=== PATIENT | female | born 1950 | race Hispanic/Latino ===

== ENCOUNTER 2024-06-03 12:00 | Emergency (ER) | payer OTHER ==
[2024-06-03] MEDS ORDERED: NA CHLORIDE 0.9% 1,000 ML ONE (12:28)
--- OUTSIDE RECORDS SUMMARY | 2024-06-03 15:13 | XMS REPORT | Continuity of Care Document ---
Author Name Unknown Address [address] [facility] [address] [place] [address] Organization [facility] Address [address] [facility] [address] [place] [address] Care Team Providers Care Skirt Clipper Name Role Phone CLAUDIO SALAZAR Primary Care Physician Unavailab Murillo, DR BRIGHT Attending Clinician Unavailconnor COLES, DR BRIGHT Attending Clinician Unavailconnor BUNN, DR VALLE Attending Clinician Unavailsarah BUNN, DR VALLE Attending Clinician Unavaila Suzy Kent Attending Clinician Unavailable Eloy Garay Attending Clinician Unavailable David Wu Attending Clinician Unavailable Zoey Attending Clinician Unavailable Brandy Lees Attending Clinician Unavailable Ilda Garay Attending Clinician Unavailable Sharif Mcnamara Attending Clinician UnavailoScorro Camarillo Attending Clinician UnavailRubi Saucedo Attending Clinician UnavailEduardo Esteban Attending Clinician Unavailable Osito Ratliff Attending Clinician UnavailDR DEANGELO Boggs Admitting Clinician Unavailconnor BUNN, DR VALLE Admitting Clinician Unavaila Eduardo Hernandez Admitting Clinician Unavailable Eloy Garay Admitting Clinician Unavailable Zoey Admitting Clinician Unavailable Garay, Viresh Y Admitting Clinician Unavailable Payers Payer Name Policy Type Policy Number Effective Date Expirati on Date Source [id number] 00:00:00 [id number] 2024 00:00:00 [employer] (MEDICARE REPLACEMENT HMO) [id number] 2021 00:00:00 Problems Condition Name Condition Details Condition Category Status Onset Date Resolution Date Last Treatment Date Treating Clinician Comments Source Dysplastic nevus of skin Dysplastic Nevus of Skin Problem Active 11-10 00:00: 00 [facility] Undernouri shed Undernouri shed Problem Active 11-10 00:00: 00 [facility] Secondary immune deficiency disorder Secondary Immune Deficiency Disorder Problem Active 11-10 00:00: 00 [facility] Loss of appetite Loss of Appetite Problem Active 11-10 00:00: 00 [facility] Angina pectoris Angina Pectoris Problem Active 11-07 00:00: 00 [facility] Osteoarthr itis of knee Osteoarthr itis of Knee Problem Active 06-27 00:00: 00 [facility] Senile purpura Senile Purpura Problem Active 03-28 00:00: 00 [facility] Vascular dementia with behavioral disturbanc e Vascular Dementia with Behavioral Disturbanc e Problem Active 03-28 00:00: 00 [facility] Long-term current use of drug therapy Long-term Current Use of Drug Therapy Problem Active 03-28 00:00: 00 [facility] Arterioscl erotic vascular disease Arterioscl erotic Vascular Disease Problem Active 2021-03 00:00: 00 [facility] Frailty Frailty Problem Active 2021-03 00:00: 00 [facility] Diabetic ketoacidos is Diabetic Ketoacidos is Problem Active 09-24 00:00: 00 [facility] Hypoglycem ia due to type 1 diabetes mellitus Hypoglycem ia Due to Type 1 Diabetes Mellitus Problem Active 09-24 00:00: 00 [facility] Anemia Anemia Problem Active 09-17 00:00: 00 [facility] Senile dementia Senile Dementia Problem Active 09-17 00:00: 00 [facility] Anxiety Anxiety Problem Active 09-17 00:00: 00 [facility] Essential hypertensi on Essential Hypertensi on Problem Active 09-17 00:00: 00 [facility] Normal body mass index Normal Body Mass Index Problem Active 09-17 00:00: 00 [facility] Type 2 diabetes mellitus Type 2 Diabetes Mellitus Problem Active 09-17 00:00: 00 [facility] Hyperlipid emia Hyperlipid emia Problem Active 09-17 00:00: 00 [facility] Allergies, Adverse Reactions, Alerts Allergy Name Allergy Type Status Severity Reaction(s) Onset Date Inactive Date Treating Clinician Comments Source No Known Allergie s DA Active U 2021-03 015 00:00: 00 [facility] are [place] No Known Allergie s DA Active U 08-24 00:00: 00 [facility] are [place] No Known Allergie s DA Active [facility] Social History Smoking Status Start Date Stop Date Source Never Smoker [facility] Medications Ordered Medication Name Filled Medication Name Start Date Stop Date Current Medication? Ordering Clinician Indication Dosage Frequency Signature (SIG) Comments Components Source acetaminoph en 500 mg tablet Take 1 tablet every 8 hours by oral route as needed. acetaminoph en 500 mg tablet Take 1 tablet every 8 hours by oral route as needed. No 1 Q8H acetaminop hen 500 mg tablet Take 1 tablet every 8 hours by oral route as needed. [facility] alcohol swabs APPLY 1 PAD TO AFFECTED AREA FOUR TIMES DAILY FOR 90 DAYS alcohol swabs APPLY 1 PAD TO AFFECTED AREA FOUR TIMES DAILY FOR 90 DAYS No alcohol swabs APPLY 1 PAD TO AFFECTED AREA FOUR TIMES DAILY FOR 90 DAYS [facility] ascorbic acid (vitamin C) 500 mg tablet Take 1 tablet twice a day by oral route. ascorbic acid (vitamin C) 500 mg tablet Take 1 tablet twice a day by oral route. No 1 BID ascorbic acid (vitamin C) 500 mg tablet Take 1 tablet twice a day by oral route. [facility] aspirin 81 mg tablet Take 1 tablet by oral route. aspirin 81 mg tablet Take 1 tablet by oral route. No 1 aspirin 81 mg tablet Take 1 tablet by oral route. [facility] Basaglar KwikPen U-100 Insulin 100 unit/mL (3 mL) subcutaneou s ADMINISTER 20 UNITS UNDER THE SKIN DAILY Basaglar KwikPen U-100 Insulin 100 unit/mL (3 mL) subcutaneou s ADMINISTER 20 UNITS UNDER THE SKIN DAILY No Basaglar KwikPen U-100 Insulin 100 unit/mL (3 mL) subcutaneo us ADMINISTER 20 UNITS UNDER THE SKIN DAILY [facility] BD Delphine 2nd Gen Pen Needle 32 gauge x 5/32" USE FOUR TIMES DAILY DIRECTED BD Delphine 2nd Gen Pen Needle 32 gauge x 5/32" USE FOUR TIMES DAILY DIRECTED No BD Delphine 2nd Gen Pen Needle 32 gauge x 5/32" USE FOUR TIMES DAILY DIRECTED [facility] enalapril maleate 20 mg tablet TAKE 1 TABLET BY MOUTH TWICE DAILY enalapril maleate 20 mg tablet TAKE 1 TABLET BY MOUTH TWICE DAILY No enalapril maleate 20 mg tablet TAKE 1 TABLET BY MOUTH TWICE DAILY [facility] iGlucose Test Strip iGlucose Test Strip No iGlucose Test Strip [facility] lor[facility]epam 1 mg tablet TAKE 1 TABLET BY MOUTH TWICE DAILY NEEDED lorazepam 1 mg tablet TAKE 1 TABLET BY MOUTH TWICE DAILY NEEDED No lorazepam 1 mg tablet TAKE 1 TABLET BY MOUTH TWICE DAILY NEEDED [facility] nifedipine ER 30 mg tablet,exte nded release 24 hr TAKE 1 TABLET BY MOUTH EVERY DAY nifedipine ER 30 mg tablet,exte nded release 24 hr TAKE 1 TABLET BY MOUTH EVERY DAY No nifedipine ER 30 mg tablet,ext ended release 24 hr TAKE 1 TABLET BY MOUTH EVERY DAY [facility] Novolog Flexpen U-100 Insulin aspart 100 unit/mL (3 mL) subcutaneou s ADMINISTER 8 UNITS UNDER THE SKIN BEFORE MEALS. TOTAL DAILY DOSE OF 24 Novolog Flexpen U-100 Insulin aspart 100 unit/mL (3 mL) subcutaneou s ADMINISTER 8 UNITS UNDER THE SKIN BEFORE MEALS. TOTAL DAILY DOSE OF 24 No Novolog Flexpen U-100 Insulin aspart 100 unit/mL (3 mL) subcutaneo us ADMINISTER 8 UNITS UNDER THE SKIN BEFORE MEALS. TOTAL DAILY DOSE OF 24 [facility] ondansetron HCl 4 mg tablet TAKE 1 TABLET BY MOUTH EVERY 6 HOURS NEEDED FOR NAUSEA OR VOMITING ondansetron HCl 4 mg tablet TAKE 1 TABLET BY MOUTH EVERY 6 HOURS NEEDED FOR NAUSEA OR VOMITING No ondansetro n HCl 4 mg tablet TAKE 1 TABLET BY MOUTH EVERY 6 HOURS NEEDED FOR NAUSEA OR VOMITING [facility] OneTouch Delica Plus Lancet 33 gauge USE 4 TIMES DAILY NEEDED OneTouch Delica Plus Lancet 33 gauge USE 4 TIMES DAILY NEEDED No OneTouch Delica Plus Lancet 33 gauge USE 4 TIMES DAILY NEEDED [facility] OneTouch Verio test strips TEST FOUR TIMES DAILY OneTouch Verio test strips TEST FOUR TIMES DAILY No OneTouch Verio test strips TEST FOUR TIMES DAILY [facility] pioglitazon e 15 mg tablet TAKE 1 TABLET BY MOUTH EVERY DAY pioglitazon e 15 mg tablet TAKE 1 TABLET BY MOUTH EVERY DAY No pioglitazo ne 15 mg tablet TAKE 1 TABLET BY MOUTH EVERY DAY [facility] Vitamin 27 mg iron-800 mcg tablet Take 1 tablet every day by oral route for 90 days. Vitamin 27 mg iron-800 mcg tablet Take 1 tablet every day by oral route for 90 days. No 1 Q1D Vitamin 27 mg iron-800 mcg tablet Take 1 tablet every day by oral route for 90 days. [facility] simvastatin 80 mg tablet TAKE 1 TABLET BY MOUTH EVERY DAY IN THE EVENING simvastatin 80 mg tablet TAKE 1 TABLET BY MOUTH EVERY DAY IN THE EVENING No simvastati n 80 mg tablet TAKE 1 TABLET BY MOUTH EVERY DAY IN THE EVENING [facility] thiamine HCl (vitamin B1) 100 mg tablet Take by oral route. thiamine HCl (vitamin B1) 100 mg tablet Take by oral route. No thiamine HCl (vitamin B1) 100 mg tablet Take by oral route. [facility] TRUEplus Pen Needle TRUEplus Pen Needle No TRUEplus Pen Needle [facility] acetaminoph en 500 mg tablet Take 1 tablet every 8 hours by oral route as needed. acetaminoph en 500 mg tablet Take 1 tablet every 8 hours by oral route as needed. No 1 Q8H acetaminop hen 500 mg tablet Take 1 tablet every 8 hours by oral route as needed. [facility] alcohol swabs APPLY 1 PAD TO AFFECTED AREA FOUR TIMES DAILY FOR 90 DAYS alcohol swabs APPLY 1 PAD TO AFFECTED AREA FOUR TIMES DAILY FOR 90 DAYS No alcohol swabs APPLY 1 PAD TO AFFECTED AREA FOUR TIMES DAILY FOR 90 DAYS [facility] ascorbic acid (vitamin C) 500 mg tablet Take 1 tablet twice a day by oral route. ascorbic acid (vitamin C) 500 mg tablet Take 1 tablet twice a day by oral route. No 1 BID ascorbic acid (vitamin C) 500 mg tablet Take 1 tablet twice a day by oral route. [facility] aspirin 81 mg tablet Take 1 tablet by oral route. aspirin 81 mg tablet Take 1 tablet by oral route. No 1 aspirin 81 mg tablet Take 1 tablet by oral route. [facility] Basaglar KwikPen U-100 Insulin 100 unit/mL (3 mL) subcutaneou s ADMINISTER 20 UNITS UNDER THE SKIN DAILY Basaglar KwikPen U-100 Insulin 100 unit/mL (3 mL) subcutaneou s ADMINISTER 20 UNITS UNDER THE SKIN DAILY No Basaglar KwikPen U-100 Insulin 100 unit/mL (3 mL) subcutaneo us ADMINISTER 20 UNITS UNDER THE SKIN DAILY [facility] BD Delphine 2nd Gen Pen Needle 32 gauge x 5/32" USE FOUR TIMES DAILY DIRECTED BD Delphine 2nd Gen Pen Needle 32 gauge x 5/32" USE FOUR TIMES DAILY DIRECTED No BD Delphine 2nd Gen Pen Needle 32 gauge x 5/32" USE FOUR TIMES DAILY DIRECTED [facility] enalapril maleate 20 mg tablet Take 1 tablet twice a day by oral route for 90 days. enalapril maleate 20 mg tablet Take 1 tablet twice a day by oral route for 90 days. No 1 BID enalapril maleate 20 mg tablet Take 1 tablet twice a day by oral route for 90 days. [facility] haloperidol 1 mg tablet Take 1 tablet every day by oral route in the evening for 30 days. haloperidol 1 mg tablet Take 1 tablet every day by oral route in the evening for 30 days. No 1 Q1D haloperido l 1 mg tablet Take 1 tablet every day by oral route in the evening for 30 days. [facility] iGlucose Test Strip iGlucose Test Strip No iGlucose Test Strip [facility] lancets lancets No lancets [facility] lorazepam 1 mg tablet Take 1 tablet twice a day by oral route as needed for 30 days. lorazepam 1 mg tablet Take 1 tablet twice a day by oral route as needed for 30 days. No 1 BID lorazepam 1 mg tablet Take 1 tablet twice a day by oral route as needed for 30 days. [facility] nifedipine ER 30 mg tablet,exte nded release 24 hr Take 1 tablet every day by oral route for 90 days. nifedipine ER 30 mg tablet,exte nded release 24 hr Take 1 tablet every day by oral route for 90 days. No 1 Q1D nifedipine ER 30 mg tablet,ext ended release 24 hr Take 1 tablet every day by oral route for 90 days. [facility] Novolog FlexPen U-100 Insulin aspart 100 unit/mL (3 mL) subcutaneou s ADMINISTER 8 UNITS UNDER THE SKIN BEFORE MEALS. TOTAL DAILY DOSE OF 24 Novolog FlexPen U-100 Insulin aspart 100 unit/mL (3 mL) subcutaneou s ADMINISTER 8 UNITS UNDER THE SKIN BEFORE MEALS. TOTAL DAILY DOSE OF 24 No Novolog FlexPen U-100 Insulin aspart 100 unit/mL (3 mL) subcutaneo us ADMINISTER 8 UNITS UNDER THE SKIN BEFORE MEALS. TOTAL DAILY DOSE OF 24 [facility] ondansetron HCl 4 mg tablet TAKE 1 TABLET BY MOUTH EVERY 6 HOURS NEEDED FOR NAUSEA OR VOMITING ondansetron HCl 4 mg tablet TAKE 1 TABLET BY MOUTH EVERY 6 HOURS NEEDED FOR NAUSEA OR VOMITING No ondansetro n HCl 4 mg tablet TAKE 1 TABLET BY MOUTH EVERY 6 HOURS NEEDED FOR NAUSEA OR VOMITING [facility] OneTouch Delica Plus Lancet 33 gauge USE 4 TIMES DAILY NEEDED OneTouch Delica Plus Lancet 33 gauge USE 4 TIMES DAILY NEEDED No OneTouch Delica Plus Lancet 33 gauge USE 4 TIMES DAILY NEEDED [facility] OneTouch Verio test strips TEST FOUR TIMES DAILY OneTouch Verio test strips TEST FOUR TIMES DAILY No OneTouch Verio test strips TEST FOUR TIMES DAILY [facility] pioglitazon e 15 mg tablet TAKE 1 TABLET BY MOUTH EVERY DAY pioglitazon e 15 mg tablet TAKE 1 TABLET BY MOUTH EVERY DAY No pioglitazo ne 15 mg tablet TAKE 1 TABLET BY MOUTH EVERY DAY [facility] Vitamin 27 mg iron-800 mcg tablet Take 1 tablet every day by oral route for 90 days. Vitamin 27 mg iron-800 mcg tablet Take 1 tablet every day by oral route for 90 days. No 1 Q1D Vitamin 27 mg iron-800 mcg tablet Take 1 tablet every day by oral route for 90 days. [facility] simvastatin 40 mg tablet Take 1 tablet every day by oral route at bedtime for 90 days. simvastatin 40 mg tablet Take 1 tablet every day by oral route at bedtime for 90 days. No 1 Q1D simvastati n 40 mg tablet Take 1 tablet every day by oral route at bedtime for 90 days. [facility] simvastatin 80 mg tablet TAKE 1 TABLET BY MOUTH EVERY DAY simvastatin 80 mg tablet TAKE 1 TABLET BY MOUTH EVERY DAY No simvastati n 80 mg tablet TAKE 1 TABLET BY MOUTH EVERY DAY [facility] thiamine HCl (vitamin B1) 100 mg tablet Take by oral route. thiamine HCl (vitamin B1) 100 mg tablet Take by oral route. No thiamine HCl (vitamin B1) 100 mg tablet Take by oral route. [facility] TRUEplus Pen Needle TRUEplus Pen Needle No TRUEplus Pen Needle [facility] acetaminoph en 500 mg tablet Take 1 tablet every 8 hours by oral route as needed. acetaminoph en 500 mg tablet Take 1 tablet every 8 hours by oral route as needed. No 1 Q8H acetaminop hen 500 mg tablet Take 1 tablet every 8 hours by oral route as needed. [facility] alcohol swabs APPLY 1 PAD TO AFFECTED AREA FOUR TIMES DAILY FOR 90 DAYS alcohol swabs APPLY 1 PAD TO AFFECTED AREA FOUR TIMES DAILY FOR 90 DAYS No alcohol swabs APPLY 1 PAD TO AFFECTED AREA FOUR TIMES DAILY FOR 90 DAYS [facility] ascorbic acid (vitamin C) 500 mg tablet Take 1 tablet twice a day by oral route. ascorbic acid (vitamin C) 500 mg tablet Take 1 tablet twice a day by oral route. No 1 BID ascorbic acid (vitamin C) 500 mg tablet Take 1 tablet twice a day by oral route. [facility] aspirin 81 mg tablet Take 1 tablet by oral route. aspirin 81 mg tablet Take 1 tablet by oral route. No 1 aspirin 81 mg tablet Take 1 tablet by oral route. [facility] atorvastati n 80 mg tablet Take 1 tablet every day by oral route at bedtime for 90 days. atorvastati n 80 mg tablet Take 1 tablet every day by oral route at bedtime for 90 days. No 1 Q1D atorvastat in 80 mg tablet Take 1 tablet every day by oral route at bedtime for 90 days. [facility] Basaglar KwikPen U-100 Insulin 100 unit/mL (3 mL) subcutaneou s ADMINISTER 20 UNITS UNDER THE SKIN DAILY Basaglar KwikPen U-100 Insulin 100 unit/mL (3 mL) subcutaneou s ADMINISTER 20 UNITS UNDER THE SKIN DAILY No Basaglar KwikPen U-100 Insulin 100 unit/mL (3 mL) subcutaneo us ADMINISTER 20 UNITS UNDER THE SKIN DAILY [facility] BD Delphine 2nd Gen Pen Needle 32 gauge x 5/32" TEST BLOOD GLUOCOSE FOUR TIMES DAILY BD Delphine 2nd Gen Pen Needle 32 gauge x 5/32" TEST BLOOD GLUOCOSE FOUR TIMES DAILY No BD Delphine 2nd Gen Pen Needle 32 gauge x 5/32" TEST BLOOD GLUOCOSE FOUR TIMES DAILY [facility] diclofenac 1 % topical gel APPLY 2 GRAMS TO THE AFFECTED AREA(S) BY TOPICAL ROUTE 4 TIMES PER DAY diclofenac 1 % topical gel APPLY 2 GRAMS TO THE AFFECTED AREA(S) BY TOPICAL ROUTE 4 TIMES PER DAY No diclofenac 1 % topical gel APPLY 2 GRAMS TO THE AFFECTED AREA(S) BY TOPICAL ROUTE 4 TIMES PER DAY [facility] enalapril maleate 20 mg tablet Take 1 tablet twice a day by oral route for 90 days. enalapril maleate 20 mg tablet Take 1 tablet twice a day by oral route for 90 days. No 1 BID enalapril maleate 20 mg tablet Take 1 tablet twice a day by oral route for 90 days. [facility] haloperidol 1 mg tablet TAKE 1 TABLET BY MOUTH EVERY DAY IN THE EVENING haloperidol 1 mg tablet TAKE 1 TABLET BY MOUTH EVERY DAY IN THE EVENING No haloperido l 1 mg tablet TAKE 1 TABLET BY MOUTH EVERY DAY IN THE EVENING [facility] lorazepam 1 mg tablet Take 1 tablet twice a day by oral route as needed for 30 days. lorazepam 1 mg tablet Take 1 tablet twice a day by oral route as needed for 30 days. No 1 BID lorazepam 1 mg tablet Take 1 tablet twice a day by oral route as needed for 30 days. [facility] nifedipine ER 30 mg tablet,exte nded release 24 hr Take 1 tablet every day by oral route for 90 days. nifedipine ER 30 mg tablet,exte nded release 24 hr Take 1 tablet every day by oral route for 90 days. No 1 Q1D nifedipine ER 30 mg tablet,ext ended release 24 hr Take 1 tablet every day by oral route for 90 days. [facility] Novolog FlexPen U-100 Insulin aspart 100 unit/mL (3 mL) subcutaneou s ADMINISTER 8 UNITS UNDER THE SKIN BEFORE MEALS. TOTAL DAILY DOSE OF 24 Novolog FlexPen U-100 Insulin aspart 100 unit/mL (3 mL) subcutaneou s ADMINISTER 8 UNITS UNDER THE SKIN BEFORE MEALS. TOTAL DAILY DOSE OF 24 No Novolog FlexPen U-100 Insulin aspart 100 unit/mL (3 mL) subcutaneo us ADMINISTER 8 UNITS UNDER THE SKIN BEFORE MEALS. TOTAL DAILY DOSE OF 24 [facility] ondansetron HCl 4 mg tablet TAKE 1 TABLET BY MOUTH EVERY 6 HOURS NEEDED FOR NAUSEA OR VOMITING ondansetron HCl 4 mg tablet TAKE 1 TABLET BY MOUTH EVERY 6 HOURS NEEDED FOR NAUSEA OR VOMITING No ondansetro n HCl 4 mg tablet TAKE 1 TABLET BY MOUTH EVERY 6 HOURS NEEDED FOR NAUSEA OR VOMITING [facility] OneTouch Delica Plus Lancet 33 gauge TEST BLOOD GLUCOSE THREE TIMES DAILY OneTouch Delica Plus Lancet 33 gauge TEST BLOOD GLUCOSE THREE TIMES DAILY No OneTouch Delica Plus Lancet 33 gauge TEST BLOOD GLUCOSE THREE TIMES DAILY [facility] OneTouch Verio test strips TEST BLOOD GLUCOSE FOUR TIMES DAILY OneTouch Verio test strips TEST BLOOD GLUCOSE FOUR TIMES DAILY No OneTouch Verio test strips TEST BLOOD GLUCOSE FOUR TIMES DAILY [facility] pioglitazon e 15 mg tablet TAKE 1 TABLET BY MOUTH EVERY DAY pioglitazon e 15 mg tablet TAKE 1 TABLET BY MOUTH EVERY DAY No pioglitazo ne 15 mg tablet TAKE 1 TABLET BY MOUTH EVERY DAY [facility] Vitamin 27 mg iron-800 mcg tablet Take 1 tablet every day by oral route for 90 days. Vitamin 27 mg iron-800 mcg tablet Take 1 tablet every day by oral route for 90 days. No 1 Q1D Vitamin 27 mg iron-800 mcg tablet Take 1 tablet every day by oral route for 90 days. [facility] thiamine HCl (vitamin B1) 100 mg tablet Take by oral route. thiamine HCl (vitamin B1) 100 mg tablet Take by oral route. No thiamine HCl (vitamin B1) 100 mg tablet Take by oral route. [facility] TRUEplus Pen Needle TRUEplus Pen Needle No TRUEplus Pen Needle [facility] acetaminoph en 500 mg tablet Take 1 tablet every 8 hours by oral route as needed. acetaminoph en 500 mg tablet Take 1 tablet every 8 hours by oral route as needed. No 1 Q8H acetaminop hen 500 mg tablet Take 1 tablet every 8 hours by oral route as needed. [facility] alcohol swabs APPLY 1 PAD TO AFFECTED AREA FOUR TIMES DAILY FOR 90 DAYS alcohol swabs APPLY 1 PAD TO AFFECTED AREA FOUR TIMES DAILY FOR 90 DAYS No alcohol swabs APPLY 1 PAD TO AFFECTED AREA FOUR TIMES DAILY FOR 90 DAYS [facility] ascorbic acid (vitamin C) 500 mg tablet Take 1 tablet twice a day by oral route. ascorbic acid (vitamin C) 500 mg tablet Take 1 tablet twice a day by oral route. No 1 BID ascorbic acid (vitamin C) 500 mg tablet Take 1 tablet twice a day by oral route. [facility] aspirin 81 mg tablet Take 1 tablet by oral route. aspirin 81 mg tablet Take 1 tablet by oral route. No 1 aspirin 81 mg tablet Take 1 tablet by oral route. [facility] atorvastati n 80 mg tablet TAKE 1 TABLET BY MOUTH EVERY DAY AT BEDTIME atorvastati n 80 mg tablet TAKE 1 TABLET BY MOUTH EVERY DAY AT BEDTIME No atorvastat in 80 mg tablet TAKE 1 TABLET BY MOUTH EVERY DAY AT BEDTIME [facility] Basaglar KwikPen U-100 Insulin 100 unit/mL (3 mL) subcutaneou s ADMINISTER 20 UNITS UNDER THE SKIN DAILY Basaglar KwikPen U-100 Insulin 100 unit/mL (3 mL) subcutaneou s ADMINISTER 20 UNITS UNDER THE SKIN DAILY No Basaglar KwikPen U-100 Insulin 100 unit/mL (3 mL) subcutaneo us ADMINISTER 20 UNITS UNDER THE SKIN DAILY [facility] BD Delphine 2nd Gen Pen Needle 32 gauge x 5/32" TEST BLOOD GLUOCOSE FOUR TIMES DAILY BD Delphine 2nd Gen Pen Needle 32 gauge x 5/32" TEST BLOOD GLUOCOSE FOUR TIMES DAILY No BD Delphine 2nd Gen Pen Needle 32 gauge x 5/32" TEST BLOOD GLUOCOSE FOUR TIMES DAILY [facility] diclofenac 1 % topical gel APPLY 2 GRAMS TO THE AFFECTED AREAS FOUR TIMES DAILY diclofenac 1 % topical gel APPLY 2 GRAMS TO THE AFFECTED AREAS FOUR TIMES DAILY No diclofenac 1 % topical gel APPLY 2 GRAMS TO THE AFFECTED AREAS FOUR TIMES DAILY [facility] enalapril maleate 20 mg tablet Take 1 tablet twice a day by oral route for 90 days. enalapril maleate 20 mg tablet Take 1 tablet twice a day by oral route for 90 days. No 1 BID enalapril maleate 20 mg tablet Take 1 tablet twice a day by oral route for 90 days. [facility] haloperidol 1 mg tablet TAKE 1 TABLET BY MOUTH EVERY DAY IN THE EVENING haloperidol 1 mg tablet TAKE 1 TABLET BY MOUTH EVERY DAY IN THE EVENING No haloperido l 1 mg tablet TAKE 1 TABLET BY MOUTH EVERY DAY IN THE EVENING [facility] lorazepam 1 mg tablet TAKE 1 TABLET BY MOUTH TWICE DAILY NEEDED lorazepam 1 mg tablet TAKE 1 TABLET BY MOUTH TWICE DAILY NEEDED No lorazepam 1 mg tablet TAKE 1 TABLET BY MOUTH TWICE DAILY NEEDED [facility] Namenda 5 mg tablet Take 1 tablet every day by oral route for 30 days. Namenda 5 mg tablet Take 1 tablet every day by oral route for 30 days. No 1 Q1D Namenda 5 mg tablet Take 1 tablet every day by oral route for 30 days. [facility] nifedipine ER 30 mg tablet,exte nded release 24 hr Take 1 tablet every day by oral route for 90 days. nifedipine ER 30 mg tablet,exte nded release 24 hr Take 1 tablet every day by oral route for 90 days. No 1 Q1D nifedipine ER 30 mg tablet,ext ended release 24 hr Take 1 tablet every day by oral route for 90 days. [facility] Novolog FlexPen U-100 Insulin aspart 100 unit/mL (3 mL) subcutaneou s ADMINISTER 8 UNITS UNDER THE SKIN BEFORE MEALS. TOTAL DAILY DOSE OF 24 Novolog FlexPen U-100 Insulin aspart 100 unit/mL (3 mL) subcutaneou s ADMINISTER 8 UNITS UNDER THE SKIN BEFORE MEALS. TOTAL DAILY DOSE OF 24 No Novolog FlexPen U-100 Insulin aspart 100 unit/mL (3 mL) subcutaneo us ADMINISTER 8 UNITS UNDER THE SKIN BEFORE MEALS. TOTAL DAILY DOSE OF 24 [facility] ondansetron HCl 4 mg tablet TAKE 1 TABLET BY MOUTH EVERY 6 HOURS NEEDED FOR NAUSEA OR VOMITING ondansetron HCl 4 mg tablet TAKE 1 TABLET BY MOUTH EVERY 6 HOURS NEEDED FOR NAUSEA OR VOMITING No ondansetro n HCl 4 mg tablet TAKE 1 TABLET BY MOUTH EVERY 6 HOURS NEEDED FOR NAUSEA OR VOMITING [facility] OneTouch Delica Plus Lancet 33 gauge USE FOUR TIMES DAILY DIRECTED OneTouch Delica Plus Lancet 33 gauge USE FOUR TIMES DAILY DIRECTED No OneTouch Delica Plus Lancet 33 gauge USE FOUR TIMES DAILY DIRECTED [facility] OneTouch Verio test strips TEST BLOOD GLUCOSE FOUR TIMES DAILY OneTouch Verio test strips TEST BLOOD GLUCOSE FOUR TIMES DAILY No OneTouch Verio test strips TEST BLOOD GLUCOSE FOUR TIMES DAILY [facility] pioglitazon e 15 mg tablet TAKE 1 TABLET BY MOUTH EVERY DAY pioglitazon e 15 mg tablet TAKE 1 TABLET BY MOUTH EVERY DAY No pioglitazo ne 15 mg tablet TAKE 1 TABLET BY MOUTH EVERY DAY [facility] Vitamin 27 mg iron-800 mcg tablet Take 1 tablet every day by oral route for 90 days. Vitamin 27 mg iron-800 mcg tablet Take 1 tablet every day by oral route for 90 days. No 1 Q1D Vitamin 27 mg iron-800 mcg tablet Take 1 tablet every day by oral route for 90 days. [facility] thiamine HCl (vitamin B1) 100 mg tablet Take by oral route. thiamine HCl (vitamin B1) 100 mg tablet Take by oral route. No thiamine HCl (vitamin B1) 100 mg tablet Take by oral route. [facility] TRUEplus Pen Needle TRUEplus Pen Needle No TRUEplus Pen Needle [facility] acetaminoph en 500 mg tablet Take 1 tablet every 8 hours by oral route as needed. acetaminoph en 500 mg tablet Take 1 tablet every 8 hours by oral route as needed. No 1 Q8H acetaminop hen 500 mg tablet Take 1 tablet every 8 hours by oral route as needed. [facility] alcohol swabs APPLY 1 PAD TO AFFECTED AREA FOUR TIMES DAILY FOR 90 DAYS alcohol swabs APPLY 1 PAD TO AFFECTED AREA FOUR TIMES DAILY FOR 90 DAYS No alcohol swabs APPLY 1 PAD TO AFFECTED AREA FOUR TIMES DAILY FOR 90 DAYS [facility] ascorbic acid (vitamin C) 500 mg tablet Take 1 tablet twice a day by oral route. ascorbic acid (vitamin C) 500 mg tablet Take 1 tablet twice a day by oral route. No 1 BID ascorbic acid (vitamin C) 500 mg tablet Take 1 tablet twice a day by oral route. [facility] aspirin 81 mg tablet Take 1 tablet by oral route. aspirin 81 mg tablet Take 1 tablet by oral route. No 1 aspirin 81 mg tablet Take 1 tablet by oral route. [facility] atorvastati n 80 mg tablet Take 1 tablet every day by oral route at bedtime for 90 days. atorvastati n 80 mg tablet Take 1 tablet every day by oral route at bedtime for 90 days. No 1 Q1D atorvastat in 80 mg tablet Take 1 tablet every day by oral route at bedtime for 90 days. [facility] Basaglar KwikPen U-100 Insulin 100 unit/mL (3 mL) subcutaneou s ADMINISTER 20 UNITS UNDER THE SKIN DAILY Basaglar KwikPen U-100 Insulin 100 unit/mL (3 mL) subcutaneou s ADMINISTER 20 UNITS UNDER THE SKIN DAILY No Marquita Perez U-100 Insulin 100 unit/mL (3 mL) subcutaneo us ADMINISTER 20 UNITS UNDER THE SKIN DAILY [facility] BD Delphine 2nd Gen Pen Needle 32 gauge x 5/32" TEST BLOOD GLUOCOSE FOUR TIMES DAILY BD Delphine 2nd Gen Pen Needle 32 gauge x 5/32" TEST BLOOD GLUOCOSE FOUR TIMES DAILY No BD Delphine 2nd Gen Pen Needle 32 gauge x 5/32" TEST BLOOD GLUOCOSE FOUR TIMES DAILY [facility] diclofenac 1 % topical gel APPLY 2 GRAMS TO THE AFFECTED AREAS FOUR TIMES DAILY diclofenac 1 % topical gel APPLY 2 GRAMS TO THE AFFECTED AREAS FOUR TIMES DAILY No diclofenac 1 % topical gel APPLY 2 GRAMS TO THE AFFECTED AREAS FOUR TIMES DAILY [facility] enalapril maleate 20 mg tablet Take 1 tablet twice a day by oral route for 90 days. enalapril maleate 20 mg tablet Take 1 tablet twice a day by oral route for 90 days. No 1 BID enalapril maleate 20 mg tablet Take 1 tablet twice a day by oral route for 90 days. [facility] haloperidol 1 mg tablet Take 1 tablet every day by oral route in the evening for 30 days. haloperidol 1 mg tablet Take 1 tablet every day by oral route in the evening for 30 days. No 1 Q1D haloperido l 1 mg tablet Take 1 tablet every day by oral route in the evening for 30 days. [facility] lorazepam 1 mg tablet TAKE 1 TABLET BY MOUTH TWICE DAILY NEEDED lorazepam 1 mg tablet TAKE 1 TABLET BY MOUTH TWICE DAILY NEEDED No lorazepam 1 mg tablet TAKE 1 TABLET BY MOUTH TWICE DAILY NEEDED [facility] megestrol 400 mg/10 mL (40 mg/mL) oral suspension Take 10 mL 3 times a day by oral route for 30 days. megestrol 400 mg/10 mL (40 mg/mL) oral suspension Take 10 mL 3 times a day by oral route for 30 days. No 10mL TID megestrol 400 mg/10 mL (40 mg/mL) oral suspension Take 10 mL 3 times a day by oral route for 30 days. [facility] nifedipine ER 30 mg tablet,exte nded release 24 hr Take 1 tablet every day by oral route for 90 days. nifedipine ER 30 mg tablet,exte nded release 24 hr Take 1 tablet every day by oral route for 90 days. No 1 Q1D nifedipine ER 30 mg tablet,ext ended release 24 hr Take 1 tablet every day by oral route for 90 days. [facility] Novolog FlexPen U-100 Insulin aspart 100 unit/mL (3 mL) subcutaneou s ADMINISTER 8 UNITS UNDER THE SKIN BEFORE MEALS. TOTAL DAILY DOSE OF 24 Novolog FlexPen U-100 Insulin aspart 100 unit/mL (3 mL) subcutaneou s ADMINISTER 8 UNITS UNDER THE SKIN BEFORE MEALS. TOTAL DAILY DOSE OF 24 No Novolog FlexPen U-100 Insulin aspart 100 unit/mL (3 mL) subcutaneo us ADMINISTER 8 UNITS UNDER THE SKIN BEFORE MEALS. TOTAL DAILY DOSE OF 24 [facility] ondansetron HCl 4 mg tablet TAKE 1 TABLET BY MOUTH EVERY 6 HOURS NEEDED FOR NAUSEA OR VOMITING ondansetron HCl 4 mg tablet TAKE 1 TABLET BY MOUTH EVERY 6 HOURS NEEDED FOR NAUSEA OR VOMITING No ondansetro n HCl 4 mg tablet TAKE 1 TABLET BY MOUTH EVERY 6 HOURS NEEDED FOR NAUSEA OR VOMITING [facility] OneTouch Delica Plus Lancet 33 gauge USE FOUR TIMES DAILY DIRECTED OneTouch Delica Plus Lancet 33 gauge USE FOUR TIMES DAILY DIRECTED No OneTouch Delica Plus Lancet 33 gauge USE FOUR TIMES DAILY DIRECTED [facility] OneTouch Verio test strips TEST BLOOD GLUCOSE FOUR TIMES DAILY OneTouch Verio test strips TEST BLOOD GLUCOSE FOUR TIMES DAILY No OneTouch Verio test strips TEST BLOOD GLUCOSE FOUR TIMES DAILY [facility] Vitamin 27 mg iron-800 mcg tablet Take 1 tablet every day by oral route for 90 days. Vitamin 27 mg iron-800 mcg tablet Take 1 tablet every day by oral route for 90 days. No 1 Q1D Vitamin 27 mg iron-800 mcg tablet Take 1 tablet every day by oral route for 90 days. [facility] thiamine HCl (vitamin B1) 100 mg tablet Take by oral route. thiamine HCl (vitamin B1) 100 mg tablet Take by oral route. No thiamine HCl (vitamin B1) 100 mg tablet Take by oral route. [facility] TRUEplus Pen Needle TRUEplus Pen Needle No TRUEplus Pen Needle [facility] acetaminoph en 500 mg tablet Take 1 tablet every 8 hours by oral route as needed. acetaminoph en 500 mg tablet Take 1 tablet every 8 hours by oral route as needed. No 1 Q8H acetaminop hen 500 mg tablet Take 1 tablet every 8 hours by oral route as needed. [facility] alcohol swabs APPLY 1 PAD TO AFFECTED AREA FOUR TIMES DAILY FOR 90 DAYS alcohol swabs APPLY 1 PAD TO AFFECTED AREA FOUR TIMES DAILY FOR 90 DAYS No alcohol swabs APPLY 1 PAD TO AFFECTED AREA FOUR TIMES DAILY FOR 90 DAYS [facility] ascorbic acid (vitamin C) 500 mg tablet Take 1 tablet twice a day by oral route. ascorbic acid (vitamin C) 500 mg tablet Take 1 tablet twice a day by oral route. No 1 BID ascorbic acid (vitamin C) 500 mg tablet Take 1 tablet twice a day by oral route. [facility] aspirin 81 mg tablet Take 1 tablet by oral route. aspirin 81 mg tablet Take 1 tablet by oral route. No 1 aspirin 81 mg tablet Take 1 tablet by oral route. [facility] atorvastati n 80 mg tablet Take 1 tablet every day by oral route at bedtime for 90 days. atorvastati n 80 mg tablet Take 1 tablet every day by oral route at bedtime for 90 days. No 1 Q1D atorvastat in 80 mg tablet Take 1 tablet every day by oral route at bedtime for 90 days. [facility] Basaglar KwikPen U-100 Insulin 100 unit/mL (3 mL) subcutaneou s ADMINISTER 20 UNITS UNDER THE SKIN DAILY Basaglar KwikPen U-100 Insulin 100 unit/mL (3 mL) subcutaneou s ADMINISTER 20 UNITS UNDER THE SKIN DAILY No Basaglar KwikPen U-100 Insulin 100 unit/mL (3 mL) subcutaneo us ADMINISTER 20 UNITS UNDER THE SKIN DAILY [facility] BD Delphine 2nd Gen Pen Needle 32 gauge x 5/32" TEST BLOOD GLUOCOSE FOUR TIMES DAILY BD Delphine 2nd Gen Pen Needle 32 gauge x 5/32" TEST BLOOD GLUOCOSE FOUR TIMES DAILY No BD Delphine 2nd Gen Pen Needle 32 gauge x 5/32" TEST BLOOD GLUOCOSE FOUR TIMES DAILY [facility] diclofenac 1 % topical gel APPLY 2 GRAMS TO THE AFFECTED AREAS FOUR TIMES DAILY diclofenac 1 % topical gel APPLY 2 GRAMS TO THE AFFECTED AREAS FOUR TIMES DAILY No diclofenac 1 % topical gel APPLY 2 GRAMS TO THE AFFECTED AREAS FOUR TIMES DAILY [facility] enalapril maleate 20 mg tablet Take 1 tablet twice a day by oral route for 90 days. enalapril maleate 20 mg tablet Take 1 tablet twice a day by oral route for 90 days. No 1 BID enalapril maleate 20 mg tablet Take 1 tablet twice a day by oral route for 90 days. [facility] haloperidol 1 mg tablet Take 1 tablet every day by oral route in the evening for 90 days. haloperidol 1 mg tablet Take 1 tablet every day by oral route in the evening for 90 days. No 1 Q1D haloperido l 1 mg tablet Take 1 tablet every day by oral route in the evening for 90 days. [facility] lorazepam 1 mg tablet TAKE 1 TABLET BY MOUTH TWICE DAILY NEEDED lorazepam 1 mg tablet TAKE 1 TABLET BY MOUTH TWICE DAILY NEEDED No lorazepam 1 mg tablet TAKE 1 TABLET BY MOUTH TWICE DAILY NEEDED [facility] megestrol 400 mg/10 mL (40 mg/mL) oral suspension SHAKE LIQUID AND TAKE 10 ML BY MOUTH THREE TIMES DAILY megestrol 400 mg/10 mL (40 mg/mL) oral suspension SHAKE LIQUID AND TAKE 10 ML BY MOUTH THREE TIMES DAILY No megestrol 400 mg/10 mL (40 mg/mL) oral suspension SHAKE LIQUID AND TAKE 10 ML BY MOUTH THREE TIMES DAILY [facility] nifedipine ER 30 mg tablet,exte nded release 24 hr Take 1 tablet every day by oral route for 90 days. nifedipine ER 30 mg tablet,exte nded release 24 hr Take 1 tablet every day by oral route for 90 days. No 1 Q1D nifedipine ER 30 mg tablet,ext ended release 24 hr Take 1 tablet every day by oral route for 90 days. [facility] Novolog FlexPen U-100 Insulin aspart 100 unit/mL (3 mL) subcutaneou s ADMINISTER 8 UNITS UNDER THE SKIN BEFORE MEALS. TOTAL DAILY DOSE OF 24 Novolog FlexPen U-100 Insulin aspart 100 unit/mL (3 mL) subcutaneou s ADMINISTER 8 UNITS UNDER THE SKIN BEFORE MEALS. TOTAL DAILY DOSE OF 24 No Novolog FlexPen U-100 Insulin aspart 100 unit/mL (3 mL) subcutaneo us ADMINISTER 8 UNITS UNDER THE SKIN BEFORE MEALS. TOTAL DAILY DOSE OF 24 [facility] ondansetron HCl 4 mg tablet TAKE 1 TABLET BY MOUTH EVERY 6 HOURS NEEDED FOR NAUSEA OR VOMITING ondansetron HCl 4 mg tablet TAKE 1 TABLET BY MOUTH EVERY 6 HOURS NEEDED FOR NAUSEA OR VOMITING No ondansetro n HCl 4 mg tablet TAKE 1 TABLET BY MOUTH EVERY 6 HOURS NEEDED FOR NAUSEA OR VOMITING [facility] OneTouch Delica Plus Lancet 33 gauge USE FOUR TIMES DAILY DIRECTED OneTouch Delica Plus Lancet 33 gauge USE FOUR TIMES DAILY DIRECTED No OneTouch Delica Plus Lancet 33 gauge USE FOUR TIMES DAILY DIRECTED [facility] OneTouch Verio test strips TEST BLOOD GLUCOSE FOUR TIMES DAILY OneTouch Verio test strips TEST BLOOD GLUCOSE FOUR TIMES DAILY No OneTouch Verio test strips TEST BLOOD GLUCOSE FOUR TIMES DAILY [facility] Vitamin 27 mg iron-800 mcg tablet Take 1 tablet every day by oral route for 90 days. Vitamin 27 mg iron-800 mcg tablet Take 1 tablet every day by oral route for 90 days. No 1 Q1D Vitamin 27 mg iron-800 mcg tablet Take 1 tablet every day by oral route for 90 days. [facility] thiamine HCl (vitamin B1) 100 mg tablet Take by oral route. thiamine HCl (vitamin B1) 100 mg tablet Take by oral route. No thiamine HCl (vitamin B1) 100 mg tablet Take by oral route. [facility] TRUEplus Pen Needle TRUEplus Pen Needle No TRUEplus Pen Needle [facility] acetaminoph en 500 mg tablet Take 1 tablet every 8 hours by oral route as needed. acetaminoph en 500 mg tablet Take 1 tablet every 8 hours by oral route as needed. No 1 Q8H acetaminop hen 500 mg tablet Take 1 tablet every 8 hours by oral route as needed. [facility] alcohol swabs APPLY 1 PAD TO AFFECTED AREA FOUR TIMES DAILY FOR 90 DAYS alcohol swabs APPLY 1 PAD TO AFFECTED AREA FOUR TIMES DAILY FOR 90 DAYS No alcohol swabs APPLY 1 PAD TO AFFECTED AREA FOUR TIMES DAILY FOR 90 DAYS [facility] ascorbic acid (vitamin C) 500 mg tablet Take 1 tablet twice a day by oral route. ascorbic acid (vitamin C) 500 mg tablet Take 1 tablet twice a day by oral route. No 1 BID ascorbic acid (vitamin C) 500 mg tablet Take 1 tablet twice a day by oral route. [facility] aspirin 81 mg tablet Take 1 tablet by oral route. aspirin 81 mg tablet Take 1 tablet by oral route. No 1 aspirin 81 mg tablet Take 1 tablet by oral route. [facility] Basaglar KwikPen U-100 Insulin 100 unit/mL (3 mL) subcutaneou s Inject 14 units every day by subcutaneou s route in the morning for 90 days. Basaglar KwikPen U-100 Insulin 100 unit/mL (3 mL) subcutaneou s Inject 14 units every day by subcutaneou s route in the morning for 90 days. No Basaglar KwikPen U-100 Insulin 100 unit/mL (3 mL) subcutaneo us Inject 14 units every day by subcutaneo us route in the morning for 90 days. [facility] BD Delphine 2nd Gen Pen Needle 32 gauge x 5/32" USE SUBCUTANEOU SLY EVERY MORNING AND AT BEDTIME BD Delphine 2nd Gen Pen Needle 32 gauge x 5/32" USE SUBCUTANEOU SLY EVERY MORNING AND AT BEDTIME No BD Delphine 2nd Gen Pen Needle 32 gauge x 5/32" USE SUBCUTANEO USLY EVERY MORNING AND AT BEDTIME [facility] donepezil 10 mg tablet TAKE 1 TABLET BY MOUTH EVERY DAY donepezil 10 mg tablet TAKE 1 TABLET BY MOUTH EVERY DAY No donepezil 10 mg tablet TAKE 1 TABLET BY MOUTH EVERY DAY [facility] enalapril maleate 20 mg tablet TAKE 1 TABLET BY MOUTH TWICE DAILY enalapril maleate 20 mg tablet TAKE 1 TABLET BY MOUTH TWICE DAILY No enalapril maleate 20 mg tablet TAKE 1 TABLET BY MOUTH TWICE DAILY [facility] iGlucose Test Strip iGlucose Test Strip No iGlucose Test Strip [facility] lancets lancets No lancets [facility] lorazepam lorazepam No lorazepam [facility] lorazepam 1 mg tablet TAKE 1 TABLET BY MOUTH TWICE DAILY NEEDED lorazepam 1 mg tablet TAKE 1 TABLET BY MOUTH TWICE DAILY NEEDED No lorazepam 1 mg tablet TAKE 1 TABLET BY MOUTH TWICE DAILY NEEDED [facility] nifedipine ER 30 mg tablet,exte nded release 24 hr TAKE 1 TABLET BY MOUTH EVERY DAY nifedipine ER 30 mg tablet,exte nded release 24 hr TAKE 1 TABLET BY MOUTH EVERY DAY No nifedipine ER 30 mg tablet,ext ended release 24 hr TAKE 1 TABLET BY MOUTH EVERY DAY [facility] Novolog Flexpen U-100 Insulin Novolog Flexpen U-100 Insulin No Novolog Flexpen U-100 Insulin [facility] Novolog Flexpen U-100 Insulin aspart 100 unit/mL (3 mL) subcutaneou s Inject 8 units 3 times a day by subcutaneou s route for 90 days. Novolog Flexpen U-100 Insulin aspart 100 unit/mL (3 mL) subcutaneou s Inject 8 units 3 times a day by subcutaneou s route for 90 days. No 8unit(s ) TID Novolog Flexpen U-100 Insulin aspart 100 unit/mL (3 mL) subcutaneo us Inject 8 units 3 times a day by subcutaneo us route for 90 days. [facility] OneTouch Delica Plus Lancet 33 gauge USE 4 TIMES DAILY NEEDED OneTouch Delica Plus Lancet 33 gauge USE 4 TIMES DAILY NEEDED No OneTouch Delica Plus Lancet 33 gauge USE 4 TIMES DAILY NEEDED [facility] OneTouch Ultra Test strips TEST BLOOD GLUCOSE FOUR TIMES DAILY OneTouch Ultra Test strips TEST BLOOD GLUCOSE FOUR TIMES DAILY No OneTouch Ultra Test strips TEST BLOOD GLUCOSE FOUR TIMES DAILY [facility] Vitamin 27 mg iron-800 mcg tablet Take 1 tablet every day by oral route for 90 days. Vitamin 27 mg iron-800 mcg tablet Take 1 tablet every day by oral route for 90 days. No 1 Q1D Vitamin 27 mg iron-800 mcg tablet Take 1 tablet every day by oral route for 90 days. [facility] simvastatin 80 mg tablet TAKE 1 TABLET BY MOUTH EVERY DAY IN THE EVENING simvastatin 80 mg tablet TAKE 1 TABLET BY MOUTH EVERY DAY IN THE EVENING No simvastati n 80 mg tablet TAKE 1 TABLET BY MOUTH EVERY DAY IN THE EVENING [facility] thiamine HCl (vitamin B1) 100 mg tablet Take by oral route. thiamine HCl (vitamin B1) 100 mg tablet Take by oral route. No thiamine HCl (vitamin B1) 100 mg tablet Take by oral route. [facility] triamcinolo ne 0.1 % topical ointment and dimethicone 5 % topical cream triamcinolo ne 0.1 % topical ointment and dimethicone 5 % topical cream No triamcinol one 0.1 % topical ointment and dimethicon e 5 % topical cream [facility] TRUEplus Pen Needle TRUEplus Pen Needle No TRUEplus Pen Needle [facility] Vital Signs Vital Name Observation Time Observation Value Comments S dariana Weight 2024-05-23 07:00:00 52.9 KG Weight 2024-05-09 12:31:00 52.9 KG Height 2024-05-08 04:18:00 160.02 CM Weight 2024-05-05 18:49:00 50 KG BMI (Body Mass Index) 2023-01-29 00:00:00 18.2 kg/m2 [facility] Height 2023-01-29 00:00:00 64 [in_i] [facility] Body Weight 2023-01-29 00:00:00 106 [lb_av] [facility] BP Diastolic 2023-01-29 00:00:00 69 mm[Hg] [facility] BP Systolic 2023-01-29 00:00:00 110 mm[Hg] [facility] Height 2022-11-07 00:00:00 64 [in_i] [facility] BMI (Body Mass Index) 2022-11-07 00:00:00 18.5 kg/m2 [facility] BP Diastolic 2022-11-07 00:00:00 54 mm[Hg] [facility] BP Systolic 2022-11-07 00:00:00 105 mm[Hg] [facility] Body Weight 2022-11-07 00:00:00 108 [lb_av] [facility] BP Diastolic 2022-07-30 00:00:00 61 mm[Hg] [facility] Height 2022-07-30 00:00:00 64 [in_i] [facility] BMI (Body Mass Index) 2022-07-30 00:00:00 19.6 kg/m2 [facility] BP Systolic 2022-07-30 00:00:00 95 mm[Hg] [facility] Body Weight 2022-07-30 00:00:00 114 [lb_av] [facility] BP Diastolic 2022-06-27 00:00:00 70 mm[Hg] [facility] Height 2022-06-27 00:00:00 64 [in_i] [facility] BMI (Body Mass Index) 2022-06-27 00:00:00 19.2 kg/m2 [facility] BP Systolic 2022-06-27 00:00:00 108 mm[Hg] [facility] Body Weight 2022-06-27 00:00:00 112 [lb_av] [facility] BP Diastolic 2022-03-28 00:00:00 64 mm[Hg] [facility] Height 2022-03-28 00:00:00 64 [in_i] [facility] BMI (Body Mass Index) 2022-03-28 00:00:00 20.6 kg/m2 [facility] BP Systolic 2022-03-28 00:00:00 100 mm[Hg] [facility] Body Weight 2022-03-28 00:00:00 120 [lb_av] [facility] BP Diastolic 2022-01-17 00:00:00 66 mm[Hg] [facility] Height 2022-01-17 00:00:00 64 [in_i] [facility] BMI (Body Mass Index) 2022-01-17 00:00:00 21.3 kg/m2 [facility] BP Systolic 2022-01-17 00:00:00 128 mm[Hg] [facility] Body Weight 2022-01-17 00:00:00 124 [lb_av] [facility] BP Diastolic 2021-09-24 00:00:00 70 mm[Hg] [facility] Height 2021-09-24 00:00:00 64 [in_i] [facility] BMI (Body Mass Index) 2021-09-24 00:00:00 20.3 kg/m2 [facility] BP Systolic 2021-09-24 00:00:00 150 mm[Hg] [facility] Body Weight 2021-09-24 00:00:00 118 [lb_av] [facility] BP Diastolic 2021-09-17 00:00:00 60 mm[Hg] [facility] Height 2021-09-17 00:00:00 64 [in_i] [facility] BMI (Body Mass Index) 2021-09-17 00:00:00 20.7 kg/m2 [facility] BP Systolic 2021-09-17 00:00:00 120 mm[Hg] [facility] Body Weight 2021-09-17 00:00:00 120.8 [lb_av] [facility] Procedures Procedure Date / Time Performed Performing Clinician Source ankle brachial index 2022-11-07 00:00:00 [facility] Practice electrocardiogram 2022-11-07 00:00:00 [facility] MAMMO, screening, digital, bilateral 2022-01-10 00:00:00 [facility] Procedure on Gallbladder [facility] Plan of Care Planned Activity Planned Date Details Comments Source Diagnostic Test Pending 2023-01-29 00:00:00 CMP, serum or plasma [code = CMP, serum or plasma] [facility] Diagnostic Test Pending 2023-01-29 00:00:00 HbA1c (hemoglobin A1c), blood [code = HbA1c (hemoglobin A1c), blood] [facility] Instructions [facility] Practice Encounters Start Date/Time End Date/Time Encounter Type Admission Type Attending Clinicians Care Facility Care Department Encounter ID Source 2024-05-05 18:56:00 2024-05-31 19:24:00 Inpatient E DEANGELO COLES MATTHEW [facility] SCU [id number] [facility] 2024-05-05 16:31:00 2024-05-05 16:31:00 Emergency E LEONADR BUNN COURTNEY [facility] ECC [id number] [facility] 2024-05-04 16:07:00 2024-05-05 00:05:00 Emergency EM Suzy Escobedo [facility] EMMANUEL [id number] [facility] [place] 2024-02-24 14:14:00 2024-02-28 14:22:00 Inpatient EM Eloy Garay [facility] IMCU [id number] [facility] are [facility] 2024-01-15 16:12:00 2024-01-15 20:08:00 Emergency EM David Wu [facility] EMMANUEL [id number] [facility] 2023-04-19 00:00:00 2023-04-19 00:00:00 Outpatient Ben_P_H FISH VFP VFP [id number] [facility] e 2023-03-18 14:21:00 2023-03-18 16:14:00 Emergency EM NabeelBrandy HCANC EMMANUEL [id number] [facility] 2023-01-29 00:00:00 2023-01-29 00:00:00 Outpatient Shepard_P_H OU_MD VFP VFP [id number] [facility] 2023-01-29 00:00:00 2023-01-29 00:00:00 Outpatient VFP VFP [id number] [facility] 2023-01-29 00:00:00 2023-01-29 00:00:00 Eduardo Contreras MD: [address], [place] [address] , Ph. [place]FP [place] [facility] - [place] [id number] [facility] 2022-11-07 00:00:00 2022-11-07 00:00:00 Outpatient Shepard_P_H OU_MD VFP VFP [id number] [facility] 2022-11-07 00:00:00 2022-11-07 00:00:00 Eduardo Contreras MD: [address], [place] [address] , [place]. [place] [facility] [place] [id number] [facility] 2022-11-06 00:00:00 2022-11-06 00:00:00 Outpatient Shepard_P_H OU_MD VFP VFP [id number] [facility] 2022-09-05 00:00:00 2022-09-05 00:00:00 Outpatient Shepard_P_H OU_MD VFP VFP [id number] [facility] 2022-09-05 00:00:00 2022-09-05 00:00:00 Outpatient VFP VFP [id number] [facility] 2022-09-05 00:00:00 2022-09-05 00:00:00 Outpatient VFP VFP [id number] [facility] 2022-09-05 00:00:00 2022-09-05 00:00:00 Outpatient VFP VFP [id number] [facility] 2022-07-30 00:00:00 2022-07-30 00:00:00 Outpatient Shepard_P VFP VFP [id number] [facility] 2022-07-30 00:00:00 2022-07-30 00:00:00 Eduardo Contreras MD: [address], [place] [address] , Ph. [place] [facility] [place] [id number] [facility] 2022-06-30 00:00:00 2022-06-30 00:00:00 Outpatient Shepard_P VFP VFP [id number] [facility] 2022-06-27 00:00:00 2022-06-27 00:00:00 Eduardo Contreras MD: [address], [place] [address] , Ph. [place] [facility] [place] [id number] [facility] 2022-06-25 00:00:00 2022-06-25 00:00:00 Outpatient Shepard_P VFP VFP [id number] [facility] 2022-05-29 12:22:00 2022-05-30 15:51:00 Inpatient Ilda Wallis [facility] [id number] [facility] 2022-03-31 00:00:00 2022-03-31 00:00:00 Outpatient Shepard_P VFP VFP [id number] [facility] 2022-03-28 00:00:00 2022-03-28 00:00:00 Outpatient Shepard_P VFP VFP [id number] [facility] 2022-03-28 00:00:00 2022-03-28 00:00:00 Eduardo Contreras MD: [address], [place] [address] , Ph. [place]FP [place] [facility] [place] [id number] [facility] 2022-03-25 00:00:00 2022-03-25 00:00:00 Outpatient Shepard_P VFP VFP [id number] [facility] 2022-01-17 00:00:00 2022-01-17 00:00:00 Outpatient Shepard_P VFP VFP [id number] [facility] 2022-01-17 00:00:00 2022-01-17 00:00:00 Eduarod Contreras MD: [address], [place] [address] , Ph. [place]FP [place] [facility] - [place] - [place] [id number] [facility] e 2021-12-14 11:01:00 2021-12-14 15:00:00 Emergency EM Anders Sharif [facility] EMM[facility] [id number] [facility] 2021-12-14 09:47:00 2021-12-14 10:40:00 Emergency EM [facility] [id number] [facility] 2021-11-08 00:00:00 2021-11-08 00:00:00 Outpatient Shepard_P VFP VFP [id number] [facility] 2021-10-25 00:00:00 2021-10-25 00:00:00 Outpatient Shepard_P VFP VFP [id number] [facility] 2021-09-30 00:00:00 2021-09-30 00:00:00 Outpatient Shepard_P VFP VFP [id number] [facility] 2021-09-25 06:20:00 2021-09-25 08:11:00 Emergency EM Rubi Garay [facility] [id number] [facility] 2021-09-24 04:26:00 2021-09-24 04:26:00 Outpatient Shepard_P VFP VFP [id number] [facility] 2021-09-24 00:00:00 2021-09-24 00:00:00 Eduardo Contreras MD: [address], [place] [address] , Ph. VFP [place] - [facility] - [place] [id number] [facility] 2021-09-18 11:51:00 2021-09-20 15:42:00 Inpatient EM Eduardo Contreras [facility] TE[facility] [id number] [facility] 2021-09-18 11:51:00 2021-09-20 15:42:00 Inpatient EM ContrerasEduardo [facility] TELE [id number] [facility] 2021-09-17 12:37:00 2021-09-17 12:37:00 Outpatient Shepard_P VFP VFP [id number] [facility] 2021-09-17 00:00:00 2021-09-17 00:00:00 Eduardo Contreras MD: [address], [place] [address] , Ph. VFP [place] - [facility] - [place] [id number] [facility] 2021-08-24 15:16:00 2021-08-24 18:54:00 Emergency EM Osito Ratliff [facility] [id number] [facility] 2021-08-24 15:16:00 2021-08-24 15:16:00 Emergency EM ZaygalloOsito morales [facility] [id number] [facility] 2021-08-15 05:21:00 2021-08-15 05:21:00 Outpatient Shepard_P VFP VFP [id number] [facility] Results Test Description Test Time Test Comments Results Result Co mments Source GLUCOMETER GLUCOSE- LAB USE [id number] 11:29:00* Test Item Value Reference Range Interpretation Comme nts GLUCOMETER (test code = GMG) 299 mg/dL 70-100 H CLEANED METERMet er ID: [id number]: 8825 ANTOLIN ALCALAR GLUCOMETER GLUCOSE- LAB USE [id number] 07:31:00* Test Item Value Reference Range Interpretation Comme nts GLUCOMETER (test code = GMG) 141 mg/dL 70-100 H CLEANED METERMet er ID: [id number]: 8825 ANTOLIN ALCALAR GLUCOMETER GLUCOSE- LAB USE [id number] 01:06:00* Test Item Value Reference Range Interpretation Comme nts GLUCOMETER (test code = GMG) 158 mg/dL 70-100 H Meter ID: [id number]: 3181 ANDREA OBI GLUCOMETER GLUCOSE- LAB USE [id number] 19:44:00* Test Item Value Reference Range Interpretation Comme nts GLUCOMETER (test code = GMG) 162 mg/dL 70-100 H Meter ID: [id number]: 2590 SHARRI KADIRI GLUCOMETER GLUCOSE- LAB USE [id number] 17:13:00* Test Item Value Reference Range Interpretation Comme nts GLUCOMETER (test code = GMG) 159 mg/dL 70-100 H CLEANED METERMet er ID: [id number]: 8825 ANTOLIN ALCALAR GLUCOMETER GLUCOSE- LAB USE [id number] 11:49:00* Test Item Value Reference Range Interpretation Comme nts GLUCOMETER (test code = GMG) 389 mg/dL 70-100 H Meter ID: [id number]: 1235 OPAL KRISTY GLUCOMETER GLUCOSE- LAB USE [id number] 08:23:00* Test Item Value Reference Range Interpretation Comme nts GLUCOMETER (test code = GMG) 146 mg/dL 70-100 H CLEANED METERMet er ID: [id number]: 8413 HECTOR RIVERA BASIC METABOLIC [id number] 07:05:00* Test Item Value Reference Range Interpretation Comme nts GLUCOSE (test code = 06D) 93 mg/dL 75-100 SODIUM (test code = 01A) 137 mmol/L 136-145 POTASSIUM (test code = 01B) 4.8 mmol/L 3.6-5.1 CHLORIDE (test code = 04A) 104 mmol/L 98-107 CO2 (test code = 02A) 29 mmol/L 20-31 ANION GAP (test code = ANG) 9.1 mmol/L BUN (test code = 05D) 16 mg/dL 9-23 CREATININE (test code = 03E) 1.0 mg/dL 0.6-1.0 GFR (test code = GFR) 64 mL/min/1.73m\\S\\2 >=90 L EGFR (test code = EGFR) eGFR BY CKD-EPI CALCULATION IS NOT RECOMMENDED FOR PATIENTS UNDER 18 YEARS OF AGE. BUN/CREA (test code = BCR) 17 12-20 CALCIUM (test code = 09D) 8.0 mg/dL 8.3-10.6 L GLUCOMETER GLUCOSE- LAB USE [id number] 05:37:00* Test Item Value Reference Range Interpretation Comme nts GLUCOMETER (test code = GMG) 70 mg/dL 70-100 Result Not ConfirmedMeter ID: [id number]: 6894 KARLEE AKPA GLUCOMETER GLUCOSE- LAB USE [id number] 02:37:00* Test Item Value Reference Range Interpretation Comme nts GLUCOMETER (test code = GMG) 207 mg/dL 70-100 H CLEANED METERDAI DB MAINTENANCEMeter ID: [id number]: 6894 KARLEE AKPA GLUCOMETER GLUCOSE- LAB USE [id number] 22:58:00* Test Item Value Reference Range Interpretation Comme nts GLUCOMETER (test code = GMG) 202 mg/dL 70-100 H Meter ID: [id number]: 6894 KARLEE AKPA GLUCOMETER GLUCOSE- LAB USE [id number] 19:43:00* Test Item Value Reference Range Interpretation Comme nts GLUCOMETER (test code = GMG) 173 mg/dL 70-100 H Meter ID: [id number]: 0357 KIRTI EVERETTE GLUCOMETER GLUCOSE- LAB USE [id number] 17:36:00* Test Item Value Reference Range Interpretation Comme nts GLUCOMETER (test code = GMG) 161 mg/dL 70-100 H Result Not ConfirmedMeter ID: [id number]: 9065 ABBIE OKULO GLUCOMETER GLUCOSE- LAB USE [id number] 17:36:00* Test Item Value Reference Range Interpretation Comme nts GLUCOMETER (test code = GMG) 34 mg/dL 70-100 LL Result Not ConfirmedMeter ID: [id number]: 9065 ABBIE OKULO GLUCOMETER GLUCOSE- LAB USE [id number] 16:56:00* Test Item Value Reference Range Interpretation Comme nts GLUCOMETER (test code = GMG) 37 mg/dL 70-100 LL CLEANED METERMet er ID: [id number]: 4332 MARICRUZ SALAMI GLUCOMETER GLUCOSE- LAB USE [id number] 13:05:00* Test Item Value Reference Range Interpretation Comme nts GLUCOMETER (test code = GMG) 149 mg/dL 70-100 H Meter ID: [id number]: 1235 OPAL KRISTY GLUCOMETER GLUCOSE- LAB USE [id number] 08:59:00* Test Item Value Reference Range Interpretation Comme nts GLUCOMETER (test code = GMG) 437 mg/dL 70-100 H GLUCOMETER GLUCOSE- LAB USE [id number] 08:03:00* Test Item Value Reference Range Interpretation Comme nts GLUCOMETER (test code = GMG) 164 mg/dL 70-100 H CLEANED METERMet er ID: [id number]: 4332 MARICRUZ SALAMI GLUCOMETER GLUCOSE- LAB USE [id number] 05:51:00* Test Item Value Reference Range Interpretation Comme nts GLUCOMETER (test code = GMG) 49 mg/dL 70-100 LL Meter ID: [id number]: 0220 ARACELIS GUTIERREZON [id number] 05:51:00* Test Item Value Reference Range Interpretation Comme nts COLOR (test code = COLU) YELLOW YELLOW CLARITY (test code = CLA) CLEAR CLEAR GLUCOSE UR (test code = UA GLUCOSE) 3+ NEGATIVE A BILI UR (test code = BILE) NEGATIVE NEGATIVE KETONES UR (test code = DANTE) NEGATIVE NEGATIVE SP GRAVITY (test code = SPGR) 1.022 1.005-1.030 PH UR (test code = PH) 6.5 4.5-8.0 PROTEIN UR (test code = PU) NEGATIVE NEGATIVE UROBIL UR (test code = UROQ) 1.0 EU/dL 0.2-1.0 NITRITE UR (test code = NITRITE) NEGATIVE NEGATIVE BLOOD UR (test code = UA BLOOD) NEGATIVE NEGATIVE LEUK ES UR (test code = LEUK) NEGATIVE NEGATIVE GLUCOMETER GLUCOSE- LAB USE [id number] 04:07:00* Test Item Value Reference Range Interpretation Comme nts GLUCOMETER (test code = GMG) 78 mg/dL 70-100 Meter ID: [id number]: 0220 ARACELIS WILCOX GLUCOMETER GLUCOSE- LAB USE [id number] 04:07:00* Test Item Value Reference Range Interpretation Comme nts GLUCOMETER (test code = GMG) 72 mg/dL 70-100 Meter ID: [id number]: 1481 ROSEMARIE OneFineMealSETE GLUCOMETER GLUCOSE- LAB USE [id number] 00:31:00* Test Item Value Reference Range Interpretation Comme nts GLUCOMETER (test code = GMG) 156 mg/dL 70-100 H Meter ID: [id number]: 1481 ROSEMARIE OneFineMealSETE GLUCOMETER GLUCOSE- LAB USE [id number] 00:31:00* Test Item Value Reference Range Interpretation Comme nts GLUCOMETER (test code = GMG) 28 mg/dL 70-100 LL Result Not ConfirmedMeter ID: [id number]: 1481 ROSEMARIE OneFineMealSETE BASIC METABOLIC [id number] 00:30:00* Test Item Value Reference Range Interpretation Comme nts GLUCOSE (test code = 06D) 226 mg/dL 75-100 H SODIUM (test code = 01A) 135 mmol/L 136-145 L POTASSIUM (test code = 01B) 4.7 mmol/L 3.6-5.1 CHLORIDE (test code = 04A) 104 mmol/L 98-107 CO2 (test code = 02A) 27 mmol/L 20-31 ANION GAP (test code = ANG) 8.7 mmol/L BUN (test code = 05D) 22 mg/dL 9-23 CREATININE (test code = 03E) 1.0 mg/dL 0.6-1.0 GFR (test code = GFR) 60 mL/min/1.73m\\S\\2 >=90 L EGFR (test code = EGFR) eGFR BY CKD-EPI CALCULATION IS NOT RECOMMENDED FOR PATIENTS UNDER 18 YEARS OF AGE. BUN/CREA (test code = BCR) 22 12-20 H CALCIUM (test code = 09D) 7.6 mg/dL 8.3-10.6 L GLUCOMETER GLUCOSE- LAB USE [id number] 19:55:00* Test Item Value Reference Range Interpretation Comme nts GLUCOMETER (test code = GMG) 135 mg/dL 70-100 H Meter ID: [id number]: 7909 SOURAV NAVARROARA GLUCOMETER GLUCOSE- LAB USE [id number] 17:09:00* Test Item Value Reference Range Interpretation Comme nts GLUCOMETER (test code = GMG) 224 mg/dL 70-100 H CLEANED METERMet er ID: [id number]: 0963 REMEDIOS MINOR GLUCOMETER GLUCOSE- LAB USE [id number] 12:02:00* Test Item Value Reference Range Interpretation Comme nts GLUCOMETER (test code = GMG) 429 mg/dL 70-100 H CLEANED METERMet er ID: [id number]: 1235 OPAL KRISTY GLUCOMETER GLUCOSE- LAB USE [id number] 08:44:00* Test Item Value Reference Range Interpretation Comme nts GLUCOMETER (test code = GMG) 262 mg/dL 70-100 H CLEANED METERMet er ID: [id number]: 9822 KINGA CHASE VALPROIC ACID (DEPAKENE)2024-05-28 07:17:00* Test Item Value Reference Range Interpretation Comme nts VALP ACID (test code = 95A) 28.2 ug/mL 50.0-100.0 LL GLUCOMETER GLUCOSE- LAB USE [id number] 04:59:00* Test Item Value Reference Range Interpretation Comme nts GLUCOMETER (test code = GMG) 202 mg/dL 70-100 H Meter ID: [id number]: 1481 ROSEMARIE AKINSETE GLUCOMETER GLUCOSE- LAB USE [id number] 23:57:00* Test Item Value Reference Range Interpretation Comme nts GLUCOMETER (test code = GMG) 69 mg/dL 70-100 L CLEANED METERMet er ID: [id number]: 1481 ROSEMARIE CALDWELLSETE GLUCOMETER GLUCOSE- LAB USE [id number] 23:57:00* Test Item Value Reference Range Interpretation Comme nts GLUCOMETER (test code = GMG) 97 mg/dL 70-100 Meter ID: [id number]: 1222 DARION MICHAEL GLUCOMETER GLUCOSE- LAB USE [id number] 17:02:00* Test Item Value Reference Range Interpretation Comme nts GLUCOMETER (test code = GMG) 156 mg/dL 70-100 H Meter ID: [id number]: 7063 ANNITASarah GARZONAIS GLUCOMETER GLUCOSE- LAB USE [id number] 13:32:00* Test Item Value Reference Range Interpretation Comme nts GLUCOMETER (test code = GMG) 386 mg/dL 70-100 H CLEANED METERMet er ID: [id number]: 4332 MARICRUZ ARIAS GLUCOMETER GLUCOSE- LAB USE [id number] 07:54:00* Test Item Value Reference Range Interpretation Comme nts GLUCOMETER (test code = GMG) 218 mg/dL 70-100 H CLEANED METERMet er ID: [id number]: 8825 ANTOLIN ALCALAR GLUCOMETER GLUCOSE- LAB USE [id number] 05:30:00* Test Item Value Reference Range Interpretation Comme nts GLUCOMETER (test code = GMG) 124 mg/dL 70-100 H Meter ID: [id number]: 1481 ROSEMARIE CALDWELLSETE GLUCOMETER GLUCOSE- LAB USE [id number] 02:28:00* Test Item Value Reference Range Interpretation Comme nts GLUCOMETER (test code = GMG) 80 mg/dL 70-100 Result Not ConfirmedMeter ID: [id number]: 2590 SHARRI KADIRI GLUCOMETER GLUCOSE- LAB USE [id number] 22:20:00* Test Item Value Reference Range Interpretation Comme nts GLUCOMETER (test code = GMG) 98 mg/dL 70-100 Meter ID: [id number]: 2590 SHARRI KADIRI GLUCOMETER GLUCOSE- LAB USE [id number] 22:20:00* Test Item Value Reference Range Interpretation Comme nts GLUCOMETER (test code = GMG) 325 mg/dL 70-100 H Meter ID: [id number]: 7909 SUORAV NAVARROARA GLUCOMETER GLUCOSE- LAB USE [id number] 19:05:00* Test Item Value Reference Range Interpretation Comme nts GLUCOMETER (test code = GMG) 379 mg/dL 70-100 H Meter ID: [id number]: 8413 HECTOR RIVERA GLUCOMETER GLUCOSE- LAB USE [id number] 11:31:00* Test Item Value Reference Range Interpretation Comme nts GLUCOMETER (test code = GMG) 392 mg/dL 70-100 H CLEANED METERMet er ID: [id number]: 8825 ANTOLIN ALCALAR GLUCOMETER GLUCOSE- LAB USE [id number] 11:11:00* Test Item Value Reference Range Interpretation Comme nts GLUCOMETER (test code = GMG) 30 mg/dL 70-100 LL Previously repor carlita as: <60 On 05/26/2024 11:11 By EVT GLUCOMETER GLUCOSE- LAB USE [id number] 08:38:00* Test Item Value Reference Range Interpretation Comme nts GLUCOMETER (test code = GMG) 73 mg/dL 70-100 Result Not ConfirmedMeter ID: [id number]: 1222 DARION MICHAEL GLUCOMETER GLUCOSE- LAB USE [id number] 08:38:00* Test Item Value Reference Range Interpretation Comme nts GLUCOMETER (test code = GMG) 27 mg/dL 70-100 LL Result Not ConfirmedMeter ID: [id number]: 7909 SOURAV NAVARROARA GLUCOMETER GLUCOSE- LAB USE [id number] 08:38:00* Test Item Value Reference Range Interpretation Comme nts GLUCOMETER (test code = GMG) 328 mg/dL 70-100 H Result Not ConfirmedMeter ID: [id number]: 2175 GEORGE SHEARCARLEEN GLUCOMETER GLUCOSE- LAB USE [id number] 08:37:00* Test Item Value Reference Range Interpretation Comme nts GLUCOMETER (test code = GMG) 420 mg/dL 70-100 H DAILY MAINTENANC EMeter ID: [id number]: 4332 MARICRUZ ARIAS GLUCOMETER GLUCOSE- LAB USE [id number] 08:04:00* Test Item Value Reference Range Interpretation Comme nts GLUCOMETER (test code = GMG) 113 mg/dL 70-100 H CLEANED METERMet er ID: [id number]: 8825 ANTOLIN ALCALAR GLUCOMETER GLUCOSE- LAB USE [id number] 08:03:00* Test Item Value Reference Range Interpretation Comme nts GLUCOMETER (test code = GMG) 69 mg/dL 70-100 L CLEANED METERMet er ID: [id number]: 8825 ANTOLIN ALCALAR BASIC METABOLIC [id number] 07:47:00* Test Item Value Reference Range Interpretation Comme nts GLUCOSE (test code = 06D) 67 mg/dL 75-100 L SODIUM (test code = 01A) 140 mmol/L 136-145 POTASSIUM (test code = 01B) 4.4 mmol/L 3.6-5.1 CHLORIDE (test code = 04A) 106 mmol/L 98-107 CO2 (test code = 02A) 26 mmol/L 20-31 ANION GAP (test code = ANG) 12.4 mmol/L BUN (test code = 05D) 23 mg/dL 9-23 CREATININE (test code = 03E) 0.9 mg/dL 0.6-1.0 GFR (test code = GFR) 68 mL/min/1.73m\\S\\2 >=90 L EGFR (test code = EGFR) eGFR BY CKD-EPI CALCULATION IS NOT RECOMMENDED FOR PATIENTS UNDER 18 YEARS OF AGE. BUN/CREA (test code = BCR) 26 12-20 H CALCIUM (test code = 09D) 8.8 mg/dL 8.3-10.6 CBC (INCLUDES AUTOMATED DIFFERENTIAL)2024-05-26 07:34:00* Test Item Value Reference Range Interpretation Comme nts WBC (test code = WBC) 5.1 10\\S\\3/uL 4.5-11.0 RBC (test code = RBC) 3.73 10\\S\\6/uL 3.80-5.80 L HGB (test code = HBG) 11.2 g/dL 12.0-15.5 L HCT (test code = HCT) 34.2 % 35.0-44.0 L MCV (test code = MCV) 91.7 fL 81.0-99.0 MCH (test code = MCH) 30.0 pg 27.0-31.0 MCHC (test code = MCHC) 32.7 g/dL 32.0-36.0 RDW (test code = RDW) 12.3 % 11.5-14.5 PLT (test code = PLT) 282 10\\S\\3/uL 130-400 MPV (test code = MPV) 9.5 fL 9.4-12.4 NEUTROP # (test code = NE#) 2.5 10\\S\\3/uL 1.6-8.0 LYMPH # (test code = LY#) 1.7 10\\S\\3/uL 1.1-3.5 MONOCYTE # (test code = MO#) 0.8 10\\S\\3/uL 0.0-1.1 EOSINOPH # (test code = EO#) 0.1 10\\S\\3/uL 0.0-0.7 BASOPHIL # (test code = BA#) 0.1 10\\S\\3/uL 0.0-0.3 IG # (test code = IG#) 0.01 10\\S\\3/uL 0.00-0.06 NRBC # (test code = NRBC#) 0.00 10\\S\\3/uL 0.00-0.01 NEUTROPH % (test code = NE%) 48.3 % 35.0-73.0 LYMPH % (test code = LY%) 34.1 % 20.0-55.0 MONO % (test code = MO%) 15.0 % 2.5-10.0 H EOSINOPH % (test code = EO%) 1.4 % 0.0-5.0 BASOPHIL % (test code = BA%) 1.0 % 0.0-2.0 IG % (test code = IG%) 0.2 % 0.0-0.8 NRBC% (test code = NRBC%) 0.0 % 0.0-0.2 MANDIFF (test code = MDIFF) NO RBC MORPH (test code = RBCMOR) NORMAL GLUCOMETER GLUCOSE- LAB USE [id number] 16:32:00* Test Item Value Reference Range Interpretation Comme nts GLUCOMETER (test code = GMG) 202 mg/dL 70-100 H CLEANED METERMet er ID: [id number]: 4950 JOSEP BORAJEAU GLUCOMETER GLUCOSE- LAB USE [id number] 11:32:00* Test Item Value Reference Range Interpretation Comme nts GLUCOMETER (test code = GMG) 389 mg/dL 70-100 H CLEANED METERMet er ID: [id number]: 5363 SILVIA KELLENBENZ GLUCOMETER GLUCOSE- LAB USE [id number] 08:29:00* Test Item Value Reference Range Interpretation Comme nts GLUCOMETER (test code = GMG) 99 mg/dL 70-100 CLEANED METERMet er ID: [id number]: 4950 JOSEP BORAJEAU GLUCOMETER GLUCOSE- LAB USE [id number] 19:50:00* Test Item Value Reference Range Interpretation Comme nts GLUCOMETER (test code = GMG) 161 mg/dL 70-100 H Meter ID: [id number]: 2590 SHARRI CICIDIRI GLUCOMETER GLUCOSE- LAB USE [id number] 17:06:00* Test Item Value Reference Range Interpretation Comme nts GLUCOMETER (test code = GMG) 184 mg/dL 70-100 H CLEANED METERMet er ID: [id number]: 8825 ANTOLIN ALCALAR GLUCOMETER GLUCOSE- LAB USE [id number] 12:15:00* Test Item Value Reference Range Interpretation Comme nts GLUCOMETER (test code = GMG) 348 mg/dL 70-100 H CLEANED METERMet er ID: [id number]: [id number] [facility] URINE [id number] 09:48:00* Test Item Value Reference Range Interpretation Comme nts Culture Observations (test code = COB1) NO GROWTH (<1,000 CFU/ML) GLUCOMETER GLUCOSE- LAB USE [id number] 07:54:00* Test Item Value Reference Range Interpretation Comme nts GLUCOMETER (test code = GMG) 117 mg/dL 70-100 H CLEANED METERMet er ID: [id number]: [id number] ANTOLIN ALCALAR GLUCOMETER GLUCOSE- LAB USE [id number] 11:32:00* Test Item Value Reference Range Interpretation Comme nts GLUCOMETER (test code = GMG) 285 mg/dL 70-100 H CLEANED METERMet er ID: [id number]: 8825 ANTOLIN ALCALAR GLUCOMETER GLUCOSE- LAB USE [id number] 07:55:00* Test Item Value Reference Range Interpretation Comme nts GLUCOMETER (test code = GMG) 43 mg/dL 70-100 LL CLEANED METERMet er ID: [id number]: 4332 MARICRUZ SALAMI GLUCOMETER GLUCOSE- LAB USE [id number] 07:23:00* Test Item Value Reference Range Interpretation Comme nts GLUCOMETER (test code = GMG) 583 mg/dL 70-100 HH GLUCOMETER GLUCOSE- LAB USE [id number] 07:23:00* Test Item Value Reference Range Interpretation Comme nts GLUCOMETER (test code = GMG) 595 mg/dL 70-100 HH GLUCOMETER GLUCOSE- LAB USE [id number] 19:48:00* Test Item Value Reference Range Interpretation Comme nts GLUCOMETER (test code = GMG) 160 mg/dL 70-100 H Meter ID: [id number]: [id number] SOURAV KEI GLUCOMETER GLUCOSE- LAB USE [id number] 17:03:00* Test Item Value Reference Range Interpretation Comme nts GLUCOMETER (test code = GMG) 288 mg/dL 70-100 H CLEANED METERMet er ID: [id number]: [id number] MARICRUZ SALAMI GLUCOMETER GLUCOSE- LAB USE [id number] 11:15:00* Test Item Value Reference Range Interpretation Comme nts GLUCOMETER (test code = GMG) 333 mg/dL 70-100 H CLEANED METERMet er ID: [id number]: [id number] DOROTHY LEROY GLUCOMETER GLUCOSE- LAB USE [id number] 08:04:00* Test Item Value Reference Range Interpretation Comme nts GLUCOMETER (test code = GMG) 75 mg/dL 70-100 CLEANED METERMet er ID: [id number]: [id number] [facility] VALPROIC ACID (DEPAKENE)2024-05-22 07:04:00* Test Item Value Reference Range Interpretation Comme nts VALP ACID (test code = 95A) 38.6 ug/mL 50.0-100.0 LL GLUCOMETER GLUCOSE- LAB USE [id number] 19:43:00* Test Item Value Reference Range Interpretation Comme nts GLUCOMETER (test code = GMG) 175 mg/dL 70-100 H CLEANED METERMet er ID: [id number]: [id number] GEORGE PRINCEIN GLUCOMETER GLUCOSE- LAB USE [id number] 16:16:00* Test Item Value Reference Range Interpretation Comme nts GLUCOMETER (test code = GMG) 303 mg/dL 70-100 H Meter ID: [id number]: [id number] ANNITA CALAIS GLUCOMETER GLUCOSE- LAB USE [id number] 13:35:00* Test Item Value Reference Range Interpretation Comme nts GLUCOMETER (test code = GMG) 355 mg/dL 70-100 H Meter ID: [id number]: 7063 ANNITA CALAIS GLUCOMETER GLUCOSE- LAB USE [id number] 11:33:00* Test Item Value Reference Range Interpretation Comme nts GLUCOMETER (test code = GMG) 587 mg/dL 70-100 HH Result Not ConfirmedMeter ID: [id number]: [id number] [facility] GLUCOMETER GLUCOSE- LAB USE [id number] 08:41:00* Test Item Value Reference Range Interpretation Comme nts GLUCOMETER (test code = GMG) 551 mg/dL 70-100 HH REPEAT TESTMeter ID: [id number]: 4332 MARICRUZ HUGO GLUCOMETER GLUCOSE- LAB USE [id number] 20:03:00* Test Item Value Reference Range Interpretation Comme nts GLUCOMETER (test code = GMG) 177 mg/dL 70-100 H Meter ID: [id number]: 7909 SOURAV KEI GLUCOMETER GLUCOSE- LAB USE [id number] 16:41:00* Test Item Value Reference Range Interpretation Comme nts GLUCOMETER (test code = GMG) 87 mg/dL 70-100 Result Not ConfirmedMeter ID: [id number]: 0963 REMEDIOS MINOR GLUCOMETER GLUCOSE- LAB USE [id number] 11:55:00* Test Item Value Reference Range Interpretation Comme nts GLUCOMETER (test code = GMG) 384 mg/dL 70-100 H CLEANED METERMet er ID: [id number]: 0963 REMEDIOS ISLASOBAR GLUCOMETER GLUCOSE- LAB USE [id number] 09:20:00* Test Item Value Reference Range Interpretation Comme nts GLUCOMETER (test code = GMG) 374 mg/dL 70-100 H Result Not ConfirmedMeter ID: [id number]: 0963 REMEDIOS ISLASOBAR GLUCOMETER GLUCOSE- LAB USE [id number] 20:47:00* Test Item Value Reference Range Interpretation Comme nts GLUCOMETER (test code = GMG) 274 mg/dL 70-100 H Meter ID: [id number]: 7909 SOURAV KEI GLUCOMETER GLUCOSE- LAB USE [id number] 16:15:00* Test Item Value Reference Range Interpretation Comme nts GLUCOMETER (test code = GMG) 331 mg/dL 70-100 H CLEANED METERMet er ID: [id number]: 0963 REMEDIOS ISLASOBAR GLUCOMETER GLUCOSE- LAB USE [id number] 16:13:00* Test Item Value Reference Range Interpretation Comme nts GLUCOMETER (test code = GMG) 242 mg/dL 70-100 H CLEANED METERMet er ID: [id number]: 8825 ANTOLIN ALCALAR GLUCOMETER GLUCOSE- LAB USE [id number] 07:51:00* Test Item Value Reference Range Interpretation Comme nts GLUCOMETER (test code = GMG) 120 mg/dL 70-100 H CLEANED METERMet er ID: [id number]: 5363 SILVIA PAYTONBENZ GLUCOMETER GLUCOSE- LAB USE [id number] 20:11:00* Test Item Value Reference Range Interpretation Comme nts GLUCOMETER (test code = GMG) 347 mg/dL 70-100 H Meter ID: [id number]: 0357 KARMIN EVERETTE GLUCOMETER GLUCOSE- LAB USE [id number] 16:43:00* Test Item Value Reference Range Interpretation Comme nts GLUCOMETER (test code = GMG) 125 mg/dL 70-100 H Meter ID: [id number]: 1235 OPAL KRISTY GLUCOMETER GLUCOSE- LAB USE [id number] 11:33:00* Test Item Value Reference Range Interpretation Comme nts GLUCOMETER (test code = GMG) 364 mg/dL 70-100 H Meter ID: [id number]: 8413 HECTOR RIVERA GLUCOMETER GLUCOSE- LAB USE [id number] 10:24:00* Test Item Value Reference Range Interpretation Comme nts GLUCOMETER (test code = GMG) 341 mg/dL 70-100 H CLEANED METERMet er ID: [id number]: 8413 HECTOR RIVERA GLUCOMETER GLUCOSE- LAB USE [id number] 10:24:00* Test Item Value Reference Range Interpretation Comme nts GLUCOMETER (test code = GMG) 63 mg/dL 70-100 L Meter ID: [id number]: 1235 OPAL KRISTY GLUCOMETER GLUCOSE- LAB USE [id number] 19:39:00* Test Item Value Reference Range Interpretation Comme nts GLUCOMETER (test code = GMG) 231 mg/dL 70-100 H Meter ID: [id number]: 7909 SOURAV KEI GLUCOMETER GLUCOSE- LAB USE [id number] 16:38:00* Test Item Value Reference Range Interpretation Comme nts GLUCOMETER (test code = GMG) 317 mg/dL 70-100 H CLEANED METERMet er ID: [id number]: 8413 HECTORIDENTEC GROUPELL GLUCOMETER GLUCOSE- LAB USE [id number] 11:46:00* Test Item Value Reference Range Interpretation Comme nts GLUCOMETER (test code = GMG) 389 mg/dL 70-100 H Meter ID: [id number]: 7063 ANNITA CALAIS GLUCOMETER GLUCOSE- LAB USE [id number] 08:04:00* Test Item Value Reference Range Interpretation Comme nts GLUCOMETER (test code = GMG) 501 mg/dL 70-100 HH Result Not ConfirmedMeter ID: [id number]: 4950 JOSEP MARTIN GLUCOMETER GLUCOSE- LAB USE [id number] 19:58:00* Test Item Value Reference Range Interpretation Comme nts GLUCOMETER (test code = GMG) 235 mg/dL 70-100 H Meter ID: [id number]: 2175 GEORGE MARTINEZ GLUCOMETER GLUCOSE- LAB USE [id number] 17:28:00* Test Item Value Reference Range Interpretation Comme nts GLUCOMETER (test code = GMG) 130 mg/dL 70-100 H CLEANED METERMet er ID: [id number]: 8413 HECTOR RIVERA GLUCOMETER GLUCOSE- LAB USE [id number] 11:12:00* Test Item Value Reference Range Interpretation Comme nts GLUCOMETER (test code = GMG) 411 mg/dL 70-100 H CLEANED METERMet er ID: [id number]: 5363 SILVIA PAYTONBENZ GLUCOMETER GLUCOSE- LAB USE [id number] 08:27:00* Test Item Value Reference Range Interpretation Comme nts GLUCOMETER (test code = GMG) 235 mg/dL 70-100 H Meter ID: [id number]: 8413 HECTORIDENTEC GROUPELL GLUCOMETER GLUCOSE- LAB USE [id number] 20:12:00* Test Item Value Reference Range Interpretation Comme nts GLUCOMETER (test code = GMG) 102 mg/dL 70-100 H Meter ID: [id number]: 2590 SHARRI CICIDIRI GLUCOMETER GLUCOSE- LAB USE [id number] 11:54:00* Test Item Value Reference Range Interpretation Comme nts GLUCOMETER (test code = GMG) 366 mg/dL 70-100 H Meter ID: [id number]: 1235 OPAL KRISTY GLUCOMETER GLUCOSE- LAB USE [id number] 08:36:00* Test Item Value Reference Range Interpretation Comme nts GLUCOMETER (test code = GMG) 107 mg/dL 70-100 H Result Not ConfirmedMeter ID: [id number]: 0963 REMEDIOS MINOR BASIC METABOLIC [id number] 07:18:00* Test Item Value Reference Range Interpretation Comme nts GLUCOSE (test code = 06D) 32 mg/dL 75-100 LL SODIUM (test code = 01A) 137 mmol/L 136-145 POTASSIUM (test code = 01B) 4.7 mmol/L 3.6-5.1 CHLORIDE (test code = 04A) 104 mmol/L 98-107 CO2 (test code = 02A) 26 mmol/L 20-31 ANION GAP (test code = ANG) 11.7 mmol/L BUN (test code = 05D) 30 mg/dL 9-23 H CREATININE (test code = 03E) 0.8 mg/dL 0.6-1.0 GFR (test code = GFR) 78 mL/min/1.73m\\S\\2 >=90 L EGFR (test code = EGFR) eGFR BY CKD-EPI CALCULATION IS NOT RECOMMENDED FOR PATIENTS UNDER 18 YEARS OF AGE. BUN/CREA (test code = BCR) 38 12-20 H CALCIUM (test code = 09D) 8.5 mg/dL 8.3-10.6 CBC (INCLUDES AUTOMATED DIFFERENTIAL)2024-05-15 07:06:00* Test Item Value Reference Range Interpretation Comme nts WBC (test code = WBC) 5.6 10\\S\\3/uL 4.5-11.0 RBC (test code = RBC) 3.38 10\\S\\6/uL 3.80-5.80 L HGB (test code = HBG) 10.1 g/dL 12.0-15.5 L HCT (test code = HCT) 30.9 % 35.0-44.0 L MCV (test code = MCV) 91.4 fL 81.0-99.0 MCH (test code = MCH) 29.9 pg 27.0-31.0 MCHC (test code = MCHC) 32.7 g/dL 32.0-36.0 RDW (test code = RDW) 12.1 % 11.5-14.5 PLT (test code = PLT) 226 10\\S\\3/uL 130-400 MPV (test code = MPV) 9.7 fL 9.4-12.4 NEUTROP # (test code = NE#) 2.8 10\\S\\3/uL 1.6-8.0 LYMPH # (test code = LY#) 1.7 10\\S\\3/uL 1.1-3.5 MONOCYTE # (test code = MO#) 0.9 10\\S\\3/uL 0.0-1.1 EOSINOPH # (test code = EO#) 0.1 10\\S\\3/uL 0.0-0.7 BASOPHIL # (test code = BA#) 0.0 10\\S\\3/uL 0.0-0.3 IG # (test code = IG#) 0.02 10\\S\\3/uL 0.00-0.06 NRBC # (test code = NRBC#) 0.00 10\\S\\3/uL 0.00-0.01 NEUTROPH % (test code = NE%) 50.5 % 35.0-73.0 LYMPH % (test code = LY%) 30.8 % 20.0-55.0 MONO % (test code = MO%) 15.8 % 2.5-10.0 H EOSINOPH % (test code = EO%) 2.0 % 0.0-5.0 BASOPHIL % (test code = BA%) 0.5 % 0.0-2.0 IG % (test code = IG%) 0.4 % 0.0-0.8 NRBC% (test code = NRBC%) 0.0 % 0.0-0.2 MANDIFF (test code = MDIFF) NO RBC MORPH (test code = RBCMOR) NORMAL GLUCOMETER GLUCOSE- LAB USE [id number] 20:36:00* Test Item Value Reference Range Interpretation Comme nts GLUCOMETER (test code = GMG) 122 mg/dL 70-100 H Meter ID: [id number]: 0357 [employer] GLUCOMETER GLUCOSE- LAB USE [id number] 17:26:00* Test Item Value Reference Range Interpretation Comme nts GLUCOMETER (test code = GMG) 151 mg/dL 70-100 H CLEANED METERMet er ID: [id number]: 6771 [facility] GLU[facility]- LAB USE [id number] 12:04:00* Test Item Value Reference Range Interpretation Comme nts GLUCOMETER (test code = GMG) 336 mg/dL 70-100 H CLEANED METERMet er ID: [id number]: 6771 [facility] GLU[facility] GLUCOSE- LAB USE [id number] 08:53:00* Test Item Value Reference Range Interpretation Comme nts GLUCOMETER (test code = GMG) 128 mg/dL 70-100 H CLEANED METERMet er ID: [id number]: 9579 PRASHANTH RAY GLUCOMETER GLUCOSE- LAB USE [id number] 08:09:00* Test Item Value Reference Range Interpretation Comme nts GLUCOMETER (test code = GMG) 78 mg/dL 70-100 CLEANED METERMet er ID: [id number]: 7531 DOROTHY MARTINEZKAYLINSOPHIA VALPROIC ACID (DEPAKENE)2024-05-14 07:38:00* Test Item Value Reference Range Interpretation Comme nts VALP ACID (test code = 95A) 53.3 ug/mL 50.0-100.0 GLUCOMETER GLUCOSE- LAB USE [id number] 19:51:00* Test Item Value Reference Range Interpretation Comme nts GLUCOMETER (test code = GMG) 124 mg/dL 70-100 H Result Not ConfirmedMeter ID: [id number]: 1181 REMEDIOS BARRETT GLUCOMETER GLUCOSE- LAB USE [id number] 16:06:00* Test Item Value Reference Range Interpretation Comme nts GLUCOMETER (test code = GMG) 373 mg/dL 70-100 H CLEANED METERMet er ID: [id number]: 5363 SILVIA RUBIO GLUCOMETER GLUCOSE- LAB USE [id number] 11:34:00* Test Item Value Reference Range Interpretation Comme nts GLUCOMETER (test code = GMG) 304 mg/dL 70-100 H CLEANED METERMet er ID: [id number]: 6771 [facility] GLUCOMETER GLUCOSE- LAB USE [id number] 08:35:00* Test Item Value Reference Range Interpretation Comme nts GLUCOMETER (test code = GMG) 50 mg/dL 70-100 LL Meter ID: [id number]: 1235 OPAL WAGNER GLUCOMETER GLUCOSE- LAB USE [id number] 20:16:00* Test Item Value Reference Range Interpretation Comme nts GLUCOMETER (test code = GMG) 63 mg/dL 70-100 L Meter ID: [id number]: 0357 KIRTI GAVIRIA GLUCOMETER GLUCOSE- LAB USE [id number] 16:13:00* Test Item Value Reference Range Interpretation Comme nts GLUCOMETER (test code = GMG) 196 mg/dL 70-100 H CLEANED METERMet er ID: [id number]: 0963 REMEDIOS MILY GLUCOMETER GLUCOSE- LAB USE [id number] 12:25:00* Test Item Value Reference Range Interpretation Comme nts GLUCOMETER (test code = GMG) 357 mg/dL 70-100 H Meter ID: [id number]: 7063 ANNITA GARIBAYS GLUCOMETER GLUCOSE- LAB USE [id number] 09:56:00* Test Item Value Reference Range Interpretation Comme nts GLUCOMETER (test code = GMG) 232 mg/dL 70-100 H CLEANED METERMet er ID: [id number]: 8413 HECTOR RIVERA GLUCOMETER GLUCOSE- LAB USE [id number] 09:56:00* Test Item Value Reference Range Interpretation Comme nts GLUCOMETER (test code = GMG) 51 mg/dL 70-100 LL Result Not ConfirmedMeter ID: [id number]: 8413 HECTOR RIVERA GLUCOMETER GLUCOSE- LAB USE [id number] 09:56:00* Test Item Value Reference Range Interpretation Comme nts GLUCOMETER (test code = GMG) 45 mg/dL 70-100 LL Result Not ConfirmedMeter ID: [id number]: 8413 HECTORIDENTEC GROUPELL GLUCOMETER GLUCOSE- LAB USE [id number] 19:38:00* Test Item Value Reference Range Interpretation Comme nts GLUCOMETER (test code = GMG) 74 mg/dL 70-100 DAILY MAINTENANC EMeter ID: [id number]: 1181 REMEDIOS BARRETT GLUCOMETER GLUCOSE- LAB USE [id number] 17:15:00* Test Item Value Reference Range Interpretation Comme nts GLUCOMETER (test code = GMG) 154 mg/dL 70-100 H Meter ID: [id number]: 8413 HECTOR RIVERA GLUCOMETER GLUCOSE- LAB USE [id number] 11:27:00* Test Item Value Reference Range Interpretation Comme nts GLUCOMETER (test code = GMG) 361 mg/dL 70-100 H CLEANED METERMet er ID: [id number]: 5363 SILVIA RUBIO GLUCOMETER GLUCOSE- LAB USE [id number] 07:45:00* Test Item Value Reference Range Interpretation Comme nts GLUCOMETER (test code = GMG) 71 mg/dL 70-100 CLEANED METERMet er ID: [id number]: 8825 ANTOLIN ALCALAR GLUCOMETER GLUCOSE- LAB USE [id number] 20:04:00* Test Item Value Reference Range Interpretation Comme nts GLUCOMETER (test code = GMG) 364 mg/dL 70-100 H CLEANED METERMet er ID: [id number]: 0963 REMEDIOS MINOR GLUCOMETER GLUCOSE- LAB USE [id number] 16:38:00* Test Item Value Reference Range Interpretation Comme nts GLUCOMETER (test code = GMG) 315 mg/dL 70-100 H Meter ID: [id number]: 7063 ANNITA RYANNAIS GLUCOMETER GLUCOSE- LAB USE [id number] 11:27:00* Test Item Value Reference Range Interpretation Comme nts GLUCOMETER (test code = GMG) 284 mg/dL 70-100 H CLEANED METERMet er ID: [id number]: 0963 REMEDIOS MINOR GLUCOMETER GLUCOSE- LAB USE [id number] 07:56:00* Test Item Value Reference Range Interpretation Comme nts GLUCOMETER (test code = GMG) 60 mg/dL 70-100 L CLEANED METERMet er ID: [id number]: 8413 HECTOR RIVERA VALPROIC ACID (DEPAKENE)2024-05-10 07:19:00* Test Item Value Reference Range Interpretation Comme nts VALP ACID (test code = 95A) 47.5 ug/mL 50.0-100.0 LL GLUCOMETER GLUCOSE- LAB USE [id number] 19:30:00* Test Item Value Reference Range Interpretation Comme nts GLUCOMETER (test code = GMG) 115 mg/dL 70-100 H Meter ID: [id number]: 0357 KIRTI EVERETTE GLUCOMETER GLUCOSE- LAB USE [id number] 16:46:00* Test Item Value Reference Range Interpretation Comme nts GLUCOMETER (test code = GMG) 129 mg/dL 70-100 H Result Not ConfirmedMeter ID: [id number]: 0963 REMEDIOS MINOR GLUCOMETER GLUCOSE- LAB USE [id number] 12:14:00* Test Item Value Reference Range Interpretation Comme nts GLUCOMETER (test code = GMG) 310 mg/dL 70-100 H CLEANED METERMet er ID: [id number]: 8825 ANTOLIN GREYALAR GLUCOMETER GLUCOSE- LAB USE [id number] 09:53:00* Test Item Value Reference Range Interpretation Comme nts GLUCOMETER (test code = GMG) 211 mg/dL 70-100 H CLEANED METERMet er ID: [id number]: 5363 SILVIA RUBIO GLUCOMETER GLUCOSE- LAB USE [id number] 08:01:00* Test Item Value Reference Range Interpretation Comme nts GLUCOMETER (test code = GMG) 51 mg/dL 70-100 LL Result Not ConfirmedMeter ID: [id number]: 0963 REMEDIOS MINOR GLUCOMETER GLUCOSE- LAB USE [id number] 19:40:00* Test Item Value Reference Range Interpretation Comme nts GLUCOMETER (test code = GMG) 229 mg/dL 70-100 H Meter ID: [id number]: 7909 SOURAV CHOUDHURY GLUCOMETER GLUCOSE- LAB USE [id number] 16:22:00* Test Item Value Reference Range Interpretation Comme nts GLUCOMETER (test code = GMG) 410 mg/dL 70-100 H REPEAT TESTMeter ID: [id number]: 7531 DOROTHY LEROY GLUCOMETER GLUCOSE- LAB USE [id number] 11:40:00* Test Item Value Reference Range Interpretation Comme nts GLUCOMETER (test code = GMG) 317 mg/dL 70-100 H Meter ID: [id number]: 7063 ANNITA GARIBAYS GLUCOMETER GLUCOSE- LAB USE [id number] 08:56:00* Test Item Value Reference Range Interpretation Comme nts GLUCOMETER (test code = GMG) 74 mg/dL 70-100 CLEANED METERMet er ID: [id number]: 5066 AMEENAZIA SCHNEIDER GLUCOMETER GLUCOSE- LAB USE [id number] 18:38:00* Test Item Value Reference Range Interpretation Comme nts GLUCOMETER (test code = GMG) 48 mg/dL 70-100 LL Meter ID: [id number]: 7063 ANNITA CALAIS GLUCOMETER GLUCOSE- LAB USE [id number] 12:28:00* Test Item Value Reference Range Interpretation Comme nts GLUCOMETER (test code = GMG) 381 mg/dL 70-100 H CLEANED METERMet er ID: [id number]: 9822 KINGA CHASE GLUCOMETER GLUCOSE- LAB USE [id number] 08:13:00* Test Item Value Reference Range Interpretation Comme nts GLUCOMETER (test code = GMG) 121 mg/dL 70-100 H Meter ID: [id number]: 1235 OPAL KRISTY GLUCOMETER GLUCOSE- LAB USE [id number] 19:48:00* Test Item Value Reference Range Interpretation Comme nts GLUCOMETER (test code = GMG) 99 mg/dL 70-100 Meter ID: [id number]: 7909 SOURAV KEI GLUCOMETER GLUCOSE- LAB USE [id number] 16:14:00* Test Item Value Reference Range Interpretation Comme nts GLUCOMETER (test code = GMG) 78 mg/dL 70-100 CLEANED METERMet er ID: [id number]: 8825 ANTOLIN ALCALAR GLUCOMETER GLUCOSE- LAB USE [id number] 11:38:00* Test Item Value Reference Range Interpretation Comme nts GLUCOMETER (test code = GMG) 366 mg/dL 70-100 H Meter ID: [id number]: 1235 OPAL KRISTY GLUCOMETER GLUCOSE- LAB USE [id number] 07:48:00* Test Item Value Reference Range Interpretation Comme nts GLUCOMETER (test code = GMG) 202 mg/dL 70-100 H Meter ID: [id number]: 7063 ANNITA CALAIS GLUCOMETER GLUCOSE- LAB USE [id number] 06:46:00* Test Item Value Reference Range Interpretation Comme nts GLUCOMETER (test code = GMG) 406 mg/dL 70-100 H Meter ID: [id number]: 7909 SOURAV KEI T4 [id number] 22:59:00* Test Item Value Reference Range Interpretation Comme nts T4 FREE (test code = A91) 1.29 ng/dL 0.89-1.76 [id number] 22:40:00* Test Item Value Reference Range Interpretation Comme nts FOLATE (test code = A75) 16.2 ng/mL >=5.5 THYROID PANEL/SCREEN (TSH)2024-05-05 22:34:00* Test Item Value Reference Range Interpretation Comme nts TSH (test code = A57) 0.485 uIU/mL 0.550-4.780 L B12 [id number] 22:30:00* Test Item Value Reference Range Interpretation Comme nts VIT B12 (test code = A60) 460.0 pg/mL 211.0-911.0 [id number] 22:29:00* Test Item Value Reference Range Interpretation Comme nts Hb A1C % (test code = HBA) 8.2 % A1C % (test code = A1C) HbA1c (% ) Reference Range Normal <5.7 Prediabetes 5.7-6.4 Diabetic >=6.5 LIPID [id number] 22:28:00* Test Item Value Reference Range Interpretation Comme nts CHOLESTROL (test code = 44A) 160 mg/dL <=199 TRIGLYCERI (test code = 42B) 39 mg/dL <=149 HDL (test code = 83D) 63.7 mg/dL 40.0-60.0 H LDL (test code = 34B) 77 mg/dL <=99 CHL/HDL (test code = CHR) 2.5 0.0-3.4 [id number] 22:28:00* Test Item Value Reference Range Interpretation Comme nts MAGNESIUM (test code = 48A) 1.6 mg/dL 1.6-2.6 [id number] 22:28:00* Test Item Value Reference Range Interpretation Comme nts PREALBUMIN (test code = 08E) 17 mg/dL 10-40 VALPROIC ACID (DEPAKENE)2024-05-05 22:26:00* Test Item Value Reference Range Interpretation Comme nts VALP ACID (test code = 95A) 24.8 ug/mL 50.0-100.0 LL SARS-CoV (RAPID ANTIGEN)2024-05-05 18:51:00* Test Item Value Reference Range Interpretation Comme nts SARS-CoV (ANTIGEN) (test code = COVAG) NEGATIVE NEGATIVE COVID AG (test code = COVAGC) This test has been marketed under the FDA Emergency Use Authorization (EUA) to meet challenges of the COVID-19 pandemic. The validation standards normally enforced by the FDA and the [employer] ([employer]) are more stringent than those required for this test. Therefore, the result should be interpreted with caution and close attention to other clinical and epidemiological data AMMONIA [id number] 18:38:00* Test Item Value Reference Range Interpretation Comme nts AMMONIA (test code = 54A) <10 umol/L 11-32 L COMPREHENSIVE METABOLIC [id number] 18:37:00* Test Item Value Reference Range Interpretation Comme nts GLUCOSE (test code = 06D) 212 mg/dL 75-100 H SODIUM (test code = 01A) 138 mmol/L 136-145 POTASSIUM (test code = 01B) 4.0 mmol/L 3.6-5.1 CHLORIDE (test code = 04A) 105 mmol/L 98-107 CO2 (test code = 02A) 26 mmol/L 20-31 ANION GAP (test code = ANG) 11.0 mmol/L BUN (test code = 05D) 13 mg/dL 9-23 CREATININE (test code = 03E) 0.8 mg/dL 0.6-1.0 GFR (test code = GFR) 78 mL/min/1.73m\\S\\2 >=90 L EGFR (test code = EGFR) eGFR BY CKD-EPI CALCULATION IS NOT RECOMMENDED FOR PATIENTS UNDER 18 YEARS OF AGE. BUN/CREA (test code = BCR) 16 12-20 CALCIUM (test code = 09D) 9.1 mg/dL 8.3-10.6 BILI TOTAL (test code = 11A) 0.5 mg/dL 0.2-1.0 PROTEIN (test code = 07D) 6.4 g/dL 5.7-8.2 ALBUMIN (test code = 08D) 3.9 g/dL 3.2-4.8 GLOBULIN (test code = GLB) 2.5 g/dL 1.5-3.8 ALB/GLOB (test code = AGRR) 1.6 1.0-2.6 ALK PHOS (test code = 35A) 68 IU/L 46-116 AST (test code = 30A) 19 IU/L <=33 ALT (test code = 31A) 15 IU/L 10-49 [id number] 18:37:00* Test Item Value Reference Range Interpretation Comme nts ACETAMINPH (test code = 94M) <0.2 mg/dL 1.2-2.5 L ALCOHOL BLOOD (ETOH)2024-05-05 18:37:00* Test Item Value Reference Range Interpretation Comme nts ETOH (test code = HALC) ETHANOL * The result is to be used only for medical purposes ALCOHOL (test code = 56A) <10 mg/dL <=10 [id number] 18:37:00* Test Item Value Reference Range Interpretation Comme nts SALICYLATE (test code = 94B) <3.0 mg/dL 15.0-30.0 L URINALYSIS WITH [id number] 18:36:00* Test Item Value Reference Range Interpretation Comme nts COLOR (test code = COLU) YELLOW YELLOW CLARITY (test code = CLA) CLEAR CLEAR GLUCOSE UR (test code = UA GLUCOSE) 2+ NEGATIVE A BILI UR (test code = BILE) NEGATIVE NEGATIVE KETONES UR (test code = DANTE) NEGATIVE NEGATIVE SP GRAVITY (test code = SPGR) 1.014 1.005-1.030 PH UR (test code = PH) 7.5 4.5-8.0 PROTEIN UR (test code = PU) 1+ NEGATIVE A UROBIL UR (test code = UROQ) 0.2 EU/dL 0.2-1.0 NITRITE UR (test code = NITRITE) NEGATIVE NEGATIVE BLOOD UR (test code = UA BLOOD) NEGATIVE NEGATIVE LEUK ES UR (test code = LEUK) NEGATIVE NEGATIVE WBC UR (test code = UWBC) 2 /HPF 0-5 RBC UR (test code = URBC) 2 /HPF 0-2 EPITH UR (test code = UEPC) FEW /LPF FEW BACTERIA UR (test code = UBACT) NONE /HPF NONE CAST UR (test code = CAST) /LPF NONE CRYSTAL UR (test code = CRYU) / LPF NONE MUCUS UR (test code = MUC) / HPF NONE AMORPH UR (test code = SHIVANI) / HPF NONE TRICH UR (test code = UTRICH) /HPF NONE YEAST UR (test code = UY) /HPF NONE SPERM UR (test code = USPERM) /HPF NONE DRUGS OF [id number] 18:31:00* Test Item Value Reference Range Interpretation Comme nts DRUG SCRN (test code = HDOA) URINE DRUG SCREEN This is an unconfirmed screening result and should not be used for non-medical purposes CANNABINOD (test code = 88C) NEGATIVE NEGATIVE AMPHETAMINE (test code = 84A) NEGATIVE NEGATIVE BENZODIAZP (test code = 86A) NEGATIVE NEGATIVE BARBITURAT (test code = 85A) NEGATIVE NEGATIVE OPIATES (test code = 92B) NEGATIVE NEGATIVE COCAINE (test code = 87A) NEGATIVE NEGATIVE PHENCYCLID (test code = 66A) NEGATIVE NEGATIVE METHADONE (test code = 64A) NEGATIVE NEGATIVE DOAH (test code = DOAH.) URINE DRUGSCREEN Cut-off values are as follows: Cannabinoids 50 ng/mL Cocaine 300 ng/mL Amphetamines 1000 ng/mL Phencyclidine 25 ng/mL Benzodiazepines 200 ng.mL Methadone 300 ng/mL Barbiturates 200 ng/mL Opiates 300 ng/mL CBC (INCLUDES AUTOMATED DIFFERENTIAL)[id number] 18:24:00* Test Item Value Reference Range Interpretation Comme nts WBC (test code = WBC) 3.6 10\\S\\3/uL 4.5-11.0 L RBC (test code = RBC) 3.64 10\\S\\6/uL 3.80-5.80 L HGB (test code = HBG) 10.8 g/dL 12.0-15.5 L HCT (test code = HCT) 33.4 % 35.0-44.0 L MCV (test code = MCV) 91.8 fL 81.0-99.0 MCH (test code = MCH) 29.7 pg 27.0-31.0 MCHC (test code = MCHC) 32.3 g/dL 32.0-36.0 RDW (test code = RDW) 12.1 % 11.5-14.5 PLT (test code = PLT) 203 10\\S\\3/uL 130-400 MPV (test code = MPV) 9.4 fL 9.4-12.4 NEUTROP # (test code = NE#) 1.6 10\\S\\3/uL 1.6-8.0 LYMPH # (test code = LY#) 1.4 10\\S\\3/uL 1.1-3.5 MONOCYTE # (test code = MO#) 0.5 10\\S\\3/uL 0.0-1.1 EOSINOPH # (test code = EO#) 0.0 10\\S\\3/uL 0.0-0.7 BASOPHIL # (test code = BA#) 0.1 10\\S\\3/uL 0.0-0.3 IG # (test code = IG#) 0.01 10\\S\\3/uL 0.00-0.06 NRBC # (test code = NRBC#) 0.00 10\\S\\3/uL 0.00-0.01 NEUTROPH % (test code = NE%) 45.0 % 35.0-73.0 LYMPH % (test code = LY%) 37.8 % 20.0-55.0 MONO % (test code = MO%) 14.9 % 2.5-10.0 H EOSINOPH % (test code = EO%) 0.6 % 0.0-5.0 BASOPHIL % (test code = BA%) 1.4 % 0.0-2.0 IG % (test code = IG%) 0.3 % 0.0-0.8 NRBC% (test code = NRBC%) 0.0 % 0.0-0.2 MANDIFF (test code = MDIFF) NO RBC MORPH (test code = RBCMOR) NORMAL [id number] 21:19:00* Test Item Value Reference Range Interpretation Comme nts GLUBED (test code = GLUBED) 148 MG/DL 70-105 H 1 Notified Nurse, MDDRUGS OF ABUSE SCREEN [id number] 19:25:00* Test Item Value Reference Range Interpretation Comme nts UR COCAINE (test code = COCAU) Negative NEGATIVE UR CANABINOIDS (test code = CANU) Negative NEGATIVE UR AMPHETAMINE (test code = AMPHU) Negative NEGATIVE UR BARBITURATE (test code = BARBQLU) Negative NEGATIVE UR BENZODIAZEPINE (test code = BENZU) Negative NEGATIVE METHADONE (test code = METHDU) Negative NEGATIVE PROPOXYPHENE SCREEN (test co de = PROPXSQ) Negative NEGATIVE UR OPIATES QUAL (test code = OPIAQLU) Negative NEGATIVE OXYCODONE (test code = OXYCOD) Negative NEGATIVE UR PHENCYCLIDINE (PCP) (test code = PHENCU) Negative NEGATIVE Coronavirus 2019 nCoV [id number] 18:50:00* Test Item Value Reference Range Interpretation Comme nts Coronavirus 2019 nCoV Bedside (test code = [id number]) Negative NEGATIVE N THE ID NOW COV ID-19 EUA HAS NOT BEEN FDA CLEARED ORAPPROVED. IT HAS BEEN AUTHORIZED BY THE FDA UNDER ANEMERGENCY USE AUTHORIZATION FOR USE BY AUTHORIZEDLABORATORIES AND PATIENT CARE SETTINGS. THE TEST HAS BEENAUTHORIZED ONLY FOR THE DETECTION OF NUCLEIC ACID [id number], NOT FOR ANY OTHER VIRUSES OR PATHOGENS, AND ISONLY AUTHORIZED FOR THE DURATION OF THE DECLARATION THATCIRCUMSTANCES EXIST JUSTIFYING THE AUTHORIZATION OFEMERGENCY USE OF IN VITRO DIAGNOSTIC TESTS FOR DETECTIONAND/OR DIAGNOSIS OF COVID-19 UNDER SECTION 564(B)(1) OF THE[place], 21 U.S.C. 360bbb-3(b)(1), UNLESS THE AUTHORIZATION ISTERMINATED OR REVOKED SOONER.Negative results should be treated as presumptive and, ifinconsistent with clinical signs and symptoms or necessaryfor patient managmeent, should be tested with differentauthorizd or cleared molecular tests. Negative results donot preclude SARS-Cov-2 infection and should not be used asthe sole basis for patient management decisions. Negativeresults should be considered in the context of a patient'srecent exposures, history and presence of clinical signs andsymptons consistent with COVID-19. [id number] 18:48:00* Test Item Value Reference Range Interpretation Comme nts ALCOHOL (test code = ALC) < 3.0 mg/dL 0.0-80.0 N COMPREHENSIVE METABOLIC [id number] 18:48:00* Test Item Value Reference Range Interpretation Comme nts SODIUM (test code = NA) 142 mmol/L 136-145 N POTASSIUM (test code = K) 3.8 mmol/L 3.4-4.5 N CHLORIDE (test code = CL) 108 mmol/L 98-107 H CARBON DIOXIDE (test code = CO2) 28 mmol/l 20-31 N GLUCOSE (test code = GLU) 94 mg/dL 74-106 N BLOOD UREA NITROGEN (test code = BUN) 12 mg/dL 9-23 N GLOMERULAR FILTRATION RATE (test code = GFR) >=60 max estimate >60 The Glomerular Filtration Rate is a calculated parameterbased on serum Creatinine, patient age and sex. GFR valuesless than 60 mL/min/1.73 square meters are indicative ofChronic Kidney Disease. Values less than 15 mL/min/1.73square meters indicate Kidney failure. The calculation forGFR is based on the CKD-EPI (2020) calculation. This formulais race indifferent and is the recommended formula for GFRby the National Kidney Foundation for Adults.The GFR will not calculate if the sex is unknown or if thepatient's age is <18 years. CREATININE (test code = CREAT) 0.82 mg/dL 0.55-1.02 N TOTAL PROTEIN (test code = PROT) 6.6 g/dL 5.7-8.2 N ALBUMIN (test code = ALB) 3.4 g/dl 3.4-5.0 N CALCIUM (test code = CA) 9.1 mg/dL 8.6-10.3 N BILIRUBIN TOTAL (test code = BILT) 0.6 mg/dL 0.2-1.1 N SGOT/AST (test code = AST) 20 U/L 0-34 N SGPT/ALT (test code = ALT) 15 U/L 10-49 N ALKALINE PHOSPHATASE (test code = ALKP) 65 U/L 46-116 N [id number] 18:48:00* Test Item Value Reference Range Interpretation Comme nts ACETAMINOPHEN (test code = ACET) < 2.0 ug/mL 10-20 L [id number] 18:48:00* Test Item Value Reference Range Interpretation Comme nts SALICYLATE (test code = MARGARITO) < 3.0 mg/dL 0.0-30.0 N CBC W/AUTO [id number] 18:36:00* Test Item Value Reference Range Interpretation Comme nts WHITE BLOOD CELL (test code = WBC) 3.66 K/mm3 5.0-12.0 L RED BLOOD CELL (test code = RBC) 3.66 M/mm3 4.20-5.40 L HEMOGLOBIN (test code = HGB) 11.3 G/DL 12.0-16.0 L HEMATOCRIT (test code = HCT) 34.5 % 34.9-44.5 L MEAN CELL VOLUME (test code = MCV) 94 fL 81-99 N MEAN CELL HGB (test code = MCH) 30.9 PGM 27-31 N MEAN CELL HGB CONCENTRATION (test code = MCHC) 32.8 G/DL 33-37 L RED CELL DISTRIBUTION WIDTH (test code = RDW) 12.0 % 11.6-16.2 N PLATELET COUNT (test code = PLT) 216 K/mm3 130-400 N MEAN PLATELET VOLUME (test c ode = MPV) 9.5 fl 7.4-10.4 N NEUTROPHIL % (test code = NT%) 45.6 % 43-65 N IMMATURE GRANULOCYTE % (test code = IG%) 0.3 % 0.0-2.0 N LYMPHOCYTE % (test code = LY%) 38.0 % 20.5-45.5 N MONOCYTE % (test code = MO%) 13.4 % 5.5-11.7 H EOSINOPHIL % (test code = EO%) 1.6 % 0.9-2.9 N BASOPHIL % (test code = BA%) 1.1 % 0.2-1.0 H NUCLEATED RBC % (test code = NRBC%) 0.0 % 0-1.0 N NEUTROPHIL # (test code = NT#) 1.67 K/mm3 2.2-4.8 L LYMPHOCYTE # (test code = LY#) 1.39 K/mm3 1.3-2.9 N MONOCYTE # (test code = MO#) 0.49 K/mm3 0.3-0.8 N EOSINOPHIL # (test code = EO#) 0.06 K/MM3 0.0-0.2 N BASOPHIL # (test code = BA#) 0.04 K/mm3 0.0-0.1 N UA RFLX MICR CULT IF [id number] 18:32:00* Test Item Value Reference Range Interpretation Comme nts UA COLOR (test code = COLU) Colorless YELLOW UA APPEARANCE (test code = APPU) CLEAR CLEAR UA GLUCOSE DIPSTICK (test co de = DGLUU) 3+ MG/DL NEGATIVE A UA BILIRUBIN DIPSTICK (test code = BILU) NEG NEGATIVE UA KETONE DIPSTICK (test cod e = KETU) NEG MG/DL NEGATIVE UA SPECIFIC GRAVITY (test co de = SGU) 1.010 1.000-1.030 UA BLOOD DIPSTICK (test code = BJORN) NEG NEGATIVE UA PH DIPSTICK (test code = RONNIE) 7.0 4.5-8.5 UA PROTEIN DIPSTICK (test co de = PROU) NEG MG/DL NEGATIVE UA UROBILINOGEN DIPSTICK (te st code = URO) NORMAL EU/dL <=1.0 UA NITRITE DIPSTICK (test co de = JUDIT) NEG NEGATIVE UA LEUKOCYTE ESTERASE DIPSTI CK (test code = LEUU) NEG NEGATIVE UA WBC (test code = WBCU) 0-5 /HPF 0-5 UA RBC (test code = RBCU) 0-5 /HPF 0-5 UA BACTERIA (test code = BACU) NONE SEEN /HPF NONE SEEN UA SQUAMOUS CELLS (test code = SQU) NONE SEEN /HPF NONE-FEW Indication for culture: Flank PainSpecimen Description: CLEAN CATCHGLUBED 2024-05-04 17:52:00* Test Item Value Reference Range Interpretation Comme nts GLUBED (test code = GLUBED) 113 MG/DL 70-105 H [id number] 11:43:00* Test Item Value Reference Range Interpretation Comme nts GLUBED (test code = GLUBED) 179 mg/dL 70-105 H Intravenous admi nistration of N-acetylcysteine which resultsin blood concentrations >5 mg/dL will cause overestimationof blood glucose results. Do not use during intravenousinfusion of N'acetylcysteine. RENAL FUNCTION [id number] 08:27:00* Test Item Value Reference Range Interpretation Comme nts SODIUM (test code = NA) 136 mmol/L 136-145 N POTASSIUM (test code = K) 4.4 mmol/L 3.5-5.1 N CHLORIDE (test code = CL) 103 mmol/L 98-107 N CARBON DIOXIDE (test code = CO2) 28 mmol/L 20-31 N ANION GAP (test code = GAP) 9.6 2.0-16.0 N GLUCOSE (test code = GLU) 170 mg/dL 74-106 H BLOOD UREA NITROGEN (test code = BUN) 15 mg/dL 9-23 N GLOMERULAR FILTRATION RATE (test code = GFR) >=60 max estimate ml/min >60 The Glomerular Filtration Rate is a calculated parameterbased on serum Creatinine, patient age and sex. GFR valuesless than 60 mL/min/1.73 square meters are indicative ofChronic Kidney Disease. Values less than 15 mL/min/1.73square meters indicate Kidney failure. The calculation forGFR is based on the CKD-EPI (2020) calculation. This formulais race indifferent and is the recommended formula for GFRby the National Kidney Foundation for Adults.The GFR will not calculate if the sex is unknown or if thepatient's age is <18 years. CREATININE (test code = CREAT) 0.7 mg/dL 0.6-1.0 N ALBUMIN (test code = ALB) 3.1 g/dL 3.4-5.0 L CALCIUM (test code = CA) 8.4 mg/dL 8.7-10.4 L CORRECTED CALCIUM (test code = CACORR) 9.1 g/dL 8.1-10.2 N PHOSPHOROUS (test code = PHOS) 3.0 mg/dL 2.4-5.1 N CALCIUM-PHOSPHORUS PRODUCT (test code = CAPHOS) 25.20 0-55 N [id number] 06:45:00* Test Item Value Reference Range Interpretation Comme nts GLUBED (test code = GLUBED) 143 mg/dL 70-105 H Intravenous admi nistration of N-acetylcysteine which resultsin blood concentrations >5 mg/dL will cause overestimationof blood glucose results. Do not use during intravenousinfusion of N'acetylcysteine. [id number] 20:07:00* Test Item Value Reference Range Interpretation Comme nts PHOSPHOROUS (test code = PHOS) 5.7 mg/dL 2.4-5.1 H CREATINE KINASE (CK)2024-02-27 20:07:00* Test Item Value Reference Range Interpretation Comme nts CREATINE KINASE (CK) (test code = CK) 263 U/L 34-145 H OSMOLALITY [id number] 20:07:00* Test Item Value Reference Range Interpretation Comme nts OSMOLALITY SERUM (test code = OSMO) 353 mOsm/kg 280-301 H INFCE Result Uni ts: mOsmol/kgVerified by repeat analysisPerformed At: [facility] [address] [id number] Jono Escoto MD Ph:[phone] [id number] 20:07:00* Test Item Value Reference Range Interpretation Comme nts CKMB (test code = CKMBT) 11.5 ng/ml 0.5-3.6 H TROP-I HIGH [id number] 20:07:00* Test Item Value Reference Range Interpretation Comme nts TROP-I HIGH SENSITIVITY (test code = TROPIHS) 263 pg/mL 0-53 HH Critical Value reported toFirst Name:MARY Last Name:RADHA D:[id number] READ BACK AND VERIFIEDby [id number], on 02/24/24, @ 3749.CAUTION: Units of the current test methodology (pg/mL) differ from the prior test methodology (ng/mL) by a factor of 1000. POSITIVE TROPONIN HS IS IDENTIFIED THE FOLLOWING MALE > OR = 78 pg/mL FEMALE > OR = 53 pg/mL ALL CRITICAL TROPI HS HAVE BEEN IDENTIFIED MALE OR FEMALE > OR = 120 pg/mL ACETONE [id number] 20:07:00* Test Item Value Reference Range Interpretation Comme nts ACETONE QUAL (test code = ACETNQL) MODERATE NEGATIVE A [id number] 19:53:00* Test Item Value Reference Range Interpretation Comme nts GLUBED (test code = GLUBED) 263 mg/dL 70-105 H Intravenous admi nistration of N-acetylcysteine which resultsin blood concentrations >5 mg/dL will cause overestimationof blood glucose results. Do not use during intravenousinfusion of N'acetylcysteine. [id number] 16:42:00* Test Item Value Reference Range Interpretation Comme nts GLUBED (test code = GLUBED) 243 mg/dL 70-105 H Intravenous admi nistration of N-acetylcysteine which resultsin blood concentrations >5 mg/dL will cause overestimationof blood glucose results. Do not use during intravenousinfusion of N'acetylcysteine. [id number] 11:36:00* Test Item Value Reference Range Interpretation Comme nts GLUBED (test code = GLUBED) 345 mg/dL 70-105 H Intravenous admi nistration of N-acetylcysteine which resultsin blood concentrations >5 mg/dL will cause overestimationof blood glucose results. Do not use during intravenousinfusion of N'acetylcysteine. BASIC METABOLIC [id number] 10:03:00* Test Item Value Reference Range Interpretation Comme nts SODIUM (test code = NA) 134 mmol/L 136-145 L POTASSIUM (test code = K) 5.6 mmol/L 3.5-5.1 H CHLORIDE (test code = CL) 102 mmol/L 98-107 N CARBON DIOXIDE (test code = CO2) 26 mmol/L 20-31 N ANION GAP (test code = GAP) 11.1 2.0-16.0 N GLUCOSE (test code = GLU) 391 mg/dL 74-106 H BLOOD UREA NITROGEN (test code = BUN) 19 mg/dL 9-23 N GLOMERULAR FILTRATION RATE (test code = GFR) >=60 max estimate ml/min >60 The Glomerular Filtration Rate is a calculated parameterbased on serum Creatinine, patient age and sex. GFR valuesless than 60 mL/min/1.73 square meters are indicative ofChronic Kidney Disease. Values less than 15 mL/min/1.73square meters indicate Kidney failure. The calculation forGFR is based on the CKD-EPI (2020) calculation. This formulais race indifferent and is the recommended formula for GFRby the National Kidney Foundation for Adults.The GFR will not calculate if the sex is unknown or if thepatient's age is <18 years. CREATININE (test code = CREAT) 0.9 mg/dL 0.6-1.0 N BUN/CREATININE RATIO (test code = BUN/CREA) 21.1 12.0-20.0 H CALCIUM (test code = CA) 8.4 mg/dL 8.7-10.4 L RENAL FUNCTION [id number] 10:03:00* Test Item Value Reference Range Interpretation Comme nts ALBUMIN (test code = ALB) 3.1 g/dL 3.4-5.0 L CORRECTED CALCIUM (test code = CACORR) 9.1 g/dL 8.1-10.2 N PHOSPHOROUS (test code = PHOS) 2.1 mg/dL 2.4-5.1 L CALCIUM-PHOSPHORUS PRODUCT ( test code = CAPHOS) 17.64 0-55 N CBC W/AUTO [id number] 08:14:00* Test Item Value Reference Range Interpretation Comme nts WHITE BLOOD CELL (test code = WBC) 5.0 10 3/uL 4.5-11.0 N RED BLOOD CELL (test code = RBC) 3.32 10 6/uL 3.50-5.50 L HEMOGLOBIN (test code = HGB) 10.3 g/dL 12.0-16.0 L HEMATOCRIT (test code = HCT) 30.5 % 37.0-55.0 L MEAN CELL VOLUME (test code = MCV) 92 fL 81-102 N MEAN CELL HGB (test code = MCH) 31.0 pg 26.0-34.0 N MEAN CELL HGB CONCENTRATION (test code = MCHC) 33.8 g/dL 31.0-37.0 N RED CELL DISTRIBUTION WIDTH (test code = RDW) 12.0 % 11.6-14.4 N PLATELET COUNT (test code = PLT) 179 10 3/uL 150-400 N MEAN PLATELET VOLUME (test code = MPV) 10.1 fL 9.0-12.6 N NEUTROPHIL % (test code = NT%) 59.6 % 33.0-76.0 N IMMATURE GRANULOCYTE % (test code = IG%) 0.6 % 0.0-1.0 N LYMPHOCYTE % (test code = LY%) 22.5 % 14.0-56.4 N MONOCYTE % (test code = MO%) 15.5 % 0.0-12.9 H EOSINOPHIL % (test code = EO%) 1.2 % 0.0-7.0 N BASOPHIL % (test code = BA%) 0.6 % 0-2.0 N NUCLEATED RBC % (test code = NRBC%) 0.0 % 0-0.2 N NEUTROPHIL # (test code = NT#) 2.97 10 3/uL 1.5-7.0 N IMMATURE GRANULOCYTE # (test code = IG#) 0.030 x10 3/uL 0.000-0.100 N LYMPHOCYTE # (test code = LY#) 1.12 10 3/uL 1.50-4.00 L MONOCYTE # (test code = MO#) 0.77 10 3/uL 0.20-0.80 N EOSINOPHIL # (test code = EO#) 0.06 10 3/uL 0.0-0.5 N BASOPHIL # (test code = BA#) 0.03 10 3/uL 0.0-0.1 N NUCLEATED RBC # (test code = NRBC#) 0.000 10 3/uL 0.000-0.012 N [id number] 07:16:00* Test Item Value Reference Range Interpretation Comme nts GLUBED (test code = GLUBED) 361 mg/dL 70-105 H Intravenous admi nistration of N-acetylcysteine which resultsin blood concentrations >5 mg/dL will cause overestimationof blood glucose results. Do not use during intravenousinfusion of N'acetylcysteine. [id number] 20:37:00* Test Item Value Reference Range Interpretation Comme nts GLUBED (test code = GLUBED) 199 mg/dL 70-105 H Intravenous admi nistration of N-acetylcysteine which resultsin blood concentrations >5 mg/dL will cause overestimationof blood glucose results. Do not use during intravenousinfusion of N'acetylcysteine. [id number] 16:51:00* Test Item Value Reference Range Interpretation Comme nts GLUBED (test code = GLUBED) 238 mg/dL 70-105 H Intravenous admi nistration of N-acetylcysteine which resultsin blood concentrations >5 mg/dL will cause overestimationof blood glucose results. Do not use during intravenousinfusion of N'acetylcysteine. [id number] 11:50:00* Test Item Value Reference Range Interpretation Comme nts GLUBED (test code = GLUBED) 183 mg/dL 70-105 H Intravenous admi nistration of N-acetylcysteine which resultsin blood concentrations >5 mg/dL will cause overestimationof blood glucose results. Do not use during intravenousinfusion of N'acetylcysteine. RENAL FUNCTION [id number] 07:17:00* Test Item Value Reference Range Interpretation Comme nts SODIUM (test code = NA) 140 mmol/L 136-145 N POTASSIUM (test code = K) 4.5 mmol/L 3.5-5.1 N CHLORIDE (test code = CL) 110 mmol/L 98-107 H CARBON DIOXIDE (test code = CO2) 25 mmol/L 20-31 N ANION GAP (test code = GAP) 9.2 2.0-16.0 N GLUCOSE (test code = GLU) 85 mg/dL 74-106 BLOOD UREA NITROGEN (test code = BUN) 28 mg/dL 9-23 H GLOMERULAR FILTRATION RATE (test code = GFR) >=60 max estimate ml/min >60 The Glomerular Filtration Rate is a calculated parameterbased on serum Creatinine, patient age and sex. GFR valuesless than 60 mL/min/1.73 square meters are indicative ofChronic Kidney Disease. Values less than 15 mL/min/1.73square meters indicate Kidney failure. The calculation forGFR is based on the CKD-EPI (2020) calculation. This formulais race indifferent and is the recommended formula for GFRby the National Kidney Foundation for Adults.The GFR will not calculate if the sex is unknown or if thepatient's age is <18 years. CREATININE (test code = CREAT) 0.8 mg/dL 0.6-1.0 N ALBUMIN (test code = ALB) 3.0 g/dL 3.4-5.0 L CALCIUM (test code = CA) 8.4 mg/dL 8.7-10.4 L CORRECTED CALCIUM (test code = CACORR) 9.2 g/dL 8.1-10.2 N PHOSPHOROUS (test code = PHOS) 2.6 mg/dL 2.4-5.1 N CALCIUM-PHOSPHORUS PRODUCT (test code = CAPHOS) 21.84 0-55 N [id number] 06:13:00* Test Item Value Reference Range Interpretation Comme nts GLUBED (test code = GLUBED) 87 mg/dL 70-105 N Intravenous admi nistration of N-acetylcysteine which resultsin blood concentrations >5 mg/dL will cause overestimationof blood glucose results. Do not use during intravenousinfusion of N'acetylcysteine. [id number] 22:07:00* Test Item Value Reference Range Interpretation Comme nts GLUBED (test code = GLUBED) 144 mg/dL 70-105 H Intravenous admi nistration of N-acetylcysteine which resultsin blood concentrations >5 mg/dL will cause overestimationof blood glucose results. Do not use during intravenousinfusion of N'acetylcysteine. [id number] 21:08:00* Test Item Value Reference Range Interpretation Comme nts GLUBED (test code = GLUBED) 40 mg/dL 70-105 LL CRITICAL RESULT - TESTING PERFORMED BY PRIMARY CAREGIVERIntravenous administration of N-acetylcysteine which resultsin blood concentrations >5 mg/dL will cause overestimationof blood glucose results. Do not use during intravenousinfusion of N'acetylcysteine. [id number] 17:04:00* Test Item Value Reference Range Interpretation Comme nts GLUBED (test code = GLUBED) 79 mg/dL 70-105 N Intravenous admi nistration of N-acetylcysteine which resultsin blood concentrations >5 mg/dL will cause overestimationof blood glucose results. Do not use during intravenousinfusion of N'acetylcysteine. [id number] 15:08:00* Test Item Value Reference Range Interpretation Comme nts GLUBED (test code = GLUBED) 96 mg/dL 70-105 N Intravenous admi nistration of N-acetylcysteine which resultsin blood concentrations >5 mg/dL will cause overestimationof blood glucose results. Do not use during intravenousinfusion of N'acetylcysteine. [id number] 14:30:00* Test Item Value Reference Range Interpretation Comme nts GLUBED (test code = GLUBED) 101 mg/dL 70-105 N Intravenous admi nistration of N-acetylcysteine which resultsin blood concentrations >5 mg/dL will cause overestimationof blood glucose results. Do not use during intravenousinfusion of N'acetylcysteine. [id number] 13:06:00* Test Item Value Reference Range Interpretation Comme nts GLUBED (test code = GLUBED) 93 mg/dL 70-105 N Intravenous admi nistration of N-acetylcysteine which resultsin blood concentrations >5 mg/dL will cause overestimationof blood glucose results. Do not use during intravenousinfusion of N'acetylcysteine. [id number] 12:22:00* Test Item Value Reference Range Interpretation Comme fabiana GLUBED (test code = GLUBED) 76 mg/dL 70-105 N Intravenous admi nistration of N-acetylcysteine which resultsin blood concentrations >5 mg/dL will cause overestimationof blood glucose results. Do not use during intravenousinfusion of N'acetylcysteine. [id number] 11:20:00* Test Item Value Reference Range Interpretation Comme fabiana GLUBED (test code = GLUBED) 89 mg/dL 70-105 N Intravenous admi nistration of N-acetylcysteine which resultsin blood concentrations >5 mg/dL will cause overestimationof blood glucose results. Do not use during intravenousinfusion of N'acetylcysteine. [id number] 10:18:00* Test Item Value Reference Range Interpretation Comme fabiana GLUBED (test code = GLUBED) 86 mg/dL 70-105 N Intravenous admi nistration of N-acetylcysteine which resultsin blood concentrations >5 mg/dL will cause overestimationof blood glucose results. Do not use during intravenousinfusion of N'acetylcysteine. LIPID PROFILE (CORONARY RISK)2024-02-25 09:24:00* Test Item Value Reference Range Interpretation Comme nts TRIGLYCERIDES (test code = TRIG) 55 mg/dL 0-149 N CHOLESTEROL (test code = CHOL) 125 mg/dL 0-200 N CHOLESTEROL/HDL RATIO (test code = CHOLHDL) 2 1-6 N HDL CHOLESTEROL (test code = HDL) 54 mg/dL 40-59 N LIPOPROTEIN LDL (test code = LDLC) 57 mg/dL 0-100 N [id number] 09:19:00* Test Item Value Reference Range Interpretation Comme nts GLUBED (test code = GLUBED) 101 mg/dL 70-105 N Intravenous admi nistration of N-acetylcysteine which resultsin blood concentrations >5 mg/dL will cause overestimationof blood glucose results. Do not use during intravenousinfusion of N'acetylcysteine. [id number] 07:59:00* Test Item Value Reference Range Interpretation Comme nts GLUBED (test code = GLUBED) 139 mg/dL 70-105 H Intravenous admi nistration of N-acetylcysteine which resultsin blood concentrations >5 mg/dL will cause overestimationof blood glucose results. Do not use during intravenousinfusion of N'acetylcysteine. [id number] 06:54:00* Test Item Value Reference Range Interpretation Comme nts GLUBED (test code = GLUBED) 61 mg/dL 70-105 L Intravenous admi nistration of N-acetylcysteine which resultsin blood concentrations >5 mg/dL will cause overestimationof blood glucose results. Do not use during intravenousinfusion of N'acetylcysteine. [id number] 06:16:00* Test Item Value Reference Range Interpretation Comme nts GLUBED (test code = GLUBED) 82 mg/dL 70-105 N Intravenous admi nistration of N-acetylcysteine which resultsin blood concentrations >5 mg/dL will cause overestimationof blood glucose results. Do not use during intravenousinfusion of N'acetylcysteine. BASIC METABOLIC [id number] 06:00:00* Test Item Value Reference Range Interpretation Comme nts SODIUM (test code = NA) 142 mmol/L 136-145 N POTASSIUM (test code = K) 3.7 mmol/L 3.5-5.1 CHLORIDE (test code = CL) 112 mmol/L 98-107 H CARBON DIOXIDE (test code = CO2) 23 mmol/L 20-31 N ANION GAP (test code = GAP) 10.7 2.0-16.0 N GLUCOSE (test code = GLU) 28 mg/dL 74-106 LL Critical Value r eported toFirst Name:SOCORRO Last Name:AUGUSTO 4ID:[id number] READ BACK AND VERIFIEDby [id number], on 02/25/24, @ 0600. BLOOD UREA NITROGEN (test code = BUN) 57 mg/dL 9-23 H GLOMERULAR FILTRATION RATE (test code = GFR) 34 ml/min >60 L The Glomerular Filtration Rate is a calculated parameterbased on serum Creatinine, patient age and sex. GFR valuesless than 60 mL/min/1.73 square meters are indicative ofChronic Kidney Disease. Values less than 15 mL/min/1.73square meters indicate Kidney failure. The calculation forGFR is based on the CKD-EPI (2020) calculation. This formulais race indifferent and is the recommended formula for GFRby the National Kidney Foundation for Adults.The GFR will not calculate if the sex is unknown or if thepatient's age is <18 years. CREATININE (test code = CREAT) 1.6 mg/dL 0.6-1.0 H BUN/CREATININE RATIO (test code = BUN/CREA) 35.6 12.0-20.0 H CALCIUM (test code = CA) 8.4 mg/dL 8.7-10.4 L [id number] 06:00:00* Test Item Value Reference Range Interpretation Comme nts PHOSPHOROUS (test code = PHOS) 3.5 mg/dL 2.4-5.1 N [id number] 06:00:00* Test Item Value Reference Range Interpretation Comme nts MAGNESIUM (test code = MAG) 2.0 mg/dL 1.6-2.6 N [id number] 05:35:00* Test Item Value Reference Range Interpretation Comme nts GLUBED (test code = GLUBED) 133 mg/dL 70-105 H Intravenous admi nistration of N-acetylcysteine which resultsin blood concentrations >5 mg/dL will cause overestimationof blood glucose results. Do not use during intravenousinfusion of N'acetylcysteine. [id number] 05:19:00* Test Item Value Reference Range Interpretation Comme nts GLUBED (test code = GLUBED) 13 mg/dL 70-105 LL CRITICAL RESULT - TESTING PERFORMED BY PRIMARY CAREGIVERIntravenous administration of N-acetylcysteine which resultsin blood concentrations >5 mg/dL will cause overestimationof blood glucose results. Do not use during intravenousinfusion of N'acetylcysteine. [id number] 05:18:00* Test Item Value Reference Range Interpretation Comme nts GLUBED (test code = GLUBED) 10 mg/dL 70-105 LL CRITICAL RESULT - TESTING PERFORMED BY PRIMARY CAREGIVERIntravenous administration of N-acetylcysteine which resultsin blood concentrations >5 mg/dL will cause overestimationof blood glucose results. Do not use during intravenousinfusion of N'acetylcysteine. [id number] 05:02:00* Test Item Value Reference Range Interpretation Comme nts GLUBED (test code = GLUBED) 70 mg/dL 70-105 N Intravenous admi nistration of N-acetylcysteine which resultsin blood concentrations >5 mg/dL will cause overestimationof blood glucose results. Do not use during intravenousinfusion of N'acetylcysteine. CBC W/O [id number] 04:58:00* Test Item Value Reference Range Interpretation Comme nts WHITE BLOOD CELL (test code = WBC) 14.7 10 3/uL 4.5-11.0 H RED BLOOD CELL (test code = RBC) 3.26 10 6/uL 3.50-5.50 L HEMOGLOBIN (test code = HGB) 9.9 g/dL 12.0-16.0 L HEMATOCRIT (test code = HCT) 30.1 % 37.0-55.0 L MEAN CELL VOLUME (test code = MCV) 92 fL 81-102 N MEAN CELL HGB (test code = MCH) 30.4 pg 26.0-34.0 N MEAN CELL HGB CONCENTRATION (test code = MCHC) 32.9 g/dL 31.0-37.0 N RED CELL DISTRIBUTION WIDTH (test code = RDW) 12.4 % 11.6-14.4 N PLATELET COUNT (test code = PLT) 259 10 3/uL 150-400 N [id number] 03:20:00* Test Item Value Reference Range Interpretation Comme nts GLUBED (test code = GLUBED) 119 mg/dL 70-105 H Intravenous admi nistration of N-acetylcysteine which resultsin blood concentrations >5 mg/dL will cause overestimationof blood glucose results. Do not use during intravenousinfusion of N'acetylcysteine. [id number] 02:12:00* Test Item Value Reference Range Interpretation Comme nts GLUBED (test code = GLUBED) 248 mg/dL 70-105 H Intravenous admi nistration of N-acetylcysteine which resultsin blood concentrations >5 mg/dL will cause overestimationof blood glucose results. Do not use during intravenousinfusion of N'acetylcysteine. [id number] 00:52:00* Test Item Value Reference Range Interpretation Comme nts GLUBED (test code = GLUBED) 434 mg/dL 70-105 HH CRITICAL RESULT - TESTING PERFORMED BY PRIMARY CAREGIVERIntravenous administration of N-acetylcysteine which resultsin blood concentrations >5 mg/dL will cause overestimationof blood glucose results. Do not use during intravenousinfusion of N'acetylcysteine. [id number] 23:27:00* Test Item Value Reference Range Interpretation Comme nts GLUBED (test code = GLUBED) 540 mg/dL 70-105 HH CRITICAL RESULT - TESTING PERFORMED BY PRIMARY CAREGIVERIntravenous administration of N-acetylcysteine which resultsin blood concentrations >5 mg/dL will cause overestimationof blood glucose results. Do not use during intravenousinfusion of N'acetylcysteine. [id number] 22:21:00* Test Item Value Reference Range Interpretation Comme nts GLUBED (test code = GLUBED) > 600 mg/dL 70-105 HH CRITICAL RESULT - TESTING PERFORMED BY PRIMARY CAREGIVERIntravenous administration of N-acetylcysteine which resultsin blood concentrations >5 mg/dL will cause overestimationof blood glucose results. Do not use during intravenousinfusion of N'acetylcysteine. BASIC METABOLIC [id number] 21:10:00* Test Item Value Reference Range Interpretation Comme nts SODIUM (test code = NA) 128 mmol/L 136-145 L POTASSIUM (test code = K) 5.0 mmol/L 3.5-5.1 N CHLORIDE (test code = CL) 99 mmol/L 98-107 N CARBON DIOXIDE (test code = CO2) 22 mmol/L 20-31 N ANION GAP (test code = GAP) 12.1 2.0-16.0 GLUCOSE (test code = GLU) 766 mg/dL 74-106 HH Critical Value r eported toFirst Name:HECTOR Last Name:YEISON /RODNEY [id number] READ BACK AND VERIFIEDby [id number], on 02/24/24, @ 2200. BLOOD UREA NITROGEN (test code = BUN) 63 mg/dL 9-23 H GLOMERULAR FILTRATION RATE (test code = GFR) 21 ml/min >60 L The Glomerular Filtration Rate is a calculated parameterbased on serum Creatinine, patient age and sex. GFR valuesless than 60 mL/min/1.73 square meters are indicative ofChronic Kidney Disease. Values less than 15 mL/min/1.73square meters indicate Kidney failure. The calculation forGFR is based on the CKD-EPI (2020) calculation. This formulais race indifferent and is the recommended formula for GFRby the National Kidney Foundation for Adults.The GFR will not calculate if the sex is unknown or if thepatient's age is <18 years. CREATININE (test code = CREAT) 2.4 mg/dL 0.6-1.0 H BUN/CREATININE RATIO (test code = BUN/CREA) 26.3 12.0-20.0 H CALCIUM (test code = CA) 8.3 mg/dL 8.7-10.4 L [id number] 21:10:00* Test Item Value Reference Range Interpretation Comme nts PHOSPHOROUS (test code = PHOS) 4.5 mg/dL 2.4-5.1 N [id number] 21:10:00* Test Item Value Reference Range Interpretation Comme nts MAGNESIUM (test code = MAG) 2.3 mg/dL 1.6-2.6 N CBC W/AUTO [id number] 20:35:00* Test Item Value Reference Range Interpretation Comme nts WHITE BLOOD CELL (test code = WBC) 11.5 10 3/uL 4.5-11.0 H RED BLOOD CELL (test code = RBC) 3.03 10 6/uL 3.50-5.50 L HEMOGLOBIN (test code = HGB) 9.3 g/dL 12.0-16.0 L HEMATOCRIT (test code = HCT) 28.3 % 37.0-55.0 L MEAN CELL VOLUME (test code = MCV) 93 fL 81-102 MEAN CELL HGB (test code = MCH) 30.7 pg 26.0-34.0 N MEAN CELL HGB CONCENTRATION (test code = MCHC) 32.9 g/dL 31.0-37.0 N RED CELL DISTRIBUTION WIDTH (test code = RDW) 12.3 % 11.6-14.4 N PLATELET COUNT (test code = PLT) 257 10 3/uL 150-400 N MEAN PLATELET VOLUME (test code = MPV) 10.3 fL 9.0-12.6 N NEUTROPHIL % (test code = NT%) 80.0 % 33.0-76.0 H IMMATURE GRANULOCYTE % (test code = IG%) 0.7 % 0.0-1.0 N LYMPHOCYTE % (test code = LY%) 5.9 % 14.0-56.4 L MONOCYTE % (test code = MO%) 13.2 % 0.0-12.9 H EOSINOPHIL % (test code = EO%) 0.0 % 0.0-7.0 N BASOPHIL % (test code = BA%) 0.2 % 0-2.0 N NUCLEATED RBC % (test code = NRBC%) 0.0 % 0-0.2 N NEUTROPHIL # (test code = NT#) 9.24 10 3/uL 1.5-7.0 H IMMATURE GRANULOCYTE # (test code = IG#) 0.080 x10 3/uL 0.000-0.100 N LYMPHOCYTE # (test code = LY#) 0.68 10 3/uL 1.50-4.00 L MONOCYTE # (test code = MO#) 1.52 10 3/uL 0.20-0.80 H EOSINOPHIL # (test code = EO#) 0.00 10 3/uL 0.0-0.5 N BASOPHIL # (test code = BA#) 0.02 10 3/uL 0.0-0.1 N NUCLEATED RBC # (test code = NRBC#) 0.000 10 3/uL 0.000-0.012 N [id number] 20:30:00* Test Item Value Reference Range Interpretation Comme nts GLUBED (test code = GLUBED) > 600 mg/dL 70-105 HH CRITICAL RESULT - TESTING PERFORMED BY PRIMARY CAREGIVERIntravenous administration of N-acetylcysteine which resultsin blood concentrations >5 mg/dL will cause overestimationof blood glucose results. Do not use during intravenousinfusion of N'acetylcysteine. [id number] 18:22:00* Test Item Value Reference Range Interpretation Comme nts GLUBED (test code = GLUBED) > 600 mg/dL 70-105 HH CRITICAL RESULT - TESTING PERFORMED BY PRIMARY CAREGIVERIntravenous administration of N-acetylcysteine which resultsin blood concentrations >5 mg/dL will cause overestimationof blood glucose results. Do not use during intravenousinfusion of N'acetylcysteine. UA RFLX MICR CULT IF [id number] 17:44:00* Test Item Value Reference Range Interpretation Comme nts UA COLOR (test code = COLU) YELLOW YELLOW UA APPEARANCE (test code = APPU) CLEAR CLEAR UA GLUCOSE DIPSTICK (test co de = DGLUU) 3+ NEGATIVE A UA BILIRUBIN DIPSTICK (test code = BILU) NEGATIVE NEGATIVE UA KETONE DIPSTICK (test cod e = KETU) TRACE NEGATIVE A UA SPECIFIC GRAVITY (test co de = SGU) 1.018 1.005-1.025 N UA BLOOD DIPSTICK (test code = BJORN) NEGATIVE NEGATIVE UA PH DIPSTICK (test code = RONNIE) 5.0 5.0-8.0 UA PROTEIN DIPSTICK (test co de = PROU) NEGATIVE NEGATIVE UA UROBILINOGEN DIPSTICK (te st code = URO) NEGATIVE EU/dL 0.1-0.2 UA NITRITE DIPSTICK (test co de = JUDIT) NEGATIVE NEGATIVE UA LEUKOCYTE ESTERASE DIPSTI CK (test code = LEUU) NEGATIVE NEGATIVE UA WBC (test code = WBCU) 0-2 /hpf 0-3 UA RBC (test code = RBCU) NONE SEEN /hpf 0-3 UA BACTERIA (test code = BACU) NONE SEEN /HPF NEGATIVE UA SQUAMOUS CELLS (test code = SQU) RARE /HPF FEW Indication for culture: RiskForSepsis-no oth srcSpecimen Description: CLEAN [id number] 17:20:00* Test Item Value Reference Range Interpretation Comme nts GLUBED (test code = GLUBED) > 600 mg/dL 70-105 HH CRITICAL RESULT - TESTING PERFORMED BY PRIMARY CAREGIVERIntravenous administration of N-acetylcysteine which resultsin blood concentrations >5 mg/dL will cause overestimationof blood glucose results. Do not use during intravenousinfusion of N'acetylcysteine. HGBA1C - GLYCOSYLATED [id number] 17:16:00* Test Item Value Reference Range Interpretation Comme nts GLYCOSYLATED HEMOGLOBIN (HA1C) (test code = GLYHGB) 8.0 % 4.5-5.9 H The [place] [employer] recommends a therapeuticrange of <7.0% Hemoglobin A1c for patients with diabetesmellitus (Type 2 diabetes). LACTIC [id number] 16:25:00* Test Item Value Reference Range Interpretation Comme nts LACTIC ACID (test code = LACT) 2.5 mmol/L 0.5-2.2 H Elevated Lactate reported to the following Caregiver:Full Name/Title: MARY GARCIA/RODNEY [id number], on 02/24/24, @ 0586 POC VENOUS BLOOD [id number] 15:22:00* Test Item Value Reference Range Interpretation Comme nts POC VENOUS BLOOD GAS PH (jill t code = POCPHV) 7.314 7.33-7.45 L POC VENOUS BLOOD GAS PCO2 (t est code = [id number]) 27.3 mm Hg 35-45 LL POC VENOUS BLOOD GAS PO2 (te st code = BNRYU8N) 154.5 mmHg 80-90 H POC HCO3 VENOUS (test code = OJTMHQ8F) 13.8 mmol/L 22-24 L POC BASE EXCESS VENOUS (test code = POCBEV) -11.1 mmol/L -2-4 L POC O2 SATURATION VENOUS (te st code = AVZN6AW) 99.2 % 60-80 H BASIC METABOLIC [id number] 14:20:00* Test Item Value Reference Range Interpretation Comme nts SODIUM (test code = NA) 122 mmol/L 136-145 L POTASSIUM (test code = K) 5.7 mmol/L 3.5-5.1 H CHLORIDE (test code = CL) 90 mmol/L 98-107 L CARBON DIOXIDE (test code = CO2) 13 mmol/L 20-31 L ANION GAP (test code = GAP) 25.2 2.0-16.0 H GLUCOSE (test code = GLU) 1126 mg/dL 74-106 HH Critical Value r eported toFirst Name:SUBHASH Last Name:RODNEY CARTERRESULTS READ BACK AND VERIFIEDby [id number], on 02/24/24, @ 2040. BLOOD UREA NITROGEN (test code = BUN) 66 mg/dL 9-23 H GLOMERULAR FILTRATION RATE (test code = GFR) 18 ml/min >60 L The Glomerular Filtration Rate is a calculated parameterbased on serum Creatinine, patient age and sex. GFR valuesless than 60 mL/min/1.73 square meters are indicative ofChronic Kidney Disease. Values less than 15 mL/min/1.73square meters indicate Kidney failure. The calculation forGFR is based on the CKD-EPI (2020) calculation. This formulais race indifferent and is the recommended formula for GFRby the National Kidney Foundation for Adults.The GFR will not calculate if the sex is unknown or if thepatient's age is <18 years. CREATININE (test code = CREAT) 2.7 mg/dL 0.6-1.0 H BUN/CREATININE RATIO (test code = BUN/CREA) 24.4 12.0-20.0 H CALCIUM (test code = CA) 8.9 mg/dL 8.7-10.4 N LIVER FUNCTION [id number] 14:20:00* Test Item Value Reference Range Interpretation Comme nts TOTAL PROTEIN (test code = PROT) 6.6 g/dL 5.7-8.2 N ALBUMIN (test code = ALB) 3.6 g/dL 3.4-5.0 N GLOBULIN (test code = GLOB) 3.0 g/dL 2.3-3.5 N BILIRUBIN TOTAL (test code = BILT) 0.5 mg/dL 0.2-1.1 N BILIRUBIN DIRECT (test code = BILD) 0.2 mg/dL 0.0-0.3 N BILIRUBIN INDIRECT (test cod e = BILIND) 0.3 mg/dL 0.0-0.8 N SGOT/AST (test code = AST) 30 U/L <34 SGPT/ALT (test code = ALT) 24 U/L 10-49 N ALKALINE PHOSPHATASE (test c ode = ALKP) 78 U/L 46-116 N TROP-I HIGH [id number] 14:20:00* Test Item Value Reference Range Interpretation Comme nts TROP-I HIGH SENSITIVITY (test code = TROPIHS) 239 pg/mL 0-53 HH Critical Value reported toFirst Name:SUBHASH Last Name:RODNEY CARTER 4ID:[id number] READ BACK AND VERIFIEDby [facility]., on 02/24/24, @ 4305.CAUTION: Units of the current test methodology (pg/mL) differ from the prior test methodology (ng/mL) by a factor of 1000. POSITIVE TROPONIN HS IS IDENTIFIED THE FOLLOWING MALE > OR = 78 pg/mL FEMALE > OR = 53 pg/mL ALL CRITICAL TROPI HS HAVE BEEN IDENTIFIED MALE OR FEMALE > OR = 120 pg/mL CBC W/O [id number] 13:49:00* Test Item Value Reference Range Interpretation Comme nts WHITE BLOOD CELL (test code = WBC) 11.7 10 3/uL 4.5-11.0 H RED BLOOD CELL (test code = RBC) 3.29 10 6/uL 3.50-5.50 L HEMOGLOBIN (test code = HGB) 10.2 g/dL 12.0-16.0 L HEMATOCRIT (test code = HCT) 33.3 % 37.0-55.0 L MEAN CELL VOLUME (test code = MCV) 101 fL 81-102 N MEAN CELL HGB (test code = MCH) 31.0 pg 26.0-34.0 N MEAN CELL HGB CONCENTRATION (test code = MCHC) 30.6 g/dL 31.0-37.0 L RED CELL DISTRIBUTION WIDTH (test code = RDW) 12.8 % 11.6-14.4 N PLATELET COUNT (test code = PLT) 300 10 3/uL 150-400 N [id number] 13:40:00* Test Item Value Reference Range Interpretation Comme nts GLUBED (test code = GLUBED) > 600 mg/dL 70-105 HH CRITICAL RESULT - TESTING PERFORMED BY PRIMARY CAREGIVERIntravenous administration of N-acetylcysteine which resultsin blood concentrations >5 mg/dL will cause overestimationof blood glucose results. Do not use during intravenousinfusion of N'acetylcysteine. B-TYPE NATRIURETIC [id number] 18:01:00* Test Item Value Reference Range Interpretation Comme nts B-TYPE NATRIURETIC PEPTIDE ( test code = BNP) 18 pg/mL 0-100 N BASIC METABOLIC [id number] 17:49:00* Test Item Value Reference Range Interpretation Comme nts SODIUM (test code = NA) 139 mmol/L 136-145 N POTASSIUM (test code = K) 3.9 mmol/L 3.5-5.1 N CHLORIDE (test code = CL) 104 mmol/L 98-107 N CARBON DIOXIDE (test code = CO2) 32 mmol/L 20-31 H ANION GAP (test code = GAP) 7.3 2.0-16.0 N GLUCOSE (test code = GLU) 78 mg/dL 74-106 N BLOOD UREA NITROGEN (test code = BUN) 19 mg/dL 9-23 N GLOMERULAR FILTRATION RATE (test code = GFR) 60 ml/min >60 The Glomerular Filtration Rate is a calculated parameterbased on serum Creatinine, patient age and sex. GFR valuesless than 60 mL/min/1.73 square meters are indicative ofChronic Kidney Disease. Values less than 15 mL/min/1.73square meters indicate Kidney failure. The calculation forGFR is based on the CKD-EPI (2020) calculation. This formulais race indifferent and is the recommended formula for GFRby the National Kidney Foundation for Adults.The GFR will not calculate if the sex is unknown or if thepatient's age is <18 years. CREATININE (test code = CREAT) 1.0 mg/dL 0.6-1.0 N BUN/CREATININE RATIO (test code = BUN/CREA) 19.0 12.0-20.0 N CALCIUM (test code = CA) 9.9 mg/dL 8.7-10.4 N LIVER FUNCTION [id number] 17:49:00* Test Item Value Reference Range Interpretation Comme nts TOTAL PROTEIN (test code = PROT) 8.2 g/dL 5.7-8.2 N ALBUMIN (test code = ALB) 4.7 g/dL 3.4-5.0 N GLOBULIN (test code = GLOB) 3.5 g/dL 2.3-3.5 N BILIRUBIN TOTAL (test code = BILT) 0.5 mg/dL 0.2-1.1 N BILIRUBIN DIRECT (test code = BILD) 0.2 mg/dL 0.0-0.3 N BILIRUBIN INDIRECT (test cod e = BILIND) 0.3 mg/dL 0.0-0.8 N SGOT/AST (test code = AST) 27 U/L <34 SGPT/ALT (test code = ALT) 20 U/L 10-49 N ALKALINE PHOSPHATASE (test c ode = ALKP) 79 U/L 46-116 N [id number] 17:49:00* Test Item Value Reference Range Interpretation Comme nts LIPASE (test code = LIP) 39 U/L 12-53 N CAUTION: Patient Reference Range of the current Lipase method differs significantly from the prior Lipase Reference range. (prior range 73-393 U/L) UA RFLX MICR CULT IF [id number] 17:26:00* Test Item Value Reference Range Interpretation Comme nts UA COLOR (test code = COLU) YELLOW YELLOW UA APPEARANCE (test code = APPU) CLEAR CLEAR UA GLUCOSE DIPSTICK (test co de = DGLUU) 3+ NEGATIVE A UA BILIRUBIN DIPSTICK (test code = BILU) NEGATIVE NEGATIVE UA KETONE DIPSTICK (test cod e = KETU) NEGATIVE NEGATIVE UA SPECIFIC GRAVITY (test co de = SGU) 1.020 1.005-1.025 N UA BLOOD DIPSTICK (test code = BJORN) NEGATIVE NEGATIVE UA PH DIPSTICK (test code = RONNIE) 6.0 5.0-8.0 UA PROTEIN DIPSTICK (test co de = PROU) NEGATIVE NEGATIVE UA UROBILINOGEN DIPSTICK (te st code = URO) NEGATIVE EU/dL 0.1-0.2 UA NITRITE DIPSTICK (test co de = JUDIT) NEGATIVE NEGATIVE UA LEUKOCYTE ESTERASE DIPSTI CK (test code = LEUU) NEGATIVE NEGATIVE UA WBC (test code = WBCU) 0-2 /hpf 0-3 UA RBC (test code = RBCU) 0-2 /hpf 0-3 UA BACTERIA (test code = BACU) RARE /HPF NEGATIVE UA SQUAMOUS CELLS (test code = SQU) RARE /HPF FEW UA HYALINE CAST (test code = HYALU) 2-5 /lpf NONE SEEN Indication for culture: Flank PainSpecimen Description: CLEAN CATCHCBC W/AUTO [id number] 17:11:00* Test Item Value Reference Range Interpretation Comme nts WHITE BLOOD CELL (test code = WBC) 5.4 10 3/uL 4.5-11.0 N RED BLOOD CELL (test code = RBC) 4.04 10 6/uL 3.50-5.50 N HEMOGLOBIN (test code = HGB) 12.8 g/dL 12.0-16.0 N HEMATOCRIT (test code = HCT) 37.7 % 37.0-55.0 N MEAN CELL VOLUME (test code = MCV) 93 fL 81-102 N MEAN CELL HGB (test code = MCH) 31.7 pg 26.0-34.0 N MEAN CELL HGB CONCENTRATION (test code = MCHC) 34.0 g/dL 31.0-37.0 N RED CELL DISTRIBUTION WIDTH (test code = RDW) 12.2 % 11.6-14.4 N PLATELET COUNT (test code = PLT) 274 10 3/uL 150-400 N MEAN PLATELET VOLUME (test code = MPV) 10.4 fL 9.0-12.6 N NEUTROPHIL % (test code = NT%) 53.2 % 33.0-76.0 N IMMATURE GRANULOCYTE % (test code = IG%) 0.4 % 0.0-1.0 N LYMPHOCYTE % (test code = LY%) 27.5 % 14.0-56.4 N MONOCYTE % (test code = MO%) 15.8 % 0.0-12.9 H EOSINOPHIL % (test code = EO%) 2.0 % 0.0-7.0 N BASOPHIL % (test code = BA%) 1.1 % 0-2.0 N NUCLEATED RBC % (test code = NRBC%) 0.0 % 0-0.2 N NEUTROPHIL # (test code = NT#) 2.87 10 3/uL 1.5-7.0 N IMMATURE GRANULOCYTE # (test code = IG#) 0.020 x10 3/uL 0.000-0.100 N LYMPHOCYTE # (test code = LY#) 1.48 10 3/uL 1.50-4.00 L MONOCYTE # (test code = MO#) 0.85 10 3/uL 0.20-0.80 H EOSINOPHIL # (test code = EO#) 0.11 10 3/uL 0.0-0.5 N BASOPHIL # (test code = BA#) 0.06 10 3/uL 0.0-0.1 N NUCLEATED RBC # (test code = NRBC#) 0.000 10 3/uL 0.000-0.012 N [id number] 16:21:00* Test Item Value Reference Range Interpretation Comme nts GLUBED (test code = GLUBED) 114 mg/dL 70-105 H Intravenous admi nistration of N-acetylcysteine which resultsin blood concentrations >5 mg/dL will cause overestimationof blood glucose results. Do not use during intravenousinfusion of N'acetylcysteine. UA RFLX MICR CULT IF [id number] 15:41:00* Test Item Value Reference Range Interpretation Comme nts UA COLOR (test code = COLU) YELLOW YELLOW UA APPEARANCE (test code = APPU) CLEAR CLEAR UA GLUCOSE DIPSTICK (test co de = DGLUU) 3+ NEGATIVE A UA BILIRUBIN DIPSTICK (test code = BILU) NEGATIVE NEGATIVE UA KETONE DIPSTICK (test cod e = KETU) NEGATIVE NEGATIVE UA SPECIFIC GRAVITY (test co de = SGU) 1.024 1.005-1.025 N UA BLOOD DIPSTICK (test code = BJORN) NEGATIVE NEGATIVE UA PH DIPSTICK (test code = RONNIE) 6.0 5.0-8.0 UA PROTEIN DIPSTICK (test co de = PROU) NEGATIVE NEGATIVE UA UROBILINOGEN DIPSTICK (te st code = URO) NEGATIVE EU/dL 0.1-0.2 UA NITRITE DIPSTICK (test co de = JUDIT) NEGATIVE NEGATIVE UA LEUKOCYTE ESTERASE DIPSTI CK (test code = LEUU) NEGATIVE NEGATIVE UA MICROSCOPIC NEEDED? (test code = UAMICRO) NO NO UA WBC (test code = WBCU) 0-2 /hpf 0-3 UA RBC (test code = RBCU) 0-2 /hpf 0-3 UA BACTERIA (test code = BACU) RARE /HPF NEGATIVE UA SQUAMOUS CELLS (test code = SQU) RARE /HPF FEW Indication for culture: RiskForSepsis-no oth srcSpecimen Description: CLEAN CATCHBASIC METABOLIC [id number] 15:30:00* Test Item Value Reference Range Interpretation Comme nts SODIUM (test code = NA) 129 mmol/L 135-145 L POTASSIUM (test code = K) 4.5 mmol/L 3.5-5.1 N CHLORIDE (test code = CL) 100 mmol/L 98-107 N CARBON DIOXIDE (test code = CO2) 28 mmol/L 21-32 N ANION GAP (test code = GAP) 5.5 2.0-16.0 N GLUCOSE (test code = GLU) 377 mg/dL 65-99 H BLOOD UREA NITROGEN (test code = BUN) 23 mg/dL 4-23 N GLOMERULAR FILTRATION RATE (test code = GFR) >=60 max estimate ml/min >60 The Glomerular Filtration Rate is a calculated parameterbased on serum Creatinine, patient age and sex. GFR valuesless than 60 mL/min/1.73 square meters are indicative ofChronic Kidney Disease. Values less than 15 mL/min/1.73square meters indicate Kidney failure. The calculation forGFR is based on the CKD-EPI (2020) calculation. This formulais race indifferent and is the recommended formula for GFRby the National Kidney Foundation for Adults.The GFR will not calculate if the sex is unknown or if thepatient's age is <18 years. CREATININE (test code = CREAT) 0.9 mg/dL 0.6-1.5 N BUN/CREATININE RATIO (test code = BUN/CREA) 25.6 12.0-20.0 H CALCIUM (test code = CA) 9.2 mg/dL 8.5-10.1 N LIVER FUNCTION [id number] 15:30:00* Test Item Value Reference Range Interpretation Comme nts TOTAL PROTEIN (test code = PROT) 7.6 g/dL 6.4-8.2 N ALBUMIN (test code = ALB) 3.7 g/dL 3.4-5.0 N GLOBULIN (test code = GLOB) 3.9 g/dL 2.3-3.5 H BILIRUBIN TOTAL (test code = BILT) 0.5 mg/dL 0.2-1.2 N Use of this a ssay is not recommended for patients undergoingtreatment with Eltrombopag due to the potential for falselyelevated results. BILIRUBIN DIRECT (test code = BILD) 0.2 mg/dL 0.0-0.3 N BILIRUBIN INDIRECT (test code = BILIND) 0.3 mg/dL 0.0-0.8 N SGOT/AST (test code = AST) 22 U/L 15-37 N SGPT/ALT (test code = ALT) 35 U/L 6-50 N ALKALINE PHOSPHATASE (test code = ALKP) 76 U/L 45-117 N TROP-I HIGH [id number] 15:30:00* Test Item Value Reference Range Interpretation Comme nts TROP-I HIGH SENSITIVITY (test code = TROPIHS) 6 pg/mL 0-53 N CAUTION: U nits of the current test methodology (pg/mL) differ from the prior test methodology (ng/mL) by a factor of 1000. POSITIVE TROPONIN HS IS IDENTIFIED THE FOLLOWING MALE > OR = 78 ng/mL FEMALE > OR = 53 ng/mL ALL CRITICAL TROPI HS HAVE BEEN IDENTIFIED MALE OR FEMALE > OR = 120 ng/mL ACETONE [id number] 15:30:00* Test Item Value Reference Range Interpretation Comme nts ACETONE QUAL (test code = ACETNQL) NEGATIVE NEGATIVE POC VENOUS BLOOD [id number] 15:29:00* Test Item Value Reference Range Interpretation Comme nts POC VENOUS BLOOD GAS PH (jill t code = POCPHV) 7.294 7.31-7.41 L POC VENOUS BLOOD GAS PCO2 (t est code = [id number]) 57.8 mm/Hg 41-51 H POC VENOUS BLOOD GAS PO2 (te st code = ZYFQY2N) 39.8 mm/Hg 30-40 N POC HCO3 VENOUS (test code = [id number]) 28.1 mmol/L 23-28 H POC BASE EXCESS VENOUS (test code = POCBEV) 0.2 mmol/L -2-+3 N POC O2 SATURATION VENOUS (te st code = DSLT6GT) 67.5 % 50-80 N CBC W/O [id number] 15:11:00* Test Item Value Reference Range Interpretation Comme nts WHITE BLOOD CELL (test code = WBC) 4.5 10 3/uL 4.5-11.0 N RED BLOOD CELL (test code = RBC) 4.02 10 6/uL 3.50-5.50 N HEMOGLOBIN (test code = HGB) 12.5 g/dL 12.0-16.0 N HEMATOCRIT (test code = HCT) 37.6 % 37.0-55.0 N MEAN CELL VOLUME (test code = MCV) 94 fL 81-102 N MEAN CELL HGB (test code = MCH) 31.1 pg 26.0-34.0 N MEAN CELL HGB CONCENTRATION (test code = MCHC) 33.2 g/dL 31.0-37.0 N RED CELL DISTRIBUTION WIDTH (test code = RDW) 11.7 % 11.6-14.4 N PLATELET COUNT (test code = PLT) 263 10 3/uL 150-400 N Hemoglobin A1c/Hemoglobin.total in [id number] 00:00:00* Test Item Value Reference Range Interpretation Comme nts Hemoglobin A1c/Hemoglobin.to elijah in Blood (test code = 4548-4) 9.5 % 4.8-5.6 H Glucose mean value [Mass/vol ume] in Blood Estimated from glycated hemoglobin (test code = 35741-5) 226 mg/dL [facility] W Auto Differential panel - [id number] 00:00:00 * Test Item Value Reference Range Interpretation Comme nts Leukocytes [#/volume] in Blo od by Automated count (test code = 6690-2) 4.2 x10e3/uL 3.4-10.8 Erythrocytes [#/volume] in Blood by Automated count (test code = 789-8) 3.91 x10e6/uL 3.77-5.28 Hemoglobin [Mass/volume] in Blood (test code = 718-7) 12.1 g/dL 11.1-15.9 Hematocrit [Volume Fraction] of Blood by Automated count (test code = 4544-3) 37.0 % 34.0-46.6 Erythrocyte mean corpuscular volume [Entitic volume] by Automated count (test code = 787-2) 95 fL 79-97 Erythrocyte mean corpuscular hemoglobin [Entitic mass] by Automated count (test code = 785-6) 30.9 pg 26.6-33.0 Erythrocyte mean corpuscular hemoglobin concentration [Mass/volume] by Automated count (test code = 786-4) 32.7 g/dL 31.5-35.7 Erythrocyte distribution wid th [Ratio] by Automated count (test code = 788-0) 11.7 % 11.7-15.4 Platelets [#/volume] in Bloo d by Automated count (test code = 777-3) 272 x10e3/uL 150-450 Neutrophils/100 leukocytes i n Blood by Automated count (test code = 770-8) 63 % not estab. Lymphocytes/100 leukocytes i n Blood by Automated count (test code = 736-9) 23 % not estab. Monocytes/100 leukocytes in Blood by Automated count (test code = 5905-5) 10 % not estab. Eosinophils/100 leukocytes i n Blood by Automated count (test code = 713-8) 3 % not estab. Basophils/100 leukocytes in Blood by Automated count (test code = 706-2) 1 % not estab. Neutrophils [#/volume] in Bl ood by Automated count (test code = 751-8) 2.6 x10e3/uL 1.4-7.0 Lymphocytes [#/volume] in Bl ood by Automated count (test code = 731-0) 1.0 x10e3/uL 0.7-3.1 Monocytes [#/volume] in Bloo d by Automated count (test code = 742-7) 0.4 x10e3/uL 0.1-0.9 Eosinophils [#/volume] in Bl ood by Automated count (test code = 711-2) 0.1 x10e3/uL 0.0-0.4 Basophils [#/volume] in Bloo d by Automated count (test code = 704-7) 0.1 x10e3/uL 0.0-0.2 Immature granulocytes/100 leukocytes in Blood by Automated count (test code = 92642-8) 0 % not estab. Immature granulocytes [#/volume] in Blood by Automated count (test code = 88816-4) 0.0 x10e3/uL 0.0-0.1 [facility] or Plasma 2022-11-08 00:00:00* Test Item Value Reference Range Interpretation Comme nts Glucose [Mass/volume] in Ser um or Plasma (test code = 2345-7) 429 mg/dL 70-99 H Urea nitrogen [Mass/volume] in Serum or Plasma (test code = 3094-0) 17 mg/dL 8-27 Creatinine [Mass/volume] in Serum or Plasma (test code = 2160-0) 0.95 mg/dL 0.57-1.00 Glomerular filtration rate/1.73 sq M.predicted [Volume Rate/Area] in Serum, Plasma or Blood by Creatinine-based formula (CKD-EPI 2020) (test code = 07986-2) 64 mL/min/1.73 >59 Urea nitrogen/Creatinine [Ma ss Ratio] in Serum or Plasma (test code = 3097-3) 18 12-28 Sodium [Moles/volume] in Ser um or Plasma (test code = 2951-2) 137 mmol/L 134-144 Potassium [Moles/volume] in Serum or Plasma (test code = 2823-3) 4.9 mmol/L 3.5-5.2 Chloride [Moles/volume] in Serum or Plasma (test code = 2075-0) 100 mmol/L 96-106 Carbon dioxide, total [Moles/volume] in Serum or Plasma (test code = 2027-9) 21 mmol/L 20-29 Calcium [Mass/volume] in Ser um or Plasma (test code = 20260-8) 9.4 mg/dL 8.7-10.3 Protein [Mass/volume] in Ser um or Plasma (test code = 2885-2) 6.5 g/dL 6.0-8.5 Albumin [Mass/volume] in Ser um or Plasma (test code = 1751-7) 4.1 g/dL 3.9-4.9 Globulin [Mass/volume] in Serum by calculation (test code = 97754-4) 2.4 g/dL 1.5-4.5 Albumin/Globulin [Mass Ratio ] in Serum or Plasma (test code = 1759-0) 1.7 1.2-2.2 Bilirubin.total [Mass/volume ] in Serum or Plasma (test code = 1975-2) 0.6 mg/dL 0.0-1.2 Alkaline phosphatase [Enzymatic activity/volume] in Serum or Plasma (test code = 6768-6) 67 IU/L 44-121 Aspartate aminotransferase [Enzymatic activity/volume] in Serum or Plasma (test code = 1920-8) 32 IU/L 0-40 Alanine aminotransferase [Enzymatic activity/volume] in Serum or Plasma (test code = 1742-6) 27 IU/L 0-32 [facility] [Units/volume] in Serum or Plasma by Detection limit <= 0.005 mIU/[id number] 00:00:00* Test Item Value Reference Range Interpretation Comme nts Thyrotropin [Units/volume] i n Serum or Plasma by Detection limit <= 0.005 mIU/L (test code = 98977-1) 0.797 uIU/mL 0.450-4.500 [facility] [id number] 16:09:00* Test Item Value Reference Range Interpretation Comme nts SODIUM (test code = NA) 135 mmol/L 135-145 N POTASSIUM (test code = K) 4.4 mmol/L 3.5-5.1 N CHLORIDE (test code = CL) 102 mmol/L 98-107 N CARBON DIOXIDE (test code = CO2) 20 mmol/L 21-32 L ANION GAP (test code = GAP) 17.4 2.0-16.0 H GLUCOSE (test code = GLU) 463 mg/dL 65-99 HH Critical Value r eported toFirst Name:ZI Last Name:PRINCERESULTS READ BACK AND VERIFIEDby NCLAB.SS1, on 05/29/22, @ 2405. BLOOD UREA NITROGEN (test code = BUN) 17 mg/dL 4-23 N GLOMERULAR FILTRATION RATE (test code = GFR) 44 ml/min >60 L The Glomerular Filtration Rate is a calculated parameterbased on serum Creatinine, patient age and sex. GFR valuesless than 60 mL/min/1.73 square meters are indicative ofChronic Kidney Disease. Values less than 15 mL/min/1.73square meters indicate Kidney failure. The calculation forGFR is based on the CKD-EPI (2020) calculation. This formulais race indifferent and is the recommended formula for GFRby the National Kidney Foundation for Adults.The GFR will not calculate if the sex is unknown or if thepatient's age is <18 years. CREATININE (test code = CREAT) 1.3 mg/dL 0.6-1.5 BUN/CREATININE RATIO (test code = BUN/CREA) 13.1 12.0-20.0 N TOTAL PROTEIN (test code = PROT) 7.6 g/dL 6.4-8.2 N ALBUMIN (test code = ALB) 3.7 g/dL 3.4-5.0 N CALCIUM (test code = CA) 9.4 mg/dL 8.5-10.1 N BILIRUBIN TOTAL (test code = BILT) 1.1 mg/dL 0.2-1.2 N Use of this a ssay is not recommended for patients undergoingtreatment with Eltrombopag due to the potential for falselyelevated results. SGOT/AST (test code = AST) 31 U/L 15-37 N SGPT/ALT (test code = ALT) 27 U/L 6-50 N ALKALINE PHOSPHATASE (test code = ALKP) 65 U/L 45-117 N [id number] 16:09:00* Test Item Value Reference Range Interpretation Comme nts LIPASE (test code = LIP) 109 U/L 73-393 N TROP-I HIGH [id number] 16:09:00* Test Item Value Reference Range Interpretation Comme nts TROP-I HIGH SENSITIVITY (test code = TROPIHS) 8 pg/mL 0-53 N CAUTION: U nits of the current test methodology (pg/mL) differ from the prior test methodology (ng/mL) by a factor of 1000. BETA [id number] 16:09:00* Test Item Value Reference Range Interpretation Comme nts BETA HYDROBUTYRATE (test code = BETHYD) 18 mg/dL See_Comment A Reference Range: All Ages (fasting): 0.2 - 2.8Performed At: [facility] [address] [place], [place] [id number] Alexandro Briones MD Ph:[phone] [Automated message] The system which generated this result transmitted reference range: (). The reference range was not used to interpret this result as normal/abnormal. [id number] 11:44:00* Test Item Value Reference Range Interpretation Comme nts GLUBED (test code = GLUBED) 248 mg/dL 70-105 H Intravenous admi nistration of N-acetylcysteine which resultsin blood concentrations >5 mg/dL will cause overestimationof blood glucose results. Do not use during intravenousinfusion of N'acetylcysteine. COMPREHENSIVE METABOLIC [id number] 08:10:00* Test Item Value Reference Range Interpretation Comme nts SODIUM (test code = NA) 138 mmol/L 135-145 N POTASSIUM (test code = K) 4.2 mmol/L 3.5-5.1 N CHLORIDE (test code = CL) 106 mmol/L 98-107 N CARBON DIOXIDE (test code = CO2) 27 mmol/L 21-32 N ANION GAP (test code = GAP) 9.2 2.0-16.0 GLUCOSE (test code = GLU) 201 mg/dL 65-99 H BLOOD UREA NITROGEN (test code = BUN) 15 mg/dL 4-23 N GLOMERULAR FILTRATION RATE (test code = GFR) >=60 max estimate ml/min >60 The Glomerular Filtration Rate is a calculated parameterbased on serum Creatinine, patient age and sex. GFR valuesless than 60 mL/min/1.73 square meters are indicative ofChronic Kidney Disease. Values less than 15 mL/min/1.73square meters indicate Kidney failure. The calculation forGFR is based on the CKD-EPI (2020) calculation. This formulais race indifferent and is the recommended formula for GFRby the National Kidney Foundation for Adults.The GFR will not calculate if the sex is unknown or if thepatient's age is <18 years. CREATININE (test code = CREAT) 1.0 mg/dL 0.6-1.5 N BUN/CREATININE RATIO (test code = BUN/CREA) 15.0 12.0-20.0 N TOTAL PROTEIN (test code = PROT) 6.0 g/dL 6.4-8.2 L ALBUMIN (test code = ALB) 3.0 g/dL 3.4-5.0 L CALCIUM (test code = CA) 8.4 mg/dL 8.5-10.1 L BILIRUBIN TOTAL (test code = BILT) 0.5 mg/dL 0.2-1.2 N Use of this assa y is not recommended for patients undergoingtreatment with Eltrombopag due to the potential for falselyelevated results. SGOT/AST (test code = AST) 19 U/L 15-37 N SGPT/ALT (test code = ALT) 19 U/L 6-50 N ALKALINE PHOSPHATASE (test code = ALKP) 49 U/L 45-117 N LIPID PROFILE (CORONARY RISK)2022-05-30 08:10:00* Test Item Value Reference Range Interpretation Comme nts TRIGLYCERIDES (test code = TRIG) 36 mg/dL 0-149 N CHOLESTEROL (test code = CHOL) 126 mg/dL 0-200 N CHOLESTEROL/HDL RATIO (test code = CHOLHDL) 2 1-6 N HDL CHOLESTEROL (test code = HDL) 64 mg/dL 40-60 H According to the National Institutes of Health (NIH) and theNational Cholesterol Education Program (NCEP), an HDLcholesterol >or= 60mg/dL counts as a "negative" risk factor;its presence removes one risk factor from the total count. LIPOPROTEIN LDL (test code = LDLC) 55 mg/dL 0-100 N HGBA1C - GLYCOSYLATED [id number] 08:00:00* Test Item Value Reference Range Interpretation Comme nts GLYCOSYLATED HEMOGLOBIN (HA1C) (test code = GLYHGB) 8.0 % 4.5-5.9 H The [place] Diabetes Association recommends a therapeuticrange of <7.0% Hemoglobin A1c for patients with diabetesmellitus (Type 2 diabetes). [id number] 07:59:00* Test Item Value Reference Range Interpretation Comme nts GLUBED (test code = GLUBED) 200 mg/dL 70-105 H Intravenous admi nistration of N-acetylcysteine which resultsin blood concentrations >5 mg/dL will cause overestimationof blood glucose results. Do not use during intravenousinfusion of N'acetylcysteine. CBC W/AUTO [id number] 07:40:00* Test Item Value Reference Range Interpretation Comme nts WHITE BLOOD CELL (test code = WBC) 5.2 10 3/uL 4.5-11.0 N RED BLOOD CELL (test code = RBC) 3.22 10 6/uL 3.50-5.50 L HEMOGLOBIN (test code = HGB) 9.5 g/dL 12.0-16.0 L HEMATOCRIT (test code = HCT) 29.8 % 37.0-55.0 L MEAN CELL VOLUME (test code = MCV) 93 fL 81-102 N MEAN CELL HGB (test code = MCH) 29.5 pg 26.0-34.0 N MEAN CELL HGB CONCENTRATION (test code = MCHC) 31.9 g/dL 31.0-37.0 N RED CELL DISTRIBUTION WIDTH (test code = RDW) 11.8 % 11.6-14.4 N PLATELET COUNT (test code = PLT) 221 10 3/uL 150-400 N MEAN PLATELET VOLUME (test code = MPV) 10.7 fL 9.0-12.6 N NEUTROPHIL % (test code = NT%) 54.6 % 33.0-76.0 N IMMATURE GRANULOCYTE % (test code = IG%) 0.2 % 0.0-1.0 N LYMPHOCYTE % (test code = LY%) 28.7 % 14.0-56.4 N MONOCYTE % (test code = MO%) 12.6 % 0.0-12.9 N EOSINOPHIL % (test code = EO%) 2.9 % 0.0-7.0 N BASOPHIL % (test code = BA%) 1.0 % 0-2.0 N NUCLEATED RBC % (test code = NRBC%) 0.0 % 0-0.2 N NEUTROPHIL # (test code = NT#) 2.85 10 3/uL 1.5-7.0 N IMMATURE GRANULOCYTE # (test code = IG#) 0.010 x10 3/uL 0.000-0.100 N LYMPHOCYTE # (test code = LY#) 1.50 10 3/uL 1.50-4.00 N MONOCYTE # (test code = MO#) 0.66 10 3/uL 0.20-0.80 N EOSINOPHIL # (test code = EO#) 0.15 10 3/uL 0.0-0.5 N BASOPHIL # (test code = BA#) 0.05 10 3/uL 0.0-0.1 N NUCLEATED RBC # (test code = NRBC#) 0.000 10 3/uL 0.000-0.012 N [id number] 20:37:00* Test Item Value Reference Range Interpretation Comme nts GLUBED (test code = GLUBED) 383 mg/dL 70-105 H Intravenous admi nistration of N-acetylcysteine which resultsin blood concentrations >5 mg/dL will cause overestimationof blood glucose results. Do not use during intravenousinfusion of N'acetylcysteine. [id number] 15:46:00* Test Item Value Reference Range Interpretation Comme nts GLUBED (test code = GLUBED) 173 mg/dL 70-105 H Intravenous admi nistration of N-acetylcysteine which resultsin blood concentrations >5 mg/dL will cause overestimationof blood glucose results. Do not use during intravenousinfusion of N'acetylcysteine. COVID 19 INHOUSE [id number] 14:20:00* Test Item Value Reference Range Interpretation Comme nts COVID 19 INHOUSE AG (test code = [id number]) NEGATIVE Negative Negative results do not preclude 2019-nCoV infection andshould not be used as the sole basis for treatment or otherpatient management decisions. Negative results must becombined with clinical observations, patient history, andepidemiological information. [id number] 14:07:00* Test Item Value Reference Range Interpretation Comme nts GLUBED (test code = GLUBED) 216 mg/dL 70-105 H Intravenous admi nistration of N-acetylcysteine which resultsin blood concentrations >5 mg/dL will cause overestimationof blood glucose results. Do not use during intravenousinfusion of N'acetylcysteine. [id number] 12:27:00* Test Item Value Reference Range Interpretation Comme nts GLUBED (test code = GLUBED) 289 mg/dL 70-105 H Intravenous admi nistration of N-acetylcysteine which resultsin blood concentrations >5 mg/dL will cause overestimationof blood glucose results. Do not use during intravenousinfusion of N'acetylcysteine. UA RFLX MICR CULT IF [id number] 10:07:00* Test Item Value Reference Range Interpretation Comme nts UA COLOR (test code = COLU) STRAW YELLOW UA APPEARANCE (test code = APPU) CLEAR CLEAR UA GLUCOSE DIPSTICK (test code = DGLUU) 3+ NEGATIVE A UA BILIRUBIN DIPSTICK (test code = BILU) NEGATIVE NEGATIVE UA KETONE DIPSTICK (test cod e = KETU) 1+ NEGATIVE A UA SPECIFIC GRAVITY (test code = SGU) 1.024 1.005-1.025 N UA BLOOD DIPSTICK (test code = BJORN) NEGATIVE NEGATIVE UA PH DIPSTICK (test code = RONNIE) 5.0 5.0-8.0 UA PROTEIN DIPSTICK (test code = PROU) 1+ NEGATIVE A UA UROBILINOGEN DIPSTICK (test code = URO) NEGATIVE EU/dL 0.1-0.2 UA NITRITE DIPSTICK (test code = JUDIT) NEGATIVE NEGATIVE UA LEUKOCYTE ESTERASE DIPSTICK (test code = LEUU) NEGATIVE NEGATIVE UA MICROSCOPIC NEEDED? (test code = UAMICRO) YES NO A UA WBC (test code = WBCU) 0-2 /hpf 0-3 UA RBC (test code = RBCU) 0-2 /hpf 0-3 UA BACTERIA (test code = BACU) NONE SEEN /HPF NEGATIVE UA SQUAMOUS CELLS (test code = SQU) None seen /HPF FEW UA MUCUS (test code = MUCU) OCCASIONAL /lpf Indication for culture: RiskForSepsis-no oth srcSpecimen Description: CLEAN CATCHPOC VENOUS BLOOD [id number] 10:00:00* Test Item Value Reference Range Interpretation Comme nts POC VENOUS BLOOD GAS PH (jill t code = POCPHV) 7.319 7.33-7.45 L POC VENOUS BLOOD GAS PCO2 (test code = RZGLWB1K) 38.3 mm Hg 35-45 N POC VENOUS BLOOD GAS PO2 (test code = FMRII3M) 81.8 mmHg 80-90 N POC HCO3 VENOUS (test code = JCXOZC0I) 19.7 mmol/L 22-24 L POC BASE EXCESS VENOUS (test code = POCBEV) -5.9 mmol/L -2-4 L POC O2 SATURATION VENOUS (test code = JMIP5EY) 95.1 % 60-80 H O2 CONTENT (test code = O2CT) 20.9 mL/dL 15.0-23.0 N POC SAMPLE SOURCE (test code = POCSAALISHALE) Venous Descript Specimen CBC W/AUTO [id number] 09:54:00* Test Item Value Reference Range Interpretation Comme nts WHITE BLOOD CELL (test code = WBC) 6.7 10 3/uL 4.5-11.0 N RED BLOOD CELL (test code = RBC) 4.00 10 6/uL 3.50-5.50 N HEMOGLOBIN (test code = HGB) 12.4 g/dL 12.0-16.0 N HEMATOCRIT (test code = HCT) 37.5 % 37.0-55.0 N MEAN CELL VOLUME (test code = MCV) 94 fL 81-102 N MEAN CELL HGB (test code = MCH) 31.0 pg 26.0-34.0 N MEAN CELL HGB CONCENTRATION (test code = MCHC) 33.1 g/dL 31.0-37.0 N RED CELL DISTRIBUTION WIDTH (test code = RDW) 11.5 % 11.6-14.4 L PLATELET COUNT (test code = PLT) 239 10 3/uL 150-400 N MEAN PLATELET VOLUME (test code = MPV) 10.5 fL 9.0-12.6 N NEUTROPHIL % (test code = NT%) 90.1 % 33.0-76.0 H IMMATURE GRANULOCYTE % (test code = IG%) 0.4 % 0.0-1.0 N LYMPHOCYTE % (test code = LY%) 6.6 % 14.0-56.4 L MONOCYTE % (test code = MO%) 1.3 % 0.0-12.9 N EOSINOPHIL % (test code = EO%) 0.9 % 0.0-7.0 N BASOPHIL % (test code = BA%) 0.7 % 0-2.0 N NUCLEATED RBC % (test code = NRBC%) 0.0 % 0-0.2 N NEUTROPHIL # (test code = NT#) 6.00 10 3/uL 1.5-7.0 N IMMATURE GRANULOCYTE # (test code = IG#) 0.030 x10 3/uL 0.000-0.100 N LYMPHOCYTE # (test code = LY#) 0.44 10 3/uL 1.50-4.00 L MONOCYTE # (test code = MO#) 0.09 10 3/uL 0.20-0.80 L EOSINOPHIL # (test code = EO#) 0.06 10 3/uL 0.0-0.5 N BASOPHIL # (test code = BA#) 0.05 10 3/uL 0.0-0.1 N NUCLEATED RBC # (test code = NRBC#) 0.000 10 3/uL 0.000-0.012 N - XR CHEST 1 [id number] 09:18:00 [facility] 1950 Sex: FPatient Name: LISETH POTTS Unit No: [id number] EXAMS: CPT CODE: [id number] XR CHEST 1 V 37030 EXAM: Chest one view. Location: A1 HISTORY: nausea COMPARISON: None available. FINDINGS: There is hyperinflation of the lungs with flattening of diaphragmatic leaflets. The lungs are free of focal airspace consolidations.. There are no pleural effusions or pneumothorax. The aorta, pulmonary vasculature and mediastinum are within normal limits. Cardiac silhouette is normal in size and contour. Visualized skeletal structures are unremarkable. IMPRESSION: Hyperinflation lungs may indicate underlying COPD. Otherwise no active disease in the chest. at 0918 Reported and signed by: El Herndon MD CC: Stephan Car; Kaila Josue MD Technologist: Maddie Coombs Fluoro Time: DAP (Gy m2): Air Kerma (mGy): Trscr Dt/Tm: 05/29/2022 (917) by:[email or web address] Electronic Signature Date/Time: 05/29/2022 (917)Orig Print D/T: S: 05/29/2022 (920) Name: LISETH POTTS [facility] [place] Phys: DILCHRoverto - Stephan Garcia [address] : 1950 Age: 72 Sex: [place] [id number] Loc: NC.ERS Exam Date: 05/29/2022 Status: REG ER PH: FAX: PAGE 1 Signed ReportGLUBED 2022-05-29 08:40:00* Test Item Value Reference Range Interpretation Comme nts GLUBED (test code = GLUBED) 474 mg/dL 70-105 HH CRITICAL RESULT - TESTING PERFORMED BY PRIMARY CAREGIVERIntravenous administration of N-acetylcysteine which resultsin blood concentrations >5 mg/dL will cause overestimationof blood glucose results. Do not use during intravenousinfusion of N'acetylcysteine. - CTA CHEST FOR [id number] 14:44:00 [facility] : 1950 Sex: FPatient Name: LISETH POTTS Unit No: [id number] EXAMS: CPT CODE: [id number] [address] CT chest with contrast, PE protocol 12/14/2021 CLINICAL HISTORY: Chest pain,shortness of breath COMPARISON: None available LOCATION: W1 TECHNIQUE: Chest CT was performed with intravenous contrast utilizing a PE protocol. 2-D and 3-D reformatted images were obtained. This exam was performed according to our departmental dose optimization program which includes automated exposure control, adjustment of the mA and/or kV according to patient's size and/or use of iterative reconstructive technique. FINDINGS: No pulmonary embolism is evident. The heart and great vessels arenormal in size and configuration. There is multivessel coronary artery calcification. There is mild atherosclerotic plaque deposition in the visualized aorta. The lungs are clear, save for bibasilar linear atelectasis. The tracheobronchial tree is intact. There is no axillary, mediastinal, or hilarlymphadenopathy. There is thyromegaly. The visualized upper abdomen is without worrisome finding. There are no acute-appearing skeletal abnormalities. IMPRESSION: No acute-appearing imaging abnormality. at 1444 Reported and signed by: Dennis Roberto CC: DOES_NOT KNOW; Sharif Mcnamara MD Technologist: Geneva Avila CTDI:3.42 DLP: 148.53 Trscr Dt/Tm: 12/14/2021 (1444) by:[email or web address] Electronic Signature Date/Time: 12/14/2021 (1444)Orig Print D/T: S: 12/14/2021 (6263) [facility] [place] [address] : 1950 Age: 71 Sex: [place] [id number] Loc: DC[facility] Exam Date: 12/14/2021 Status: REG ER PH: FAX: PAGE 1 Signed ReportTHYROID STIMULATING [id number] 13:28:00* Test Item Value Reference Range Interpretation Comme nts THYROID STIMULATING HORMONE (test code = TSH) 0.45 mIU/mL 0.36-3.74 N TROP-I HIGH [id number] 13:28:00* Test Item Value Reference Range Interpretation Comme nts TROP-I HIGH SENSITIVITY (test code = TROPIHS) 6 pg/mL 0-53 N CAUTION: U nits of the current test methodology (pg/mL) differ from the prior test methodology (ng/mL) by a factor of 1000. [id number] 13:22:00* Test Item Value Reference Range Interpretation Comme [facility] D-DIMER (test code = DDIMER) 1154 ng/mLFEU 0-500 H Note: New Refere nce RangeD-Dimer results are reported in ng/mL. These unitscorrespond to ng/mL Fibrinogen Equivalent Units (FEU). TheD-dimer cut-off value is the same as the normal referencerange.A negative D-dimer result when combined with a clinicalassessment of low pretest probability has been shown to havea high negative predictive value for deep vein thrombosis(DVT) and pulmonary embolism (PE). Elevated levels ofD-Dimer are found in clinical conditions such as DVT, PE,and disseminated intravascular coagulation (DIC). COVID 19 INHOUSE [id number] 12:24:00* Test Item Value Reference Range Interpretation Comme [facility] COVID 19 INHOUSE AG (test code = [id number]) NEGATIVE Negative Negative results do not preclude 2019-nCoV infection andshould not be used as the sole basis for treatment or otherpatient management decisions. Negative results must becombined with clinical observations, patient history, andepidemiological information. CBC W/AUTO [id number] 10:24:00* Test Item Value Reference Range Interpretation Comme nts WHITE BLOOD CELL (test code = WBC) 4.2 10 3/uL 4.5-10.7 L RED BLOOD CELL (test code = RBC) 3.87 10 6/uL 3.50-5.50 N HEMOGLOBIN (test code = HGB) 11.4 g/dL 12.0-16.0 L HEMATOCRIT (test code = HCT) 34.8 % 37.0-55.0 L MEAN CELL VOLUME (test code = MCV) 90 fL 81-102 N MEAN CELL HGB (test code = MCH) 29.5 pg 26.0-34.0 N MEAN CELL HGB CONCENTRATION (test code = MCHC) 32.8 g/dL 31.0-37.0 N RED CELL DISTRIBUTION WIDTH (test code = RDW) 12.0 % 11.6-14.4 N RED CELL DISTRIBUTION WIDTH SD (test code = RDW-SD) 39.2 fL 36.4-46.3 N PLATELET COUNT (test code = PLT) 269 10 3/uL 150-400 N MEAN PLATELET VOLUME (test c ode = MPV) 10.1 fL 9.0-13.0 N NEUTROPHIL % (test code = NT%) 61.9 % 33.0-76.0 N LYMPHOCYTE % (test code = LY%) 26.8 % 14.0-56.4 N MIXED % (test code = MX%) 11.3 % 1.0-10.0 H NEUTROPHIL # (test code = NT#) 2.60 10 3/uL 1.5-7.0 N LYMPHOCYTE # (test code = LY#) 1.10 10 3/uL 1.50-4.00 L MIXED # (test code = MX#) 0.5 0.1-0.6 N TROPONIN I [id number] 10:23:00* Test Item Value Reference Range Interpretation Comme nts TROPONIN I RAPID (test code = TROPIRAP) < 0.05 ng/mL 0.00-0.05 N COMPREHENSIVE METABOLIC [id number] 10:16:00* Test Item Value Reference Range Interpretation Comme nts SODIUM (test code = NA) 137 mmol/L 128-145 N POTASSIUM (test code = K) 5.1 mmol/L 3.6-5.1 N CHLORIDE (test code = CL) 101 mmol/L 98-108 N CARBON DIOXIDE (test code = CO2) 27 mmol/L 18-33 N ANION GAP (test code = GAP) 14.1 2.0-16.0 N GLUCOSE (test code = GLU) 369 mg/dL 65-99 H BLOOD UREA NITROGEN (test code = BUN) 14 mg/dL 7-22 N GLOMERULAR FILTRATION RATE (test code = GFR) >=60 max estimate ml/min 60-115 N The estimated glomerular filtration rate is computed usingpatient race, age (>18), sex, and serum creatinine. If anyof the needed data elements are missing the Laboratory cannot compute an estimation of the glomerular filtration rate. CREATININE (test code = CREAT) 0.7 mg/dL 0.6-1.2 N BUN/CREATININE RATIO (test code = BUN/CREA) 20.0 12.0-20.0 N TOTAL PROTEIN (test code = PROT) 6.8 6.4-8.1 N ALBUMIN (test code = ALB) 3.2 g/dL 3.3-5.5 L CALCIUM (test code = CA) 9.7 mg/dL 8.0-10.3 N BILIRUBIN TOTAL (test code = BILT) 0.6 mg/dL 0.2-1.6 N SGOT/AST (test code = AST) 29 U/L 11-38 N SGPT/ALT (test code = ALT) 25 U/L 10-47 N ALKALINE PHOSPHATASE (test code = ALKP) 58 U/L 42-141 N URINALYSIS DIPSTICK [id number] 03:23:00* Test Item Value Reference Range Interpretation Comme nts UA COLOR (test code = COLU) YELLOW YELLOW UA APPEARANCE (test code = APPU) CLEAR CLEAR UA GLUCOSE DIPSTICK (test co de = DGLUU) 2+ NEGATIVE A UA BILIRUBIN DIPSTICK (test code = BILU) NEGATIVE NEGATIVE UA KETONE DIPSTICK (test cod e = KETU) 1+ NEGATIVE A UA SPECIFIC GRAVITY (test co de = SGU) 1.025 1.005-1.025 N UA BLOOD DIPSTICK (test code = BJORN) NEGATIVE NEGATIVE UA PH DIPSTICK (test code = RONNIE) 6.5 5.0-8.0 UA PROTEIN DIPSTICK (test co de = PROU) TRACE NEGATIVE A UA UROBILINOGEN DIPSTICK (te st code = URO) 0.2 EU/dL 0.1-0.2 UA NITRITE DIPSTICK (test co de = JUDIT) NEGATIVE NEGATIVE UA LEUKOCYTE ESTERASE DIPSTI CK (test code = LEUU) NEGATIVE NEGATIVE UA MICROSCOPIC NEEDED? (test code = UAMICRO) YES NO A TROPONIN I [id number] 08:19:00* Test Item Value Reference Range Interpretation Comme [facility] TROPONIN I RAPID (test code = TROPIRAP) < 0.05 ng/mL 0.00-0.05 N [id number] 07:59:00* Test Item Value Reference Range Interpretation Comme nts GLUBED (test code = GLUBED) 306 mg/dL 70-105 H Intravenous admi nistration of N-acetylcysteine which resultsin blood concentrations >5 mg/dL will cause overestimationof blood glucose results. Do not use during intravenousinfusion of N'acetylcysteine. - CT ABD PELVIS [id number] 07:42:00 [facility] 1950 Sex: FPatient Name: LISETH POTTS Unit No: [id number] EXAMS: CPT CODE: [id number] ABD PELVIS W/CONT [id number] CT abdomen and pelvis with contrast 09/25/2021 CLINICAL INDICATION: Abdominal pain COMPARISON: None available LOCATION: W1 TECHNIQUE: Helical CT axial imaging of the abdomenand pelvis was performed following the administration of intravenous contrast. Coronal and sagittalreformatted images were obtained. One or more of the following dose reduction techniques were used: Automated exposure control, adjustment of the mA and/or kV according to patient size, and/or utilization of iterative reconstruction technique. FINDINGS: Lower thorax: Bibasilar linear atelectasis. Hepatobiliary: Extrahepatic biliary ductal dilation, likely postsurgical. Gallbladder: Surgically absent. Spleen: Unremarkable. Pancreas: Unremarkable. Kidneys: Unremarkable. Adrenals: Unremarkable. Lymph nodes: Unremarkable. Vessels: Atherosclerotic vascular disease. Peritoneum/retroperitoneum: Unremarkable. Pelvic organs/bladder: Unremarkable. Bowel: No focal wall thickening or evidence for obstruction. Bones/soft tissues: Chronic appearing degenerative changes in the skeleton. IMPRESSION: No acute-appearing imaging abnormality. at 0742 Reported and signed by: Dennis Roberto CC: Rubi Garay MD Technologist: Aguilar Blevins CTDI: 8.22 DLP: 385.7 Trscr Dt/Tm: 09/25/2021 (0742) by:[email or web address] Electronic Signature Date/Time: 09/25/2021 (0742)Orig Print D/T: S: 09/25/2021 (0745) Name: LISETH POTTS Edison Terry FSED Phys: [email or web address] - JarrodRubi Bhavani [address] : 1950 Age: 71 Sex: [place]ali [place] [address] Loc: [facility] Exam Date: 09/25/2021 Status: REG ER PH: FAX: PAGE 1 Signed Report [id number] 06:56:00* Test Item Value Reference Range Interpretation Comme nts AMYLASE (test code = ANGELA) 64 U/L 14-97 N COMPREHENSIVE METABOLIC [id number] 06:55:00* Test Item Value Reference Range Interpretation Comme nts SODIUM (test code = NA) 135 mmol/L 128-145 N POTASSIUM (test code = K) 5.1 mmol/L 3.6-5.1 N CHLORIDE (test code = CL) 101 mmol/L 98-108 N CARBON DIOXIDE (test code = CO2) 28 mmol/L 18-33 N ANION GAP (test code = GAP) 11.1 2.0-16.0 N GLUCOSE (test code = GLU) 328 mg/dL 65-99 H BLOOD UREA NITROGEN (test code = BUN) 16 mg/dL 7-22 N GLOMERULAR FILTRATION RATE (test code = GFR) >=60 max estimate ml/min 60-115 N The estimated glomerular filtration rate is computed usingpatient race, age (>18), sex, and serum creatinine. If anyof the needed data elements are missing the Laboratory cannot compute an estimation of the glomerular filtration rate. CREATININE (test code = CREAT) 0.8 mg/dL 0.6-1.2 N BUN/CREATININE RATIO (test code = BUN/CREA) 20.0 12.0-20.0 N TOTAL PROTEIN (test code = PROT) 7.0 6.4-8.1 N ALBUMIN (test code = ALB) 3.8 g/dL 3.3-5.5 N CALCIUM (test code = CA) 9.9 mg/dL 8.0-10.3 N BILIRUBIN TOTAL (test code = BILT) 0.7 mg/dL 0.2-1.6 N SGOT/AST (test code = AST) 26 U/L 11-38 N SGPT/ALT (test code = ALT) 25 U/L 10-47 N ALKALINE PHOSPHATASE (test code = ALKP) 65 U/L 42-141 N UA [id number] 06:49:00* Test Item Value Reference Range Interpretation Comme nts UA WBC (test code = WBCU) /hpf 0-3 UA RBC (test code = RBCU) /hpf 0-3 UA BACTERIA (test code = BACU) /HPF NEGATIVE UA SQUAMOUS CELLS (test code = SQU) /HPF FEW CBC W/AUTO [id number] 06:48:00* Test Item Value Reference Range Interpretation Comme nts WHITE BLOOD CELL (test code = WBC) 8.9 10 3/uL 4.5-10.7 N RED BLOOD CELL (test code = RBC) 3.94 10 6/uL 3.50-5.50 N HEMOGLOBIN (test code = HGB) 12.0 g/dL 12.0-16.0 N HEMATOCRIT (test code = HCT) 36.4 % 37.0-55.0 L MEAN CELL VOLUME (test code = MCV) 92 fL 81-102 N MEAN CELL HGB (test code = MCH) 30.5 pg 26.0-34.0 N MEAN CELL HGB CONCENTRATION (test code = MCHC) 33.0 g/dL 31.0-37.0 N RED CELL DISTRIBUTION WIDTH (test code = RDW) 12.4 % 11.6-14.4 N RED CELL DISTRIBUTION WIDTH SD (test code = RDW-SD) 42.1 fL 36.4-46.3 N PLATELET COUNT (test code = PLT) 284 10 3/uL 150-400 N MEAN PLATELET VOLUME (test c ode = MPV) 9.8 fL 9.0-13.0 N NEUTROPHIL % (test code = NT%) 77.7 % 33.0-76.0 H LYMPHOCYTE % (test code = LY%) 13.2 % 14.0-56.4 L MIXED % (test code = MX%) 9.1 % 1.0-10.0 N NEUTROPHIL # (test code = NT#) 6.90 10 3/uL 1.5-7.0 N LYMPHOCYTE # (test code = LY#) 1.20 10 3/uL 1.50-4.00 L MIXED # (test code = MX#) 0.8 0.1-0.6 H Glucose [Mass/volume] in Capillary [id number] 17:00:55* Test Item Value Reference Range Interpretation Comme nts Blood Glucose: mg/dl (test c ode = Blood Glucose: mg/dl) 94 [facility] - [id number] 16:54:08* Test Item Value Reference Range Interpretation Comme nts Color Color (test code = Col or Color) yellow Color Appearance (test code = Color Appearance) clear Color Glucose (test code = C olor Glucose) negative Color Bilirubin (test code = Color Bilirubin) negative Color Ketones (test code = C olor Ketones) negative Color Specific [place] (test code = Color Specific [place]) 1.015 Color Blood (test code = Col or Blood) negative Color PH (test code = Color PH) 7.5 Color Protein (test code = C olor Protein) negative Color Urobilinogen (test cod e = Color Urobilinogen) 0.2 Color Nitrites (test code = Color Nitrites) negative Color Leukocytes (test code = Color Leukocytes) negative [id number] 11:17:00* Test Item Value Reference Range Interpretation Comme nts GLUBED (test code = GLUBED) 282 mg/dL 70-105 H Intravenous admi nistration of N-acetylcysteine which resultsin blood concentrations >5 mg/dL will cause overestimationof blood glucose results. Do not use during intravenousinfusion of N'acetylcysteine. [id number] 07:42:00* Test Item Value Reference Range Interpretation Comme nts GLUBED (test code = GLUBED) 210 mg/dL 70-105 H Intravenous admi nistration of N-acetylcysteine which resultsin blood concentrations >5 mg/dL will cause overestimationof blood glucose results. Do not use during intravenousinfusion of N'acetylcysteine. BASIC METABOLIC [id number] 05:24:00* Test Item Value Reference Range Interpretation Comme nts SODIUM (test code = NA) 144 mmol/L 135-145 N POTASSIUM (test code = K) 3.8 mmol/L 3.5-5.1 N CHLORIDE (test code = CL) 113 mmol/L 98-107 H CARBON DIOXIDE (test code = CO2) 24 mmol/L 21-32 N ANION GAP (test code = GAP) 10.8 2.0-16.0 N GLUCOSE (test code = GLU) 93 mg/dL 65-99 BLOOD UREA NITROGEN (test code = BUN) 9 mg/dL 4-23 N GLOMERULAR FILTRATION RATE (test code = GFR) >=60 max estimate ml/min >60 The estimated glomerular filtration rate is computed usingpatient race, age (>18), sex, and serum creatinine. If anyof the needed data elements are missing the Laboratory cannot compute an estimation of the glomerular filtration rate. CREATININE (test code = CREAT) 0.7 mg/dL 0.6-1.5 N BUN/CREATININE RATIO (test code = BUN/CREA) 12.9 12.0-20.0 N CALCIUM (test code = CA) 8.7 mg/dL 8.5-10.1 N CBC W/AUTO [id number] 04:56:00* Test Item Value Reference Range Interpretation Comme nts WHITE BLOOD CELL (test code = WBC) 4.6 10 3/uL 4.5-11.0 N RED BLOOD CELL (test code = RBC) 3.33 10 6/uL 3.50-5.50 L HEMOGLOBIN (test code = HGB) 9.8 g/dL 12.0-16.0 L HEMATOCRIT (test code = HCT) 31.4 % 37.0-55.0 L MEAN CELL VOLUME (test code = MCV) 94 fL 81-102 N MEAN CELL HGB (test code = MCH) 29.4 pg 26.0-34.0 N MEAN CELL HGB CONCENTRATION (test code = MCHC) 31.2 g/dL 31.0-37.0 N RED CELL DISTRIBUTION WIDTH (test code = RDW) 12.0 % 11.6-14.4 N PLATELET COUNT (test code = PLT) 237 10 3/uL 150-400 N MEAN PLATELET VOLUME (test code = MPV) 10.3 fL 9.0-12.6 N NEUTROPHIL % (test code = NT%) 46.0 % 33.0-76.0 N IMMATURE GRANULOCYTE % (test code = IG%) 0.2 % 0.0-1.0 N LYMPHOCYTE % (test code = LY%) 34.6 % 14.0-56.4 N MONOCYTE % (test code = MO%) 14.6 % 0.0-12.9 H EOSINOPHIL % (test code = EO%) 3.7 % 0.0-7.0 N BASOPHIL % (test code = BA%) 0.9 % 0-2.0 N NUCLEATED RBC % (test code = NRBC%) 0.0 % 0-0.2 N NEUTROPHIL # (test code = NT#) 2.12 10 3/uL 1.5-7.0 N IMMATURE GRANULOCYTE # (test code = IG#) 0.010 x10 3/uL 0.000-0.100 N LYMPHOCYTE # (test code = LY#) 1.59 10 3/uL 1.50-4.00 N MONOCYTE # (test code = MO#) 0.67 10 3/uL 0.20-0.80 N EOSINOPHIL # (test code = EO#) 0.17 10 3/uL 0.0-0.5 N BASOPHIL # (test code = BA#) 0.04 10 3/uL 0.0-0.1 N NUCLEATED RBC # (test code = NRBC#) 0.000 10 3/uL 0.000-0.012 N [id number] 20:36:00* Test Item Value Reference Range Interpretation Comme nts GLUBED (test code = GLUBED) 177 mg/dL 70-105 H Intravenous admi nistration of N-acetylcysteine which resultsin blood concentrations >5 mg/dL will cause overestimationof blood glucose results. Do not use during intravenousinfusion of N'acetylcysteine. HGB [id number] 19:10:00* Test Item Value Reference Range Interpretation Comme nts HEMOGLOBIN (test code = HGB) 10.2 g/dL 12.0-16.0 L HEMATOCRIT (test code = HCT) 31.7 % 37.0-55.0 L [id number] 17:48:00* Test Item Value Reference Range Interpretation Comme nts GLUBED (test code = GLUBED) 135 mg/dL 70-105 H Intravenous admi nistration of N-acetylcysteine which resultsin blood concentrations >5 mg/dL will cause overestimationof blood glucose results. Do not use during intravenousinfusion of N'acetylcysteine. [id number] 11:21:00* Test Item Value Reference Range Interpretation Comme nts GLUBED (test code = GLUBED) 297 mg/dL 70-105 H Intravenous admi nistration of N-acetylcysteine which resultsin blood concentrations >5 mg/dL will cause overestimationof blood glucose results. Do not use during intravenousinfusion of N'acetylcysteine. [id number] 07:49:00* Test Item Value Reference Range Interpretation Comme nts GLUBED (test code = GLUBED) 191 mg/dL 70-105 H Intravenous admi nistration of N-acetylcysteine which resultsin blood concentrations >5 mg/dL will cause overestimationof blood glucose results. Do not use during intravenousinfusion of N'acetylcysteine. [id number] 05:32:00* Test Item Value Reference Range Interpretation Comme nts GLUBED (test code = GLUBED) 220 mg/dL 70-105 H Intravenous admi nistration of N-acetylcysteine which resultsin blood concentrations >5 mg/dL will cause overestimationof blood glucose results. Do not use during intravenousinfusion of N'acetylcysteine. [id number] 05:31:00* Test Item Value Reference Range Interpretation Comme nts GLUBED (test code = GLUBED) 321 mg/dL 70-105 H Intravenous admi nistration of N-acetylcysteine which resultsin blood concentrations >5 mg/dL will cause overestimationof blood glucose results. Do not use during intravenousinfusion of N'acetylcysteine. COMPREHENSIVE METABOLIC [id number] 04:42:00* Test Item Value Reference Range Interpretation Comme nts SODIUM (test code = NA) 140 mmol/L 135-145 N POTASSIUM (test code = K) 4.5 mmol/L 3.5-5.1 N CHLORIDE (test code = CL) 112 mmol/L 98-107 H CARBON DIOXIDE (test code = CO2) 21 mmol/L 21-32 N ANION GAP (test code = GAP) 11.5 2.0-16.0 N GLUCOSE (test code = GLU) 448 mg/dL 65-99 HH Critical Value r eported toFirst Name:claudio Manav Name:Ivan READ BACK AND VERIFIEDby NCL, on 09/19/21, @ 9351. BLOOD UREA NITROGEN (test code = BUN) 16 mg/dL 4-23 N GLOMERULAR FILTRATION RATE (test code = GFR) >=60 max estimate ml/min >60 The estimated glomer ular filtration rate is computed usingpatient race, age (>18), sex, and serum creatinine. If anyof the needed data elements are missing the Laboratory cannot compute an estimation of the glomerular filtration rate. CREATININE (test code = CREAT) 0.9 mg/dL 0.6-1.5 N BUN/CREATININE RATIO (test code = BUN/CREA) 17.8 12.0-20.0 N TOTAL PROTEIN (test code = PROT) 5.3 g/dL 6.4-8.2 L ALBUMIN (test code = ALB) 2.5 g/dL 3.4-5.0 L CALCIUM (test code = CA) 7.8 mg/dL 8.5-10.1 L BILIRUBIN TOTAL (test code = BILT) 0.4 mg/dL 0.2-1.2 N Use of this assa y is not recommended for patients undergoingtreatment with Eltrombopag due to the potential for falselyelevated results. SGOT/AST (test code = AST) 15 U/L 15-37 N SGPT/ALT (test code = ALT) 15 U/L 6-50 N ALKALINE PHOSPHATASE (test code = ALKP) 47 U/L 45-117 N HGBA1C - GLYCOSYLATED [id number] 04:37:00* Test Item Value Reference Range Interpretation Comme nts GLYCOSYLATED HEMOGLOBIN (HA1C) (test code = GLYHGB) 8.7 % 4.5-5.9 H The [place] Diabetes [employer] recommends a therapeuticrange of <7.0% Hemoglobin A1c for patients with diabetesmellitus (Type 2 diabetes). CBC W/AUTO [id number] 03:38:00* Test Item Value Reference Range Interpretation Comme nts WHITE BLOOD CELL (test code = WBC) 6.5 10 3/uL 4.5-11.0 N RED BLOOD CELL (test code = RBC) 2.94 10 6/uL 3.50-5.50 L HEMOGLOBIN (test code = HGB) 8.9 g/dL 12.0-16.0 L HEMATOCRIT (test code = HCT) 27.6 % 37.0-55.0 L MEAN CELL VOLUME (test code = MCV) 94 fL 81-102 N MEAN CELL HGB (test code = MCH) 30.3 pg 26.0-34.0 N MEAN CELL HGB CONCENTRATION (test code = MCHC) 32.2 g/dL 31.0-37.0 N RED CELL DISTRIBUTION WIDTH (test code = RDW) 12.0 % 11.6-14.4 N PLATELET COUNT (test code = PLT) 203 10 3/uL 150-400 N MEAN PLATELET VOLUME (test code = MPV) 10.2 fL 9.0-12.6 N NEUTROPHIL % (test code = NT%) 60.8 % 33.0-76.0 N IMMATURE GRANULOCYTE % (test code = IG%) 0.5 % 0.0-1.0 N LYMPHOCYTE % (test code = LY%) 24.5 % 14.0-56.4 N MONOCYTE % (test code = MO%) 11.9 % 0.0-12.9 N EOSINOPHIL % (test code = EO%) 1.5 % 0.0-7.0 N BASOPHIL % (test code = BA%) 0.8 % 0-2.0 N NUCLEATED RBC % (test code = NRBC%) 0.0 % 0-0.2 N NEUTROPHIL # (test code = NT#) 3.93 10 3/uL 1.5-7.0 N IMMATURE GRANULOCYTE # (test code = IG#) 0.030 x10 3/uL 0.000-0.100 N LYMPHOCYTE # (test code = LY#) 1.58 10 3/uL 1.50-4.00 N MONOCYTE # (test code = MO#) 0.77 10 3/uL 0.20-0.80 N EOSINOPHIL # (test code = EO#) 0.10 10 3/uL 0.0-0.5 N BASOPHIL # (test code = BA#) 0.05 10 3/uL 0.0-0.1 N NUCLEATED RBC # (test code = NRBC#) 0.000 10 3/uL 0.000-0.012 N [id number] 03:22:00* Test Item Value Reference Range Interpretation Comme nts GLUBED (test code = GLUBED) 444 mg/dL 70-105 HH CRITICAL RESULT - TESTING PERFORMED BY PRIMARY CAREGIVERIntravenous administration of N-acetylcysteine which resultsin blood concentrations >5 mg/dL will cause overestimationof blood glucose results. Do not use during intravenousinfusion of N'acetylcysteine. LIPID PROFILE (CORONARY RISK)2021-09-18 21:25:00* Test Item Value Reference Range Interpretation Comme nts TRIGLYCERIDES (test code = TRIG) 31 mg/dL 0-149 N CHOLESTEROL (test code = CHOL) 126 mg/dL 0-200 N CHOLESTEROL/HDL RATIO (test code = CHOLHDL) 2 1-6 N HDL CHOLESTEROL (test code = HDL) 61 mg/dL 40-60 H According to the National Institutes of Health (NIH) and theNational Cholesterol Education Program (NCEP), an HDLcholesterol >or= 60mg/dL counts as a "negative" risk factor;its presence removes one risk factor from the total count. LIPOPROTEIN LDL (test code = LDLC) 58 mg/dL 0-100 N TROP-I HIGH [id number] 21:25:00* Test Item Value Reference Range Interpretation Comme nts TROP-I HIGH SENSITIVITY (test code = TROPIHS) 7 pg/mL 0-53 N CAUTION: U nits of the current test methodology (pg/mL) differ from the prior test methodology (ng/mL) by a factor of 1000. [id number] 21:25:00* Test Item Value Reference Range Interpretation Comme nts LIPASE (test code = LIP) 50 U/L 73-393 L T4 [id number] 21:25:00* Test Item Value Reference Range Interpretation Comme nts T4 FREE (test code = T4F) 1.06 ng/dL 0.76-1.46 N TSH REFLEX TO [id number] 21:25:00* Test Item Value Reference Range Interpretation Comme nts TSH REFLEX TO FT4 (test code = TSHREFLEX) 0.15 mIU/mL 0.36-3.74 L BASIC METABOLIC [id number] 20:25:00* Test Item Value Reference Range Interpretation Comme nts SODIUM (test code = NA) 140 mmol/L 135-145 N POTASSIUM (test code = K) 4.3 mmol/L 3.5-5.1 N CHLORIDE (test code = CL) 110 mmol/L 98-107 H CARBON DIOXIDE (test code = CO2) 22 mmol/L 21-32 N ANION GAP (test code = GAP) 12.3 2.0-16.0 N GLUCOSE (test code = GLU) 449 mg/dL 65-99 HH Critical Value reported toFirst Name:DAXA Last Name:DAVIDA READ BACK AND VERIFIEDby CE, on 09/18/21, @ 2024. BLOOD UREA NITROGEN (test code = BUN) 19 mg/dL 4-23 N GLOMERULAR FILTRATION RATE (test code = GFR) >=60 max estimate ml/min >60 The estimated glomerular filtration rate is computed usingpatient race, age (>18), sex, and serum creatinine. If anyof the needed data elements are missing the Laboratory cannot compute an estimation of the glomerular filtration rate. CREATININE (test code = CREAT) 0.9 mg/dL 0.6-1.5 N BUN/CREATININE RATIO (test code = BUN/CREA) 21.1 12.0-20.0 H CALCIUM (test code = CA) 7.3 mg/dL 8.5-10.1 L [id number] 20:24:00* Test Item Value Reference Range Interpretation Comme nts GLUBED (test code = GLUBED) 118 mg/dL 70-105 H Intravenous admi nistration of N-acetylcysteine which resultsin blood concentrations >5 mg/dL will cause overestimationof blood glucose results. Do not use during intravenousinfusion of N'acetylcysteine. [id number] 18:05:00* Test Item Value Reference Range Interpretation Comme nts GLUBED (test code = GLUBED) 150 mg/dL 70-105 H Intravenous admi nistration of N-acetylcysteine which resultsin blood concentrations >5 mg/dL will cause overestimationof blood glucose results. Do not use during intravenousinfusion of N'acetylcysteine. [id number] 16:15:00* Test Item Value Reference Range Interpretation Comme nts GLUBED (test code = GLUBED) 137 mg/dL 70-105 H Intravenous admi nistration of N-acetylcysteine which resultsin blood concentrations >5 mg/dL will cause overestimationof blood glucose results. Do not use during intravenousinfusion of N'acetylcysteine. COMPREHENSIVE METABOLIC [id number] 15:19:00* Test Item Value Reference Range Interpretation Comme nts SODIUM (test code = NA) 139 mmol/L 128-145 N POTASSIUM (test code = K) 5.3 mmol/L 3.6-5.1 H CHLORIDE (test code = CL) 108 mmol/L 98-108 N CARBON DIOXIDE (test code = CO2) 23 mmol/L 18-33 N ANION GAP (test code = GAP) 13.3 2.0-16.0 N GLUCOSE (test code = GLU) 160 mg/dL 65-99 H BLOOD UREA NITROGEN (test code = BUN) 22 mg/dL 7-22 N GLOMERULAR FILTRATION RATE (test code = GFR) >=60 max estimate ml/min >60 The estimated glomerular filtration rate is computed usingpatient race, age (>18), sex, and serum creatinine. If anyof the needed data elements are missing the Laboratory cannot compute an estimation of the glomerular filtration rate. CREATININE (test code = CREAT) 0.9 mg/dL 0.6-1.2 N BUN/CREATININE RATIO (test code = BUN/CREA) 24.4 12.0-20.0 H TOTAL PROTEIN (test code = PROT) 6.3 6.4-8.1 L ALBUMIN (test code = ALB) 3.5 g/dL 3.3-5.5 N CALCIUM (test code = CA) 8.8 mg/dL 8.0-10.3 N BILIRUBIN TOTAL (test code = BILT) 0.7 mg/dL 0.2-1.6 N SGOT/AST (test code = AST) 32 U/L 11-38 N SGPT/ALT (test code = ALT) 27 U/L 10-47 N ALKALINE PHOSPHATASE (test code = ALKP) 61 U/L 42-141 N [id number] 15:08:00* Test Item Value Reference Range Interpretation Comme nts GLUBED (test code = GLUBED) 130 mg/dL 70-105 H Intravenous admi nistration of N-acetylcysteine which resultsin blood concentrations >5 mg/dL will cause overestimationof blood glucose results. Do not use during intravenousinfusion of N'acetylcysteine. [id number] 14:01:00* Test Item Value Reference Range Interpretation Comme nts GLUBED (test code = GLUBED) 142 mg/dL 70-105 H Intravenous admi nistration of N-acetylcysteine which resultsin blood concentrations >5 mg/dL will cause overestimationof blood glucose results. Do not use during intravenousinfusion of N'acetylcysteine. [id number] 12:54:00* Test Item Value Reference Range Interpretation Comme nts GLUBED (test code = GLUBED) 188 mg/dL 70-105 H Intravenous admi nistration of N-acetylcysteine which resultsin blood concentrations >5 mg/dL will cause overestimationof blood glucose results. Do not use during intravenousinfusion of N'acetylcysteine. Coronavirus 2019 nCoV [id number] 12:39:00* Test Item Value Reference Range Interpretation Comme nts Coronavirus 2019 nCoV Bedside (test code = [id number]) Negative Negative Negative results should be treated as presumptive and, ifinconsistent with clinical signs and symptoms or necessaryfor patient management, should be tested with differentauthorized or cleared molecular tests. Negative results donot preclude SARS-CoV-2 infection and should not be used asthe sole basis for patient management decisions. Negativeresults should be considered in the context of a patient'srecent exposures, history and presence of clinical signs andsymptoms consistent with COVID-19. This test had not been FDA cleared or approved; This testhas been authorized by FDA under an EUA for use byauthorized laboratories only for the detection of nucleicacid from SARS-CoV-2, not for any other viruses orpathogens. ID NOW COVID-19 assay performed on the [employer] is a rapid molecular in vitro diagnostic testutilizing an isothermal nucleic acid amplificationtechnology intended for the qualitative detection of nucleicacid from the SARS-CoV-2 viral RNA in direct nasal,nasopharyngeal or throat swabs from individuals who aresuspected of COVID-19 by their healthcare provider withinthe first seven days of the onset of symptoms. Testing isauthorized for laboratories certified under the ClinicalLaboratory Improvement Amendments of 1988 (CLIA), [id number] 11:39:00* Test Item Value Reference Range Interpretation Comme nts GLUBED (test code = GLUBED) 311 mg/dL 70-105 H Intravenous admi nistration of N-acetylcysteine which resultsin blood concentrations >5 mg/dL will cause overestimationof blood glucose results. Do not use during intravenousinfusion of N'acetylcysteine. URINALYSIS DIPSTICK [id number] 11:04:00* Test Item Value Reference Range Interpretation Comme nts UA COLOR (test code = COLU) YELLOW YELLOW UA APPEARANCE (test code = APPU) CLEAR CLEAR UA GLUCOSE DIPSTICK (test co de = DGLUU) 2+ NEGATIVE A UA BILIRUBIN DIPSTICK (test code = BILU) NEGATIVE NEGATIVE UA KETONE DIPSTICK (test cod e = KETU) 3+ NEGATIVE A UA SPECIFIC GRAVITY (test co de = SGU) 1.015 1.005-1.025 N UA BLOOD DIPSTICK (test code = BJORN) NEGATIVE NEGATIVE UA PH DIPSTICK (test code = RONNIE) 5.5 5.0-8.0 UA PROTEIN DIPSTICK (test co de = PROU) NEGATIVE NEGATIVE UA UROBILINOGEN DIPSTICK (te st code = URO) 0.2 EU/dL 0.1-0.2 UA NITRITE DIPSTICK (test co de = JUDIT) NEGATIVE NEGATIVE UA LEUKOCYTE ESTERASE DIPSTI CK (test code = LEUU) NEGATIVE NEGATIVE UA MICROSCOPIC NEEDED? (test code = UAMICRO) NO NO TROPONIN I [id number] 09:58:00* Test Item Value Reference Range Interpretation Comme nts TROPONIN I RAPID (test code = TROPIRAP) < 0.05 ng/mL 0.00-0.05 N [id number] 09:48:00* Test Item Value Reference Range Interpretation Comme nts AMYLASE (test code = ANGELA) 56 U/L 14-97 N COMPREHENSIVE METABOLIC [id number] 09:48:00* Test Item Value Reference Range Interpretation Comme nts SODIUM (test code = NA) 140 mmol/L 128-145 N POTASSIUM (test code = K) 5.0 mmol/L 3.6-5.1 N CHLORIDE (test code = CL) 104 mmol/L 98-108 N CARBON DIOXIDE (test code = CO2) 15 mmol/L 18-33 L ANION GAP (test code = GAP) 26.0 2.0-16.0 H GLUCOSE (test code = GLU) 489 mg/dL 65-99 HH Critical Value reported toFirst Name:[] Last Name:[]RESULTS READ BACK AND VERIFIEDby ELA, on 09/18/21, @ 3002. BLOOD UREA NITROGEN (test code = BUN) 27 mg/dL 7-22 H GLOMERULAR FILTRATION RATE (test code = GFR) 58 ml/min 60-115 L The estimated glomerular filtration rate is computed usingpatient race, age (>18), sex, and serum creatinine. If anyof the needed data elements are missing the Laboratory cannot compute an estimation of the glomerular filtration rate. CREATININE (test code = CREAT) 1.0 mg/dL 0.6-1.2 N BUN/CREATININE RATIO (test code = BUN/CREA) 27.0 12.0-20.0 H TOTAL PROTEIN (test code = PROT) 7.7 6.4-8.1 N ALBUMIN (test code = ALB) 4.1 g/dL 3.3-5.5 N CALCIUM (test code = CA) 9.2 mg/dL 8.0-10.3 N BILIRUBIN TOTAL (test code = BILT) 1.1 mg/dL 0.2-1.6 N SGOT/AST (test code = AST) 40 U/L 11-38 H SGPT/ALT (test code = ALT) 26 U/L 10-47 N ALKALINE PHOSPHATASE (test code = ALKP) 78 U/L 42-141 N CBC W/AUTO [id number] 09:42:00* Test Item Value Reference Range Interpretation Comme nts WHITE BLOOD CELL (test code = WBC) 9.1 10 3/uL 4.5-10.7 N RED BLOOD CELL (test code = RBC) 4.26 10 6/uL 3.50-5.50 N HEMOGLOBIN (test code = HGB) 13.0 g/dL 12.0-16.0 N HEMATOCRIT (test code = HCT) 39.3 % 37.0-55.0 N MEAN CELL VOLUME (test code = MCV) 92 fL 81-102 N MEAN CELL HGB (test code = MCH) 30.5 pg 26.0-34.0 N MEAN CELL HGB CONCENTRATION (test code = MCHC) 33.1 g/dL 31.0-37.0 N RED CELL DISTRIBUTION WIDTH (test code = RDW) 12.5 % 11.6-14.4 N RED CELL DISTRIBUTION WIDTH SD (test code = RDW-SD) 42.3 fL 36.4-46.3 N PLATELET COUNT (test code = PLT) 251 10 3/uL 150-400 N MEAN PLATELET VOLUME (test c ode = MPV) 10.6 fL 9.0-13.0 N NEUTROPHIL % (test code = NT%) 91.2 % 33.0-76.0 H LYMPHOCYTE % (test code = LY%) 7.3 % 14.0-56.4 L MIXED % (test code = MX%) 1.5 % 1.0-10.0 N NEUTROPHIL # (test code = NT#) 8.30 10 3/uL 1.5-7.0 H LYMPHOCYTE # (test code = LY#) 0.70 10 3/uL 1.50-4.00 L MIXED # (test code = MX#) 0.1 0.1-0.6 N [id number] 08:53:00* Test Item Value Reference Range Interpretation Comme nts GLUBED (test code = GLUBED) 579 mg/dL 70-105 HH CRITICAL RESULT - TESTING PERFORMED BY PRIMARY CAREGIVERIntravenous administration of N-acetylcysteine which resultsin blood concentrations >5 mg/dL will cause overestimationof blood glucose results. Do not use during intravenousinfusion of N'acetylcysteine. Coronavirus 2019 nCoV [id number] 16:05:00* Test Item Value Reference Range Interpretation Comme [facility] Coronavirus 2019 nCoV Bedside (test code = [id number]) Negative Negative Negative results should be treated as presumptive and, ifinconsistent with clinical signs and symptoms or necessaryfor patient management, should be tested with differentauthorized or cleared molecular tests. Negative results donot preclude SARS-CoV-2 infection and should not be used asthe sole basis for patient management decisions. Negativeresults should be considered in the context of a patient'srecent exposures, history and presence of clinical signs andsymptoms consistent with COVID-19. This test had not been FDA cleared or approved; This testhas been authorized by FDA under an EUA for use byauthorized laboratories only for the detection of nucleicacid from SARS-CoV-2, not for any other viruses orpathogens. ID [employer] COVID-19 assay performed on the [employer] is a rapid molecular in vitro diagnostic testutilizing an isothermal nucleic acid amplificationtechnology intended for the qualitative detection of nucleicacid from the SARS-CoV-2 viral RNA in direct nasal,nasopharyngeal or throat swabs from individuals who aresuspected of COVID-19 by their healthcare provider withinthe first seven days of the onset of symptoms. Testing isauthorized for laboratories certified under the ClinicalLaboratory Improvement Amendments of 1988 (CLIA), TROPONIN I [id number] 16:05:00* Test Item Value Reference Range Interpretation Comme nts TROPONIN I RAPID (test code = TROPIRAP) < 0.05 ng/mL 0.00-0.05 N COMPREHENSIVE METABOLIC [id number] 15:57:00* Test Item Value Reference Range Interpretation Comme nts SODIUM (test code = NA) 136 mmol/L 128-145 N POTASSIUM (test code = K) 5.3 mmol/L 3.6-5.1 H CHLORIDE (test code = CL) 97 mmol/L 98-108 L CARBON DIOXIDE (test code = CO2) 27 mmol/L 18-33 N ANION GAP (test code = GAP) 17.3 2.0-16.0 H GLUCOSE (test code = GLU) 323 mg/dL 65-99 H BLOOD UREA NITROGEN (test code = BUN) 18 mg/dL 7-22 N GLOMERULAR FILTRATION RATE (test code = GFR) >=60 max estimate ml/min 60-115 N The estimated glomerular filtration rate is computed usingpatient race, age (>18), sex, and serum creatinine. If anyof the needed data elements are missing the Laboratory cannot compute an estimation of the glomerular filtration rate. CREATININE (test code = CREAT) 0.8 mg/dL 0.6-1.2 N BUN/CREATININE RATIO (test code = BUN/CREA) 22.5 12.0-20.0 H TOTAL PROTEIN (test code = PROT) 6.7 6.4-8.1 N ALBUMIN (test code = ALB) 3.5 g/dL 3.3-5.5 N CALCIUM (test code = CA) 9.4 mg/dL 8.0-10.3 N BILIRUBIN TOTAL (test code = BILT) 0.7 mg/dL 0.2-1.6 N SGOT/AST (test code = AST) 24 U/L 11-38 N SGPT/ALT (test code = ALT) 32 U/L 10-47 N ALKALINE PHOSPHATASE (test code = ALKP) 67 U/L 42-141 N URINALYSIS DIPSTICK [id number] 15:47:00* Test Item Value Reference Range Interpretation Comme nts UA COLOR (test code = COLU) YELLOW YELLOW UA APPEARANCE (test code = APPU) CLEAR CLEAR UA GLUCOSE DIPSTICK (test co de = DGLUU) 2+ NEGATIVE A UA BILIRUBIN DIPSTICK (test code = BILU) NEGATIVE NEGATIVE UA KETONE DIPSTICK (test cod e = KETU) NEGATIVE NEGATIVE UA SPECIFIC GRAVITY (test co de = SGU) 1.020 1.005-1.025 N UA BLOOD DIPSTICK (test code = BJORN) NEGATIVE NEGATIVE UA PH DIPSTICK (test code = RONNIE) 6.0 5.0-8.0 UA PROTEIN DIPSTICK (test co de = PROU) NEGATIVE NEGATIVE UA UROBILINOGEN DIPSTICK (te st code = URO) 0.2 EU/dL 0.1-0.2 UA NITRITE DIPSTICK (test co de = JUDIT) NEGATIVE NEGATIVE UA LEUKOCYTE ESTERASE DIPSTI CK (test code = LEUU) NEGATIVE NEGATIVE UA MICROSCOPIC NEEDED? (test code = UAMICRO) NO NO CBC W/AUTO [id number] 15:46:00* Test Item Value Reference Range Interpretation Comme nts WHITE BLOOD CELL (test code = WBC) 4.7 10 3/uL 4.5-10.7 N RED BLOOD CELL (test code = RBC) 3.60 10 6/uL 3.50-5.50 N HEMOGLOBIN (test code = HGB) 10.8 g/dL 12.0-16.0 L HEMATOCRIT (test code = HCT) 33.3 % 37.0-55.0 L MEAN CELL VOLUME (test code = MCV) 93 fL 81-102 N MEAN CELL HGB (test code = MCH) 30.0 pg 26.0-34.0 N MEAN CELL HGB CONCENTRATION (test code = MCHC) 32.4 g/dL 31.0-37.0 N RED CELL DISTRIBUTION WIDTH (test code = RDW) 12.6 % 11.6-14.4 N RED CELL DISTRIBUTION WIDTH SD (test code = RDW-SD) 42.0 fL 36.4-46.3 N PLATELET COUNT (test code = PLT) 268 10 3/uL 150-400 N MEAN PLATELET VOLUME (test c ode = MPV) 10.3 fL 9.0-13.0 N NEUTROPHIL % (test code = NT%) 71.1 % 33.0-76.0 N LYMPHOCYTE % (test code = LY%) 21.8 % 14.0-56.4 N MIXED % (test code = MX%) 7.1 % 1.0-10.0 N NEUTROPHIL # (test code = NT#) 3.40 10 3/uL 1.5-7.0 N LYMPHOCYTE # (test code = LY#) 1.00 10 3/uL 1.50-4.00 L MIXED # (test code = MX#) 0.3 0.1-0.6 N [id number] 15:24:00* Test Item Value Reference Range Interpretation Comme nts GLUBED (test code = GLUBED) 330 mg/dL 70-105 H Intravenous admi nistration of N-acetylcysteine which resultsin blood concentrations >5 mg/dL will cause overestimationof blood glucose results. Do not use during intravenousinfusion of N'acetylcysteine. Notes Date/Time Note Provider Source 2024-05-04 17:13:00 [facility] ([facility]) EMERGENCY PROVIDER REPORT REPORT#:[id number] REPORT STATUS: Signed DATE:05/04/24 TIME: 1712 PATIENT: LISETH POTTS UNIT #: [id number] ROOM: BED: : 52 AGE: 74 SEX: F PCP PHYS: Eduardo Contreras MD SERVICE AUTHOR: MD Tanna Bettencourt PA REP SRV REP SRV TM: 1713 * ALL edits or amendments must be made on the electronic/computer document * Md tanna Bettencourt 05/04/24 1713: HPI-Psychiatric Illness Free Text HPI Notes Free Text HPI Notes This 74-year-old female with history of dementia in ED arrived via EMS transport from [facility] for scratching and another resident. Denies any suicidal or homicidal ideation. Denies any auditory visual hallucination. Denies any fever, chills, nausea, vomiting, dizziness, chest pain, shortness of breath, abdominal pain or back pain. Alert and oriented x 3. No acute distress. [place] Coma Scale 15. General Confirmed Patient Yes Patient Type New patient Initial Greet Date/Time 05/04/24 1611 Presentation Chief Complaint Aggressive behavior Risk-Psychiatric Illness Detailed Suicide Risk )( Pos Lynette Jenni Risk Screen? Yes Overall level suicide risk: no risk Risk Stratification )( Suicide - Adult Risk factors reviewed, Risk factors N/A Review of Systems ROS Statements All systems rev neg except as marked. Free Text ROS Notes Free Text ROS Notes CONSTITUTIONAL: Denies weight loss, fever and chills. Denies sweats or weight loss Eyes : No vision problem HENT: Denies changes in hearing. No ear pain, nasal congestion, sore throat RESPIRATORY: Denies SOB and cough. CV: No chest pain, palpitations, syncope, swelling in the legs, dyspnea upon exertion GI: Denies abdominal pain, nausea, vomiting and diarrhea. No difficulty swallowing : Denies dysuria and urinary frequency. No hematuria no hesitancy no incontinence Lymph: Negative for bruising tendency, swollen lymph glands Endocrine: Negative for excessive thirst, glucose normal, no heat or cold intolerance MSK: No back pain, neck pain, joint pain, muscle pain, decreased range of motion Skin: No rash, pruritus, abrasion, no skin ulcers rash and pruritus. NEUROLOGICAL: No focal weakness, no paresthesia, no headache, numbness or tingling, no seizures or tremors PSYCHIATRIC: Denies recent changes in mood. Denies anxiety and depression. Past Medical History - Adult Stated Complaint AGGRESSION EPISODE Allergies Coded Allergies: No Known Allergies (12/14/21) Home Medications Active Scripts Insulin Glargine (Lantus Solostar) 12 UNITS SUBQ BEDTIME Insulin Glargine (Lantus Solostar) 12 UNITS SUBQ BEDTIME #3 ML Prov: 02/28/24 Cefdinir (Omnicef) 300 MG PO Q12H 7 Days #14 CAPS Prov: 02/28/24 Doxycycline Hyclate (Vibramycin) 100 MG PO Q12H 7 Days #14 CAPS Prov: 02/28/24 Reported Medications Nifedipine (Procardia XL) 30 MG DAILY Enalapril (Vasotec) 20 MG PO BID Insulin Aspart (Novolog) 8 UNITS SUBQ TID AC Acetaminophen 650 MG PO Q6H PRN PRN PAIN Divalproex Sprinkle (Depakote Sprinkle) 125 MG PO Q8HR Atorvastatin (Lipitor) 1 TAB PO BEDTIME Trazodone (Desyrel) 50 MG PO BEDTIME [CALCIUM] 600 MG PO DAILY Aspirin Ec 81 MG PO DAILY Glucagon (GLUCAGON EMERGENCY KIT) 1 MG IM ASDIR Review of Nursing Notes Rev avail, and agree Past Medical History: Reports: Diabetes mellitus, Hypertension. Denies: Coronary artery disease. Additional Medical History Diabetes, hypercholesterolemia, dimension Additional Surgical History Cholecystectomy Smoking status for patients 13 years old or older: Unknown,if ever smoked Physical Exam Vital Signs Vital Signs First Documented: Result Date Time Pulse Ox 100 05/04 1608 B/P 178/110 / 1608 O2 Delivery Room air 05/04 1608 Temp 97.0 / 1608 Pulse 78 05/04 1608 Resp 18 05/04 1608 Last Documented: Result Date Time Pulse Ox 100 / 1608 B/P 178/110 / 1608 O2 Delivery Room air / 1608 Temp 97.0 / 1608 Pulse 78 / 1608 Resp 18 05/04 1608 Review of Vital Signs Reviewed Free Text PE Notes Free Text PE Notes GENERAL: Alert and oriented x 3. No acute distress. Well-nourished. EYES: PERRLA , EOMI. normal conjunctiva , no scleral icterus. HENT: Normocephalic, clear tympanic membranes, normal hearing, no sinus tenderness, tongue within normal limits moist mucous membranes.. Neck: Supple, nontender, no lymphadenopathy, no thyromegaly LUNGS: Clear to auscultation bilaterally. No accessory muscle use, no respiratory distress, no wheezing, no rales or rhonchi, CARDIOVASCULAR: Normal rate, regular rhythm, no murmur, no gallop or edema, no carotid bruit, no JVD ABDOMEN: Soft, non-tender , non-distended. Normal bowel sounds, no hepatosplenomegaly no palpable masses. No rebound, no guarding, McBurney point nontender EXTREMITIES: Normal range of motion and strength, no tenderness, no swelling, normal digits, no cyanosis or clubbing : No CVA tenderness Lymphatic: No cervical, axillary or inguinal adenopathy SKIN: No rashes or lesions. Warm. NEUROLOGIC: No focal neurological deficits. CN II-XII grossly intact, but not individually tested. Alert and oriented x3, no motor deficit, no sensory deficit PSYCHIATRIC: Cooperative. Appropriate mood and affect., Memory intact, judgment intact Interpretation Diagnostics Lab Results Interpretation Results Laboratory Tests 05/04/241813: [Embedded Image Not Available] 03/05/25 1815: [Embedded Image Not Available] Laboratory Tests: 05/04 05/04 05/04 1611 1751 1814 Chemistry Sodium (136 - 145 mmol/L) 142 Potassium (3.4 - 4.5 mmol/L) 3.8 Chloride (98 - 107 mmol/L) 108 H Carbon Dioxide (20 - 31 mmol/l) 28 BUN (9 - 23 mg/dL) 12 Creatinine (0.55 - 1.02 mg/dL) 0.82 Glomerular Filtr Rate (>60) >=60 max estimate Glucose (74 - 106 mg/dL) 94 POC Glucose (70 - 105 MG/DL) 113 H Calcium (8.6 - 10.3 mg/dL) 9.1 Total Bilirubin (0.2 - 1.1 mg/dL) 0.6 AST (0 - 34 U/L) 20 ALT (10 - 49 U/L) 15 Total Alk Phosphatase (46 - 116 U/L) 65 Total Protein (5.7 - 8.2 g/dL) 6.6 Albumin (3.4 - 5.0 g/dl) 3.4 Toxicology Salicylates (0.0 - 30.0 mg/dL) < 3.0 Urine Opiates Screen (NEGATIVE) Negative Oxycodone Screen (NEGATIVE) Negative Ur Methadone (NEGATIVE) Negative Propoxyphene Screen (NEGATIVE) Negative Acetaminophen (10 - 20 ug/mL) < 2.0 L Ur Barbiturates, Qual (NEGATIVE) Negative Ur Phencyclidine Scrn (NEGATIVE) Negative Ur Amphetamines Screen (NEGATIVE) Negative U Benzodiazepines Scrn (NEGATIVE) Negative Urine Cocaine Screen (NEGATIVE) Negative Urine Cannabinoids (NEGATIVE) Negative Ethyl Alcohol (0.0 - 80.0 mg/dL) < 3.0 05/045 2118 Chemistry POC Glucose (70 - 105 MG/DL) 148 H Hematology WBC (5.0 - 12.0 K/mm3) 3.66 L RBC (4.20 - 5.40 M/mm3) 3.66 L Hgb (12.0 - 16.0 G/DL) 11.3 L Hct (34.9 - 44.5 %) 34.5 L MCV (81 - 99 fL) 94 MCH (27 - 31 PGM) 30.9 MCHC (33 - 37 G/DL) 32.8 L RDW (11.6 - 16.2 %) 12.0 Plt Count (130 - 400 K/mm3) 216 MPV (7.4 - 10.4 fl) 9.5 Neut % (Auto) (43 - 65 %) 45.6 Lymph % (Auto) (20.5 - 45.5 %) 38.0 Buchanan % (Auto) (5.5 - 11.7 %) 13.4 H Eos % (Auto) (0.9 - 2.9 %) 1.6 Baso % (Auto) (0.2 - 1.0 %) 1.1 H Neut # (Auto) (2.2 - 4.8 K/mm3) 1.67 L Lymph # (Auto) (1.3 - 2.9 K/mm3) 1.39 Buchanan # (Auto) (0.3 - 0.8 K/mm3) 0.49 Eos # (Auto) (0.0 - 0.2 K/MM3) 0.06 Baso # (Auto) (0.0 - 0.1 K/mm3) 0.04 Immature Gran % (0.0 - 2.0 %) 0.3 Nucleated RBC % (0 - 1.0 %) 0.0 Serology SARS CoV-2 RNA Rapid CHARLINE (NEGATIVE) Negative Urines Urine Color (YELLOW) Colorless Urine Appearance (CLEAR) CLEAR Urine pH (4.5 - 8.5) 7.0 Ur Specific [place] (1.000 - 1.030) 1.010 Urine Protein (NEGATIVE MG/DL) NEG Urine Glucose (UA) (NEGATIVE MG/DL) 3+ A Urine Ketones (NEGATIVE MG/DL) NEG Urine Blood (NEGATIVE) NEG Urine Nitrite (NEGATIVE) NEG Urine Bilirubin (NEGATIVE) NEG Urine Urobilinogen (<=1.0 EU/dL) NORMAL Ur Leukocyte Esterase (NEGATIVE) NEG Urine RBC (0 - 5 /HPF) 0-5 Urine WBC (0 - 5 /HPF) 0-5 Ur Squamous Epith Cells (NONE - FEW /HPF) NONE SEEN Urine Bacteria (NONE SEEN /HPF) NONE SEEN Lab Statement Laboratory studies reviewed and considered in the medical decision-making. Point of Care Testing Pulse Oximetry Pulse Ox % 98 On: Room air Interpretation Interpreted by nh Time 1718 Re-Evaluation MDM Free Text MDM Notes Free Text MDM Notes Differential diagnosis associated with the patient's presentation include: Acute psychosis, metabolic derangement, dementia, Escalation of care including admission/observation considered: Pending H CAT disposition Discussion of management with other providers: Discussed with radiology regarding test interpretation: None Independent interpretation: CBC CMP unremarkable Additional patient history obtained from: None Review of external note on ED record: Previous ER visit Diagnostic test considered but not performed: None Treatment and disposition: Discharge the patient Prescription medication considered but not given: None Chronic condition affecting care: Dementia Social determinants of health significantly affecting care: None Shared decision making with patient: Agreed with the plan Medical clearance completed and pending H CAT evaluation The document was created using a voice recognition transcribing system. Incorrect words or phrases inserted erroneously due to softer misinterpretation/ missed real estate consultant may have been missed during proofreading. Please contact the author for clarification if necessary Patient Discharge Departure Vital Signs/Condition Vital Signs First Documented: Result Date Time Pulse Ox 100 05/04 1608 B/P 178/110 / 1608 O2 Delivery Room air 05/04 1608 Temp 97.0 / 1608 Pulse 78 03/ 1608 Resp 18 05/04 1608 Last Documented: Result Date Time Pulse Ox 100 05/04 1608 B/P 178/110 / 1608 O2 Delivery Room air 05/04 1608 Temp 97.0 05/04 1608 Pulse 78 05/04 1608 Resp 18 05/04 1608 All vital signs available at the time of this entry have been reviewed. Condition Stable, Improved Disposition Decision Transfer )( Request Time 1934 )( Request Date 05/04/24 Discharge/Care Plan Counseled Regarding Diagnosis, Lab results Hold in ED Note I have spoken with the patient and/or caregivers. I have explained the patient's condition, diagnoses and treatment plan based on the information available to me at this time. I have answered the patient's and/or caregiver's questions and addressed any concerns. The patient and/or caregivers have as good an understanding of the patient's diagnosis, condition and treatment plan as can be expected at this point. The patient has been stabilized within the capability of the emergency department. Although the emergency department has completed all appropriate management and is prepared to transport the patient to an observation or inpatient service, there are no available beds. Therefore the patient will be placed in "ED Hold" status until such time as a bed becomes available. Suzy Escobedo 05/04/24 2241: Patient Discharge Departure Clinical Impression Clinical Impression Primary Impression: Dementia with behavioral disturbance Disposition Decision Discharge )( Discharged to Home nursing facility )( Time 2241 )( Date 05/04/24 Discharge/Care Plan Patient Instructions ED DEMENTIA Alzheimer's Referrals Provider Group: PRIMARY CARE Follow-Up: 2-3 Days at 2039 at 2359 RPT #:[id number] END OF REPORT [facility] 2024-02-28 11:38:00 [facility] ([facility]) Discharge Summary REPORT#:[id number] REPORT STATUS: Signed REPORT INITIALIZATION DATE:02/28/24 TIME: 113 PATIENT: LISETH POTTS UNIT #: [id number] [address] AGE: 74 SEX: F ATTEND: Eloy Garay MD ADM AUTHOR: Eloy Garay MD REPT SERVICE DT/TIME: 02/28/24 1138 * ALL edits or amendments must be made on the electronic/computer document * General Information Discharge date: 02/28/24 Discharge diagnosis: DKA resolved Left lower lobe pneumonia Elevated troponin MATT resolved Hospital course: 74-year-old female with PMH of insulin-dependent diabetes, dyslipidemia, hypertension[facility] Patient says that when she visited her yesterday patient was not herself, patient currently is AO x 4, denies any dysuria, urgency, frequency, chest pain or shortness of breath, abdominal pain, nausea vomiting, diarrhea or constipation. 1. DKA IVF Endocrine consult Anion gap improved this morning Insulin GTT 2. Left lower lobe PNA IV ABX BCx Sputum cultures Incentive spirometry Pulmonary consult 3. Elevated troponin Telemetry Cardiology consult Aspirin Statin Echo 4. MATT IVF Nephrology consult UA: 3+ glucose, trace ketones, no bacteria, leukocyte esterase nitrate negative DVT PPx 02/26/2024 DKA resolved Overcorrection mild hypoglycemia resolved Left lower lobe pneumonia, on IV ABX, sputum cultures pending Continues to be confused Blood cultures no growth 24 hours Elevated tropes, demand ischemia, no STEMI, continue current management MATT resolved defer fluids to nephrology 02/27/24 DKA resolved Overcorrection mild hypoglycemia resolved Left lower lobe pneumonia, on IV ABX, sputum cultures pending Continues to be confused Blood cultures no growth Elevated tropes, demand ischemia, no STEMI, continue current management MATT resolved defer fluids to nephrology' Med Rec Med Rec Discharge meds: Stop taking the following medications: [BASAGLAR] 30 UNITS SUBCUTANEOUS EVERY MORNING. Continue taking these medications: Nifedipine (Procardia XL) 30 MG TAB.SA 30 MILLIGRAM DAILY. Comments: Route: ORAL Insulin Aspart (Novolog) 100 UNITS/ML VIAL 8 UNITS SUBCUTANEOUS THREE TIMES DAILY BEFORE MEAL. Instructions: HOLD IF BS <200 Enalapril (Vasotec) 20 MG TAB 20 MILLIGRAM ORAL TWICE DAILY. Acetaminophen (Tylenol) 325 MG TAB 650 MILLIGRAM ORAL EVERY 6 HOURS NEEDED. as needed for PAIN Divalproex Sprinkle (Depakote Sprinkle) 125 MG CAP.SPRINK 125 MILLIGRAM ORAL EVERY 8 HOURS. Atorvastatin (Lipitor) 40 MG TAB 1 TABLET ORAL BEDTIME. Trazodone (Desyrel) 50 MG TAB 50 MILLIGRAM ORAL BEDTIME. [CALCIUM] 600 MILLIGRAM ORAL DAILY. Aspirin Ec (Aspirin Ec) 81 MG TAB.EC 81 MILLIGRAM ORAL DAILY. Glucagon (GLUCAGON EMERGENCY KIT) 1 MG KIT 1 MILLIGRAM INTRAMUSC DIRECTED. Start taking the following new medications: Insulin Glargine (Lantus Solostar) 100 UNITS/ML PEN.INJCTR 12 UNITS SUBCUTANEOUS BEDTIME. Qty = 3 No Refills Cefdinir (Omnicef) 300 MG CAP 300 MILLIGRAM ORAL EVERY 12 HOURS. Days = 7 Qty = 14 No Refills Doxycycline Hyclate (Vibramycin) 100 MG CAP 100 MILLIGRAM ORAL EVERY 12 HOURS. Days = 7 Qty = 14 No Refills Objective VS/I O Laboratory Tests 02/24 02/24 02/24 02/24 02/24 1221 1305 1428 1507 1703 Chemistry POC Glucose (70 - 105 mg/dL) 76 93 101 96 79 02/24 02/24 02/25 02/25 2107 2206 0605 0611 Chemistry Sodium (136 - 145 mmol/L) 140 Potassium (3.5 - 5.1 mmol/L) 4.5 Chloride (98 - 107 mmol/L) 110 H Carbon Dioxide (20 - 31 mmol/L) 25 Anion Gap (2.0 - 16.0) 9.2 BUN (9 - 23 mg/dL) 28 H Creatinine (0.6 - 1.0 mg/dL) 0.8 Glomerular Filtr Rate (>60 ml/min) >=60 max estimate Glucose (74 - 106 mg/dL) 85 POC Glucose (70 - 105 mg/dL) 40 *L 144 H 87 Calcium (8.7 - 10.4 mg/dL) 8.4 L Corrected Calcium (8.1 - 10.2 g/dL) 9.2 Phosphorus (2.4 - 5.1 mg/dL) 2.6 Ca-Phosphorus Product (0 - 55) 21.84 Albumin (3.4 - 5.0 g/dL) 3.0 L 02/25 02/25 02/25 02/26 1149 1650 2036 0710 Chemistry Sodium (136 - 145 mmol/L) 134 L Potassium (3.5 - 5.1 mmol/L) 5.6 H Chloride (98 - 107 mmol/L) 102 Carbon Dioxide (20 - 31 mmol/L) 26 Anion Gap (2.0 - 16.0) 11.1 BUN (9 - 23 mg/dL) 19 Creatinine (0.6 - 1.0 mg/dL) 0.9 Glomerular Filtr Rate (>60 ml/min) >=60 max estimate BUN/Creatinine Ratio (12.0 - 20.0) 21.1 H Glucose (74 - 106 mg/dL) 391 H POC Glucose (70 - 105 mg/dL) 183 H 238 H 199 H Calcium (8.7 - 10.4 mg/dL) 8.4 L Corrected Calcium (8.1 - 10.2 g/dL) 9.1 Phosphorus (2.4 - 5.1 mg/dL) 2.1 L Ca-Phosphorus Product (0 - 55) 17.64 Albumin (3.4 - 5.0 g/dL) 3.1 L 02/26 02/26 02/26 02/26 02/27 0715 1135 1641 1950 0644 Chemistry POC Glucose (70 - 105 mg/dL) 361 H 345 H 243 H 263 H 143 H 02/27 0723 Chemistry Sodium (136 - 145 mmol/L) 136 Potassium (3.5 - 5.1 mmol/L) 4.4 Chloride (98 - 107 mmol/L) 103 Carbon Dioxide (20 - 31 mmol/L) 28 Anion Gap (2.0 - 16.0) 9.6 BUN (9 - 23 mg/dL) 15 Creatinine (0.6 - 1.0 mg/dL) 0.7 Glomerular Filtr Rate (>60 ml/min) >=60 max estimate Glucose (74 - 106 mg/dL) 170 H Calcium (8.7 - 10.4 mg/dL) 8.4 L Corrected Calcium (8.1 - 10.2 g/dL) 9.1 Phosphorus (2.4 - 5.1 mg/dL) 3.0 Ca-Phosphorus Product (0 - 55) 25.20 Albumin (3.4 - 5.0 g/dL) 3.1 L Laboratory Tests 02/26 0710 Hematology WBC (4.5 - 11.0 10 3/uL) 5.0 RBC (3.50 - 5.50 10 6/uL) 3.32 L Hgb (12.0 - 16.0 g/dL) 10.3 L Hct (37.0 - 55.0 %) 30.5 L MCV (81 - 102 fL) 92 MCH (26.0 - 34.0 pg) 31.0 MCHC (31.0 - 37.0 g/dL) 33.8 RDW (11.6 - 14.4 %) 12.0 Plt Count (150 - 400 10 3/uL) 179 MPV (9.0 - 12.6 fL) 10.1 Neut % (Auto) (33.0 - 76.0 %) 59.6 Lymph % (Auto) (14.0 - 56.4 %) 22.5 Buchanan % (Auto) (0.0 - 12.9 %) 15.5 H Eos % (Auto) (0.0 - 7.0 %) 1.2 Baso % (Auto) (0 - 2.0 %) 0.6 Neut # (Auto) (1.5 - 7.0 10 3/uL) 2.97 Lymph # (Auto) (1.50 - 4.00 10 3/uL) 1.12 L Buchanan # (Auto) (0.20 - 0.80 10 3/uL) 0.77 Eos # (Auto) (0.0 - 0.5 10 3/uL) 0.06 Baso # (Auto) (0.0 - 0.1 10 3/uL) 0.03 Abs Immat Gran (auto) (0.000 - 0.100 x10 3/uL) 0.030 Immature Gran % (0.0 - 1.0 %) 0.6 Nucleated RBC % (0 - 0.2 %) 0.0 Nucleated RBCs # (0.000 - 0.012 10 3/uL) 0.000 Microbiology: 02/25 1009 SPUTUM: Sputum Culture - ORD 02/25 1009 SPUTUM: Gram Stain - ORD Recent Impressions: RADIOLOGY - XR CHEST 1 V 02/23 1359 Report Impression - Status: SIGNED Entered: 02/24/2024 1421 IMPRESSION: Nonspecific some interstitial thickening in both lungs. Recommend a CT scan for further evaluation. Groundglass opacity in the left upper lobe. Impression By: [email or web address] Janina De La Torre MD CAT SCAN - CT HEAD/BRAIN W/O CONT 02/23 1410 Report Impression - Status: SIGNED Entered: 02/24/2024 1438 IMPRESSION: No acute intracranial abnormality. Impression By: Conner Mcdermott MD CAT SCAN - CT CHEST W/O CONTRAST 02/23 1600 Report Impression - Status: SIGNED Entered: 02/24/2024 1809 IMPRESSION: Small area of left lower lobe groundglass opacification. Given focal nature, infection or aspiration is suspected, less likely focal atelectasis. Impression By: Conner Mcdermott MD Last Documented: Result Date Time Pulse Ox 96 02/27 819 B/P 154/65 02/27 819 B/P Mean 94.7 02/27 819 Temp 36.9 02/27 819 Pulse 69 02/27 819 Resp 14 02/27 819 O2 Delivery Room air 02/25 1609 24 hour I O ending at 0700: 02/26 1900 02/27 0700 Intake Total Output Total 800 200 Balance -800 -200 Output, Urine 800 200 PATIENT WEIGHT: Weight (lb): Weight (oz): Weight (kg): 54.545 Free Text Obj Notes Free Text Obj Notes: GEN: NAD, HEENT: Normocephalic and Atraumatic NECK: Supple CVS: Regular Rate Rhythm. S1 and S2 present RESPIRATORY: CTA BL, no wheezing/rhonchi/rales, no respiratory distress ABDOMEN/GI: active BS, soft, non-tender, No rebounding/guarding, No CVA Tenderness EXTRIMITIES: ROM WNL NEURO/DIESEL ENGINE FITTER: AAOX3 Skin: dry, intact Psych: Normal affect Discharge Instructions PCP )( Discharge to: [facility] Discharge Instructions Additional Discharge Routines: PCP Follow-Up, [facility] )( Diet: Diabetic, Cardiac Follow-up Appointments PCP follow up: PCP: Eduardo Contreras MD PCP follow up timeframe: In 2 days Consulting provider 1: Provider 1: Horacio Russell MD Specialty: Endocrinology [facility] [employer] Consult follow up timeframe: In 1-2 weeks at 1139 RPT #:[id number] END OF REPORT [facility] 2024-02-28 08:53:00 [facility] Endocrinology Progress Note REPORT #: [id number] REPORT STATUS: Signed DATE: 02/28/24 TIME: 0853 PATIENT: LISETH POTTS UNIT #: [id number] ROOM #: [id number] BED: 1 : 52 AGE: 74 SEX: F ATTEND: Eloy Garay MD ADM AUTHOR: Horacio Russell MD ATTENTION *EDITS and/or ADDENDA must be made in Patient Keeper for this note. * * Edits and ammendments created in [place] [facility] are not visible * * in Patient Keeper or the legal medical record (HPF). * Note Date: 02/28/24 08:53 -- ASSESSMENT/PLAN -- ASSESSMENT / PLAN: 1: Type 1 diabetes mellitus with ketoacidosis without coma A/P: UNCONTROLLED (BIAR9J=1.0%,HYPERGLYCEMIA) TYPE I IN DKA. DKA RESOLVED: TMG=382 HS LPKRSLP=847 AG=9.6. OBSERVE ON PRESENT SQ BASAL/BOLUS INSULIN. BEDTIME SNACK. -- SUBJECTIVE -- CHIEF COMPLAINT: HYPERGLYCEMIA HPI: EVENTS NOTED: OUT OF ICU. ATE WELL TODAY AT [facility]. DAUGHTER AT BEDSIDE. REVIEW OF SYSTEMS: General Negative for fever Respiratory Negative for dyspnea Cardiovascular Negative for chest pain Gastrointestinal Negative for abdominal pain or nausea. Endocrine Negative polydipsia, polyuria -- EXAM -- VITALS (02/26 08:53 - 02/27 08:53): Respiratory rate: 14 (14 - 16) Blood pressure: 154/65 (129/55 - 154/65) Temperature C: 36.9 (36.7 - 36.9) Temperature source: Oral Pulse Rate: 69 (66 - 84) IOS (02/26 07:00-02/27 07:00): Net-1,000 Output1,000 Urinary catheter ml:1,000 EXAM: General Well developed, well nourished, in no apparent distress. THIN Head Normocephalic, atraumatic. Neck trachea midline. Chest Grossly normal appearance. Lungs NORMAL CHEST WALL MOVEMENT Heart NO TACHYCARDIA Abdomen NON-DISTENDED Neurological NORMAL SPEECH Psychiatric Alert and COOPERATIVE -- DATA -- MEDICATIONS polyethylene glycoL 3350 1 PKT PO DAILY PRN ASPIRIN 81 MG PO DAILY IPRATROPIUM/ALBUTEROL SULFATE 3 ML NEB RTQ6H PRN HYDROcodone BITARTRATE/APAP 1 TAB PO Q4H PRN MUPIROCIN 1 APPLIC NASAL BID ATORVASTATIN CALCIUM 40 MG PO BEDTIME ONDANSETRON HCL/PF 4 MG IV Q4H PRN GLUCAGON 1 MG IM ASDIR PRN HEPARIN SODIUM,PORCINE 5000 UNIT SUBQ Q12HR ACETAMINOPHEN 650 MG PO Q4H PRN DEXTROSE 50%-WATER 50 ML IV ASDIR DEXTROSE 50%-WATER 50 ML IV ASDIR cefTRIAXone with/in WATER FOR INJECTION,STERILE 1000 MG IV Q24H INSULIN GLARGINE 12 UNITS SUBQ QPM INSULIN LISPRO UNIT SUBQ AC HS SODIUM CHLORIDE 0.45% 1000 ML IV ASDIR INSULIN GLARGINE 12 UNITS SUBQ QAM POTASSIUM BICARBONATE/CIT AC 20 MEQ PO ASDIR POTASSIUM CHLORIDE 20 MEQ IV ASDIR DEXTROSE 5%-0.45% SALINE 1000 ML IV ASDIR LAB RESULTS GLU BED (02/28/24 06:44) GLUBED 143 H RENAL FUNCTION PANEL (02/28/24 07:23) ALBUMIN 3.1 L ANION GAP 9.6 CARBON DIOXIDE 28 CHLORIDE 103 POTASSIUM 4.4 CREATININE 0.7 GLOMERULAR FILTRATION RATE >=60 max estimate BLOOD UREA NITROGEN 15 GLUCOSE 170 H CALCIUM 8.4 L SODIUM 136 CALCIUM-PHOSPHORUS PRODUCT 25.20 PHOSPHOROUS 3.0 CORRECTED CALCIUM 9.1 -- ATTESTATION -- Time Spent on Patient Care DIRECT 30 minutes Care Activities / Care Coordination I have reviewed the history and repeated the figueroa elements I have seen and examined this patient I have reviewed the progress in the clinical course since the last examination I have discussed the patient's condition with other members of the care team ADDITIONAL DETAIL: I HAVE SPENT >35 MINUTES IN THE EVALUATION AND TREATMENT OF THIS PATIENT. at 0856 ATTENTION *EDITS and/or ADDENDA must be made in Patient Keeper for this note. * * Edits and ammendments created in [place] [facility] are not visible * * in Patient Keeper or the legal medical record (HPF). * [facility] #: [id number] END OF REPORT [facility] 2024-02-27 10:50:00 [facility] Endocrinology Progress Note REPORT #: [id number] REPORT STATUS: Signed DATE: 02/27/24 TIME: 1050 PATIENT: LISETH POTTS UNIT #: [id number] ROOM #: [id number] BED: 1 : 52 AGE: 74 SEX: F ATTEND: Eloy Garay MD ADM AUTHOR: Horacio Russell MD ATTENTION *EDITS and/or ADDENDA must be made in Patient Keeper for this note. * * Edits and ammendments created in [employer] are not visible * * in Patient Keeper or the legal medical record (HPF). * Note Date: 02/27/24 10:50 -- ASSESSMENT/PLAN -- ASSESSMENT / PLAN: 1: Type 1 diabetes mellitus with ketoacidosis without coma A/P: UNCONTROLLED (FHVU1D=6.0%,HYPERGLYCEMIA) TYPE I IN DKA. DKA RESOLVED: AWM=524 HS QFEWOWA=197 AG=11.1. OBSERVE ON REVISED,INCREASED SQ BASAL/BOLUS INSULIN. BEDTIME SNACK. -- SUBJECTIVE -- CHIEF COMPLAINT: HYPERGLYCEMIA HPI: EVENTS NOTED: OUT OF ICU. POOR APPETITE. DAUGHTER AT BEDSIDE. REVIEW OF SYSTEMS: General Negative for fever Respiratory Negative for dyspnea Cardiovascular Negative for chest pain Gastrointestinal Negative for abdominal pain or nausea. Endocrine Negative polydipsia, polyuria -- EXAM -- VITALS (02/25 10:50 - 02/26 10:50): Temperature C: 37.3 (36.3 - 37.3) Temperature source: Oral Pulse Rate: 64 (59 - 72) Blood pressure: 166/66 (122/52 - 166/84) Respiratory rate: 14 (14 - 18) IOS (02/25 07:00-02/26 07:00): Net-850 Chovfg256 Urinary catheter ml:850 EXAM: General Well developed, well nourished, in no apparent distress. THIN Head Normocephalic, atraumatic. Neck trachea midline. Chest Grossly normal appearance. Lungs NORMAL CHEST WALL MOVEMENT Heart NO TACHYCARDIA Abdomen NON-DISTENDED Neurological NORMAL SPEECH Psychiatric Alert and COOPERATIVE -- DATA -- MEDICATIONS polyethylene glycoL 3350 1 PKT PO DAILY PRN ASPIRIN 81 MG PO DAILY IPRATROPIUM/ALBUTEROL SULFATE 3 ML NEB RTQ6H PRN HYDROcodone BITARTRATE/APAP 1 TAB PO Q4H PRN MUPIROCIN 1 APPLIC NASAL BID ATORVASTATIN CALCIUM 40 MG PO BEDTIME ONDANSETRON HCL/PF 4 MG IV Q4H PRN GLUCAGON 1 MG IM ASDIR PRN HEPARIN SODIUM,PORCINE 5000 UNIT SUBQ Q12HR ACETAMINOPHEN 650 MG PO Q4H PRN DEXTROSE 50%-WATER 50 ML IV ASDIR DEXTROSE 50%-WATER 50 ML IV ASDIR cefTRIAXone with/in WATER FOR INJECTION,STERILE 1000 MG IV Q24H INSULIN LISPRO UNIT SUBQ AC HS SODIUM CHLORIDE 0.45% 1000 ML IV ASDIR INSULIN GLARGINE 12 UNITS SUBQ QAM POTASSIUM BICARBONATE/CIT AC 20 MEQ PO ASDIR INSULIN GLARGINE 6 UNITS SUBQ QPM POTASSIUM CHLORIDE 20 MEQ IV ASDIR DEXTROSE 5%-0.45% SALINE 1000 ML IV ASDIR LAB RESULTS CBC W/AUTO DIFF (02/27/24 07:10) NUCLEATED RBC # 0.000 LYMPHOCYTE % 22.5 MONOCYTE % 15.5 H EOSINOPHIL # 0.06 NEUTROPHIL % 59.6 BASOPHIL # 0.03 IMMATURE GRANULOCYTE % 0.6 IMMATURE GRANULOCYTE # 0.030 NEUTROPHIL # 2.97 RED BLOOD CELL 3.32 L WHITE BLOOD CELL 5.0 EOSINOPHIL % 1.2 NUCLEATED RBC % 0.0 BASOPHIL % 0.6 RED CELL DISTRIBUTION WIDTH 12.0 MEAN CELL HGB CONCENTRATION 33.8 LYMPHOCYTE # 1.12 L PLATELET COUNT 179 HEMATOCRIT 30.5L L HEMOGLOBIN 10.3L L MEAN CELL HGB 31.0 MEAN CELL VOLUME 92 MONOCYTE # 0.77 MEAN PLATELET VOLUME 10.1 RENAL FUNCTION PANEL (02/27/24 07:10) POTASSIUM 5.6 H CHLORIDE 102 CALCIUM-PHOSPHORUS PRODUCT 17.64 SODIUM 134 L CORRECTED CALCIUM 9.1 PHOSPHOROUS 2.1 L ALBUMIN 3.1 L CALCIUM 8.4 L BUN/CREATININE RATIO 21.1 H GLOMERULAR FILTRATION RATE >=60 max estimate CREATININE 0.9 GLUCOSE 391 D H BLOOD UREA NITROGEN 19 CARBON DIOXIDE 26 ANION GAP 11.1 GLU BED (02/27/24 07:15) GLUBED 361 H -- ATTESTATION -- Time Spent on Patient Care DIRECT 30 minutes Care Activities / Care Coordination I have reviewed the history and repeated the figueroa elements I have seen and examined this patient I have reviewed the progress in the clinical course since the last examination I have discussed the patient's condition with other members of the care team ADDITIONAL DETAIL: I HAVE SPENT >35 MINUTES IN THE EVALUATION AND TREATMENT OF THIS PATIENT. at 1052 ATTENTION *EDITS and/or ADDENDA must be made in Patient Keeper for this note. * * Edits and ammendments created in [place] [facility] are not visible * * in Patient Keeper or the legal medical record (HPF). * RPT #: [id number] END OF REPORT [facility] 2024-02-27 09:41:00 [facility] ([facility]) Hospitalist Progress Note REPORT#:[id number] REPORT STATUS: Signed REPORT INITIALIZATION DATE:02/27/24 TIME: 940 PATIENT: LISETH POTTS UNIT #: [id number] [address] AGE: 74 SEX: F ATTEND: Eloy Garay MD ADM AUTHOR: Eloy Garay MD REPT SERVICE DT/TIME: 02/27/24 0941 * ALL edits or amendments must be made on the electronic/computer document * Subjective Chief complaint: AMS HPI: 74-year-old female with PMH of insulin-dependent diabetes, dyslipidemia, hypertension, [facility] Patient says that when she visited her yesterday patient was not herself, patient currently is AO x 4, denies any dysuria, urgency, frequency, chest pain or shortness of breath, abdominal pain, nausea vomiting, diarrhea or constipation. Social history: Non-smoker Denies EtOH or drug Surgical history: Cholecystectomy Family history: Review noncontributory current illness Free Text Subj Notes Free Text Subj Notes: Patient seen and examined. No new complaints. No acute events noted by nursing staff. Review of Systems Free Text ROS Notes Free Text ROS Notes: 14 point ROS reviewed negative save for HPI Objective General VS/I O: Laboratory Tests 02/23 1520 Blood Gas VBG pH (7.33 - 7.45) 7.314 L VBG pCO2 (35 - 45 mm Hg) 27.3 *L VBG pO2 (80 - 90 mmHg) 154.5 H VBG HCO3 (22 - 24 mmol/L) 13.8 L VBG O2 Saturation (60 - 80 %) 99.2 H VBG Base Excess (-2 - 4 mmol/L) -11.1 L Laboratory Tests 02/23 02/23 02/23 02/23 02/23 1329 1329 1338 1452 1532 Chemistry Sodium (136 - 145 mmol/L) 122 L Potassium (3.5 - 5.1 mmol/L) 5.7 H Chloride (98 - 107 mmol/L) 90 L Carbon Dioxide (20 - 31 mmol/L) 13 L Anion Gap (2.0 - 16.0) 25.2 H BUN (9 - 23 mg/dL) 66 H Creatinine (0.6 - 1.0 mg/dL) 2.7 H Glomerular Filtr Rate (>60 ml/min) 18 L BUN/Creatinine Ratio (12.0 - 20.0) 24.4 H Glucose (74 - 106 mg/dL) 1126 *H POC Glucose (70 - 105 mg/dL) > 600 *H Hemoglobin A1c (4.5 - 5.9 %) 8.0 H Lactic Acid (0.5 - 2.2 mmol/L) 2.5 H Calcium (8.7 - 10.4 mg/dL) 8.9 Phosphorus (2.4 - 5.1 mg/dL) 5.7 H Total Bilirubin (0.2 - 1.1 mg/dL) 0.5 Direct Bilirubin (0.0 - 0.3 mg/dL) 0.2 Indirect Bilirubin (0.0 - 0.8 0.3 mg/dL) AST (<34 U/L) 30 ALT (10 - 49 U/L) 24 Total Alk Phosphatase (46 - 116 78 U/L) Total Creatine Kinase (34 - 145 263 H U/L) CK-MB (CK-2) (0.5 - 3.6 ng/ml) 11.5 H Troponin I High Sens (0 - 53 239 *H 263 *H pg/mL) Total Protein (5.7 - 8.2 g/dL) 6.6 Albumin (3.4 - 5.0 g/dL) 3.6 Globulin (2.3 - 3.5 g/dL) 3.0 02/23 02/23 02/23 02/23 1720 1821 1923 2003 Chemistry Sodium (136 - 145 mmol/L) 128 L Potassium (3.5 - 5.1 mmol/L) 5.0 Chloride (98 - 107 mmol/L) 99 Carbon Dioxide (20 - 31 mmol/L) 22 Anion Gap (2.0 - 16.0) 12.1 BUN (9 - 23 mg/dL) 63 H Creatinine (0.6 - 1.0 mg/dL) 2.4 H Glomerular Filtr Rate (>60 ml/min) 21 L BUN/Creatinine Ratio (12.0 - 20.0) 26.3 H Glucose (74 - 106 mg/dL) 766 *H POC Glucose (70 - 105 mg/dL) > 600 *H > 600 *H > 600 *H Calcium (8.7 - 10.4 mg/dL) 8.3 L Phosphorus (2.4 - 5.1 mg/dL) 4.5 Magnesium (1.6 - 2.6 mg/dL) 2.3 1202/23 2220 2326 0051 0211 0318 Chemistry POC Glucose (70 - 105 mg/dL) > 600 *H 540 *H 434 *H 248 H 119 H 02/24 02/24 02/24 02/24 02/24 0424 0448 0448 0517 0518 Chemistry Sodium (136 - 145 mmol/L) 142 Potassium (3.5 - 5.1 mmol/L) 3.7 Chloride (98 - 107 mmol/L) 112 H Carbon Dioxide (20 - 31 mmol/L) 23 Anion Gap (2.0 - 16.0) 10.7 BUN (9 - 23 mg/dL) 57 H Creatinine (0.6 - 1.0 mg/dL) 1.6 H Glomerular Filtr Rate (>60 ml/min) 34 L BUN/Creatinine Ratio (12.0 - 20.0) 35.6 H Glucose (74 - 106 mg/dL) 28 *L POC Glucose (70 - 105 mg/dL) 70 10 *L 13 *L Calcium (8.7 - 10.4 mg/dL) 8.4 L Phosphorus (2.4 - 5.1 mg/dL) 3.5 Magnesium (1.6 - 2.6 mg/dL) 2.0 Triglycerides (0 - 149 mg/dL) 55 Cholesterol (0 - 200 mg/dL) 125 LDL Cholesterol Measurd (0 - 100 mg/dL) 57 HDL Cholesterol (40 - 59 mg/dL) 54 Cholesterol/HDL Ratio (1 - 6) 2 02/24 02/24 02/24 02/24 02/24 0534 0615 0653 0759 0918 Chemistry POC Glucose (70 - 105 mg/dL) 133 H 82 61 L 139 H 101 02/24 02/24 02/24 02/24 02/24 1017 1120 1221 1305 1428 Chemistry POC Glucose (70 - 105 mg/dL) 86 89 76 93 101 02/24 02/24 02/24 02/24 1507 1703 2107 2206 Chemistry POC Glucose (70 - 105 mg/dL) 96 79 40 *L 144 H 02/25 02/25 02/25 02/25 0605 0611 1149 1650 Chemistry Sodium (136 - 145 mmol/L) 140 Potassium (3.5 - 5.1 mmol/L) 4.5 Chloride (98 - 107 mmol/L) 110 H Carbon Dioxide (20 - 31 mmol/L) 25 Anion Gap (2.0 - 16.0) 9.2 BUN (9 - 23 mg/dL) 28 H Creatinine (0.6 - 1.0 mg/dL) 0.8 Glomerular Filtr Rate (>60 ml/min) >=60 max estimate Glucose (74 - 106 mg/dL) 85 POC Glucose (70 - 105 mg/dL) 87 183 H 238 H Calcium (8.7 - 10.4 mg/dL) 8.4 L Corrected Calcium (8.1 - 10.2 g/dL) 9.2 Phosphorus (2.4 - 5.1 mg/dL) 2.6 Ca-Phosphorus Product (0 - 55) 21.84 Albumin (3.4 - 5.0 g/dL) 3.0 L 02/2510 0715 Chemistry Sodium (136 - 145 mmol/L) 134 L Potassium (3.5 - 5.1 mmol/L) 5.6 H Chloride (98 - 107 mmol/L) 102 Carbon Dioxide (20 - 31 mmol/L) 26 Anion Gap (2.0 - 16.0) 11.1 BUN (9 - 23 mg/dL) 19 Creatinine (0.6 - 1.0 mg/dL) 0.9 Glomerular Filtr Rate (>60 ml/min) >=60 max estimate BUN/Creatinine Ratio (12.0 - 20.0) 21.1 H POC Glucose (70 - 105 mg/dL) 199 H 361 H Calcium (8.7 - 10.4 mg/dL) 8.4 L Corrected Calcium (8.1 - 10.2 g/dL) 9.1 Phosphorus (2.4 - 5.1 mg/dL) 2.1 L Ca-Phosphorus Product (0 - 55) 17.64 Albumin (3.4 - 5.0 g/dL) 3.1 L Laboratory Tests 02/23 1388 Hematology WBC (4.5 - 11.0 10 3/uL) 11.7 H 11.5 H 14.7 H RBC (3.50 - 5.50 10 6/uL) 3.29 L 3.03 L 3.26 L Hgb (12.0 - 16.0 g/dL) 10.2 L 9.3 L 9.9 L Hct (37.0 - 55.0 %) 33.3 L 28.3 L 30.1 L MCV (81 - 102 fL) 101 93 92 MCH (26.0 - 34.0 pg) 31.0 30.7 30.4 MCHC (31.0 - 37.0 g/dL) 30.6 L 32.9 32.9 RDW (11.6 - 14.4 %) 12.8 12.3 12.4 Plt Count (150 - 400 10 3/uL) 300 257 259 MPV (9.0 - 12.6 fL) 10.3 Neut % (Auto) (33.0 - 76.0 %) 80.0 H Lymph % (Auto) (14.0 - 56.4 %) 5.9 L Buchanan % (Auto) (0.0 - 12.9 %) 13.2 H Eos % (Auto) (0.0 - 7.0 %) 0.0 Baso % (Auto) (0 - 2.0 %) 0.2 Neut # (Auto) (1.5 - 7.0 10 3/uL) 9.24 H Lymph # (Auto) (1.50 - 4.00 10 3/uL) 0.68 L Buchanan # (Auto) (0.20 - 0.80 10 3/uL) 1.52 H Eos # (Auto) (0.0 - 0.5 10 3/uL) 0.00 Baso # (Auto) (0.0 - 0.1 10 3/uL) 0.02 Abs Immat Gran (auto) (0.000 - 0.100 x10 3/uL) 0.080 Immature Gran % (0.0 - 1.0 %) 0.7 Nucleated RBC % (0 - 0.2 %) 0.0 Nucleated RBCs # (0.000 - 0.012 10 3/uL) 0.000 02/26 0710 Hematology WBC (4.5 - 11.0 10 3/uL) 5.0 RBC (3.50 - 5.50 10 6/uL) 3.32 L Hgb (12.0 - 16.0 g/dL) 10.3 L Hct (37.0 - 55.0 %) 30.5 L MCV (81 - 102 fL) 92 MCH (26.0 - 34.0 pg) 31.0 MCHC (31.0 - 37.0 g/dL) 33.8 RDW (11.6 - 14.4 %) 12.0 Plt Count (150 - 400 10 3/uL) 179 MPV (9.0 - 12.6 fL) 10.1 Neut % (Auto) (33.0 - 76.0 %) 59.6 Lymph % (Auto) (14.0 - 56.4 %) 22.5 Buchanan % (Auto) (0.0 - 12.9 %) 15.5 H Eos % (Auto) (0.0 - 7.0 %) 1.2 Baso % (Auto) (0 - 2.0 %) 0.6 Neut # (Auto) (1.5 - 7.0 10 3/uL) 2.97 Lymph # (Auto) (1.50 - 4.00 10 3/uL) 1.12 L Buchanan # (Auto) (0.20 - 0.80 10 3/uL) 0.77 Eos # (Auto) (0.0 - 0.5 10 3/uL) 0.06 Baso # (Auto) (0.0 - 0.1 10 3/uL) 0.03 Abs Immat Gran (auto) (0.000 - 0.100 x10 3/uL) 0.030 Immature Gran % (0.0 - 1.0 %) 0.6 Nucleated RBC % (0 - 0.2 %) 0.0 Nucleated RBCs # (0.000 - 0.012 10 3/uL) 0.000 Laboratory Tests 02/23 1452 Toxicology Acetone, Qual (NEGATIVE) MODERATE H Laboratory Tests 02/23 1713 Urines Urine Color (YELLOW) YELLOW Urine Appearance (CLEAR) CLEAR Urine pH (5.0 - 8.0) 5.0 Ur Specific [place] (1.005 - 1.025) 1.018 Urine Protein (NEGATIVE) NEGATIVE Urine Glucose (UA) (NEGATIVE) 3+ H Urine Ketones (NEGATIVE) TRACE H Urine Blood (NEGATIVE) NEGATIVE Urine Nitrite (NEGATIVE) NEGATIVE Urine Bilirubin (NEGATIVE) NEGATIVE Urine Urobilinogen (0.1 - 0.2 EU/dL) NEGATIVE Ur Leukocyte Esterase (NEGATIVE) NEGATIVE Urine RBC (0 - 3 /hpf) NONE SEEN Urine WBC (0 - 3 /hpf) 0-2 Ur Squamous Epith Cells (FEW /HPF) RARE Urine Bacteria (NEGATIVE /HPF) NONE SEEN Microbiology: 02/25 1009 SPUTUM: Sputum Culture - ORD 02/25 1009 SPUTUM: Gram Stain - ORD 02/23 1532 Blood: Blood Culture - RES 02/23 1532 Blood: Blood Culture - RES 02/23 1524 NASAL: MRSA Screen - CAN Cancelled: Auto-cancelled after 1 day. 02/23 1414 NASAL: MRSA Screen - CAN Cancelled: Auto-cancelled after 1 day. Recent Impressions: RADIOLOGY - XR CHEST 1 V 02/23 1359 Report Impression - Status: SIGNED Entered: 02/24/2024 1421 IMPRESSION: Nonspecific some interstitial thickening in both lungs. Recommend a CT scan for further evaluation. Groundglass opacity in the left upper lobe. Impression By: SienaVLDanis De La Torre MD CAT SCAN - CT HEAD/BRAIN W/O CONT 02/23 1410 Report Impression - Status: SIGNED Entered: 02/24/2024 1438 IMPRESSION: No acute intracranial abnormality. Impression By: Conner Mcdermott MD CAT SCAN - CT CHEST W/O CONTRAST 02/23 1600 Report Impression - Status: SIGNED Entered: 02/24/2024 1809 IMPRESSION: Small area of left lower lobe groundglass opacification. Given focal nature, infection or aspiration is suspected, less likely focal atelectasis. Impression By: Conner Mcdermott MD Vital Signs: Date Time Temp Pulse Resp B/P B/P Pulse O2 O2 Flow FiO2 Mean Ox Delivery Rate 02/26 0808 37.3 64 14 166/66 99.4 96 02/26 0519 36.8 59 18 135/64 88.0 95 02/25 2310 36.3 68 18 156/69 98.2 95 02/25 2038 37.0 70 18 149/84 106.0 96 02/25 1609 36.7 72 18 122/52 75.7 96 Room air 02/25 1319 36.8 70 18 143/56 84.9 97 Room air 24 hour I O ending at 0700: 02/25 1900 02/26 0700 Intake Total Output Total 850 Balance -850 Output, Urine 850 PATIENT WEIGHT: Weight (lb): Weight (oz): Weight (kg): 54.545 Free Text Obj Notes Free Text Obj Notes: GEN: NAD, HEENT: Normocephalic and Atraumatic NECK: Supple CVS: Regular Rate Rhythm. S1 and S2 present RESPIRATORY: CTA BL, no wheezing/rhonchi/rales, no respiratory distress ABDOMEN/GI: active BS, soft, non-tender, No rebounding/guarding, No CVA Tenderness EXTRIMITIES: ROM WNL NEURO/DIESEL ENGINE FITTER: AAOX3 Skin: dry, intact Psych: Normal affect Diagnosis, Assessment Plan Free Text DxA P Notes Free text DxA P notes: 74-year-old female with PMH of insulin-dependent diabetes, dyslipidemia, hypertension, [facility] Patient says that when she visited her yesterday patient was not herself, patient currently is AO x 4, denies any dysuria, urgency, frequency, chest pain or shortness of breath, abdominal pain, nausea vomiting, diarrhea or constipation. 1. DKA IVF Endocrine consult Anion gap improved this morning Insulin GTT 2. Left lower lobe PNA IV ABX BCx Sputum cultures Incentive spirometry Pulmonary consult 3. Elevated troponin Telemetry Cardiology consult Aspirin Statin Echo 4. MATT IVF Nephrology consult UA: 3+ glucose, trace ketones, no bacteria, leukocyte esterase nitrate negative DVT PPx 02/26/2024 DKA resolved Overcorrection mild hypoglycemia resolved Left lower lobe pneumonia, on IV ABX, sputum cultures pending Continues to be confused Blood cultures no growth 24 hours Elevated tropes, demand ischemia, no STEMI, continue current management MATT resolved defer fluids to nephrology 02/27/24 DKA resolved Overcorrection mild hypoglycemia resolved Left lower lobe pneumonia, on IV ABX, sputum cultures pending Continues to be confused Blood cultures no growth Elevated tropes, demand ischemia, no STEMI, continue current management MATT resolved defer fluids to nephrology' at 0941 RPT #:[id number] END OF REPORT [facility] 2024-02-26 16:19:00 [facility] Cardiology Progress Notes REPORT #: [id number] REPORT STATUS: Signed DATE: 02/26/24 TIME: 1619 PATIENT: LISETH POTTS UNIT #: [id number] ROOM #: [id number] BED: 1 : 52 AGE: 74 SEX: F ATTEND: Eloy Garay MD ADM AUTHOR: Alla Cárdenas MD ATTENTION *EDITS and/or ADDENDA must be made in Patient Keeper for this note. * * Edits and ammendments created in [employer] are not visible * * in Patient Keeper or the legal medical record (HPF). * Note Date: 02/26/24 16:19 -- ASSESSMENT/PLAN -- GENERAL ASSESSMENT: # elevated trop - ECG NSR - CXR no edema, CT chest no PNA - trops w/ no acute rise 250s x2 - demand ischemia type II OK, no TYLER - outpatient MPI stress for further CV risk stratification appropriate - cont bASA # DKA - markedly improved post insulin - briefly hypoglycemic, overcorrection # HFpEF per echo this admission # HTN - holding home ACEi w/ recovering BLAINE - resume home CCB w/ hold parameters <110 - gentle PO Lasix PRN # HLD - cont bASA and statin # BLAINE -> resolved ASSESSMENT / PLAN: ADDITIONAL COMMENTS: will follow, please call any ?s -- SUBJECTIVE -- HPI: no acute events -- EXAM -- VITALS (02/24 16:19 - 02/25 16:19): Respiratory rate: 18 (16 - 18) Temperature C: 36.7 (36.7 - 37.1) Temperature source: Oral Pulse Rate: 72 (69 - 77) Blood pressure: 122/52 (103/51 - 143/65) IOS (02/24 07:00-02/25 07:00): Net-1,500 Output1,500 Urinary catheter ml:1,500 EXAM: General: GEN NAD Head NC / AT Neck no JVD Chest no deformities Heart RRR Abd ND Neuro intact Extremities WWP, trace edema Skin no rashes -- DATA -- MEDICATIONS polyethylene glycoL 3350 1 PKT PO DAILY PRN ASPIRIN 81 MG PO DAILY IPRATROPIUM/ALBUTEROL SULFATE 3 ML NEB RTQ6H PRN HYDROcodone BITARTRATE/APAP 1 TAB PO Q4H PRN MUPIROCIN 1 APPLIC NASAL BID ATORVASTATIN CALCIUM 40 MG PO BEDTIME ONDANSETRON HCL/PF 4 MG IV Q4H PRN GLUCAGON 1 MG IM ASDIR PRN HEPARIN SODIUM,PORCINE 5000 UNIT SUBQ Q12HR ACETAMINOPHEN 650 MG PO Q4H PRN DEXTROSE 50%-WATER 50 ML IV ASDIR DEXTROSE 50%-WATER 50 ML IV ASDIR cefTRIAXone with/in WATER FOR INJECTION,STERILE 1000 MG IV Q24H INSULIN LISPRO UNIT SUBQ AC HS SODIUM CHLORIDE 0.45% 1000 ML IV ASDIR INSULIN GLARGINE 12 UNITS SUBQ QAM POTASSIUM BICARBONATE/CIT AC 20 MEQ PO ASDIR INSULIN GLARGINE 6 UNITS SUBQ QPM POTASSIUM CHLORIDE 20 MEQ IV ASDIR AZITHROMYCIN with/in SODIUM CHLORIDE 0.9% 500 MG IV Q24H DEXTROSE 5%-0.45% SALINE 1000 ML IV ASDIR LAB RESULTS RENAL FUNCTION PANEL (02/26/24 06:05) CALCIUM-PHOSPHORUS PRODUCT 21.84 SODIUM 140 POTASSIUM 4.5 CHLORIDE 110 H CALCIUM 8.4 L CORRECTED CALCIUM 9.2 PHOSPHOROUS 2.6 BLOOD UREA NITROGEN 28 D H GLOMERULAR FILTRATION RATE >=60 max estimate CREATININE 0.8 CARBON DIOXIDE 25 ANION GAP 9.2 GLUCOSE 85 D ALBUMIN 3.0 L GLU BED (02/26/24 06:11) GLUBED 87 GLU BED (02/26/24 11:49) GLUBED 183 H at 1622 ATTENTION *EDITS and/or ADDENDA must be made in Patient Keeper for this note. * * Edits and ammendments created in [facility] are not visible * * in Patient Keeper or the legal medical record ([facility]). * RPT #: [id number] END OF REPORT [facility] 2024-02-26 14:16:00 [facility] ([facility]) Nephrology Clinical Note REPORT #: [id number] REPORT STATUS: Signed DATE: 02/26/24 TIME: 6 PATIENT: LISETH POTTS UNIT #: [id number] ROOM #: [id number] BED: 1 : 52 AGE: 74 SEX: F ATTEND: Eloy Garay MD ADM AUTHOR: Yas Ann MD ATTENTION *EDITS and/or ADDENDA must be made in Patient Keeper for this note. * * Edits and ammendments created in [facility] are not visible * * in Patient Keeper or the legal medical record ([facility]). * Note Date: 02/26/24 14:16 -- NOTATION -- NOTATION: Brief Renal Note Labs/electrolytes reviewed Renal will see on prn basis at 1416 ATTENTION *EDITS and/or ADDENDA must be made in Patient Keeper for this note. * * Edits and ammendments created in [facility] are not visible * * in Patient Keeper or the legal medical record ([facility]). * RPT #: [id number] END OF REPORT [facility] 2024-02-26 11:33:00 [facility] ([facility]) Pulmonology Progress Note REPORT #: [id number] REPORT STATUS: Signed DATE: 02/26/24 TIME: 1133 PATIENT: LISETH POTTS UNIT #: [id number] ROOM #: [id number] BED: 1 : 52 AGE: 74 SEX: F ATTEND: Eloy Garay MD ADM AUTHOR: Carla Lock MD ATTENTION *EDITS and/or ADDENDA must be made in Patient Keeper for this note. * * Edits and ammendments created in [employer] are not visible * * in Patient Keeper or the legal medical record ([facility]). * Note Date: 02/26/24 11:33 -- ASSESSMENT/PLAN -- GENERAL ASSESSMENT: [facility] Assessment: DKA/HHS hyperglycemia lactic acidosis MATT HAGMA leukocytosis possible aspiration pneumonia vs CAP, LLL Acute HFpEF Plan: - CT chest confirmed DEL GGO, possible aspiration - Breathing comfortably on room air - Leukocytosis is reactive? - Currently on Abx for CAP. Recommend Abx x 5 days. - Start heparin for DVT prophylaxis. Pulmonary will follow from afar. Please call with questions. Discussed with the patient and her nurse. All questions were answered. --------- Subjective: Patient was hypoglycemic last night. Currently she is awake and alert and appropriately interactive. No cough or shortness of breath. Room air. HPI: 74-year-old female with past medical history of diabetes, dementia, hyperlipidemia, hypertension who presented from jail with altered mental status since yesterday when daughter visited her at the jail. In the emergency department patient had blood glucose levels elevated greater than 500 with acute kidney injury and high anion gap metabolic acidosis. Patient started on insulin drip and admitted to ICU for close hemodynamic monitoring. Past medical history: see above PSurgHx: None recently FamHx: NC SocHx: no known ETOH, tobacco or IDU Review of systems: 14 point review system negative unless listed above Physical Exam General: NAD, awake, oriented to self and place Eyes: Anicteric sclerae. Mouth: MMM Neck: Supple. CV: Regular rate and rhythm. Normal S1 and S2. Pulm: Good effort, no wheezing or Rales appreciated. Abdomen: Soft, nontender. Extremities: No lower extremity edema. Skin: Warm, dry. Neuro: no focal neurological deficit Psych: normal mood -- EXAM -- VITALS (02/24 11:33 - 02/25 11:33): Temperature C: 36.8 (36.8 - 37.1) Temperature source: Tympanic Pulse Rate: 72 (69 - 78) Blood pressure: 123/62 (103/51 - 137/65) Respiratory rate: 16 (16 - 25) IOS (02/24 07:00-02/25 07:00): Net-1,500 Output1,500 Urinary catheter ml:1,500 -- DATA -- MEDICATIONS polyethylene glycoL 3350 1 PKT PO DAILY PRN ASPIRIN 81 MG PO DAILY IPRATROPIUM/ALBUTEROL SULFATE 3 ML NEB RTQ6H PRN HYDROcodone BITARTRATE/APAP 1 TAB PO Q4H PRN MUPIROCIN 1 APPLIC NASAL BID ATORVASTATIN CALCIUM 40 MG PO BEDTIME ONDANSETRON HCL/PF 4 MG IV Q4H PRN GLUCAGON 1 MG IM ASDIR PRN ACETAMINOPHEN 650 MG PO Q4H PRN DEXTROSE 50%-WATER 50 ML IV ASDIR DEXTROSE 50%-WATER 50 ML IV ASDIR cefTRIAXone with/in WATER FOR INJECTION,STERILE 1000 MG IV Q24H SODIUM CHLORIDE 0.9% 1000 ML IV ASDIR INSULIN LISPRO UNIT SUBQ AC HS SODIUM CHLORIDE 0.45% 1000 ML IV ASDIR INSULIN GLARGINE 12 UNITS SUBQ QAM POTASSIUM BICARBONATE/CIT AC 20 MEQ PO ASDIR INSULIN GLARGINE 6 UNITS SUBQ QPM POTASSIUM CHLORIDE 20 MEQ IV ASDIR AZITHROMYCIN with/in SODIUM CHLORIDE 0.9% 500 MG IV Q24H DEXTROSE 5%-0.45% SALINE 1000 ML IV ASDIR LAB RESULTS RENAL FUNCTION PANEL (02/26/24 06:05) CALCIUM-PHOSPHORUS PRODUCT 21.84 SODIUM 140 POTASSIUM 4.5 CHLORIDE 110 H CALCIUM 8.4 L CORRECTED CALCIUM 9.2 PHOSPHOROUS 2.6 BLOOD UREA NITROGEN 28 D H GLOMERULAR FILTRATION RATE >=60 max estimate CREATININE 0.8 CARBON DIOXIDE 25 ANION GAP 9.2 GLUCOSE 85 D ALBUMIN 3.0 L GLU BED (02/26/24 06:11) GLUBED 87 at 1136 ATTENTION *EDITS and/or ADDENDA must be made in Patient Keeper for this note. * * Edits and ammendments created in [employer] are not visible * * in Patient Keeper or the legal medical record ([facility]). * RPT #: [id number] END OF REPORT [facility] 2024-02-26 10:43:00 [facility] ([facility] Hospitalist Progress Note REPORT#:[id number] REPORT STATUS: Signed REPORT INITIALIZATION DATE:02/26/24 TIME: 104 PATIENT: LISETH POTTS UNIT #: [id number] ROOM: [facility]330ED: 1 : 52 AGE: 74 SEX: F ATTEND: Eloy Garay MD ADM AUTHOR: Eloy Garay MD REPT SERVICE DT/TIME: 02/26/24 1043 * ALL edits or amendments must be made on the electronic/computer document * Subjective Chief complaint: AMS HPI: 74-year-old female with PMH of insulin-dependent diabetes, dyslipidemia, hypertension, dementia [facility]. Patient says that when she visited her yesterday patient was not herself, patient currently is AO x 4, denies any dysuria, urgency, frequency, chest pain or shortness of breath, abdominal pain, nausea vomiting, diarrhea or constipation. Social history: Non-smoker Denies EtOH or drug Surgical history: Cholecystectomy Family history: Review noncontributory current illness Free Text Subj Notes Free Text Subj Notes: Patient seen and examined. No new complaints. No acute events noted by nursing staff. Refusing meds this morning would like to wait for daughter to be present. Review of Systems Free Text ROS Notes Free Text ROS Notes: 14 point ROS reviewed negative save for HPI Objective General VS/I O: Laboratory Tests 02/23 1520 Blood Gas VBG pH (7.33 - 7.45) 7.314 L VBG pCO2 (35 - 45 mm Hg) 27.3 *L VBG pO2 (80 - 90 mmHg) 154.5 H VBG HCO3 (22 - 24 mmol/L) 13.8 L VBG O2 Saturation (60 - 80 %) 99.2 H VBG Base Excess (-2 - 4 mmol/L) -11.1 L Laboratory Tests 02/23 02/23 02/23 02/23 02/23 1329 1329 1338 1452 1532 Chemistry Sodium (136 - 145 mmol/L) 122 L Potassium (3.5 - 5.1 mmol/L) 5.7 H Chloride (98 - 107 mmol/L) 90 L Carbon Dioxide (20 - 31 mmol/L) 13 L Anion Gap (2.0 - 16.0) 25.2 H BUN (9 - 23 mg/dL) 66 H Creatinine (0.6 - 1.0 mg/dL) 2.7 H Glomerular Filtr Rate (>60 ml/min) 18 L BUN/Creatinine Ratio (12.0 - 20.0) 24.4 H Glucose (74 - 106 mg/dL) 1126 *H POC Glucose (70 - 105 mg/dL) > 600 *H Hemoglobin A1c (4.5 - 5.9 %) 8.0 H Lactic Acid (0.5 - 2.2 mmol/L) 2.5 H Calcium (8.7 - 10.4 mg/dL) 8.9 Phosphorus (2.4 - 5.1 mg/dL) 5.7 H Total Bilirubin (0.2 - 1.1 mg/dL) 0.5 Direct Bilirubin (0.0 - 0.3 mg/dL) 0.2 Indirect Bilirubin (0.0 - 0.8 0.3 mg/dL) AST (<34 U/L) 30 ALT (10 - 49 U/L) 24 Total Alk Phosphatase (46 - 116 78 U/L) Total Creatine Kinase (34 - 145 263 H U/L) CK-MB (CK-2) (0.5 - 3.6 ng/ml) 11.5 H Troponin I High Sens (0 - 53 239 *H 263 *H pg/mL) Total Protein (5.7 - 8.2 g/dL) 6.6 Albumin (3.4 - 5.0 g/dL) 3.6 Globulin (2.3 - 3.5 g/dL) 3.0 02/23 02/23 02/23 02/23 1720 1821 1923 2003 Chemistry Sodium (136 - 145 mmol/L) 128 L Potassium (3.5 - 5.1 mmol/L) 5.0 Chloride (98 - 107 mmol/L) 99 Carbon Dioxide (20 - 31 mmol/L) 22 Anion Gap (2.0 - 16.0) 12.1 BUN (9 - 23 mg/dL) 63 H Creatinine (0.6 - 1.0 mg/dL) 2.4 H Glomerular Filtr Rate (>60 ml/min) 21 L BUN/Creatinine Ratio (12.0 - 20.0) 26.3 H Glucose (74 - 106 mg/dL) 766 *H POC Glucose (70 - 105 mg/dL) > 600 *H > 600 *H > 600 *H Calcium (8.7 - 10.4 mg/dL) 8.3 L Phosphorus (2.4 - 5.1 mg/dL) 4.5 Magnesium (1.6 - 2.6 mg/dL) 2.3 02/23 02/23 02/24 02/24 02/24 2220 2326 0051 0211 0318 Chemistry POC Glucose (70 - 105 mg/dL) > 600 *H 540 *H 434 *H 248 H 119 H 02/24 02/24 02/24 02/24 02/24 0424 0448 0448 0517 0518 Chemistry Sodium (136 - 145 mmol/L) 142 Potassium (3.5 - 5.1 mmol/L) 3.7 Chloride (98 - 107 mmol/L) 112 H Carbon Dioxide (20 - 31 mmol/L) 23 Anion Gap (2.0 - 16.0) 10.7 BUN (9 - 23 mg/dL) 57 H Creatinine (0.6 - 1.0 mg/dL) 1.6 H Glomerular Filtr Rate (>60 ml/min) 34 L BUN/Creatinine Ratio (12.0 - 20.0) 35.6 H Glucose (74 - 106 mg/dL) 28 *L POC Glucose (70 - 105 mg/dL) 70 10 *L 13 *L Calcium (8.7 - 10.4 mg/dL) 8.4 L Phosphorus (2.4 - 5.1 mg/dL) 3.5 Magnesium (1.6 - 2.6 mg/dL) 2.0 Triglycerides (0 - 149 mg/dL) 55 Cholesterol (0 - 200 mg/dL) 125 LDL Cholesterol Me[place] (0 - 100 mg/dL) 57 HDL Cholesterol (40 - 59 mg/dL) 54 Cholesterol/HDL Ratio (1 - 6) 2 02/24 02/24 02/24 02/24 02/24 0534 0615 0653 0759 0918 Chemistry POC Glucose (70 - 105 mg/dL) 133 H 82 61 L 139 H 101 02/24 02/24 02/24 02/24 02/24 1017 1120 1221 1305 1428 Chemistry POC Glucose (70 - 105 mg/dL) 86 89 76 93 101 02/24 02/24 02/24 02/24 1507 1703 2107 2206 Chemistry POC Glucose (70 - 105 mg/dL) 96 79 40 *L 144 H 02/25 02/25 0605 0611 Chemistry Sodium (136 - 145 mmol/L) 140 Potassium (3.5 - 5.1 mmol/L) 4.5 Chloride (98 - 107 mmol/L) 110 H Carbon Dioxide (20 - 31 mmol/L) 25 Anion Gap (2.0 - 16.0) 9.2 BUN (9 - 23 mg/dL) 28 H Creatinine (0.6 - 1.0 mg/dL) 0.8 Glomerular Filtr Rate (>60 ml/min) >=60 max estimate Glucose (74 - 106 mg/dL) 85 POC Glucose (70 - 105 mg/dL) 87 Calcium (8.7 - 10.4 mg/dL) 8.4 L Corrected Calcium (8.1 - 10.2 g/dL) 9.2 Phosphorus (2.4 - 5.1 mg/dL) 2.6 Ca-Phosphorus Product (0 - 55) 21.84 Albumin (3.4 - 5.0 g/dL) 3.0 L Laboratory Tests 02/23 7704 Hematology WBC (4.5 - 11.0 10 3/uL) 11.7 H 11.5 H 14.7 H RBC (3.50 - 5.50 10 6/uL) 3.29 L 3.03 L 3.26 L Hgb (12.0 - 16.0 g/dL) 10.2 L 9.3 L 9.9 L Hct (37.0 - 55.0 %) 33.3 L 28.3 L 30.1 L MCV (81 - 102 fL) 101 93 92 MCH (26.0 - 34.0 pg) 31.0 30.7 30.4 MCHC (31.0 - 37.0 g/dL) 30.6 L 32.9 32.9 RDW (11.6 - 14.4 %) 12.8 12.3 12.4 Plt Count (150 - 400 10 3/uL) 300 257 259 MPV (9.0 - 12.6 fL) 10.3 Neut % (Auto) (33.0 - 76.0 %) 80.0 H Lymph % (Auto) (14.0 - 56.4 %) 5.9 L Buchanan % (Auto) (0.0 - 12.9 %) 13.2 H Eos % (Auto) (0.0 - 7.0 %) 0.0 Baso % (Auto) (0 - 2.0 %) 0.2 Neut # (Auto) (1.5 - 7.0 10 3/uL) 9.24 H Lymph # (Auto) (1.50 - 4.00 10 3/uL) 0.68 L Buchanan # (Auto) (0.20 - 0.80 10 3/uL) 1.52 H Eos # (Auto) (0.0 - 0.5 10 3/uL) 0.00 Baso # (Auto) (0.0 - 0.1 10 3/uL) 0.02 Abs Immat Gran (auto) (0.000 - 0.100 x10 3/uL) 0.080 Immature Gran % (0.0 - 1.0 %) 0.7 Nucleated RBC % (0 - 0.2 %) 0.0 Nucleated RBCs # (0.000 - 0.012 10 3/uL) 0.000 Laboratory Tests 02/23 1452 Toxicology Acetone, Qual (NEGATIVE) MODERATE H Laboratory Tests 02/23 1713 Urines Urine Color (YELLOW) YELLOW Urine Appearance (CLEAR) CLEAR Urine pH (5.0 - 8.0) 5.0 Ur Specific [place] (1.005 - 1.025) 1.018 Urine Protein (NEGATIVE) NEGATIVE Urine Glucose (UA) (NEGATIVE) 3+ H Urine Ketones (NEGATIVE) TRACE H Urine Blood (NEGATIVE) NEGATIVE Urine Nitrite (NEGATIVE) NEGATIVE Urine Bilirubin (NEGATIVE) NEGATIVE Urine Urobilinogen (0.1 - 0.2 EU/dL) NEGATIVE Ur Leukocyte Esterase (NEGATIVE) NEGATIVE Urine RBC (0 - 3 /hpf) NONE SEEN Urine WBC (0 - 3 /hpf) 0-2 Ur Squamous Epith Cells (FEW /HPF) RARE Urine Bacteria (NEGATIVE /HPF) NONE SEEN Microbiology: 02/25 1009 SPUTUM: Sputum Culture - ORD 02/25 1009 SPUTUM: Gram Stain - ORD 02/23 1532 Blood: Blood Culture - RES 02/23 1532 Blood: Blood Culture - RES 02/23 1524 NASAL: MRSA Screen - CAN Cancelled: Auto-cancelled after 1 day. 02/23 1414 NASAL: MRSA Screen - CAN Cancelled: Auto-cancelled after 1 day. Recent Impressions: RADIOLOGY - XR CHEST 1 V 02/23 1359 Report Impression - Status: SIGNED Entered: 02/24/2024 1421 IMPRESSION: Nonspecific some interstitial thickening in both lungs. Recommend a CT scan for further evaluation. Groundglass opacity in the left upper lobe. Impression By: [email or web address] Janina De La Torre MD CAT SCAN - CT HEAD/BRAIN W/O CONT 02/23 1410 Report Impression - Status: SIGNED Entered: 02/24/2024 1438 IMPRESSION: No acute intracranial abnormality. Impression By: Conner Mcdermott MD CAT SCAN - CT CHEST W/O CONTRAST 02/23 1600 Report Impression - Status: SIGNED Entered: 02/24/2024 1809 IMPRESSION: Small area of left lower lobe groundglass opacification. Given focal nature, infection or aspiration is suspected, less likely focal atelectasis. Impression By: Conner Mcdermott MD Vital Signs: Date Time Temp Pulse Resp B/P B/P Pulse O2 O2 Flow FiO2 Mean Ox Delivery Rate 02/25 0800 36.8 72 16 123/62 82.6 94 Room air 02/25 0355 36.9 77 18 118/63 81.3 95 02/24 2317 37.1 76 16 103/51 68.5 97 02/24 1941 36.9 69 18 108/59 75.2 99 02/24 1753 73 122/59 80 100 Room air 02/24 1734 73 100 02/24 1730 122/59 85 02/24 1700 130/65 91 02/24 1630 137/62 89 02/24 1530 119/55 79 02/24 1500 122/57 82 02/24 1330 76 113/55 79 98 02/24 1300 78 25 117/58 83 100 02/24 1200 73 112/54 78 100 02/24 1100 72 116/56 81 100 24 hour I O ending at 0700: 02/24 1900 02/25 0700 Intake Total Output Total 1500 Balance -1500 Output, Urine 1500 PATIENT WEIGHT: Weight (lb): Weight (oz): Weight (kg): 54.545 Free Text Obj Notes Free Text Obj Notes: GEN: NAD, HEENT: Normocephalic and Atraumatic NECK: Supple CVS: Regular Rate Rhythm. S1 and S2 present RESPIRATORY: CTA BL, no wheezing/rhonchi/rales, no respiratory distress ABDOMEN/GI: active BS, soft, non-tender, No rebounding/guarding, No CVA Tenderness EXTRIMITIES: ROM WNL NEURO/DIESEL ENGINE FITTER: AAOX3 Skin: dry, intact Psych: Normal affect Diagnosis, Assessment Plan Free Text DxA P Notes Free text DxA P notes: 74-year-old female with PMH of insulin-dependent diabetes, dyslipidemia, hypertension, [facility] Patient says that when she visited her yesterday patient was not herself, patient currently is AO x 4, denies any dysuria, urgency, frequency, chest pain or shortness of breath, abdominal pain, nausea vomiting, diarrhea or constipation. 1. DKA IVF Endocrine consult Anion gap improved this morning Insulin GTT 2. Left lower lobe PNA IV ABX BCx Sputum cultures Incentive spirometry Pulmonary consult 3. Elevated troponin Telemetry Cardiology consult Aspirin Statin Echo 4. MATT IVF Nephrology consult UA: 3+ glucose, trace ketones, no bacteria, leukocyte esterase nitrate negative DVT PPx 02/26/2024 DKA resolved Overcorrection mild hypoglycemia resolved Left lower lobe pneumonia, on IV ABX, sputum cultures pending Continues to be confused Blood cultures no growth 24 hours Elevated tropes, demand ischemia, no STEMI, continue current management MATT resolved defer fluids to nephrology at 1045 RPT #:[id number] END OF REPORT [facility] 2024-02-26 10:32:00 [facility] ([facility]) Endocrinology Progress Note REPORT #: [id number] REPORT STATUS: Signed DATE: 02/26/24 TIME: 1032 PATIENT: LISETH POTTS UNIT #: [id number] ROOM #: [id number] BED: 1 : 52 AGE: 74 SEX: F ATTEND: Eloy Garay MD ADM AUTHOR: Horacio Russell MD ATTENTION *EDITS and/or ADDENDA must be made in Patient Keeper for this note. * * Edits and ammendments created in [employer] are not visible * * in Patient Keeper or the legal medical record ([facility]PF). * Note Date: 02/26/24 10:32 -- ASSESSMENT/PLAN -- ASSESSMENT / PLAN: 1: Type 1 diabetes mellitus with ketoacidosis without coma A/P: UNCONTROLLED (SKMJ3D=1.0%,HYPERGLYCEMIA) TYPE I IN DKA. DKA RESOLVED: FBS=85 HS GLUCOSE=40 AG=9.2. OBSERVE ON SQ BASAL/BOLUS INSULIN. MUST HAVE A BEDTIME SNACK. DISCUSSED WITH NURSE. -- SUBJECTIVE -- CHIEF COMPLAINT: HYPERGLYCEMIA HPI: EVENTS NOTED: OUT OF ICU. POOR APPETITE. AM HYPOGLYCEMIA NOTED (DID NOT EAT BEDTIME SNACK ORDERED). REVIEW OF SYSTEMS: General Negative for fever Respiratory Negative for dyspnea Cardiovascular Negative for chest pain Gastrointestinal Negative for abdominal pain or nausea. Endocrine Negative polydipsia, polyuria -- EXAM -- VITALS (02/24 10:34 - 02/25 10:34): Blood pressure: 123/62 (103/51 - 137/65) Respiratory rate: 16 (16 - 25) Temperature C: 36.8 (36.8 - 37.1) Temperature source: Tympanic Pulse Rate: 72 (69 - 78) IOS (02/24 07:00-02/25 07:00): Net-1,500 Output1,500 Urinary catheter ml:1,500 EXAM: General Well developed, well nourished, in no apparent distress. THIN Head Normocephalic, atraumatic. Neck trachea midline. Chest Grossly normal appearance. Lungs NORMAL CHEST WALL MOVEMENT Heart NO TACHYCARDIA Abdomen NON-DISTENDED Neurological NORMAL SPEECH Psychiatric Alert and COOPERATIVE -- DATA -- MEDICATIONS polyethylene glycoL 3350 1 PKT PO DAILY PRN ASPIRIN 81 MG PO DAILY IPRATROPIUM/ALBUTEROL SULFATE 3 ML NEB RTQ6H PRN HYDROcodone BITARTRATE/APAP 1 TAB PO Q4H PRN MUPIROCIN 1 APPLIC NASAL BID ATORVASTATIN CALCIUM 40 MG PO BEDTIME ONDANSETRON HCL/PF 4 MG IV Q4H PRN GLUCAGON 1 MG IM ASDIR PRN ACETAMINOPHEN 650 MG PO Q4H PRN DEXTROSE 50%-WATER 50 ML IV ASDIR DEXTROSE 50%-WATER 50 ML IV ASDIR cefTRIAXone with/in WATER FOR INJECTION,STERILE 1000 MG IV Q24H SODIUM CHLORIDE 0.9% 1000 ML IV ASDIR INSULIN LISPRO UNIT SUBQ AC HS SODIUM CHLORIDE 0.45% 1000 ML IV ASDIR INSULIN GLARGINE 12 UNITS SUBQ QAM POTASSIUM BICARBONATE/CIT AC 20 MEQ PO ASDIR INSULIN GLARGINE 6 UNITS SUBQ QPM POTASSIUM CHLORIDE 20 MEQ IV ASDIR AZITHROMYCIN with/in SODIUM CHLORIDE 0.9% 500 MG IV Q24H DEXTROSE 5%-0.45% SALINE 1000 ML IV ASDIR LAB RESULTS RENAL FUNCTION PANEL (02/26/24 06:05) CALCIUM-PHOSPHORUS PRODUCT 21.84 SODIUM 140 POTASSIUM 4.5 CHLORIDE 110 H CALCIUM 8.4 L CORRECTED CALCIUM 9.2 PHOSPHOROUS 2.6 BLOOD UREA NITROGEN 28 D H GLOMERULAR FILTRATION RATE >=60 max estimate CREATININE 0.8 CARBON DIOXIDE 25 ANION GAP 9.2 GLUCOSE 85 D ALBUMIN 3.0 L GLU BED (02/26/24 06:11) GLUBED 87 -- ATTESTATION -- Time Spent on Patient Care DIRECT 30 minutes Care Activities / Care Coordination I have reviewed the history and repeated the figueroa elements I have seen and examined this patient I have reviewed the progress in the clinical course since the last examination I have discussed the patient's condition with other members of the care team ADDITIONAL DETAIL: I HAVE SPENT >35 MINUTES IN THE EVALUATION AND TREATMENT OF THIS PATIENT. at 1038 ATTENTION *EDITS and/or ADDENDA must be made in Patient Keeper for this note. * * Edits and ammendments created in [employer] are not visible * * in Patient Keeper or the legal medical record ([facility]). * RPT #: [id number] END OF REPORT [facility] 2024-02-25 16:54:00 [facility] Intensive Care Progress Note REPORT #: [id number] REPORT STATUS: Signed DATE: 02/25/24 TIME: 1653 PATIENT: LISETH POTTS UNIT #: [id number] ROOM #: [id number]: 3 : 52 AGE: 74 SEX: F ATTEND: Eloy Garay MD ADM AUTHOR: Carla Lock MD ATTENTION *EDITS and/or ADDENDA must be made in Patient Keeper for this note. * * Edits and ammendments created in [employer] are not visible * * in Patient Keeper or the legal medical record ([facility]). * Note Date: 02/25/24 16:54 -- ASSESSMENT AND PLAN -- GENERAL ASSESSMENT: [facility] Assessment: DKA/HHS hyperglycemia lactic acidosis MATT HAGMA leukocytosis possible aspiration pneumonia vs CAP, LLL Acute HFpEF Plan: Neurologic : - AAO x3, no acute process - CT head without acute process Pulmonary : - CXR interstitial thickening, DEL GGO, - CT chest confirmed DEL GGO, possible aspiration - started on ceftriaxone and azithromycin in ED x 1. continue for now - Breathing comfortably on room air Cardiovascular : - Cardiology following, CTS following - Monitor HR, BP. Hematologic : - Monitor H/H, platelets. Transfuse to keep Hgb > 7. No indication for transfusion at this time. Renal : - Continue IV fluids, and aggressively replace electrolytes - Continue BMP every 4 hours - Monitor UOP, BUN, Cr. - Avoid nephrotoxins. Gastrointestinal : - No acute GI process - Restart diet. Infectious disease : - empirically started on ceftriaxone and azithromycin - low threshold to escalate pending clinical course Endocrine : - Now off insulin drip. 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 Continue D5W half NS for hypoglycemia. Can likely titrate down off the D5W once she is eating more. - Nutrition education Okay for IMU. Discussed with the patient and her daughter. All questions were answered. Discussed with the ED RN. --------- Subjective: Early this morning, the patient was found to be hypoglycemic, and insulin drip was started. She was transition to insulin subcu and also was requiring D5 half NS to keep her blood sugar up. She is awake, alert, appropriately interactive this morning when I saw her. HPI: 74-year-old female with past medical history of diabetes, dementia, hyperlipidemia, hypertension who [facility] with altered [facility] status since yesterday when daughter visited her at the jail. In the emergency department patient had blood glucose levels elevated greater than 500 with acute kidney injury and high anion gap metabolic acidosis. Patient started on insulin drip and admitted to ICU for close hemodynamic monitoring. Past medical history: see above PSurgHx: None recently FamHx: NC SocHx: no known ETOH, tobacco or IDU Review of systems: 14 point review system negative unless listed above Physical Exam General: NAD, awake, oriented to self and place Eyes: Anicteric sclerae. Mouth: MMM Neck: Supple. CV: Regular rate and rhythm. Normal S1 and S2. Pulm: Good effort, no wheezing or Rales appreciated. Abdomen: Soft, nontender. Extremities: No lower extremity edema. Skin: Warm, dry. Neuro: no focal neurological deficit Psych: normal mood -- EXAM -- VITALS (02/23 16:54 - 02/24 16:54): Blood pressure: 119/55 (90/47 - 122/59) Respiratory rate: 25 (13 - 25) Pulse Rate: 76 (67 - 88) -- DATA -- MEDICATIONS ASPIRIN 81 MG PO DAILY MUPIROCIN 1 APPLIC NASAL BID DEXTROSE 50%-WATER 50 ML IV ASDIR SODIUM CHLORIDE 0.9% 1000 ML IV ASDIR INSULIN LISPRO UNIT SUBQ AC HS SODIUM CHLORIDE 0.45% 1000 ML IV ASDIR POTASSIUM BICARBONATE/CIT AC 20 MEQ PO ASDIR DEXTROSE 5%-0.45% SALINE 1000 ML IV ASDIR polyethylene glycoL 3350 1 PKT PO DAILY PRN IPRATROPIUM/ALBUTEROL SULFATE 3 ML NEB RTQ6H PRN HYDROcodone BITARTRATE/APAP 1 TAB PO Q4H PRN ATORVASTATIN CALCIUM 40 MG PO BEDTIME ONDANSETRON HCL/PF 4 MG IV Q4H PRN GLUCAGON 1 MG IM ASDIR PRN ACETAMINOPHEN 650 MG PO Q4H PRN DEXTROSE 50%-WATER 50 ML IV ASDIR cefTRIAXone with/in WATER FOR INJECTION,STERILE 1000 MG IV Q24H INSULIN GLARGINE 12 UNITS SUBQ QAM INSULIN GLARGINE 6 UNITS SUBQ QPM POTASSIUM CHLORIDE 20 MEQ IV ASDIR AZITHROMYCIN with/in SODIUM CHLORIDE 0.9% 500 MG IV Q24H LAB RESULTS GLU BED (02/25/24 00:51) GLUBED 434 *H GLU BED (02/25/24 02:11) GLUBED 248 H GLU BED (02/25/24 03:18) GLUBED 119 H GLU BED (02/25/24 04:24) GLUBED 70 BASIC METABOLIC PANEL (02/25/24 04:48) ANION GAP 10.7 GLUCOSE 28D*L D*L BLOOD UREA NITROGEN 57H H GLOMERULAR FILTRATION RATE 34 L CREATININE 1.6H H BUN/CREATININE RATIO 35.6 H CALCIUM 8.4 L SODIUM 142 POTASSIUM 3.7D D CHLORIDE 112H H CARBON DIOXIDE 23 PHOS (02/25/24 04:48) PHOSPHOROUS 3.5 MAG (02/25/24 04:48) MAGNESIUM 2.0 CBC W/O DIFF (02/25/24 04:48) PLATELET COUNT 259 MEAN CELL HGB CONCENTRATION 32.9 RED CELL DISTRIBUTION WIDTH 12.4 MEAN CELL VOLUME 92 MEAN CELL HGB 30.4 HEMOGLOBIN 9.9L L HEMATOCRIT 30.1L L WHITE BLOOD CELL 14.7H H RED BLOOD CELL 3.26 L LIPID PROFILE (CORONARY RISK) (02/25/24 04:48) HDL CHOLESTEROL 54 LIPOPROTEIN LDL 57 CHOLESTEROL 125 CHOLESTEROL/HDL RATIO 2 TRIGLYCERIDES 55 GLU BED (02/25/24 05:17) GLUBED 10 *L GLU BED (02/25/24 05:18) GLUBED 13 *L GLU BED (02/25/24 05:34) GLUBED 133 H GLU BED (02/25/24 06:15) GLUBED 82 GLU BED (02/25/24 06:53) GLUBED 61 L GLU BED (02/25/24 07:59) GLUBED 139 H GLU BED (02/25/24 09:18) GLUBED 101 GLU BED (02/25/24 10:17) GLUBED 86 GLU BED (02/25/24 11:20) GLUBED 89 GLU BED (02/25/24 12:21) GLUBED 76 GLU BED (02/25/24 13:05) GLUBED 93 GLU BED (02/25/24 14:28) GLUBED 101 GLU BED (02/25/24 15:07) GLUBED 96 at 1656 ATTENTION *EDITS and/or ADDENDA must be made in Patient Keeper for this note. * * Edits and ammendments created in [place] [facility] are not visible * * in Patient Keeper or the legal medical record (HPF). * RPT #: [id number] END OF REPORT FORMER[facility] 2024-02-25 13:39:00 [facility] Cardiology Consultation REPORT #: [id number] REPORT STATUS: Signed DATE: 02/25/24 TIME: 1339 PATIENT: LISETH POTTS UNIT #: [id number] ROOM #: NC.DORCAS: 16 : 52 AGE: 74 SEX: F ATTEND: Eloy Garay MD ADM AUTHOR: Alla Cárdenas MD ATTENTION *EDITS and/or ADDENDA must be made in Patient Keeper for this note. * * Edits and ammendments created in [employer] are not visible * * in Patient Keeper or the legal medical record (HPF). * Note Date: 02/25/24 13:39 -- ASSESSMENT/PLAN -- GENERAL ASSESSMENT: # elevated trop - ECG NSR - CXR no edema, CT chest no PNA - trops w/ no acute rise 250s x2 - demand ischemia type II OK, no TYLER - cont bASA # DKA - markedly improved post insulin - briefly hypoglycemic, overcorrection # HFpEF per echo this admission # HTN - holding home ACEi w/ recovering BLAINE - resume home CCB w/ hold parameters <110 - gentle PO Lasix PRN # HLD - cont bASA and statin # BLAINE - resolving ASSESSMENT PLAN: ADDITIONAL COMMENTS: please call any ?s Alla Cárdenas MD, FACC Interventional and Structural Cardiology [facility] -- HISTORY -- HPI: 74F PMH pertinent DM2, HTN, HLD, dementia, presents from NH w/ AMS, in setting DKA, Cards eval for elev trop; pt denies any CP or SOB, no BETTY or leg pain, +ROWLAND. PAST MEDICAL HISTORY/PAST SURGICAL HISTORY: PAST MEDICAL HISTORY: - Chest pain - HTN (hypertension) - Nausea - Type 2 diabetes mellitus with hyperglycemia PAST MEDICAL HISTORY: DMII, HTN, HLD PAST SURGICAL HISTORY: CHOLECYSTECTOMY FAMILY HISTORY: NON CONTRIBUTORY Social History Tobacco use: DETAILS/COMMENTS: DENIES Vaping/Inhaled solvents: DETAILS/COMMENTS: DENIES Alcohol use: DETAILS/COMMENTS: DENIES Drug use: DETAILS/COMMENTS: DENIES -- ALLERGIES/HOME MEDS -- Modifications made in this section do not update Allergy and Home Medication List ALLERGIES - No Known Allergies ( UNKNOWN - Allergy ) HOME MEDICATIONS - Acetaminophen Tab (Tylenol Tab) (PO - Q6H - 650 MG) - Aspirin EC Tab (Ecotrin Tab) (PO - DAILY - 81 MG) - Atorvastatin Tab (Lipitor Tab) (PO - BEDTIME - 1 TAB) - BASAGLAR (SUBQ - QAM - 30 UNITS) - CALCIUM (PO - DAILY - 600 MG) - Divalproex Sprinkle Cap (Depakote Sprinkle Cap) (PO - Q8HR - 125 MG) - Enalapril Maleate tab (enalapril maleate) (PO - BID - 20 MG) - Glucagon Inj (IM - ASDIR - 1 MG) - Insulin Aspart Inj (NF) (NovoLOG Inj (NF)) (SUBQ - TID AC - 8 UNITS) - NIFEdipine XL Tab (Procardia XL Tab) (oral - DAILY - 30 MG) - traZODone Tab (Desyrel Tab) (PO - BEDTIME - 50 MG) -- SUBJECTIVE -- REVIEW OF SYSTEMS: General: as per HPI Eyes: Negative for blurry vision. No diplopia. Ears/Nose/Throat: Negative for sore throat. No otalgia. No rhinorrhea. Breast: Negative for change in shape, swelling, masses, nipple discharge, pain, skin changes. Respiratory: Negative for dyspnea or wheeze. No cough. Cardiovascular: Negative for chest pain or palpitations. No extremity swelling. Gastrointestinal: as per HPI Genitourinary Negative for dysuria, frequency, or urgency. No gross hematuria. Skin: Negative for rashes. No pruritus. Neurological: as per HPI Endocrine: as per HPI -- EXAM -- VITALS (02/23 13:39 - 02/24 13:39): Respiratory rate: 25 (13 - 25) Pulse Rate: 78 (67 - 88) Temperature F: 97.5 Blood pressure: 117/58 (90/47 - 117/59) EXAM: General: GEN NAD Head NC / AT Neck no JVD Chest no deformities Heart RRR Abd ND Neuro intact Extremities WWP, trace edema Skin no rashes -- DATA -- ALLERGIES MEDICATIONS ASPIRIN 81 MG PO DAILY MUPIROCIN 1 APPLIC NASAL BID DEXTROSE 50%-WATER 50 ML IV ASDIR SODIUM CHLORIDE 0.9% 1000 ML IV ASDIR INSULIN LISPRO UNIT SUBQ AC HS SODIUM CHLORIDE 0.45% 1000 ML IV ASDIR POTASSIUM BICARBONATE/CIT AC 20 MEQ PO ASDIR DEXTROSE 5%-0.45% SALINE 1000 ML IV ASDIR polyethylene glycoL 3350 1 PKT PO DAILY PRN IPRATROPIUM/ALBUTEROL SULFATE 3 ML NEB RTQ6H PRN HYDROcodone BITARTRATE/APAP 1 TAB PO Q4H PRN ATORVASTATIN CALCIUM 40 MG PO BEDTIME ONDANSETRON HCL/PF 4 MG IV Q4H PRN GLUCAGON 1 MG IM ASDIR PRN ACETAMINOPHEN 650 MG PO Q4H PRN DEXTROSE 50%-WATER 50 ML IV ASDIR cefTRIAXone with/in WATER FOR INJECTION,STERILE 1000 MG IV Q24H INSULIN GLARGINE 12 UNITS SUBQ QAM INSULIN GLARGINE 6 UNITS SUBQ QPM POTASSIUM CHLORIDE 20 MEQ IV ASDIR AZITHROMYCIN with/in SODIUM CHLORIDE 0.9% 500 MG IV Q24H LAB RESULTS GLU BED (02/25/24 00:51) GLUBED 434 *H GLU BED (02/25/24 02:11) GLUBED 248 H GLU BED (02/25/24 03:18) GLUBED 119 H GLU BED (02/25/24 04:24) GLUBED 70 BASIC METABOLIC PANEL (02/25/24 04:48) ANION GAP 10.7 GLUCOSE 28D*L D*L BLOOD UREA NITROGEN 57H H GLOMERULAR FILTRATION RATE 34 L CREATININE 1.6H H BUN/CREATININE RATIO 35.6 H CALCIUM 8.4 L SODIUM 142 POTASSIUM 3.7D D CHLORIDE 112H H CARBON DIOXIDE 23 PHOS (02/25/24 04:48) PHOSPHOROUS 3.5 MAG (02/25/24 04:48) MAGNESIUM 2.0 CBC W/O DIFF (02/25/24 04:48) PLATELET COUNT 259 MEAN CELL HGB CONCENTRATION 32.9 RED CELL DISTRIBUTION WIDTH 12.4 MEAN CELL VOLUME 92 MEAN CELL HGB 30.4 HEMOGLOBIN 9.9L L HEMATOCRIT 30.1L L WHITE BLOOD CELL 14.7H H RED BLOOD CELL 3.26 L LIPID PROFILE (CORONARY RISK) (02/25/24 04:48) HDL CHOLESTEROL 54 LIPOPROTEIN LDL 57 CHOLESTEROL 125 CHOLESTEROL/HDL RATIO 2 TRIGLYCERIDES 55 GLU BED (02/25/24 05:17) GLUBED 10 *L GLU BED (02/25/24 05:18) GLUBED 13 *L GLU BED (02/25/24 05:34) GLUBED 133 H GLU BED (02/25/24 06:15) GLUBED 82 GLU BED (02/25/24 06:53) GLUBED 61 L GLU BED (02/25/24 07:59) GLUBED 139 H GLU BED (02/25/24 09:18) GLUBED 101 GLU BED (02/25/24 10:17) GLUBED 86 GLU BED (02/25/24 11:20) GLUBED 89 GLU BED (02/25/24 12:21) GLUBED 76 GLU BED (02/25/24 13:05) GLUBED 93 at 1349 ATTENTION *EDITS and/or ADDENDA must be made in Patient Keeper for this note. * * Edits and ammendments created in [place] [facility] are not visible * * in Patient Keeper or the legal medical record (HPF). * [facility] #: [id number] END OF REPORT [facility] 2024-02-25 11:14:00 [facility] ([facility]) Hospitalist History Physical REPORT#:[id number] REPORT STATUS: Signed REPORT INITIALIZATION DATE:02/25/24 TIME: 1114 PATIENT: LISETH POTTS UNIT #: [id number] ROOM: DC.ERICBED: 16 : 52 AGE: 74 SEX: F ATTEND: Eloy Garay MD ADM AUTHOR: Eloy Garay MD REPT SERVICE DT/TIME: 02/25/24 1114 * ALL edits or amendments must be made on the electronic/computer document * History of Present Illness HPI Chief complaint: AMS HPI: 74-year-old female with PMH of insulin-dependent diabetes, dyslipidemia, hypertension, [facility] Patient says that when she visited her yesterday patient was not herself, patient currently is AO x 4, denies any dysuria, urgency, frequency, chest pain or shortness of breath, abdominal pain, nausea vomiting, diarrhea or constipation. Social history: Non-smoker Denies EtOH or drug Surgical history: Cholecystectomy Family history: Review noncontributory current illness History Past medical history: Reports: Diabetes mellitus, Hypertension. Denies: Coronary artery disease. Additional medical history: Diabetes, hypercholesterolemia, dimension Additional surgical history: Cholecystectomy Smoking status for patients 13 years old or older: Never Smoker Medication/Allergy-Vaccine Hx Allergies: Coded Allergies: No Known Allergies (12/14/21) Review of Systems Free Text ROS Notes Free Text ROS Notes: 14 point ROS reviewed negative save for HPI Objective General VS/I O: Laboratory Tests 02/23 1520 Blood Gas VBG pH (7.33 - 7.45) 7.314 L VBG pCO2 (35 - 45 mm Hg) 27.3 *L VBG pO2 (80 - 90 mmHg) 154.5 H VBG HCO3 (22 - 24 mmol/L) 13.8 L VBG O2 Saturation (60 - 80 %) 99.2 H VBG Base Excess (-2 - 4 mmol/L) -11.1 L Laboratory Tests 02/23 02/23 02/23 02/23 02/23 1329 1329 1338 1452 1532 Chemistry Sodium (136 - 145 mmol/L) 122 L Potassium (3.5 - 5.1 mmol/L) 5.7 H Chloride (98 - 107 mmol/L) 90 L Carbon Dioxide (20 - 31 mmol/L) 13 L Anion Gap (2.0 - 16.0) 25.2 H BUN (9 - 23 mg/dL) 66 H Creatinine (0.6 - 1.0 mg/dL) 2.7 H Glomerular Filtr Rate (>60 ml/min) 18 L BUN/Creatinine Ratio (12.0 - 20.0) 24.4 H Glucose (74 - 106 mg/dL) 1126 *H POC Glucose (70 - 105 mg/dL) > 600 *H Hemoglobin A1c (4.5 - 5.9 %) 8.0 H Lactic Acid (0.5 - 2.2 mmol/L) 2.5 H Calcium (8.7 - 10.4 mg/dL) 8.9 Phosphorus (2.4 - 5.1 mg/dL) 5.7 H Total Bilirubin (0.2 - 1.1 mg/dL) 0.5 Direct Bilirubin (0.0 - 0.3 mg/dL) 0.2 Indirect Bilirubin (0.0 - 0.8 0.3 mg/dL) AST (<34 U/L) 30 ALT (10 - 49 U/L) 24 Total Alk Phosphatase (46 - 116 78 U/L) Total Creatine Kinase (34 - 145 263 H U/L) CK-MB (CK-2) (0.5 - 3.6 ng/ml) 11.5 H Troponin I High Sens (0 - 53 239 *H 263 *H pg/mL) Total Protein (5.7 - 8.2 g/dL) 6.6 Albumin (3.4 - 5.0 g/dL) 3.6 Globulin (2.3 - 3.5 g/dL) 3.0 02/23 02/23 02/23 02/23 1720 1821 1923 2003 Chemistry Sodium (136 - 145 mmol/L) 128 L Potassium (3.5 - 5.1 mmol/L) 5.0 Chloride (98 - 107 mmol/L) 99 Carbon Dioxide (20 - 31 mmol/L) 22 Anion Gap (2.0 - 16.0) 12.1 BUN (9 - 23 mg/dL) 63 H Creatinine (0.6 - 1.0 mg/dL) 2.4 H Glomerular Filtr Rate (>60 ml/min) 21 L BUN/Creatinine Ratio (12.0 - 20.0) 26.3 H Glucose (74 - 106 mg/dL) 766 *H POC Glucose (70 - 105 mg/dL) > 600 *H > 600 *H > 600 *H Calcium (8.7 - 10.4 mg/dL) 8.3 L Phosphorus (2.4 - 5.1 mg/dL) 4.5 Magnesium (1.6 - 2.6 mg/dL) 2.3 02/23 02/23 02/24 02/24 02/24 2220 2326 0051 0211 0318 Chemistry POC Glucose (70 - 105 mg/dL) > 600 *H 540 *H 434 *H 248 H 119 H 02/24 02/24 02/24 02/24 02/24 0424 0448 0448 0517 0518 Chemistry Sodium (136 - 145 mmol/L) 142 Potassium (3.5 - 5.1 mmol/L) 3.7 Chloride (98 - 107 mmol/L) 112 H Carbon Dioxide (20 - 31 mmol/L) 23 Anion Gap (2.0 - 16.0) 10.7 BUN (9 - 23 mg/dL) 57 H Creatinine (0.6 - 1.0 mg/dL) 1.6 H Glomerular Filtr Rate (>60 ml/min) 34 L BUN/Creatinine Ratio (12.0 - 20.0) 35.6 H Glucose (74 - 106 mg/dL) 28 *L POC Glucose (70 - 105 mg/dL) 70 10 *L 13 *L Calcium (8.7 - 10.4 mg/dL) 8.4 L Phosphorus (2.4 - 5.1 mg/dL) 3.5 Magnesium (1.6 - 2.6 mg/dL) 2.0 Triglycerides (0 - 149 mg/dL) 55 Cholesterol (0 - 200 mg/dL) 125 LDL Cholesterol Measurd (0 - 100 mg/dL) 57 HDL Cholesterol (40 - 59 mg/dL) 54 Cholesterol/HDL Ratio (1 - 6) 2 02/24 02/24 02/24 02/24 02/24 0534 0615 0653 0759 0918 Chemistry POC Glucose (70 - 105 mg/dL) 133 H 82 61 L 139 H 101 02/24 1017 Chemistry POC Glucose (70 - 105 mg/dL) 86 Laboratory Tests 02/23 02/23 02/24 1329 2003 0448 Hematology WBC (4.5 - 11.0 10 3/uL) 11.7 H 11.5 H 14.7 H RBC (3.50 - 5.50 10 6/uL) 3.29 L 3.03 L 3.26 L Hgb (12.0 - 16.0 g/dL) 10.2 L 9.3 L 9.9 L Hct (37.0 - 55.0 %) 33.3 L 28.3 L 30.1 L MCV (81 - 102 fL) 101 93 92 MCH (26.0 - 34.0 pg) 31.0 30.7 30.4 MCHC (31.0 - 37.0 g/dL) 30.6 L 32.9 32.9 RDW (11.6 - 14.4 %) 12.8 12.3 12.4 Plt Count (150 - 400 10 3/uL) 300 257 259 MPV (9.0 - 12.6 fL) 10.3 Neut % (Auto) (33.0 - 76.0 %) 80.0 H Lymph % (Auto) (14.0 - 56.4 %) 5.9 L Buchanan % (Auto) (0.0 - 12.9 %) 13.2 H Eos % (Auto) (0.0 - 7.0 %) 0.0 Baso % (Auto) (0 - 2.0 %) 0.2 Neut # (Auto) (1.5 - 7.0 10 3/uL) 9.24 H Lymph # (Auto) (1.50 - 4.00 10 3/uL) 0.68 L Buchanan # (Auto) (0.20 - 0.80 10 3/uL) 1.52 H Eos # (Auto) (0.0 - 0.5 10 3/uL) 0.00 Baso # (Auto) (0.0 - 0.1 10 3/uL) 0.02 Abs Immat Gran (auto) (0.000 - 0.100 x10 3/uL) 0.080 Immature Gran % (0.0 - 1.0 %) 0.7 Nucleated RBC % (0 - 0.2 %) 0.0 Nucleated RBCs # (0.000 - 0.012 10 3/uL) 0.000 Laboratory Tests 02/23 1452 Toxicology Acetone, Qual (NEGATIVE) MODERATE H Laboratory Tests 02/23 1713 Urines Urine Color (YELLOW) YELLOW Urine Appearance (CLEAR) CLEAR Urine pH (5.0 - 8.0) 5.0 Ur Specific [place] (1.005 - 1.025) 1.018 Urine Protein (NEGATIVE) NEGATIVE Urine Glucose (UA) (NEGATIVE) 3+ H Urine Ketones (NEGATIVE) TRACE H Urine Blood (NEGATIVE) NEGATIVE Urine Nitrite (NEGATIVE) NEGATIVE Urine Bilirubin (NEGATIVE) NEGATIVE Urine Urobilinogen (0.1 - 0.2 EU/dL) NEGATIVE Ur Leukocyte Esterase (NEGATIVE) NEGATIVE Urine RBC (0 - 3 /hpf) NONE SEEN Urine WBC (0 - 3 /hpf) 0-2 Ur Squamous Epith Cells (FEW /HPF) RARE Urine Bacteria (NEGATIVE /HPF) NONE SEEN Microbiology: 02/23 1532 Blood: Blood Culture - RECD 02/23 153 Blood: Blood Culture - RECD 02/23 1524 NASAL: MRSA Screen - ORD 02/23 141 NASAL: MRSA Screen - ORD Recent Impressions: RADIOLOGY - XR CHEST 1 V 02/23 1359 Report Impression - Status: SIGNED Entered: 02/24/2024 1421 IMPRESSION: Nonspecific some interstitial thickening in both lungs. Recommend a CT scan for further evaluation. Groundglass opacity in the left upper lobe. Impression By: [email or web address] Janina De La Torre MD CAT SCAN - CT HEAD/BRAIN W/O CONT 02/23 1410 Report Impression - Status: SIGNED Entered: 02/24/2024 1438 IMPRESSION: No acute intracranial abnormality. Impression By: Conner Mcdermott MD CAT SCAN - CT CHEST W/O CONTRAST 02/23 1600 Report Impression - Status: SIGNED Entered: 02/24/2024 1809 IMPRESSION: Small area of left lower lobe groundglass opacification. Given focal nature, infection or aspiration is suspected, less likely focal atelectasis. Impression By: Conner Mcdermott MD Vital Signs: Date Time Temp Pulse Resp B/P B/P Pulse O2 O2 Flow FiO2 Mean Ox Delivery Rate 02/24 1100 72 116/56 81 100 02/24 1000 68 113/56 79 99 02/24 0900 85 109/59 81 100 02/24 0800 68 110/52 75 100 02/24 0730 67 114/56 81 02/24 0700 69 114/54 78 02/24 0230 84 21 90/47 65 02/23 2330 86 21 103/50 72 02/23 2300 85 21 98/49 70 02/23 2230 84 16 108/51 74 02/23 2200 82 16 98/48 69 02/23 2030 80 14 107/53 77 02/23 2000 82 25 107/54 78 02/23 1927 78 18 103/51 74 02/23 1900 80 13 98/51 72 02/23 1800 84 17 100/52 74 97 02/23 1730 88 99/49 71 97 02/23 1700 88 14 105/54 77 97 02/23 1633 36.4 02/23 1630 83 19 106/53 76 97 02/23 1559 96 02/23 1400 86 16 105/50 72 89 02/23 1258 97 15 104/54 70 99 Room air 24 hour I O ending at 0700: 02/23 0700 Intake Total Output Total Balance Patient 54.545 kg Weight Weight Estimated Measurement Method PATIENT WEIGHT: Weight (lb): Weight (oz): Weight (kg): 54.545 Free Text Obj Notes Free Text Obj Notes: GEN: NAD, HEENT: Normocephalic and Atraumatic NECK: Supple CVS: Regular Rate Rhythm. S1 and S2 present RESPIRATORY: CTA BL, no wheezing/rhonchi/rales, no respiratory distress ABDOMEN/GI: active BS, soft, non-tender, No rebounding/guarding, No CVA Tenderness EXTRIMITIES: ROM WNL NEURO/DIESEL ENGINE FITTER: AAOX3 Skin: dry, intact Psych: Normal affect Diagnosis, Assessment Plan Free Text DxA P Notes Free Text DxA P Notes: 74-year-old female with PMH of insulin-dependent diabetes, dyslipidemia, hypertension, dementia [facility]. Patient says that when she visited her yesterday patient was not herself, patient currently is AO x 4, denies any dysuria, urgency, frequency, chest pain or shortness of breath, abdominal pain, nausea vomiting, diarrhea or constipation. 1. DKA IVF Endocrine consult Anion gap improved this morning Insulin GTT 2. Left lower lobe PNA IV ABX BCx Sputum cultures Incentive spirometry Pulmonary consult 3. Elevated troponin Telemetry Cardiology consult Aspirin Statin Echo 4. MATT IVF Nephrology consult UA: 3+ glucose, trace ketones, no bacteria, leukocyte esterase nitrate negative DVT PPx at 1119 RPT #:[id number] END OF REPORT [facility] 2024-02-25 10:58:00 [facility] ([facility]) Nephrology Consultation REPORT #: [id number] REPORT STATUS: Signed DATE: 02/25/24 TIME: 1058 PATIENT: LISETH POTTS UNIT #: [id number] ROOM #: DC.ERICUBED: 16 : 52 AGE: 74 SEX: F ATTEND: Eloy Garay MD ADM AUTHOR: Yas Ann MD ATTENTION *EDITS and/or ADDENDA must be made in Patient Keeper for this note. * * Edits and ammendments created in [employer] are not visible * * in Patient Keeper or the legal medical record (HPF). * Note Date: 02/25/24 10:58 -- ASSESSMENT/PLAN -- GENERAL ASSESSMENT: 1.MATT 2.Hyperkalemia - better 3.DKA 4.Hx of HTN 5.Anemia 6.Dementia 7.Hyponatremia - better -SCr 1.6 noted, improving. monitor -UA reviewed -Hold off on renal imaging for now. -Cont IVF. monitor -PRBC for HB < 7 -Avoid nephrotoxins AM labs case d/w pt/family and RN -- HISTORY -- REASON FOR CONSULT: MATT CHIEF COMPLAINT: AMS HPI: 74-year-old female with past medical history of diabetes, dementia, hyperlipidemia, hypertension who [facility] with altered mental status since yesterday when daughter visited her at the jail. In the emergency department patient had blood glucose levels elevated greater than 500 with acute kidney injury and high anion gap metabolic acidosis. denies SOB denies nausea/vomiting currently off insulin gtt PAST MEDICAL HISTORY/PAST SURGICAL HISTORY: PAST MEDICAL HISTORY: - Chest pain - HTN (hypertension) - Nausea - Type 2 diabetes mellitus with hyperglycemia PAST MEDICAL HISTORY: DMII, HTN, HLD PAST SURGICAL HISTORY: CHOLECYSTECTOMY FAMILY HISTORY: NON CONTRIBUTORY Social History Tobacco use: DETAILS/COMMENTS: DENIES Vaping/Inhaled solvents: DETAILS/COMMENTS: DENIES Alcohol use: DETAILS/COMMENTS: DENIES Drug use: DETAILS/COMMENTS: DENIES -- ALLERGIES/HOME MEDS -- Modifications made in this section do not update Allergy and Home Medication List ALLERGIES - No Known Allergies ( UNKNOWN - Allergy ) HOME MEDICATIONS - Acetaminophen Tab (Tylenol Tab) (PO - Q6H - 650 MG) - Aspirin EC Tab (Ecotrin Tab) (PO - DAILY - 81 MG) - Atorvastatin Tab (Lipitor Tab) (PO - BEDTIME - 1 TAB) - BASAGLAR (SUBQ - QAM - 30 UNITS) - CALCIUM (PO - DAILY - 600 MG) - Divalproex Sprinkle Cap (Depakote Sprinkle Cap) (PO - Q8HR - 125 MG) - Enalapril Maleate tab (enalapril maleate) (PO - BID - 20 MG) - Glucagon Inj (IM - ASDIR - 1 MG) - Insulin Aspart Inj (NF) (NovoLOG Inj (NF)) (SUBQ - TID AC - 8 UNITS) - NIFEdipine XL Tab (Procardia XL Tab) (oral - DAILY - 30 MG) - traZODone Tab (Desyrel Tab) (PO - BEDTIME - 50 MG) -- SUBJECTIVE -- UNABLE TO OBTAIN REVIEW OF SYSTEMS unable to obtain due to dementia -- EXAM -- VITALS (02/23 10:58 - 02/24 10:58): Blood pressure: 113/56 (90/47 - 114/59) Respiratory rate: 21 (13 - 25) Blood pressure source: Monitor Temperature F: 97.5 Pulse Rate: 68 (67 - 97) EXAM: General: Well developed, well nourished, in no apparent distress. Head: Normocephalic, atraumatic. Mouth: Oropharynx without deformities or lesions, normal mucosa. Lungs: Clear bilaterally with normal respiratory effort. Heart: Regular rate and rhythm, normal S1, S2, no murmurs, no rubs, no gallops, no clicks. Abdomen: Soft, non-tender, no organomegaly, no masses noted. Musculoskeletal: No deformity, no scoliosis noted of thoracic or lumbar spine, joint ROM grossly normal, normal gait and station. Extremities: No clubbing, no cyanosis, no edema. Skin: Intact without significant lesions, or rashes. -- DATA -- ALLERGIES MEDICATIONS ASPIRIN 81 MG PO DAILY MUPIROCIN 1 APPLIC NASAL BID DEXTROSE 50%-WATER 50 ML IV ASDIR SODIUM CHLORIDE 0.9% 1000 ML IV ASDIR INSULIN LISPRO UNIT SUBQ AC HS SODIUM CHLORIDE 0.45% 1000 ML IV ASDIR POTASSIUM BICARBONATE/CIT AC 20 MEQ PO ASDIR DEXTROSE 5%-0.45% SALINE 1000 ML IV ASDIR polyethylene glycoL 3350 1 PKT PO DAILY PRN IPRATROPIUM/ALBUTEROL SULFATE 3 ML NEB RTQ6H PRN HYDROcodone BITARTRATE/APAP 1 TAB PO Q4H PRN ONDANSETRON HCL/PF 4 MG IV Q4H PRN GLUCAGON 1 MG IM ASDIR PRN ACETAMINOPHEN 650 MG PO Q4H PRN ACETAMINOPHEN 650 MG PO Q6H PRN DEXTROSE 50%-WATER 50 ML IV ASDIR cefTRIAXone with/in WATER FOR INJECTION,STERILE 1000 MG IV Q24H INSULIN GLARGINE 12 UNITS SUBQ QAM INSULIN GLARGINE 6 UNITS SUBQ QPM POTASSIUM CHLORIDE 20 MEQ IV ASDIR AZITHROMYCIN with/in SODIUM CHLORIDE 0.9% 500 MG IV Q24H LAB RESULTS GLU BED (02/25/24 00:51) GLUBED 434 *H GLU BED (02/25/24 02:11) GLUBED 248 H GLU BED (02/25/24 03:18) GLUBED 119 H GLU BED (02/25/24 04:24) GLUBED 70 BASIC METABOLIC PANEL (02/25/24 04:48) ANION GAP 10.7 GLUCOSE 28D*L D*L BLOOD UREA NITROGEN 57H H GLOMERULAR FILTRATION RATE 34 L CREATININE 1.6H H BUN/CREATININE RATIO 35.6 H CALCIUM 8.4 L SODIUM 142 POTASSIUM 3.7D D CHLORIDE 112H H CARBON DIOXIDE 23 PHOS (02/25/24 04:48) PHOSPHOROUS 3.5 MAG (02/25/24 04:48) MAGNESIUM 2.0 CBC W/O DIFF (02/25/24 04:48) PLATELET COUNT 259 MEAN CELL HGB CONCENTRATION 32.9 RED CELL DISTRIBUTION WIDTH 12.4 MEAN CELL VOLUME 92 MEAN CELL HGB 30.4 HEMOGLOBIN 9.9L L HEMATOCRIT 30.1L L WHITE BLOOD CELL 14.7H H RED BLOOD CELL 3.26 L LIPID PROFILE (CORONARY RISK) (02/25/24 04:48) HDL CHOLESTEROL 54 LIPOPROTEIN LDL 57 CHOLESTEROL 125 CHOLESTEROL/HDL RATIO 2 TRIGLYCERIDES 55 GLU BED (02/25/24 05:17) GLUBED 10 *L GLU BED (02/25/24 05:18) GLUBED 13 *L GLU BED (02/25/24 05:34) GLUBED 133 H GLU BED (02/25/24 06:15) GLUBED 82 GLU BED (02/25/24 06:53) GLUBED 61 L GLU BED (02/25/24 07:59) GLUBED 139 H GLU BED (02/25/24 09:18) GLUBED 101 GLU BED (02/25/24 10:17) GLUBED 86 at 1103 ATTENTION *EDITS and/or ADDENDA must be made in Patient Keeper for this note. * * Edits and ammendments created in [facility] are not visible * * in Patient Keeper or the legal medical record ([facility]). * [facility] #: [id number] END OF REPORT [facility] 2024-02-25 09:36:00 [facility] ([facility] Endocrinology Consultation REPORT #: [id number] REPORT STATUS: Signed DATE: 02/25/24 TIME: 935 PATIENT: LISETH POTTS UNIT #: [id number] ROOM #: DC.ERICUBED: 16 : 52 AGE: 74 SEX: F ATTEND: Eloy Garay MD ADM AUTHOR: Horacio Russell MD ATTENTION *EDITS and/or ADDENDA must be made in Patient Keeper for this note. * * Edits and ammendments created in [employer] are not visible * * in Patient Keeper or the legal medical record (HPF). * Note Date: 02/25/24 09:36 -- ASSESSMENT/PLAN -- ASSESSMENT PLAN: 1: Type 1 diabetes mellitus with ketoacidosis without coma A/P: UNCONTROLLED (JIDI8P=4.0%,HYPERGLYCEMIA) TYPE I IN DKA. DKA RESOLVED: CWP=037 AG=10.7. OBSERVE ON SQ BASAL/BOLUS INSULIN. MUST HAVE A BEDTIME SNACK. DISCUSSED WITH DAUGHTER. -- HISTORY -- Consult requested by:Eloy Garay MD REASON FOR CONSULT: DKA,HYPERGLYCEMIA CHIEF COMPLAINT: ALTERED MENTAL STATUS,HYPERGLYCEMIA HPI: PATIENT ADMITTED TO ICU IN DKA. ICU DKA, INSULIN DRIP PROTOCOL INITIATED. DKA NOW RESOLVED. OFF INSULIN DRIP. HISTORY OBTAINED FROM DAUGHTER WHO IS AT BEDSIDE. PATIENT DEVELOPED DIABETES WHEN SHE WAS IN HER TWENTIES. SHE WAS ON BASAGLAR AND NOVOLOG. PAST MEDICAL HISTORY/PAST SURGICAL HISTORY: PAST MEDICAL HISTORY: - Chest pain - HTN (hypertension) - Nausea - Type 2 diabetes mellitus with hyperglycemia PAST MEDICAL HISTORY: DMII, HTN, HLD PAST SURGICAL HISTORY: CHOLECYSTECTOMY FAMILY HISTORY: NON CONTRIBUTORY Social History Tobacco use: DETAILS/COMMENTS: DENIES Vaping/Inhaled solvents: DETAILS/COMMENTS: DENIES Alcohol use: DETAILS/COMMENTS: DENIES Drug use: DETAILS/COMMENTS: DENIES -- ALLERGIES/HOME MEDS -- Modifications made in this section do not update Allergy and Home Medication List ALLERGIES - No Known Allergies ( UNKNOWN - Allergy ) HOME MEDICATIONS - Ascorbic Acid Tab (Vitamin C Tab) (PO - DAILY - 500 MG) - Aspirin Chewable Tab (Aspirin Chewable Tab) (PO - DAILY - 81 MG) - Enalapril Maleate tab (enalapril maleate) (PO - BID - 20 MG) - Haloperidol Tab (Haldol Tab) (PO - BEDTIME - 1 MG) - Insulin Aspart Inj (NF) (NovoLOG Inj (NF)) (SUBQ - TID - 4 UNITS) - Med Rec Order Def (INJ - QAM - 16 UNITS) - Med Rec Order Def (PO - BEDTIME - 80 MG) - NIFEdipine XL Tab (Procardia XL Tab) (oral - DAILY - 30 MG) - Vitamin D3 capsule (cholecalciferol (vitamin D3)) (PO - DAILY - 1000 UNITS) -- SUBJECTIVE -- UNABLE TO OBTAIN REVIEW OF SYSTEMS ASLEEP -- EXAM -- VITALS (02/23 09:36 - 02/24 09:36): Pulse Rate: 85 (67 - 97) Blood pressure: 109/59 (90/47 - 114/59) Respiratory rate: 21 (13 - 25) Blood pressure source: Monitor Temperature F: 97.5 EXAM: General: Well developed, well nourished, in no apparent distress. THIN Head: Normocephalic, atraumatic. Neck: trachea midline. Chest: Grossly normal appearance. Lungs: NORMAL CHEST WALL MOVEMENT Heart: NO TACHYCARDIA Abdomen: NON-DISTENDED -- DATA -- ALLERGIES MEDICATIONS ASPIRIN 81 MG PO DAILY MUPIROCIN 1 APPLIC NASAL BID GLUCAGON 1 MG IM ASDIR PRN DEXTROSE 50%-WATER 50 ML IV ASDIR DEXTROSE 50%-WATER 50 ML IV ASDIR cefTRIAXone with/in WATER FOR INJECTION,STERILE 1000 MG IV Q24H SODIUM CHLORIDE 0.9% 1000 ML IV ASDIR INSULIN LISPRO UNIT SUBQ AC HS SODIUM CHLORIDE 0.45% 1000 ML IV ASDIR INSULIN GLARGINE 12 UNITSUNITS SUBQ QAM POTASSIUM BICARBONATE/CIT AC 20 MEQ PO ASDIR INSULIN GLARGINE 6 UNITS SUBQ QPM POTASSIUM CHLORIDE 20 MEQ IV ASDIR AZITHROMYCIN with/in SODIUM CHLORIDE 0.9% 500 MG IV Q24H DEXTROSE 5%-0.45% SALINE 1000 ML IV ASDIR LAB RESULTS GLU BED (02/25/24 00:51) GLUBED 434 *H GLU BED (02/25/24 02:11) GLUBED 248 H GLU BED (02/25/24 03:18) GLUBED 119 H GLU BED (02/25/24 04:24) GLUBED 70 BASIC METABOLIC PANEL (02/25/24 04:48) ANION GAP 10.7 GLUCOSE 28D*L D*L BLOOD UREA NITROGEN 57H H GLOMERULAR FILTRATION RATE 34 L CREATININE 1.6H H BUN/CREATININE RATIO 35.6 H CALCIUM 8.4 L SODIUM 142 POTASSIUM 3.7D D CHLORIDE 112H H CARBON DIOXIDE 23 PHOS (02/25/24 04:48) PHOSPHOROUS 3.5 MAG (02/25/24 04:48) MAGNESIUM 2.0 CBC W/O DIFF (02/25/24 04:48) PLATELET COUNT 259 MEAN CELL HGB CONCENTRATION 32.9 RED CELL DISTRIBUTION WIDTH 12.4 MEAN CELL VOLUME 92 MEAN CELL HGB 30.4 HEMOGLOBIN 9.9L L HEMATOCRIT 30.1L L WHITE BLOOD CELL 14.7H H RED BLOOD CELL 3.26 L LIPID PROFILE (CORONARY RISK) (02/25/24 04:48) HDL CHOLESTEROL 54 LIPOPROTEIN LDL 57 CHOLESTEROL 125 CHOLESTEROL/HDL RATIO 2 TRIGLYCERIDES 55 GLU BED (02/25/24 05:17) GLUBED 10 *L GLU BED (02/25/24 05:18) GLUBED 13 *L GLU BED (02/25/24 05:34) GLUBED 133 H GLU BED (02/25/24 06:15) GLUBED 82 GLU BED (02/25/24 06:53) GLUBED 61 L GLU BED (02/25/24 07:59) GLUBED 139 H GLU BED (02/25/24 09:18) GLUBED 101 -- ATTESTATION -- Time Spent on Patient Care DIRECT 35 minutes Care Activities / Care Coordination I have reviewed the history and repeated the figueroa elements I have seen and examined this patient I have discussed the patient's condition with other members of the care team ADDITIONAL DETAIL: I HAVE SPENT >45 MINUTES IN THE EVALUATION AND TREATMENT OF THIS PATIENT. at 0941 ATTENTION *EDITS and/or ADDENDA must be made in Patient Keeper for this note. * * Edits and ammendments created in [employer] are not visible * * in Patient Keeper or the legal medical record ([facility]). * [facility] #: [id number] END OF REPORT [facility] 2024-02-25 09:26:00 [id number] [facility] [address] PATIENT NAME: LISETH POTST ADMIT DATE: 02/24/24 ACCOUNT NO: [id number] ROOM NO: NC.ERICU AGE: 74 REPORT TYPE: eECHOCARDIOGRAM REPORT SEX: F ADMITTING PHYSICIAN:Eloy Garay MD ATTENDING PHYSICIAN:Eloy Garay MD [phone] [id number] ECHO [id number] ECHO 2D COMPLETE W/CF DOP Version: 1 Study ID: [id number] + + : : : : [facility] : : + + [place] [address] + : Name: LISETH POTTS Study Date: 02/25/2024, 9:26 AM : : Patient Location: [facility] 16 : : Gender: Female : : : 1950 (MM/DD/YYYY) : : Age: 74 Years : : Reason For Study: ELEVATED TROPONIN : : History: : + Summary Statements There is mild concentric left ventricular hypertrophy. Left ventricular systolic function is normal. [place] [address] PATIENT NAME: LISETH POTTS The left ventricular ejection fraction is normal. Ejection Fraction = 60-65%. The transmitral spectral Doppler flow pattern is suggestive of impaired LV relaxation. The left atrium is mildly dilated. There is mild mitral annular calcification. There is mild mitral regurgitation. There is mild tricuspid regurgitation. Right ventricular systolic pressure is normal. A dilated inferior vena cava suggests increased right atrial pressure. The aortic valve is mildly calcified. There is no pericardial effusion. Left Ventricle: The left ventricle is normal in size. There is mild concentric left ventricular hypertrophy. Left ventricular systolic function is normal. The left ventricular ejection fraction is normal. Ejection Fraction = 60-65%. The transmitral spectral Doppler flow pattern is suggestive of impaired LV relaxation. Right Ventricle: The right ventricle is normal size. The right ventricular systolic function is normal. Atria: The interatrial septum is intact with no evidence for an atrial septal defect. The left atrium is mildly dilated. Right atrial size is normal. A dilated inferior vena cava suggests increased right atrial pressure. Mitral Valve: The mitral valve is normal. There is mild mitral annular calcification. There is mild mitral regurgitation. Tricuspid Valve: The tricuspid valve is normal. There is mild tricuspid regurgitation. RVSP30.4 mmHg. Right ventricular systolic pressure is normal. Aortic Valve: The aortic valve is trileaflet. The aortic valve is mildly calcified. No aortic regurgitation is present. Pulmonic Valve: The pulmonic valve leaflets are thin and pliable; valve motion is normal. There is no pulmonic valvular regurgitation. Pericardium/Pleural: There is no pericardial effusion. MMode/2D Measurements Calculations Ao root diam: 2.41 cm EDV(MOD-sp4): 87.7 ml EDV(sp4-el): 90.5 ml ESV(MOD-sp4): 35.1 ml ESV(sp4-el): 35.4 ml IVSd: 1.11 cm LA dimension: 3.0 cm LVAd ap4: 29.3 cm LVAs ap4: 16.9 cm LVIDd: 4.2 cm LVIDs: 2.8 cm LVLd ap4: 8.[address] [address] PATIENT NAME: RAOUL LISETH LANDRY LVLs ap4: 6.9 cm LVOT diam: 1.86 cm LVPWd: 1.09 cm Doppler Measurements Calculations Ao max P.6 mmHg Ao mean P.1 mmHg Ao V2 max: 170.2 cm/sec Ao V2 mean: 104.8 cm/sec Ao V2 VTI: 33.2 cm LV V1 max: 102.5 cm/sec LV V1 max P.2 mmHg LV V1 mean: 70.3 cm/sec LV V1 mean P.26 mmHg LV V1 VTI: 24.1 cm MV A max arlyn: 101.6 cm/sec MV dec slope: 645.3 cm/sec MV dec time: 0.17 sec MV max P.1 mmHg MV mean P.43 mmHg MV V2 max: 112.4 cm/sec MV V2 mean: 73.9 cm/sec MV V2 VTI: 40.3 cm PA max P.5 mmHg PA V2 max: 94.2 cm/sec RAP systole: 15.0 mmHg TR max P.4 mmHg TR max arlyn: 194.0 cm/sec Measurements and Calculations Ao root area: 4.6 cm NIKKY(I,D): 1.97 cm NIKKY(V,D): 1.64 cm EDV(Teich): 79.1 ml EF(MOD-sp4): 60.0 % EF(sp4-el): 60.9 % EF(Teich): 61.5 % ESV(Teich): 30.5 ml FS: 32.7 % LVOT area: 2.7 cm MVA(VTI): 1.62 cm RVSP(TR): 30.4 mmHg SV(LVOT): 65.4 ml SV(MOD-sp4): 52.6 ml SV(sp4-el): 55.1 ml + : :Alla Cárdenas MD :02/25/2024, 1:48 PM : + [facility] [id number] [place] [id number] PATIENT NAME: LISETH POTTS Ordering Physician: Tammy Rust Referring Physician: Referred, Self Performed By: Jesi Saenz at [address] [facility] [address] [facility] [address] PATIENT NAME: LISETH POTTS [facility] 2024-02-24 18:26:00 [facility] Intensive Care Consultation REPORT #: [id number] REPORT STATUS: Signed DATE: 02/24/24 TIME: 1825 PATIENT: LISETH POTTS UNIT #: [id number] ROOM #: DC.ERICUBED: 16 : 52 AGE: 74 SEX: F ATTEND: Eloy Garay MD ADM AUTHOR: Vishnu Keene MD ATTENTION *EDITS and/or ADDENDA must be made in Patient Keeper for this note. * * Edits and ammendments created in [employer] are not visible * * in Patient Keeper or the legal medical record ([facility]). * Note Date: 02/24/24 18:26 -- ASSESSMENT AND PLAN -- GENERAL ASSESSMENT: [facility] Assessment: DKA/HHS hyperglycemia lactic acidosis MATT HAGMA leukocytosis possible aspiration pneumonia vs CAP, LLL Plan: Neurologic : - AAO x3, no acute process - CT head without acute process Pulmonary : - CXR interstitial thickening, DEL GGO, - CT chest confirmed DEL GGO, possible aspiration - started on ceftriaxone and azithromycin in ED x 1. continue for now - supplemental O2 to keep SpO2 > 92% - Cardiovascular : - Cardiology following, CTS following - Monitor HR, BP. Hematologic : - Monitor H/H, platelets. Transfuse to keep Hgb > 7. No indication for transfusion at this time. Renal : - Continue IV fluids, and aggressively replace electrolytes - Continue BMP every 4 hours - Monitor UOP, BUN, Cr. - Avoid nephrotoxins. Gastrointestinal : - No acute GI process - NPO for now Infectious disease : - empirically started on ceftriaxone and azithromycin - low threshold to escalate pending clinical course Endocrine : - insulin protocol for DKA/HHS protocol - Consult endocrinology in AM - Nutrition education PIV Full code --------- HPI: 74-year-old female with past medical history of diabetes, dementia, hyperlipidemia, hypertension who presented from jail with altered mental status since yesterday when daughter visited her at the jail. In the emergency department patient had blood glucose levels elevated greater than 500 with acute kidney injury and high anion gap metabolic acidosis. Patient started on insulin drip and admitted to ICU for close hemodynamic monitoring. Past medical history: see above PSurgHx: None recently FamHx: NC SocHx: no known ETOH, tobacco or IDU Review of systems: 14 point review system negative unless listed above Physical Exam General: NAD, awake, oriented to self and place Eyes: Anicteric sclerae. Mouth: MMM Neck: Supple. CV: Regular rate and rhythm. Normal S1 and S2. Pulm: Good effort, no wheezing or Rales appreciated. Abdomen: Soft, nontender.BS+ Extremities: No lower extremity edema. Skin: Warm, dry. Neuro: no focal neurological deficit Psych: normal mood I have personally provided 35 minutes of critical care time. Time includes review of laboratory data, radiology results, discussion with consultants, family and staff and monitoring for potential decompensation. Interventions were performed as documented above. This is exclusive of time spent on separately billable procedures. -- HISTORY -- PAST MEDICAL HISTORY/PAST SURGICAL HISTORY: PAST MEDICAL HISTORY: - Chest pain - HTN (hypertension) - Nausea - Type 2 diabetes mellitus with hyperglycemia PAST MEDICAL HISTORY: DMII, HTN, HLD PAST SURGICAL HISTORY: CHOLECYSTECTOMY FAMILY HISTORY: NON CONTRIBUTORY Social History Tobacco Use DETAILS/COMMENTS: DENIES Vaping/Inhaled Solvents DETAILS/COMMENTS: DENIES Alcohol Use DETAILS/COMMENTS: DENIES Drug Use DETAILS/COMMENTS: DENIES -- EXAM -- VITALS (02/22 18:26 - 02/23 18:26): Blood pressure source: Monitor Temperature F: 97.5 Blood pressure: 99/49 (99/49 - 106/54) Respiratory rate: 14 (14 - 19) Pulse Rate: 88 (83 - 97) -- DATA -- MEDICATIONS ASPIRIN 81 MG PO DAILY MUPIROCIN 1 APPLIC NASAL BID DEXTROSE 50%-WATER 50 ML IV ASDIR GLUCAGON 1 MG IM ASDIR (PRN) INSULIN REGULAR IN 0.9 % NACL 100 UNIT IV ASDIR SODIUM CHLORIDE 0.9% 1000 ML IV ASDIR SODIUM CHLORIDE 0.45% 1000 ML IV ASDIR SODIUM CHLORIDE 0.9% 10 ML IV ASDIR (PRN) POTASSIUM BICARBONATE/CIT AC 20 MEQ PO ASDIR POTASSIUM CHLORIDE 20 MEQ IV ASDIR DEXTROSE 5%-0.45% SALINE 1000 ML IV ASDIR LAB RESULTS CBC W/O DIFF (02/24/24 13:29) RED BLOOD CELL 3.29 L WHITE BLOOD CELL 11.7H H HEMATOCRIT 33.3L L HEMOGLOBIN 10.2L L PLATELET COUNT 300 MEAN CELL HGB 31 MEAN CELL VOLUME 101 RED CELL DISTRIBUTION WIDTH 12.8 MEAN CELL HGB CONCENTRATION 30.6 L TROP-I HIGH SEN (02/24/24 13:29) TROP-I HIGH SENSITIVITY 239 *H HGBA1C - GLYCOSYLATED HGB (02/24/24 13:29) GLYCOSYLATED HEMOGLOBIN (HA1C) 8 H BASIC METABOLIC PANEL (02/24/24 13:29) ANION GAP 25.2 H CARBON DIOXIDE 13L L BLOOD UREA NITROGEN 66H H GLUCOSE 1126*H *H SODIUM 122L L CALCIUM 8.9 CHLORIDE 90L L POTASSIUM 5.7H H CREATININE 2.7D H D H GLOMERULAR FILTRATION RATE 18 L BUN/CREATININE RATIO 24.4 H LIVER FUNCTION PANEL (02/24/24 13:29) ALKALINE PHOSPHATASE 78 BILIRUBIN INDIRECT 0.3 BILIRUBIN DIRECT 0.2 SGPT/ALT 24 SGOT/AST 30 ALBUMIN 3.6 TOTAL PROTEIN 6.6 BILIRUBIN TOTAL 0.5 GLOBULIN 3 GLU BED (02/24/24 13:38) GLUBED > 600 *H PHOS (02/24/24 14:52) PHOSPHOROUS 5.7 H CKMB (02/24/24 14:52) CKMB 11.5 H CK (02/24/24 14:52) CREATINE KINASE (CK) 263 H TROP-I HIGH SEN (02/24/24 14:52) TROP-I HIGH SENSITIVITY 263 *H ACETNQL (02/24/24 14:52) ACETONE QUAL MODERATE H POC VENOUS BLOOD GAS (02/24/24 15:20) POC O2 SATURATION VENOUS 99.2 H POC BASE EXCESS VENOUS -11.1 L POC HCO3 VENOUS 13.8 L POC VENOUS BLOOD GAS PO2 154.5 H POC VENOUS BLOOD GAS PCO2 27.3 *L POC VENOUS BLOOD GAS PH 7.314 L LACTIC ACID (02/24/24 15:32) LACTIC ACID 2.5 H UA RFLX MICR amp;CULT IF INDICATED (02/24/24 17:13) UA NITRITE DIPSTICK NEGATIVE UA BILIRUBIN DIPSTICK NEGATIVE UA KETONE DIPSTICK TRACE H UA SPECIFIC GRAVITY 1.018 UA BLOOD DIPSTICK NEGATIVE UA PH DIPSTICK 5 UA PROTEIN DIPSTICK NEGATIVE UA UROBILINOGEN DIPSTICK NEGATIVE UA LEUKOCYTE ESTERASE DIPSTICK NEGATIVE UA WBC 0-2 UA RBC NONE SEEN UA BACTERIA NONE SEEN UA SQUAMOUS CELLS RARE UA COLOR YELLOW UA APPEARANCE CLEAR UA GLUCOSE DIPSTICK 3+ H GLU BED (02/24/24 17:20) GLUBED > 600 *H at 1941 ATTENTION *EDITS and/or ADDENDA must be made in Patient Keeper for this note. * * Edits and ammendments created in [employer] are not visible * * in Patient Keeper or the legal medical record ([facility]). * RPT #: [id number] END OF REPORT [facility] 2024-02-24 14:02:00 [facility] ([facility] EMERGENCY PROVIDER REPORT REPORT#:[id number] REPORT STATUS: Signed DATE:02/24/24 TIME: 140 PATIENT: LISETH POTTS UNIT #: [id number] ROOM: DC.ERICBED: 16 : 52 AGE: 74 SEX: F PCP PHYS: Eduardo Contreras MD SERVICE AUTHOR: Yessy Patricia MD REP SRV REP SRV TM: 1402 * ALL edits or amendments must be made on the electronic/computer document * HPI-Dizziness/Weakness Free Text HPI Notes Free Text HPI Notes 74-year-old female history of diabetes, dementia, hyperlipidemia, hypertension presenting from jail with concerns for hypoglycemia and confusion. All the history obtained from patient's daughter who states that patient has been confused since yesterday. She states she visited the patient and jail today and patient was notable to move, not responding appropriately endorsing chest pain. He checked her blood sugar and it was reading high. She reports that patient has had fluctuations in her blood sugar and that this keeps her blood insulin today because there was concern that her blood glucose was in the 100s. Daughter reports the patient has also complained of intermittent headaches for the last 1 week. No urinary symptoms. No fever or chills. General Initial Greet Date/Time 02/24/24 1259 Presentation Chief Complaint Weakness, generalized, CONFUSED Risk-Dizziness/Weakness Risk Stratification NIH Stroke Scale NIH Stroke Scale Response Value NIHSS Applicable? No 0 Total 0 Review of Systems ROS Statements All systems rev neg except as marked. Past Medical History - Adult Stated Complaint FSBG READING "HIGH"/DIZZY/CP/A/OX2 SPA Allergies Coded Allergies: No Known Allergies (12/14/21) Home Medications Active Scripts Meloxicam (Mobic) 7.5 MG PO BID Meloxicam (Mobic) 7.5 MG PO BID #12 TABS Prov: 01/15/24 Reported Medications Aspirin 81 MG PO DAILY [BASAGLAR] 20 UNITS SUBQ QAM Nifedipine (Procardia XL) 30 MG DAILY Insulin Aspart (Novolog) 4 UNITS SUBQ TID [Simvastatin] 80 MG PO BEDTIME Ascorbic Acid (Vitamin C) 500 MG PO DAILY Haloperidol (Haldol) 1 MG PO BEDTIME Cholecalciferol (Vitamin D3) (Vitamin D3) 1,000 UNITS PO DAILY Enalapril (Vasotec) 20 MG PO BID Past Medical History: Reports: Diabetes mellitus, Hypertension. Denies: Coronary artery disease. Additional Medical History Diabetes, hypercholesterolemia, dimension Additional Surgical History Cholecystectomy Smoking status for patients 13 years old or older: Never Smoker Physical Exam Vital Signs Vital Signs First Documented: Result Date Time Pulse Ox 99 02/23 1258 B/P 104/54 02/23 1258 B/P Mean 70 02/23 1258 O2 Delivery Room air 02/23 1258 Pulse 97 02/23 1258 Resp 15 02/23 1258 Last Documented: Result Date Time Pulse Ox 89 02/23 1400 B/P 105/50 02/23 1400 B/P Mean 72 02/23 1400 Pulse 86 02/23 1400 Resp 16 02/23 1400 O2 Delivery Room air 02/23 1258 Review of Vital Signs Reviewed, Vital signs normal Free Text PE Notes Free Text PE Notes Constitutional: Lethargic Head: Normocephalic, atraumatic Eyes: PERRLA, EOMI, no discharge Respiratory: Clear to auscultation bilaterally, no wheezing rhonchi or rales Cardiac: Regular rate and rhythm, no murmurs GI: Abdomen soft, nontender, nondistended Skin: No erythema, no rash MSK: No pedal edema, pulses intact, no tenderness to palpation Neuro: Alert, not oriented Interpretation Diagnostics Lab Results Interpretation Considerations Independ review imaging Results Laboratory Tests 02/24/24 1329: [Embedded Image Not Available] Laboratory Tests: 02/23 02/23 02/23 1329 1329 1338 Chemistry Sodium (136 - 145 mmol/L) 122 L Potassium (3.5 - 5.1 mmol/L) 5.7 H Chloride (98 - 107 mmol/L) 90 L Carbon Dioxide (20 - 31 mmol/L) 13 L Anion Gap (2.0 - 16.0) 25.2 H BUN (9 - 23 mg/dL) 66 H Creatinine (0.6 - 1.0 mg/dL) 2.7 H Glomerular Filtr Rate (>60 ml/min) 18 L BUN/Creatinine Ratio (12.0 - 20.0) 24.4 H Glucose (74 - 106 mg/dL) 1126 *H POC Glucose (70 - 105 mg/dL) > 600 *H Hemoglobin A1c (4.5 - 5.9 %) 8.0 H Calcium (8.7 - 10.4 mg/dL) 8.9 Total Bilirubin (0.2 - 1.1 mg/dL) 0.5 Direct Bilirubin (0.0 - 0.3 mg/dL) 0.2 Indirect Bilirubin (0.0 - 0.8 mg/dL) 0.3 AST (<34 U/L) 30 ALT (10 - 49 U/L) 24 Total Alk Phosphatase (46 - 116 U/L) 78 Troponin I High Sens (0 - 53 pg/mL) 239 *H Total Protein (5.7 - 8.2 g/dL) 6.6 Albumin (3.4 - 5.0 g/dL) 3.6 Globulin (2.3 - 3.5 g/dL) 3.0 Hematology WBC (4.5 - 11.0 10 3/uL) 11.7 H RBC (3.50 - 5.50 10 6/uL) 3.29 L Hgb (12.0 - 16.0 g/dL) 10.2 L Hct (37.0 - 55.0 %) 33.3 L MCV (81 - 102 fL) 101 MCH (26.0 - 34.0 pg) 31.0 MCHC (31.0 - 37.0 g/dL) 30.6 L RDW (11.6 - 14.4 %) 12.8 Plt Count (150 - 400 10 3/uL) 300 Microbiology: Date/Time Procedure - Status Source Growth 02/23 1414 MRSA Screen - ORD NASAL Recent Impressions: RADIOLOGY - XR CHEST 1 V 02/23 1359 Report Impression - Status: SIGNED Entered: 02/24/2024 1421 IMPRESSION: Nonspecific some interstitial thickening in both lungs. Recommend a CT scan for further evaluation. Groundglass opacity in the left upper lobe. Impression By: [email or web address] - Andrey De La Torre MD CAT SCAN - CT HEAD/BRAIN W/O CONT 02/23 1410 Report Impression - Status: SIGNED Entered: 02/24/2024 1438 IMPRESSION: No acute intracranial abnormality. Impression By: [email or web address] - Alexandro Mcdermott MD Lab Imaging Statement Laboratory radiographic studies reviewed and considered in the medical decision-making. ECG #1 Interpretation Text/Dict Note Normal sinus rhythm, heart rate of 91, normal axis, QTc of 442, no ST elevations or depressions Date 02/24/24 Time 1331 Interpreted by and reviewed by me Re-Evaluation MDM Free Text MDM Notes Additional Text 74-year-old female history of hypertension, hypercholesterolemia, diabetes, given current formula feeding home with altered mental status and hyperglycemia. Fingerstick checked on arrival, reading as "high". Patient is altered, [place]- speaking but daughter states that she has been hallucinating. Differentials include HHS, DKA, electrolyte abnormality, infection such as pneumonia or UTI, intracranial mass or hemorrhage, substance intoxication although this is less likely. Plan to obtain CBC, CMP, blood cultures, lactic acid, VBG, troponin, UA, CT scan of the head, chest x-ray Patient has been treated with 2 L of IV fluid. VBG reviewed, shows a pH of 7.3 with a pCO2 of 27 and a bicarb of 13 suggesting compensated metabolic acidosis. WBC 11.7, hemoglobin 7.2, sodium 122 (corrects to 138 hyperglycemia), glucose 1126, potassium 5.7, anion gap of 25. Creatinine is 2.7. I reviewed patient's prior records, a month ago, patient's creatinine was normal. Patient also has a troponin of 239. EKG without any ischemic changes. I discussed with tire changer Dr. Rodney, he recommends loading the patient with full dose aspirin. Trending troponin and holding off on heparin drip until DKA is resolved for possible nuclear scan. Chest x-ray was reviewed and shows nonspecific interstitial thickening in both lungs with groundglass opacity in the left upper lobe with recommendation for CT scan for further evaluation. CT with IV contrast ordered. Patient started on ceftriaxone and azithromycin. Plan to admit the patient to the ICU for DKA versus HHS. Discussed with ICU MD Dr. Cathy Guerra who accept the patient. The medical decision making includes independent review of any ordered imaging and EKGs and are in agreement with radiology interpretation unless documented otherwise. Individual labs and/or microbiologic data along with urine studies ordered and resulted at time of dictation have been interpreted by me and do not appear to contribute to an emergency diagnosis unless as mentioned above. Outside records including the most recent discharge summary, if available, have been reviewed. Consultants including hospitalists involved in the case as ordered/documented in the EMR agree with ED plan unless as documented above Social determinants of health were considered and impacted medical decision making and as a result part of patient's plan of care A decision regarding admission was discussed including risks and benefits. ED Course Medication(s) Ordered Medication(s) Ordered: Electrolytic, Caloric, And Jackie Sig/Dima Start time Last Medication Dose Route Stop Time Status Admin Dextrose/Sodium 1,000 ML ASDIR 02/23 1415 AC Chloride IV 03/25 1416 Dextrose/Water 50 ML ASDIR 02/23 1415 CKD IV 03/25 1416 Potassium 20 MEQ ASDIR 02/23 1415 CKD Bicarbonate/Citric PO 03/25 1416 Acid Potassium Chloride 100 ML ASDIR 02/23 1415 CKD IV 03/25 1416 Sodium Chloride 1,000 ML ASDIR 02/23 1415 AC IV 03/25 1416 Sodium Chloride 1,000 ML ASDIR 02/23 1415 AC IV 02/25 1416 Sodium Chloride 1,000 ML X1ED STA 02/23 1356 DC 02/23 IV 02/23 1455 1440 Sodium Chloride 1,000 ML X1ED STA 02/23 1302 DC 02/23 IV 02/23 1401 1343 Hormones And Synthetic Substit Sig/Dima Start time Last Medication Dose Route Stop Time Status Admin Glucagon 1 MG ASDIR PRN 02/23 1415 AC IM 03/25 1416 Insulin Human Regular 5.4545 UNIT ONCE ONE 02/23 1415 DC 02/23 IV 02/23 1416 1514 Insulin Human Regular 100 ML ASDIR 02/23 1415 CKD 02/23 IV 03/25 1416 1617 Skin And Mucous Membrane Agent Sig/Dima Start time Last Medication Dose Route Stop Time Status Admin Mupirocin 1 APPLIC BID 02/23 2100 AC NASAL 02/28 0901 Patient Discharge Departure Vital Signs/Condition Vital Signs First Documented: Result Date Time Pulse Ox 99 02/23 1258 B/P 104/54 02/23 1258 B/P Mean 70 02/23 1258 O2 Delivery Room air 02/23 1258 Pulse 97 02/23 1258 Resp 15 02/23 1258 Last Documented: Result Date Time Pulse Ox 89 02/23 1400 B/P 105/50 02/23 1400 B/P Mean 72 02/23 1400 Pulse 86 02/23 1400 Resp 16 02/23 1400 O2 Delivery Room air 02/23 1258 All vital signs available at the time of this entry have been reviewed. Condition Critical Clinical Impression Clinical Impression Primary Impression: DKA (diabetic ketoacidosis) Secondary Impressions: MATT (acute kidney injury), Hyperosmolar hyperglycemic state (HHS), Metabolic acidosis, Metabolic encephalopathy, NSTEMI (non-ST elevated myocardial infarction), PNA (pneumonia) Disposition Decision Hospitalize Request Time 1534 Request Date 02/24/24 )( Accepts Hospitalization Yes )( Reason for Hospitalization DKA versus HHS, MATT, NSTEMI )( Accepted Time 1534 )( Accepted Date 02/24/24 Call Information will see patient Critical Care Time Spent (minutes): 65 Services Performed Patient management by me, Time spent at bedside, Reviewing test results, Reviewing imaging, Discussing patient care, Documentation in record, Time with fam/surrogate Separately billable procedures excluded from time. Patient was critically ill due to: DKA versus HHS, MATT, NSTEMI My treatment and management were: IV fluid resuscitation, IV insulin, p.o. aspirin, IV antibiotics CC Note 2 The high probability of sudden, clinically significant deterioration in the patient's condition required the highest level of my preparedness to intervene urgently. The services I provided to this patient were to treat and/or prevent clinically significant deterioration that could result in severe disability or . Services included the following: chart data review, reviewing nursing notes and/ or old charts, documentation time, franchise business consultant collaboration regarding findings and treatment options, medication orders and management, direct patient care, re -evaluations, vital sign assessments and ordering, interpreting and reviewing diagnostic studies/lab tests. Aggregate critical care time was 65 minutes, which includes only time during which I was engaged in work directly related to the patient's care, as described above, whether at the bedside or elsewhere in the Emergency Department. It did not include time spent performing other reported procedures or the services of residents, students, nurses or physician assistants. at [address] [facility] #:[id number] END OF REPORT [facility] 2024-02-24 13:31:00 [phone] [address] PATIENT NAME: LISETH POTTS ADMIT DATE: 02/24/24 ACCOUNT NO: [id number] ROOM NO: [facility] AGE: 74 REPORT TYPE: eELECTROCARDIOGRAM SEX: F ADMITTING PHYSICIAN:Eloy Garay MD ATTENDING PHYSICIAN:Eloy Garay MD Order: [id number] Test Reason : WEAKNESS/DIZZINESS Test Date/Time Stamp: ThuFeb 24 2024 13:31:12 Blood Pressure : / mmHG Vent. Rate : 091 BPM Atrial Rate : 091 BPM P-R Int : 176 ms QRS Dur : 088 ms QT Int : 360 ms P-R-T Axes : 079 036 078 degrees QTc Int : 442 ms Normal sinus rhythm Nonspecific ST abnormality Abnormal ECG Confirmed by JASON HIGHTOWER ([id number]) on 02/25/2024 12:07:03 PM Referred By: Self Referred Confirmed by:JASON HIGHTOWER at [address] [address] PATIENT NAME: LISETH POTTS [facility] 2024-01-15 18:00:00 [facility] ([facility]) EMERGENCY PROVIDER REPORT REPORT#:[id number] REPORT STATUS: Signed DATE:01/15/24 TIME: 1800 PATIENT: LISETH POTTS UNIT #: [id number] ROOM: BED: : 52 AGE: 73 SEX: F PCP PHYS: Eduardo Contreras MD SERVICE AUTHOR: Karlee Moreland INDUSTRIAL DESIGN INTERN REP SRV REP SRV TM: 1800 * ALL edits or amendments must be made on the electronic/computer document * Karlee Moreland 01/15/24 1800: HPI-Extremity Prob Lower General Initial Greet Date/Time 01/15/24 1615 Presentation Chief Complaint Leg problem L Free Text HPI Notes Free Text HPI Notes 73-year-old female with history of diabetes hypercholesterolemia, dementia presents to ER with bilateral lower extremity swelling that the daughter noticed today. Patient is a [facility] went to visit her today and noticed the swelling patient complaining of left leg pain. Denies any injury. Review of Systems ROS Statements All systems rev neg except as marked. Past Medical History - Adult Stated Complaint SWOLLEN KNEE AND ANCKLE AND HIGH SUGAR,HEADACHE Allergies Coded Allergies: No Known Allergies (12/14/21) Home Medications Reported Medications Aspirin 81 MG PO DAILY [BASAGLAR] 20 UNITS SUBQ QAM Nifedipine (Procardia XL) 30 MG DAILY Insulin Aspart (Novolog) 4 UNITS SUBQ TID [Simvastatin] 80 MG PO BEDTIME Ascorbic Acid (Vitamin C) 500 MG PO DAILY Haloperidol (Haldol) 1 MG PO BEDTIME Cholecalciferol (Vitamin D3) (Vitamin D3) 1,000 UNITS PO DAILY Enalapril (Vasotec) 20 MG PO BID Pt reports no significant: Family history, Social history Additional Medical History Diabetes, hypercholesterolemia, dimension Additional Surgical History Cholecystectomy Physical Exam Vital Signs Vital Signs First Documented: Result Date Time Pulse Ox 99 01/14 1803 B/P 130/72 01/14 1803 B/P Mean 91.1 01/14 1803 Temp 36.8 01/14 1803 Pulse 85 01/14 1803 Resp 17 01/14 1803 O2 Delivery Room air 01/15 2008 Last Documented: Result Date Time Pulse Ox 100 01/15 2008 B/P 131/71 01/15 2008 B/P Mean 91 01/15 2008 O2 Delivery Room air 01/15 2008 Temp 37.0 01/15 2008 Pulse 79 01/15 2008 Resp 16 01/15 2008 Review of Vital Signs Reviewed Free Text PE Notes Free Text PE Notes HEAD: Atraumatic/NC, EYES: PERRL, conj clear, ENT: Membranes moist, NECK: Supple, RESP: Lungs clear, no rhonchi no wheezing no rales CVS: Regular rate and rhythm, no murmurs or rubs ABD: Soft/non-tender to palpation, non distended EXT: Left lower leg swelling, no pitting edema, 2+ PT and DP pulses. Right leg no visible swelling, 2+ DP and PT pulses. Cap refill less than 3 seconds SKIN: No rashes, warm/dry, NEURO: alert oriented, NEURO: gross movement NL, PSYCH: NL thought content Interpretation Diagnostics Lab Results Interpretation Results Laboratory Tests 01/15/24 1653: [Embedded Image Not Available] Laboratory Tests: 01/14 01/14 01/14 01/14 1621 1642 1653 1653 Chemistry Sodium (136 - 145 mmol/L) 139 Potassium (3.5 - 5.1 mmol/L) 3.9 Chloride (98 - 107 mmol/L) 104 Carbon Dioxide (20 - 31 mmol/L) 32 H Anion Gap (2.0 - 16.0) 7.3 BUN (9 - 23 mg/dL) 19 Creatinine (0.6 - 1.0 mg/dL) 1.0 Glomerular Filtr Rate (>60 ml/min) 60 BUN/Creatinine Ratio (12.0 - 20.0) 19.0 Glucose (74 - 106 mg/dL) 78 POC Glucose (70 - 105 mg/dL) 114 H Calcium (8.7 - 10.4 mg/dL) 9.9 Total Bilirubin (0.2 - 1.1 mg/dL) 0.5 Direct Bilirubin (0.0 - 0.3 mg/dL) 0.2 Indirect Bilirubin (0.0 - 0.8 mg/dL) 0.3 AST (<34 U/L) 27 ALT (10 - 49 U/L) 20 Total Alk Phosphatase (46 - 116 U/L) 79 B-Natriuretic Peptide (0 - 100 pg/mL) 18 Total Protein (5.7 - 8.2 g/dL) 8.2 Albumin (3.4 - 5.0 g/dL) 4.7 Globulin (2.3 - 3.5 g/dL) 3.5 Lipase (12 - 53 U/L) 39 Hematology WBC (4.5 - 11.0 10 3/uL) 5.4 RBC (3.50 - 5.50 10 6/uL) 4.04 Hgb (12.0 - 16.0 g/dL) 12.8 Hct (37.0 - 55.0 %) 37.7 MCV (81 - 102 fL) 93 MCH (26.0 - 34.0 pg) 31.7 MCHC (31.0 - 37.0 g/dL) 34.0 RDW (11.6 - 14.4 %) 12.2 Plt Count (150 - 400 10 3/uL) 274 MPV (9.0 - 12.6 fL) 10.4 Neut % (Auto) (33.0 - 76.0 %) 53.2 Lymph % (Auto) (14.0 - 56.4 %) 27.5 Buchanan % (Auto) (0.0 - 12.9 %) 15.8 H Eos % (Auto) (0.0 - 7.0 %) 2.0 Baso % (Auto) (0 - 2.0 %) 1.1 Neut # (Auto) (1.5 - 7.0 10 3/uL) 2.87 Lymph # (Auto) (1.50 - 4.00 10 3/uL) 1.48 L Buchanan # (Auto) (0.20 - 0.80 10 3/uL) 0.85 H Eos # (Auto) (0.0 - 0.5 10 3/uL) 0.11 Baso # (Auto) (0.0 - 0.1 10 3/uL) 0.06 Abs Immat Gran (auto) (0.000 - 0.100 0.020 x10 3/uL) Immature Gran % (0.0 - 1.0 %) 0.4 Nucleated RBC % (0 - 0.2 %) 0.0 Nucleated RBCs # (0.000 - 0.012 10 3/uL) 0.000 Urines Urine Color (YELLOW) YELLOW Urine Appearance (CLEAR) CLEAR Urine pH (5.0 - 8.0) 6.0 Ur Specific Cheyenne (1.005 - 1.025) 1.020 Urine Protein (NEGATIVE) NEGATIVE Urine Glucose (UA) (NEGATIVE) 3+ H Urine Ketones (NEGATIVE) NEGATIVE Urine Blood (NEGATIVE) NEGATIVE Urine Nitrite (NEGATIVE) NEGATIVE Urine Bilirubin (NEGATIVE) NEGATIVE Urine Urobilinogen (0.1 - 0.2 EU/dL) NEGATIVE Ur Leukocyte Esterase (NEGATIVE) NEGATIVE Urine RBC (0 - 3 /hpf) 0-2 Urine WBC (0 - 3 /hpf) 0-2 Ur Squamous Epith Cells (FEW /HPF) RARE Urine Bacteria (NEGATIVE /HPF) RARE Hyaline Casts (NONE SEEN /lpf) 2-5 Recent Impressions: RADIOLOGY - XR ANKLE 3 + V LT 01/14 1742 Report Impression - Status: SIGNED Entered: 01/15/20241905 IMPRESSION: See above discussion Impression By: Breana Roe MD RADIOLOGY - XR KNEE 3 V LT 01/14 1742 Report Impression - Status: SIGNED Entered: 01/15/20241905 IMPRESSION: See above discussion Impression By: Breana Roe MD RADIOLOGY - XR CHEST 1 V 01/14 1742 Report Impression - Status: SIGNED Entered: 01/15/20241905 IMPRESSION: See above discussion Impression By: Breana Roe MD ULTRASOUND - DUP VEIN KALEY 01/14 183 Report Impression - Status: SIGNED Entered: 01/15/2024 1840 IMPRESSION: No evidence of deep venous thrombosis in both lower extremities. Impression By: Breana Roe MD CAT SCAN - CT HEAD/BRAIN W/O CONT 01/14 1906 Report Impression - Status: SIGNED Entered: 01/15/2024 192 IMPRESSION: No evidence of acute intracranial hemorrhage. Impression By: [email or web address] - Alla Yang MD Re-Evaluation MDM Free Text MDM Notes Free Text MDM Notes 73-year-old female with history of diabetes hypercholesterolemia, dementia presents to ER with bilateral lower extremity swelling that the daughter noticed today. Patient is a [employer] [place] [facility] went to visit her today and noticed the swelling patient complaining of left leg pain. Denies any injury. Daughter also states she is complaining of a headache for the last month or so intermittently. On exam patient appears in no acute distress. Patient is happy very pleasant. Left lower leg swelling to the knee the left calf and the ankle no pitting edema. 2+ DP and PT pulses. Right leg no visible swelling, ambulatory without difficulty. Full range of motion. Venous Doppler is negative BNP is normal Labs are normal X-ray shows soft tissue swelling otherwise normal CT of the head is normal Follow-up with your doctor the referral doctor in 2 to 3 days. Meloxicam as needed for pain. Rest ice and elevate. Return to emergency room for any further problems. Patient Discharge Departure Vital Signs/Condition Vital Signs First Documented: Result Date Time Pulse Ox 99 01/14 1803 B/P 130/72 01/14 1803 B/P Mean 91.1 01/14 1803 Temp 36.8 01/14 1803 Pulse 85 01/14 1803 Resp 17 01/14 1803 O2 Delivery Room air 01/15 2008 Last Documented: Result Date Time Pulse Ox 100 01/15 2008 B/P 131/71 01/15 2008 B/P Mean 91 01/15 2008 O2 Delivery Room air 01/15 2008 Temp 37.0 01/15 2008 Pulse 79 01/15 2008 Resp 16 01/15 2008 All vital signs available at the time of this entry have been reviewed. Condition Stable, Improved Clinical Impression Clinical Impression Primary Impression: Ankle swelling Secondary Impressions: Knee pain Disposition Decision Discharge )( Discharged to Home Yes )( Time 1937 )( Date 01/15/24 Discharge/Care Plan (Auto) Prescriptions Current Visit Scripts Meloxicam (Mobic) 7.5 MG PO BID Meloxicam (Mobic) 7.5 MG PO BID #12 TABS Patient Instructions ED Home Care For Knee Pain, ED Leg Swelling in Both Legs Additional Instructions Follow-up with your doctor the referral doctor in [address] of the head is normal labs show no heart failure X-ray shows some soft tissue swelling but no fracture Ultrasound shows no blood clot Meloxicam as needed for pain Rest ice and elevate. Return to emergency room for any further problems. Departure Forms [facility] PCP LIST WORK/SCHOOL EXCUSE VARIABLE Discharge Note I have spoken with the patient and/or caregivers. I have explained the patient's condition, diagnoses and treatment plan based on the information available to me at this time. I have answered the patient's and/or caregiver's questions and addressed any concerns. The patient and/or caregivers have as good an understanding of the patient's diagnosis, condition and treatment plan as can be expected at this point. The vital signs have been stable. The patient's condition is stable and appropriate for discharge from the emergency department. The patient will pursue further outpatient evaluation with the primary care physician or other designated or consulting physician as outlined in the discharge instructions. The patient and/or caregivers are agreeable to this plan of care and follow-up instructions have been explained in detail. The patient and/or caregivers have received these instructions in written format and have expressed an understanding of the discharge instructions. The patient and/or caregivers are aware that any significant change in condition or worsening of symptoms should prompt an immediate return to this or the closest emergency department or a call to 911. at [phone] at [phone] [facility] #:[id number] END OF REPORT [facility] 2024-01-15 16:47:00 [id number] [place] [id number] PATIENT NAME: LISETH POTTS ADMIT DATE: 01/15/24 ACCOUNT NO: [id number] ROOM NO: AGE: 73 REPORT TYPE: eELECTROCARDIOGRAM SEX: F ADMITTING PHYSICIAN: ATTENDING PHYSICIAN: Order: [id number] Test Reason : CP Test Date/Time Stamp: ThuJan 15 2024 16:47:10 Blood Pressure : / mmHG Vent. Rate : 084 BPM Atrial Rate : 084 BPM P-R Int : 160 ms QRS Dur : 068 ms QT Int : 360 ms P-R-T Axes : 078 086 058 degrees QTc Int : 425 ms Normal sinus rhythm Normal ECG When compared with ECG of 18-MAR-2023 14:33, No significant change was found Confirmed by MD JULI, CITLALLI ([id number]) on 01/22/2024 1:14:35 PM Referred By: [facility] EDDOC Confirmed by:CITLALLI FREDERICK MD at [address] [address] PATIENT NAME: LISETH POTTS [facility] 2023-03-18 14:33:00 [facility] ([facility]) EMERGENCY PROVIDER REPORT REPORT#:[id number] REPORT STATUS: Signed DATE:03/18/23 TIME: 1433 PATIENT: LISETH POTTS [place] UNIT #: [id number] ROOM: BED: AGE: 73 SEX: F PCP PHYS: Eduardo Contreras MD SERVICE AUTHOR: Mike Mendez MD R2 * ALL edits or amendments must be made on the electronic/computer document * Neo [email or web address] 03/18/23 1433: HPI-General Illness Free Text HPI Notes Free Text HPI Notes 73-year-old lady with past medical history of type 1 diabetes, hypertension, hyperlipidemia, borderline dementia who comes in concern with elevated glucose reading around the 400s at home, low appetite, urinary frequency for the last week. General Initial Greet Date/Time 03/18/23 1425 Presentation Chief Complaint poor apettite, urinary frequency, elevated glucose readings Past Medical History - Adult Stated Complaint high blood sugar Allergies Coded Allergies: No Known Allergies (12/14/21) Home Medications Reported Medications Aspirin 81 MG PO DAILY [BASAGLAR] 20 UNITS SUBQ QAM Nifedipine (Procardia XL) 30 MG DAILY Insulin Aspart (Novolog) 4 UNITS SUBQ TID [Simvastatin] 80 MG PO BEDTIME Ascorbic Acid (Vitamin C) 500 MG PO DAILY Haloperidol (Haldol) 1 MG PO BEDTIME Cholecalciferol (Vitamin D3) (Vitamin D3) 1,000 UNITS PO DAILY Enalapril (Vasotec) 20 MG PO BID Past Medical History: Reports: Diabetes mellitus, Hypertension. Denies: Coronary artery disease. Additional Medical History dm type 1, htn Additional Surgical History gallbladder Physical Exam Vital Signs Vital Signs First Documented: Result Date Time Pulse Ox 98 03/18 1435 B/P 109/70 03/18 1435 B/P Mean 83 03/18 143 O2 Delivery Room air 03/18 143 Temp 37.0 03/18 143 Pulse 73 03/18 1435 Resp 20 03/18 143 Last Documented: Result Date Time Pulse Ox 100 03/18 1614 B/P 139/86 03/18 161 B/P Mean 103 03/18 161 Temp 36.9 03/18 161 Pulse 69 03/18 1614 Resp 20 03/18 161 O2 Delivery Room air 03/18 1435 Review of Vital Signs Reviewed Physical Exam General/Const General/Const Awake, Alert, Well appearing Resp/Chest Respiratory/Chest Atraumatic, Breath sounds NL, Breath sounds = bilat, No respiratory distress Cardiovascular Cardiovascular Heart rate NL, Regular rhythm, Heart sounds NL, No murmurs Abdomen/GI Abdomen/GI Atraumatic, Soft, Non-tender, No guarding Neurologic Neurologic Oriented X3, No motor deficits, No sensory deficits Psychiatric Psychiatric Affect NL Interpretation Diagnostics Lab Results Interpretation Results Laboratory Tests 03/18/23 1448: [Embedded Image Not Available] Laboratory Tests: 03/18 03/18 1448 1528 Blood Gas VBG pH (7.31 - 7.41) 7.294 L VBG pCO2 (41 - 51 mm/Hg) 57.8 H VBG pO2 (30 - 40 mm/Hg) 39.8 VBG HCO3 (23 - 28 mmol/L) 28.1 H VBG O2 Saturation (50 - 80 %) 67.5 VBG Base Excess (-2 - +3 mmol/L) 0.2 Chemistry Sodium (135 - 145 mmol/L) 129 L Potassium (3.5 - 5.1 mmol/L) 4.5 Chloride (98 - 107 mmol/L) 100 Carbon Dioxide (21 - 32 mmol/L) 28 Anion Gap (2.0 - 16.0) 5.5 BUN (4 - 23 mg/dL) 23 Creatinine (0.6 - 1.5 mg/dL) 0.9 Glomerular Filtr Rate (>60 ml/min) >=60 max estimate BUN/Creatinine Ratio (12.0 - 20.0) 25.6 H Glucose (65 - 99 mg/dL) 377 H Calcium (8.5 - 10.1 mg/dL) 9.2 Total Bilirubin (0.2 - 1.2 mg/dL) 0.5 Direct Bilirubin (0.0 - 0.3 mg/dL) 0.2 Indirect Bilirubin (0.0 - 0.8 mg/dL) 0.3 AST (15 - 37 U/L) 22 ALT (6 - 50 U/L) 35 Total Alk Phosphatase (45 - 117 U/L) 76 Troponin I High Sens (0 - 53 pg/mL) 6 Total Protein (6.4 - 8.2 g/dL) 7.6 Albumin (3.4 - 5.0 g/dL) 3.7 Globulin (2.3 - 3.5 g/dL) 3.9 H Hematology WBC (4.5 - 11.0 10 3/uL) 4.5 RBC (3.50 - 5.50 10 6/uL) 4.02 Hgb (12.0 - 16.0 g/dL) 12.5 Hct (37.0 - 55.0 %) 37.6 MCV (81 - 102 fL) 94 MCH (26.0 - 34.0 pg) 31.1 MCHC (31.0 - 37.0 g/dL) 33.2 RDW (11.6 - 14.4 %) 11.7 Plt Count (150 - 400 10 3/uL) 263 Toxicology Acetone, Qual (NEGATIVE) NEGATIVE Urines Urine Color (YELLOW) YELLOW Urine Appearance (CLEAR) CLEAR Urine pH (5.0 - 8.0) 6.0 Ur Specific Cheyenne (1.005 - 1.025) 1.024 Urine Protein (NEGATIVE) NEGATIVE Urine Glucose (UA) (NEGATIVE) 3+ H Urine Ketones (NEGATIVE) NEGATIVE Urine Blood (NEGATIVE) NEGATIVE Urine Nitrite (NEGATIVE) NEGATIVE Urine Bilirubin (NEGATIVE) NEGATIVE Urine Urobilinogen (0.1 - 0.2 EU/dL) NEGATIVE Ur Leukocyte Esterase (NEGATIVE) NEGATIVE Urine RBC (0 - 3 /hpf) 0-2 Urine WBC (0 - 3 /hpf) 0-2 Ur Squamous Epith Cells (FEW /HPF) RARE Urine Bacteria (NEGATIVE /HPF) RARE Lab Statement Laboratory studies reviewed and considered in the medical decision-making. Re-Evaluation MDM Free Text MDM Notes Additional Text 73-year-old lady with past medical history of type 1 diabetes, hypertension, hyperlipidemia, borderline dementia who comes in concern with elevated glucose reading around the 400s at home, low appetite, urinary frequency for the last week. Patient refers she has been consistently take her home medicines including the insulin without skipping doses, she frequently feels hungry but is unable to eat a lot because of fullness. Also described losing 14 pounds in a few months due to poor appetite, having polyuria and urine incontinence. Denies having fever, chills, nausea, vomiting, diarrhea. #Hyperglycemia Readings at home has been over 300 for the last week. After carefull evaluation, I was able to rule out DKA, UTI, MATT, active infection, electrolyte imbalances, OK. This seems to be a case of uncontrolled diabetes without complications. Recommend patient to follow up with PCP for further care of diabetes. ED Course Medication(s) Ordered Medication(s) Ordered: Electrolytic, Caloric, And Jackie Sig/Dima Start time Last Medication Dose Route Stop Time Status Admin Sodium Chloride 1,000 ML X1ED STA 03/18 1545 CAN IV 03/18 1644 Patient Discharge Departure Vital Signs/Condition Vital Signs First Documented: Result Date Time Pulse Ox 98 03/18 1435 B/P 109/70 03/18 1435 B/P Mean 83 03/18 1435 O2 Delivery Room air 03/18 143 Temp 37.0 03/18 143 Pulse 73 03/18 1435 Resp 20 03/18 1435 Last Documented: Result Date Time Pulse Ox 100 03/18 1614 B/P 139/86 03/18 1614 B/P Mean 103 03/18 1614 Temp 36.9 03/18 161 Pulse 69 03/18 1614 Resp 20 03/18 1614 O2 Delivery Room air 03/18 1435 All vital signs available at the time of this entry have been reviewed. Clinical Impression Clinical Impression Primary Impression: Hyperglycemia due to diabetes mellitus Disposition Decision Discharge )( Discharged to Home Yes )( Time 1613 )( Date 03/18/23 Discharge/Care Plan Patient Instructions ED Diabetes with High Blood Sugar Discharge Note I have spoken with the patient and/or caregivers. I have explained the patient's condition, diagnoses and treatment plan based on the information available to me at this time. I have answered the patient's and/or caregiver's questions and addressed any concerns. The patient and/or caregivers have as good an understanding of the patient's diagnosis, condition and treatment plan as can be expected at this point. The vital signs have been stable. The patient's condition is stable and appropriate for discharge from the emergency department. The patient will pursue further outpatient evaluation with the primary care physician or other designated or consulting physician as outlined in the discharge instructions. The patient and/or caregivers are agreeable to this plan of care and follow-up instructions have been explained in detail. The patient and/or caregivers have received these instructions in written format and have expressed an understanding of the discharge instructions. The patient and/or caregivers are aware that any significant change in condition or worsening of symptoms should prompt an immediate return to this or the closest emergency department or a call to 911. Free Text Depart Notes Free Text Depart Notes After careful evaluation of physical exam, clinical condition and laboratories found concern for hyperglycemia due to uncontrolled diabetes, but was able to rule out DKA, electrolyte imbalance, acute kidney damage, urinary tract infection. Noticed pseudohyponatremia, glucose in the urine. I recommend to follow-up with PCP for insulin doses adjustment. Come back to the ER if symptoms get worse, and if you start having abdominal pain, along with nausea and vomiting. Brandy Lees 03/18/23 1619: Patient Discharge Departure Discharge/Care Plan Additional Instructions You have been seen in the Emergency Department for hyperglycemia due to diabetes. After a thorough evaluation, including labs and urinalsyis, there is evidence that your symptoms are being caused by high blood glucose.It is important that you follow up with your primary care physician for further evaluation and management within 3-5 day. Please take the medications as prescribed and continue to take your home medications. Return to the emergency department if you have any new or worsening symptoms. We are available 24 hours a day and would be glad to reevaluate you at any time if you have new concerns. Discharge Note I have spoken with the patient and/or caregivers. I have explained the patient's condition, diagnoses and treatment plan based on the information available to me at this time. I have answered the patient's and/or caregiver's questions and addressed any concerns. The patient and/or caregivers have as good an understanding of the patient's diagnosis, condition and treatment plan as can be expected at this point. The vital signs have been stable. The patient's condition is stable and appropriate for discharge from the emergency department. The patient will pursue further outpatient evaluation with the primary care physician or other designated or consulting physician as outlined in the discharge instructions. The patient and/or caregivers are agreeable to this plan of care and follow-up instructions have been explained in detail. The patient and/or caregivers have received these instructions in written format and have expressed an understanding of the discharge instructions. The patient and/or caregivers are aware that any significant change in condition or worsening of symptoms should prompt an immediate return to this or the closest emergency department or a call to 911. Supervising Physician Note Resident Saw Pt This patient was seen by a resident. I have personally seen the patient, performed the critical or figueroa portions of the service, and participated in the management of the patient. I have reviewed and agree with the resident's note, and I have reviewed all labs, ECGs, and imaging studies or reports. I agree with this resident's findings, exam and plan. 73-year-old female presenting to the ED with hyperglycemia reportedly to be 400s at home, decreased appetite, increased urinary frequency. History of diabetes, HTN, HLD, dementia. Exam reassuring, NAD, CTABL, RRR, moves all 4 extremities Labs reviewed. VBG without significant acidosis or hypercapnia bicarb 28, glucose 377 normal anion gap, chemistry otherwise unremarkable normal renal function, negative acetone negative ketones urine without evidence of infection. Treated with 1 L IV fluids in the ED with improvement Patient asymptomatic on reevaluation. Stable for discharge with close outpatient follow-up for her hyperglycemia. at 1643 at 0944 [facility] #:[id number] END OF REPORT [facility] 2023-03-18 14:33:00 [id number] [place] [address] PATIENT NAME: RAOUL LANDRYLISETH KEATON ADMIT DATE: 03/18/23 ACCOUNT NO: [id number] ROOM NO: AGE: 73 REPORT TYPE: eELECTROCARDIOGRAM SEX: F ADMITTING PHYSICIAN: ATTENDING PHYSICIAN: Order: [id number] Test Reason : Test Date/Time Stamp: ThuMar 18 2023 14:33:23 Blood Pressure : / mmHG Vent. Rate : 069 BPM Atrial Rate : 069 BPM P-R Int : 180 ms QRS Dur : 078 ms QT Int : 372 ms P-R-T Axes : 087 054 081 degrees QTc Int : 398 ms Normal sinus rhythm Nonspecific T wave abnormality Abnormal ECG When compared with ECG of 29-MAY-2022 09:37, PREVIOUS ECG IS PRESENT Confirmed by NAINA TOMLIN ([id number]) on 04/20/2023 12:32:17 PM Referred By: Self Referred Confirmed by:NAINA TOMLIN at [address] [address] PATIENT NAME: RAOUL LANDRYLISETH [facility] 2022-05-30 13:12:00 [facility] Med Order Sheet REPORT #: [id number] REPORT STATUS: Signed DATE: 05/30/22 TIME: 1312 PATIENT: LISETH POTTS UNIT #: [id number] ROOM #: NC.3102 BED: 1 : 52 AGE: 72 SEX: F ATTEND: Ilda Garay MD ADM AUTHOR: Ilda Garay MD ATTENTION *EDITS and/or ADDENDA must be made in Patient Keeper for this note. * * Edits and ammendments created in [employer] are not visible * * in Patient Keeper or the legal medical record (HPF). * Discharge Medication Reconciliation DISCHARGE MEDICATION LIST Ascorbic Acid Tab (Vitamin C Tab) Dose: 500 MG PO DAILY Aspirin Chewable Tab (Aspirin Chewable Tab) Dose: 81 MG PO DAILY BASAGLAR Dose: 20 UNITS SUBQ QAM Enalapril Maleate tab (enalapril maleate) Dose: 20 MG PO BID Haloperidol Tab (Haldol Tab) Dose: 1 MG PO BEDTIME Insulin Aspart Inj (NF) (NovoLOG Inj (NF)) Dose: 4 UNITS SUBQ TID - WITH MEALS NIFEdipine XL Tab (Procardia XL Tab) Dose: 30 MG oral DAILY Simvastatin Dose: 80 MG PO BEDTIME Vitamin D3 capsule (cholecalciferol (vitamin D3)) Dose: 1000 UNITS PO DAILY STOPPED HOSPITAL MEDICATIONS Dc'd: Atorvastatin Tab (Lipitor Tab) 40MG PO DAILYDc'd: Dextrose Chewable Tab (Glucose Chewable Tab) 16GM PO ASDIR PRN hypoglycemia protocolDc'd: Glucagon Inj (Glucagon Inj) 1MG IV ASDIR PRN hypoglycemiaDc'd: Insulin (Glargine) Inj (Lantus Inj) 20UNITS SUBQ DAILY at 1312 ATTENTION *EDITS and/or ADDENDA must be made in Patient Keeper for this note. * * Edits and ammendments created in [employer] are not visible * * in Patient Keeper or the legal medical record (HPF). * RPT #: [id number] END OF REPORT [facility] 2022-05-30 13:12:00 [facility] Internal Med. D/C Summary REPORT #: [id number] REPORT STATUS: Signed DATE: 05/30/22 TIME: 1312 PATIENT: LISETH POTTS UNIT #: [id number] ROOM #: [id number] BED: 1 : 52 AGE: 72 SEX: F ATTEND: Ilda Garay MD ADM AUTHOR: Ilda Garay MD ATTENTION *EDITS and/or ADDENDA must be made in Patient Keeper for this note. * * Edits and ammendments created in [employer] are not visible * * in Patient Keeper or the legal medical record (HPF). * -- PROBLEMS/PROCEDURES -- ADMISSION DATE: 05/29/22 ADMITTING DIAGNOSES: - Chest pain - HTN (hypertension) - Nausea - Type 2 diabetes mellitus with hyperglycemia DISCHARGE DATE: 05/30/22 DISCHARGE DIAGNOSES: - Chest pain - HTN (hypertension) - Nausea - Type 2 diabetes mellitus with hyperglycemia -- HOSPITAL COURSE -- HOSPITAL COURSE: HPI: PATIENT IS A 72 Y/O F W/ PMHX OF DMII, HTN PRESENTING TO [facility] ED WITH WORSENING GLUCOSE READINGS. PER FAMILY SUGAR READINGS HAVE BEEN ACUTELY IN THE 400 TO 600S. PATIENT HAVING ASSOCIATED NAUSEA WELL AND WEAKNESS AND CHEST PAINS. CONCERNS TODAY WERE THE FACT HOME SUGAR READINGS NOTED TO BE SO HIGH THAT UNABLE TO CALCULATE ON GLUCOMETER SO BROUGHT TO ED. IN THE ED LABS STABLE , TROPONINS STABLE, STABLE EKG BUT NOTED ELEVATED SUGAR READINGS. ALL OTHER LABS STABLE AND NO CONCERNS FOR DKA. HOWEVER, CONCERNS FOR ELEVATED SUGAR READINGS AND UNKNOWN CAUSE FOR HIGH BLOOD SUGAR READINGS PATIENT ADMITTED TO MONITOR HOSPITAL COURSE: 1. Type 2 diabetes mellitus with hyperglycemia A/P: PATIENT , PER DAUGHTER, AT TIMES NON COMPLIANT WITH DIET AND ADMINISTERING HER INSULIN. SHE HAS UNDERLYING PROGRESSIVE DEMENTIA. NEEDS TO HAVE TIGHTER CONTROL OF DIET AND COMPLIANCE WITH INSULIN. DAUGHTER UNDERSTANDS. WILL MONITOR SUGARS AND PLANS TO D/C ON CONT LONG ACTING INSULIN AND MEAL TIME INSULIN 2. Chest pain A/P: 2/2 TO INC ANXIETY, STABLE NOW 3. HTN (hypertension) A/P: RESUME HOME BP MEDS 4. Nausea A/P: 2/2 TO HYPERGLYCEMIA. STABLE NOW WITH BETTER GLYCEMIC CONTROL ON SSI -- DISCHARGE MEDICATIONS -- ALLERGIES: No Known Allergies (UNKNOWN - Allergy) DISCHARGE MEDICATIONS: Please refer to Discharge Medication list for a complete list of discharge medications Ascorbic Acid Tab (Vitamin C Tab) 500 MG PO DAILY Aspirin Chewable Tab (Aspirin Chewable Tab) 81 MG PO DAILY BASAGLAR 20 UNITS SUBQ QAM BASAGLAR Enalapril Maleate tab (enalapril maleate) 20 MG PO BID Haloperidol Tab (Haldol Tab) 1 MG PO BEDTIME Insulin Aspart Inj (NF) (NovoLOG Inj (NF)) 4 UNITS SUBQ TID (WITH MEALS) NIFEdipine XL Tab (Procardia XL Tab) 30 MG oral DAILY Simvastatin 80 MG PO BEDTIME Simvastatin Vitamin D3 capsule (cholecalciferol (vitamin D3)) 1000 UNITS PO DAILY -- DISCHARGE INSTRUCTIONS -- PK DISCHARGE ORDERS: Discharge w/Instructions 2021.1 (No Wilner) In 1-2 weeks; WALT KING MD; PCP Follow-Up Details: Discharge to:: Home/Self Care Diet:: Diabetic, Cardiac Activity:: Resume Normal Activity, As Tolerated PCP follow up timeframe:: In 1-2 weeks PCP:: WALT KING MD Details: DC Order - No eCQM 2019.2 ADDTIONAL DISCHARGE INSTRUCTIONS: Emergency Instructions: The patient was instructed to present to the nearest Emergency Department or call 911 should their symptoms return or worsen.; -- OBJECTIVE -- VITALS (05/29 13:12 - 05/30 13:12): Temperature C: 36.8 (36.6 - 37.1) Temperature source: Oral Pulse Rate 57 (57 - 76) Respiratory rate: 18 (14 - 19) BP: 103/62 (93/47 - 121/64) I/Os (05/29 07:00 - 05/30 07:00): Net 350 Intake 350 -EXAM- GENERAL: Well developed, well nourished, in no apparent distress. HEAD: Normocephalic, atraumatic. EYES: PERRL, EOM intact, conjunctiva and sclera clear, without nystagmus, lids normal. NOSE: No deformity, no discharge, no inflammation, no lesions. MOUTH: Oropharynx without deformities or lesions, normal mucosa.. NECK: No masses, no thyromegaly, no abnormal cervical nodes, trachea midline. CHEST: Grossly normal appearance. LUNGS: Clear bilaterally with normal respiratory effort. HEART: Regular rate and rhythm, normal S1, S2, no murmurs, no rubs, no gallops, no clicks. ABDOMEN: Soft, non-tender, no organomegaly, no masses noted. MUSCULOSKELETAL: No deformity, no scoliosis noted of thoracic or lumbar spine, joint ROM grossly normal, normal gait and station. EXTREMITIES: No clubbing, no cyanosis, no edema. NEUROLOGICAL: No focal deficits, cranial nerves II-XII grossly intact, normal sensation, normal reflexes, normal coordination, normal muscle strength, normal tone. PULSES: Pulses normal in all extremities. SKIN: Intact without significant lesions, or rashes. -- DATA -- LABS GLU BED (05/30/22 11:42) GLUBED 248 H GLU BED (05/30/22 07:59) GLUBED 200 H LIPID PROFILE (CORONARY RISK) (05/30/22 05:11) TRIGLYCERIDES 36 CHOLESTEROL 126 CHOLESTEROL/HDL RATIO 2 HDL CHOLESTEROL 64 H LIPOPROTEIN LDL 55 CBC W/AUTO DIFF (05/30/22 05:11) WHITE BLOOD CELL 5.2 RED BLOOD CELL 3.22 L HEMOGLOBIN 9.5L L HEMATOCRIT 29.8L L MEAN CELL VOLUME 93 MEAN CELL HGB 29.5 MEAN CELL HGB CONCENTRATION 31.9 RED CELL DISTRIBUTION WIDTH 11.8 PLATELET COUNT 221 MEAN PLATELET VOLUME 10.7 NEUTROPHIL % 54.6 IMMATURE GRANULOCYTE % 0.2 LYMPHOCYTE % 28.7 MONOCYTE % 12.6 EOSINOPHIL % 2.9 BASOPHIL % 1.0 NUCLEATED RBC % 0.0 NEUTROPHIL # 2.85 IMMATURE GRANULOCYTE # 0.010 LYMPHOCYTE # 1.50 MONOCYTE # 0.66 EOSINOPHIL # 0.15 BASOPHIL # 0.05 NUCLEATED RBC # 0.000 COMPREHENSIVE METABOLIC PANEL (05/30/22 05:11) SODIUM 138 POTASSIUM 4.2 CHLORIDE 106 CARBON DIOXIDE 27 ANION GAP 9.2 D GLUCOSE 201H H BLOOD UREA NITROGEN 15 GLOMERULAR FILTRATION RATE >=60 max estimate CREATININE 1.0 BUN/CREATININE RATIO 15.0 TOTAL PROTEIN 6.0 L ALBUMIN 3.0 L CALCIUM 8.4 L BILIRUBIN TOTAL 0.5 SGOT/AST 19 SGPT/ALT 19 ALKALINE PHOSPHATASE 49 HGBA1C - GLYCOSYLATED HGB (05/30/22 05:11) GLYCOSYLATED HEMOGLOBIN (HA1C) 8.0 H GLU BED (05/29/22 20:36) GLUBED 383 H GLU BED (05/29/22 15:45) GLUBED 173 H GLU BED (05/29/22 14:06) GLUBED 216 H COVID 19 INH AG (05/29/22 13:48) COVID 19 INHOUSE AG NEGATIVE -- ATTESTATION -- TIME SPENT ON PATIENT CARE: - Direct 10 minutes - Counseling 10 minutes - Coordination of care 10 minutes - Discharge planning 15 minutes - > 50% of time spent on Counseling/Care Coordination CARE ACTIVITIES / CARE COORDINATION: - I have reviewed the history and repeated the figueroa elements - I have seen and examined this patient - I have reviewed the progress in the clinical course since the last examination - I have discussed the patient's condition with other members of the care team Signed in PatientKeeper by Ilda Garay MD on 06/26/22 at 00:29 at 0029 ATTENTION *EDITS and/or ADDENDA must be made in Patient Keeper for this note. * * Edits and ammendments created in [facility] are not visible * * in Patient Keeper or the legal medical record (HPF). * [facility] #: [id number] END OF REPORT [facility] 2022-05-29 21:10:00 [facility]) Internal Med. H P REPORT #: [id number] REPORT STATUS: Signed DATE: 05/29/22 TIME: 2109 PATIENT: LISETH POTTS UNIT #: [id number] ROOM #: [id number] BED: 1 : 52 AGE: 72 SEX: F ATTEND: Ilda Garay MD ADM AUTHOR: Ilda Garay MD ATTENTION *EDITS and/or ADDENDA must be made in Patient Keeper for this note. * * Edits and ammendments created in [employer] are not visible * * in Patient Keeper or the legal medical record (HPF). * -- HISTORY -- ADMISSION DATE: 2022-05-29 PRIMARY CARE PROVIDER: Eduardo Contreras MD CHIEF COMPLAINT: HYPERGLYCEMIA WITH NAUSEA HPI: PATIENT IS A 72 Y/O F W/ PMHX OF DMII, HTN PRESENTING TO [facility] ED WITH WORSENING GLUCOSE READINGS. PER FAMILY SUGAR READINGS HAVE BEEN ACUTELY IN THE 400 TO 600S. PATIENT HAVING ASSOCIATED NAUSEA WELL AND WEAKNESS AND CHEST PAINS. CONCERNS TODAY WERE THE FACT HOME SUGAR READINGS NOTED TO BE SO HIGH THAT UNABLE TO CALCULATE ON GLUCOMETER SO BROUGHT TO ED. IN THE ED LABS STABLE , TROPONINS STABLE, STABLE EKG BUT NOTED ELEVATED SUGAR READINGS. ALL OTHER LABS STABLE AND NO CONCERNS FOR DKA. HOWEVER, CONCERNS FOR ELEVATED SUGAR READINGS AND UNKNOWN CAUSE FOR HIGH BLOOD SUGAR READINGS PATIENT ADMITTED TO MONITOR PAST MEDICAL HISTORY: DMII, HTN, HLD PAST SURGICAL HISTORY: CHOLECYSTECTOMY FAMILY HISTORY: NON CONTRIBUTORY -SOCIAL HISTORY- -TOBACCO USE- DETAILS/COMMENTS: DENIES -VAPING/INHALED SOLVENTS- DETAILS/COMMENTS: DENIES -ALCOHOL USE- DETAILS/COMMENTS: DENIES -DRUG USE- DETAILS/COMMENTS: DENIES -- ALLERGIES/HOME MEDS -- ALLERGIES: No Known Allergies (UNKNOWN - Allergy) HOME MEDICATIONS: Ascorbic Acid Tab (Vitamin C Tab) 500 MG PO DAILY Aspirin Chewable Tab (Aspirin Chewable Tab) 81 MG PO DAILY Enalapril Maleate tab (enalapril maleate) 20 MG PO BID Haloperidol Tab (Haldol Tab) 1 MG PO BEDTIME Insulin Aspart Inj (NF) (NovoLOG Inj (NF)) 4 UNITS SUBQ TID Med Rec Order Def 16 UNITS INJ QAM Med Rec Order Def 80 MG PO BEDTIME NIFEdipine XL Tab (Procardia XL Tab) 30 MG oral DAILY Vitamin D3 capsule (cholecalciferol (vitamin D3)) 1000 UNITS PO DAILY -- SUBJECTIVE -- -REVIEW OF SYSTEMS- GENERAL: Negative for fever, malaise, fatigue. EYES: Negative for blurry vision. No diplopia. EARS/NOSE/THROAT: Negative for sore throat. No otalgia. No rhinorrhea. RESPIRATORY: Negative for dyspnea or wheeze. No cough. CARDIOVASCULAR: POSITIVE for chest pain , NO palpitations. No extremity swelling. GASTROINTESTINAL: Negative for abdominal pain POSITIVE nausea. No emesis. No diarrhea. GENITOURINARY: Negative for dysuria, frequency, or urgency. No gross hematuria. MUSCULOSKELETAL: Negative for joint stiffness, pain, or arthralgias. SKIN: Negative for rashes. No pruritus. NEUROLOGICAL: Negative for headache. No vertigo. Denies paresthesias. COMMENT: REST PER HPI, ALL OTHER SYSTEMS NEG UPON 12PT ROS -- OBJECTIVE -- VITALS (05/28 21:10 - 05/29 21:10): Temperature C: 37.0 (36.7 - 37.0) Pulse Rate 76 (73 - 88) Respiratory rate: 16 (14 - 27) BP: 121/64 (98/48 - 139/71) -EXAM- GENERAL: Well developed, well nourished, in no apparent distress. HEAD: Normocephalic, atraumatic. EYES: PERRL, EOM intact, conjunctiva and sclera clear, without nystagmus, lids normal. NOSE: No deformity, no discharge, no inflammation, no lesions. MOUTH: Oropharynx without deformities or lesions, normal mucosa.. NECK: No masses, no thyromegaly, no abnormal cervical nodes, trachea midline. CHEST: Grossly normal appearance. LUNGS: Clear bilaterally with normal respiratory effort. HEART: Regular rate and rhythm, normal S1, S2, no murmurs, no rubs, no gallops, no clicks. ABDOMEN: Soft, non-tender, no organomegaly, no masses noted. MUSCULOSKELETAL: No deformity, no scoliosis noted of thoracic or lumbar spine, joint ROM grossly normal, normal gait and station. EXTREMITIES: No clubbing, no cyanosis, no edema. NEUROLOGICAL: No focal deficits, cranial nerves II-XII grossly intact, normal sensation, normal reflexes, normal coordination, normal muscle strength, normal tone. PULSES: Pulses normal in all extremities. SKIN: Intact without significant lesions, or rashes. -- DATA -- LABS GLU BED (05/29/22 20:36) GLUBED 383 H GLU BED (05/29/22 15:45) GLUBED 173 H GLU BED (05/29/22 14:06) GLUBED 216 H COVID 19 INH AG (05/29/22 13:48) COVID 19 INHOUSE AG NEGATIVE GLU BED (05/29/22 12:26) GLUBED 289 H POC VENOUS BLOOD GAS (05/29/22 09:54) POC VENOUS BLOOD GAS PH 7.319 L POC VENOUS BLOOD GAS PCO2 38.3 POC VENOUS BLOOD GAS PO2 81.8 POC HCO3 VENOUS 19.7 L POC BASE EXCESS VENOUS -5.9 L POC O2 SATURATION VENOUS 95.1 H O2 CONTENT 20.9 POC SAMPLE SOURCE Venous CBC W/AUTO DIFF (05/29/22 09:35) WHITE BLOOD CELL 6.7 RED BLOOD CELL 4.00 HEMOGLOBIN 12.4 HEMATOCRIT 37.5 MEAN CELL VOLUME 94 MEAN CELL HGB 31.0 MEAN CELL HGB CONCENTRATION 33.1 RED CELL DISTRIBUTION WIDTH 11.5 L PLATELET COUNT 239 MEAN PLATELET VOLUME 10.5 NEUTROPHIL % 90.1 H IMMATURE GRANULOCYTE % 0.4 LYMPHOCYTE % 6.6 L MONOCYTE % 1.3 EOSINOPHIL % 0.9 BASOPHIL % 0.7 NUCLEATED RBC % 0.0 NEUTROPHIL # 6.00 IMMATURE GRANULOCYTE # 0.030 LYMPHOCYTE # 0.44 L MONOCYTE # 0.09 L EOSINOPHIL # 0.06 BASOPHIL # 0.05 NUCLEATED RBC # 0.000 UA RFLX MICR amp;CULT IF INDICATED (05/29/22 09:20) UA COLOR STRAW UA APPEARANCE CLEAR UA GLUCOSE DIPSTICK 3+ H UA BILIRUBIN DIPSTICK NEGATIVE UA KETONE DIPSTICK 1+ H UA SPECIFIC GRAVITY 1.024 UA BLOOD DIPSTICK NEGATIVE UA PH DIPSTICK 5.0 UA PROTEIN DIPSTICK 1+ H UA UROBILINOGEN DIPSTICK NEGATIVE UA NITRITE DIPSTICK NEGATIVE UA LEUKOCYTE ESTERASE DIPSTICK NEGATIVE UA MICROSCOPIC NEEDED? YES H UA WBC 0-2 UA RBC 0-2 UA BACTERIA NONE SEEN UA SQUAMOUS CELLS None seen UA MUCUS OCCASIONAL GLU BED (05/29/22 08:39) GLUBED 474 *H UA RFLX MICR amp;CULT IF INDICATED (05/29/22 09:20) UA COLOR STRAW UA APPEARANCE CLEAR UA GLUCOSE DIPSTICK 3+ H UA BILIRUBIN DIPSTICK NEGATIVE UA KETONE DIPSTICK 1+ H UA SPECIFIC GRAVITY 1.024 UA BLOOD DIPSTICK NEGATIVE UA PH DIPSTICK 5.0 UA PROTEIN DIPSTICK 1+ H UA UROBILINOGEN DIPSTICK NEGATIVE UA NITRITE DIPSTICK NEGATIVE UA LEUKOCYTE ESTERASE DIPSTICK NEGATIVE UA MICROSCOPIC NEEDED? YES H UA WBC 0-2 UA RBC 0-2 UA BACTERIA NONE SEEN UA SQUAMOUS CELLS None seen UA MUCUS OCCASIONAL COMPREHENSIVE METABOLIC PANEL (05/29/22 09:35) SODIUM 135 POTASSIUM 4.4 CHLORIDE 102 CARBON DIOXIDE 20L L ANION GAP 17.4 H GLUCOSE 463*H *H BLOOD UREA NITROGEN 17 GLOMERULAR FILTRATION RATE 44 L CREATININE 1.3D D BUN/CREATININE RATIO 13.1 TOTAL PROTEIN 7.6 ALBUMIN 3.7 CALCIUM 9.4 BILIRUBIN TOTAL 1.1 SGOT/AST 31 SGPT/ALT 27 ALKALINE PHOSPHATASE 65 POC VENOUS BLOOD GAS (05/29/22 09:54) POC VENOUS BLOOD GAS PH 7.319 L POC VENOUS BLOOD GAS PCO2 38.3 POC VENOUS BLOOD GAS PO2 81.8 POC HCO3 VENOUS 19.7 L POC BASE EXCESS VENOUS -5.9 L POC O2 SATURATION VENOUS 95.1 H O2 CONTENT 20.9 POC SAMPLE SOURCE Venous GLU BED (05/29/22 12:26) GLUBED 289 H TROP-I HIGH SEN (05/29/22 09:35) TROP-I HIGH SENSITIVITY 8 LIP (05/29/22 09:35) LIPASE 109 CBC W/AUTO DIFF (05/29/22 09:35) WHITE BLOOD CELL 6.7 RED BLOOD CELL 4.00 HEMOGLOBIN 12.4 HEMATOCRIT 37.5 MEAN CELL VOLUME 94 MEAN CELL HGB 31.0 MEAN CELL HGB CONCENTRATION 33.1 RED CELL DISTRIBUTION WIDTH 11.5 L PLATELET COUNT 239 MEAN PLATELET VOLUME 10.5 NEUTROPHIL % 90.1 H IMMATURE GRANULOCYTE % 0.4 LYMPHOCYTE % 6.6 L MONOCYTE % 1.3 EOSINOPHIL % 0.9 BASOPHIL % 0.7 NUCLEATED RBC % 0.0 NEUTROPHIL # 6.00 IMMATURE GRANULOCYTE # 0.030 LYMPHOCYTE # 0.44 L MONOCYTE # 0.09 L EOSINOPHIL # 0.06 BASOPHIL # 0.05 NUCLEATED RBC # 0.000 GLU BED (05/29/22 08:39) GLUBED 474 *H LIPID PROFILE (CORONARY RISK) (05/30/22 05:11) TRIGLYCERIDES 36 CHOLESTEROL 126 CHOLESTEROL/HDL RATIO 2 HDL CHOLESTEROL 64 H LIPOPROTEIN LDL 55 HGBA1C - GLYCOSYLATED HGB (05/30/22 05:11) GLYCOSYLATED HEMOGLOBIN (HA1C) 8.0 H TEST RESULTS XR CHEST 1 V (05/29/22 08:50) IMPRESSION: Hyperinflation lungs may indicate underlying COPD. Otherwise no active disease in the chest. -- ASSESSMENT AND PLAN -- PROBLEMS: 1: Type 2 diabetes mellitus with hyperglycemia A/P: PATIENT , PER DAUGHTER, AT TIMES NON COMPLIANT WITH DIET AND ADMINISTERING HER INSULIN. SHE HAS UNDERLYING PROGRESSIVE DEMENTIA. NEEDS TO HAVE TIGHTER CONTROL OF DIET AND COMPLIANCE WITH INSULIN. DAUGHTER UNDERSTANDS. WILL MONITOR SUGARS AND PLANS TO D/C ON CONT LONG ACTING INSULIN AND MEAL TIME INSULIN 2: Chest pain A/P: 2/2 TO INC ANXIETY, STABLE NOW 3: HTN (hypertension) A/P: RESUME HOME BP MEDS 4: Nausea A/P: 2/2 TO HYPERGLYCEMIA. STABLE NOW WITH BETTER GLYCEMIC CONTROL ON SSI -- ATTESTATION -- TIME SPENT ON PATIENT CARE: - Direct 15 minutes - Counseling 15 minutes - Coordination of Care 15 minutes - > 50% of time spent on Counseling/Care Coordination CARE ACTIVITIES / CARE COORDINATION: - I have reviewed the history and repeated the figueroa elements - I have seen and examined this patient - I have discussed the patient's condition with other members of the care team Signed in PatientKeeper by Idla Garay MD on 05/30/22 at 13:10 at 1310 ATTENTION *EDITS and/or ADDENDA must be made in Patient Keeper for this note. * * Edits and ammendments created in [place] [facility] are not visible * * in Patient Keeper or the legal medical record (HPF). * [facility] #: [id number] END OF REPORT [facility] 2022-05-29 20:49:00 [facility] Med Order Sheet REPORT #: [id number] REPORT STATUS: Signed DATE: 05/29/22 TIME: 2048 PATIENT: LISETH POTTS UNIT #: [id number] ROOM #: [place] [address] BED: 1 : 52 AGE: 72 SEX: F ATTEND: Ilda Garay MD ADM AUTHOR: Ilda Garay MD ATTENTION *EDITS and/or ADDENDA must be made in Patient Keeper for this note. * * Edits and ammendments created in [employer] are not visible * * in Patient Keeper or the legal medical record (HPF). * Admission Medication Reconciliation -- CONTINUED / CHANGED HOME MEDICATIONS -- Home: Ascorbic Acid Tab (Vitamin C Tab) 500 MG PO DAILY Hosp: Ascorbic Acid Tab (Vitamin C Tab) 500 MG PO DAILY Home: Aspirin Chewable Tab (Aspirin Chewable Tab) 81 MG PO DAILY Hosp: Aspirin Chewable Tab (Aspirin Chewable Tab) 81 MG PO DAILY Home: Basaglar kwikpen 16 UNITS INJ QAM Hosp: Insulin (Glargine) Inj (Lantus Inj) 20 UNITS SUBQ starting in am Tomorrow ASDIR Home: Enalapril Maleate tab (enalapril maleate) 20 MG PO BID Hosp: Enalapril Tab (Vasotec Tab) 20 MG PO BID Home: NIFEdipine XL Tab (Procardia XL Tab) 30 MG oral DAILY Hosp: NIFEdipine XL Tab (Procardia XL Tab) 30 MG oral DAILY Home: Simvastatin 80 MG PO BEDTIME Hosp: Atorvastatin Tab (Lipitor Tab) 40 MG PO DAILY Home: Vitamin D3 capsule (cholecalciferol (vitamin D3)) 1000 UNITS PO DAILY Hosp: Vitamin D3 capsule (cholecalciferol (vitamin D3)) 1000 UNITS PO DAILY -- STOPPED HOME MEDICATIONS -- Home: Haloperidol Tab (Haldol Tab) 1 MG PO BEDTIME Home: Insulin Aspart Inj (NF) (NovoLOG Inj (NF)) 4 UNITS SUBQ TID (WITH MEALS) at 2049 ATTENTION *EDITS and/or ADDENDA must be made in Patient Keeper for this note. * * Edits and ammendments created in [employer] are not visible * * in Patient Keeper or the legal medical record (HPF). * [facility] #: [id number] END OF REPORT [facility] 2022-05-29 09:37:00 [id number] [place] [id number] [facility] [address] PATIENT NAME: LISETH POTTS ADMIT DATE: 05/29/22 ACCOUNT NO: [id number] ROOM NO: [id number] AGE: 72 REPORT TYPE: eELECTROCARDIOGRAM SEX: F ADMITTING PHYSICIAN:Ilda Garay MD ATTENDING PHYSICIAN:Ilda Garay MD Order: [id number] Test Reason : Test Date/Time Stamp: ThuMay 29 2022 09:37:39 Blood Pressure : / mmHG Vent. Rate : 075 BPM Atrial Rate : 075 BPM P-R Int : 181 ms QRS Dur : 085 ms QT Int : 385 ms P-R-T Axes : 087 026 072 degrees QTc Int : [address] elevation, consider inferior injury Confirmed by ELAINE LEAL MD ([id number]) on 05/31/2022 2:38:28 PM Referred By: Self Referred Confirmed by:ELAINE LEAL MD at [address] [facility] [id number] [facility] [address] PATIENT NAME: LISETH POTTS [facility] 2022-05-29 08:29:00 [facility] EMERGENCY PROVIDER REPORT REPORT#:[id number] REPORT STATUS: Signed DATE:05/29/22 TIME: 828 PATIENT: LISETH POTTS UNIT #: [id number] [address] AGE: 72 SEX: F PCP PHYS: Eduardo Contreras MD SERVICE AUTHOR: Stephan Garcia MD R3 * ALL edits or amendments must be made on the electronic/computer document * Stephan Garcia 05/29/22 0829: HPI-General Illness General Initial Greet Date/Time 05/29/22 08 Presentation Chief Complaint nausea Free Text HPI Notes Free Text HPI Notes Is a 72-year-old female past medical history significant for diabetes hypertension presents to the emergency room today for high blood sugar. The patient's daughter states that over the last 2 days her blood sugar has been reading in the 4-5 100s and then HI today on their glucometer. She states that she has been giving her mother her insulin as prescribed but she is unable to control her blood sugar. Patient complains of nausea and minor chest pressure she rates the chest pressure a 1 out of 10. Is nonradiating on the left side of her chest. No vomiting no stool no urinary changes. Review of Systems ROS Statements All systems rev neg except as marked. Complete sys rev neg except as marked. Review of Systems Constitutional Denies: Chills, Fatigue. Eyes Denies: Blurred R, Blurred L. Ears/Nose/Throat Denies: Anosmia, Ear drainage R. Respiratory Denies: Cough, non-productive, Cough, productive. GI Reports: Nausea. Denies: Abdominal pain, Anorexia. Female Denies: Dysuria, Flank pain. Musculoskeletal Denies: Back pain, Extremity pain. Past Medical History - Adult Stated Complaint HIGH BS,HEADACHE,NAUSEA Allergies Coded Allergies: No Known Allergies (12/14/21) Past Medical History: Reports: Diabetes mellitus, Hypertension. Denies: Coronary artery disease. Additional Medical History dm type 1, htn Additional Surgical History gallbladder Physical Exam Vital Signs Vital Signs First Documented: Result Date Time O2 Delivery Room air 05/30 827 Pulse Ox 100 05/29 0834 B/P 139/71 05/29 0834 B/P Mean 93.9 05/29 0834 Temp 36.7 05/29 0834 Pulse 88 05/29 0834 Resp 16 05/29 0834 Last Documented: Result Date Time Pulse Ox 100 05/29 1221 B/P 106/55 05/29 1221 B/P Mean 79 05/29 1221 Pulse 74 05/29 1221 Resp 27 05/29 1221 Temp 36.7 05/29 0834 O2 Delivery Room air 05/29 0828 Review of Vital Signs Reviewed Physical Exam General/Const General/Const Awake, Alert, Well appearing MS Head Head Normocephalic Eyes Eyes PERRL Ears/Nose/Throat Ears/Nose/Throat Airway patent, Mucous membranes moist, Pharynx NL Resp/Chest Respiratory/Chest Breath sounds NL, Breath sounds = bilat, No respiratory distress, No rales, No rhonchi, No wheezing Cardiovascular Cardiovascular Heart rate NL, Regular rhythm, Heart sounds NL, Cap refill not delayed, Peripheral circulation NL Abdomen/GI Abdomen/GI Soft, Non-tender, No guarding, No rebound MS Upper Extrem Upper Extremity/MS Inspection NL, No swelling, Non-tender, No erythema, No deformity, Neurologic intact, Vascular intact, No clubbing/cyanosis MS Wrist/Hand Wrist/Hand Inspection NL, No swelling, No erythema, Non-tender, No deformity, Neurologic intact, Vascular intact, No clubbing/cyanosis MS Lower Extrem Lower Ext/Pelvis/MS Inspection NL, No swelling, Non-tender, No erythema, No deformity, Neurologic intact, Vascular intact, No edema MS Ankle/Foot Ankle/Foot Inspection NL, No swelling, No erythema, Non-tender, No deformity, Neurologic intact, Vascular intact, No edema Skin Skin Color NL, Warm, Dry, Turgor NL Interpretation Diagnostics Lab Results Interpretation Considerations Independ review imaging, Reviewed prior records Results Laboratory Tests 05/29/22 0935: [Embedded Image Not Available] Laboratory Tests: 05/29 05/29 05/29 0839 0920 0935 Chemistry Sodium (135 - 145 mmol/L) 135 Potassium (3.5 - 5.1 mmol/L) 4.4 Chloride (98 - 107 mmol/L) 102 Carbon Dioxide (21 - 32 mmol/L) 20 L Anion Gap (2.0 - 16.0) 17.4 H BUN (4 - 23 mg/dL) 17 Creatinine (0.6 - 1.5 mg/dL) 1.3 Glomerular Filtr Rate (>60 ml/min) 44 L BUN/Creatinine Ratio (12.0 - 20.0) 13.1 Glucose (65 - 99 mg/dL) 463 *H POC Glucose (70 - 105 mg/dL) 474 *H Calcium (8.5 - 10.1 mg/dL) 9.4 Total Bilirubin (0.2 - 1.2 mg/dL) 1.1 AST (15 - 37 U/L) 31 ALT (6 - 50 U/L) 27 Total Alk Phosphatase (45 - 117 U/L) 65 Troponin I High Sens (0 - 53 pg/mL) 8 Total Protein (6.4 - 8.2 g/dL) 7.6 Albumin (3.4 - 5.0 g/dL) 3.7 Lipase (73 - 393 U/L) 109 Hematology WBC (4.5 - 11.0 10 3/uL) 6.7 RBC (3.50 - 5.50 10 6/uL) 4.00 Hgb (12.0 - 16.0 g/dL) 12.4 Hct (37.0 - 55.0 %) 37.5 MCV (81 - 102 fL) 94 MCH (26.0 - 34.0 pg) 31.0 MCHC (31.0 - 37.0 g/dL) 33.1 RDW (11.6 - 14.4 %) 11.5 L Plt Count (150 - 400 10 3/uL) 239 MPV (9.0 - 12.6 fL) 10.5 Neut % (Auto) (33.0 - 76.0 %) 90.1 H Lymph % (Auto) (14.0 - 56.4 %) 6.6 L Buchanan % (Auto) (0.0 - 12.9 %) 1.3 Eos % (Auto) (0.0 - 7.0 %) 0.9 Baso % (Auto) (0 - 2.0 %) 0.7 Neut # (Auto) (1.5 - 7.0 10 3/uL) 6.00 Lymph # (Auto) (1.50 - 4.00 10 3/uL) 0.44 L Buchanan # (Auto) (0.20 - 0.80 10 3/uL) 0.09 L Eos # (Auto) (0.0 - 0.5 10 3/uL) 0.06 Baso # (Auto) (0.0 - 0.1 10 3/uL) 0.05 Abs Immat Gran (auto) (0.000 - 0.100 x10 3/uL) 0.030 Immature Gran % (0.0 - 1.0 %) 0.4 Nucleated RBC % (0 - 0.2 %) 0.0 Nucleated RBCs # (0.000 - 0.012 10 3/uL) 0.000 Urines Urine Color (YELLOW) STRAW Urine Appearance (CLEAR) CLEAR Urine pH (5.0 - 8.0) 5.0 Ur Specific [place] (1.005 - 1.025) 1.024 Urine Protein (NEGATIVE) 1+ H Urine Glucose (UA) (NEGATIVE) 3+ H Urine Ketones (NEGATIVE) 1+ H Urine Blood (NEGATIVE) NEGATIVE Urine Nitrite (NEGATIVE) NEGATIVE Urine Bilirubin (NEGATIVE) NEGATIVE Urine Urobilinogen (0.1 - 0.2 EU/dL) NEGATIVE Ur Leukocyte Esterase (NEGATIVE) NEGATIVE Urine RBC (0 - 3 /hpf) 0-2 Urine WBC (0 - 3 /hpf) 0-2 Ur Squamous Epith Cells (FEW /HPF) None seen Urine Bacteria (NEGATIVE /HPF) NONE SEEN Urine Mucus (/lpf) OCCASIONAL 05/29 0954 Blood Gas VBG pH (7.33 - 7.45) 7.319 L VBG pCO2 (35 - 45 mm Hg) 38.3 VBG pO2 (80 - 90 mmHg) 81.8 VBG HCO3 (22 - 24 mmol/L) 19.7 L VBG O2 Saturation (60 - 80 %) 95.1 H VBG Base Excess (-2 - 4 mmol/L) -5.9 L Oxygen Content (15.0 - 23.0 mL/dL) 20.9 Instrument (Specimen Descript) Venous Microbiology: Date/Time Procedure - Status Source Growth 05/29 934 Influenza Virus Type B Antigen - COMP NASAL 05/29 934 Influenza Virus Type A Antigen - COMP NASAL Recent Impressions: RADIOLOGY - XR CHEST 1 V 05/29 0850 Report Impression - Status: SIGNED Entered: 05/29/2022 0921 IMPRESSION: Hyperinflation lungs may indicate underlying COPD. Otherwise no active disease in the chest. Impression By: Fransisco - El Herndon MD Lab Imaging Statement Laboratory radiographic studies reviewed and considered in the medical decision-making. ECG #1 Interpretation NL ECG Interpretation Normal rate, Normal sinus rhythm, No acute ischemic changes, No STEMI, Normal QRS, Normal ST waves, Normal T waves, Normal axis, Normal intervals, No change from prior ECGs, Adequate tracing GI Studies Upper GI/Swallow Study NL Upper GI Findings Negative exam, No pyloric stenosis, No filling defect, No foreign body suspected, No malrotation Lower GI (Enema) NL Lower GI Findings Negative exam, No intussusception, No malrotation Re-Evaluation MDM Free Text MDM Notes Free Text MDM Notes I seen and examined this patient We will rule out DKA we will rule out ACS We will give IV fluids we will give insulin. We will get labs we will get a CBC to look for infection anemia we will get a chemistry to look for electrolytes hyperglycemia organ function Patient is given 1 L of fluid Zofran. We will get a twelve-lead EKG and a troponin. Patient has some improvement with Zofran. I will give her aspirin due to her chest pain. Troponin is reassuring twelve-lead EKG shows no STEMI. Patient is given 5 units of insulin. The patient's chest pain and I explained type per glycemia we will admit her for further medical management. Her beta hydroxybutyrate is pending and her VBG is reassuring and there is a slight anion gap but I do not suspect DKA at this time. I will put her on telemetry. I discussed this with Dr. Garay the hospitalist he accepts the admission. ED Course Medication(s) Ordered Medication(s) Ordered: Central Nervous System Agents Sig/Dima Start time Last Medication Dose Route Stop Time Status Admin Aspirin 324 MG X1ED STA 05/29 1154 DC 05/29 PO 05/29 1155 1229 Electrolytic, Caloric, And Jackie Sig/Dima Start time Last Medication Dose Route Stop Time Status Admin Lactated Ringer's 1,000 ML X1ED STA 05/29 0849 DC 05/29 IV 05/29 0850 0926 Gastrointestinal Drugs Sig/Dima Start time Last Medication Dose Route Stop Time Status Admin Ondansetron HCl 4 MG X1ED STA 05/29 0849 DC 05/29 IV 05/29 0850 0926 Hormones And Synthetic Substit Sig/Dima Start time Last Medication Dose Route Stop Time Status Admin Insulin Human Regular 5 UNIT X1ED STA 05/29 1043 DC 05/29 SUBQ 05/29 1044 1128 Patient Discharge Departure Vital Signs/Condition Vital Signs First Documented: Result Date Time O2 Delivery Room air 05/29 0828 Pulse Ox 100 05/29 0834 B/P 139/71 05/29 0834 B/P Mean 93.9 05/29 0834 Temp 36.7 05/29 0834 Pulse 88 / 0834 Resp 16 05/29 0834 Last Documented: Result Date Time Pulse Ox 100 05/29 1221 B/P 106/55 05/29 1221 B/P Mean 79 05/29 1221 Pulse 74 05/29 1221 Resp 27 05/29 1221 Temp 36.7 05/29 0834 O2 Delivery Room air 05/29 0828 All vital signs available at the time of this entry have been reviewed. Condition Stable Clinical Impression Clinical Impression Primary Impression: Hyperglycemia Secondary Impressions: Chest pain, Nausea Disposition Decision Admit Admit Physician Name Ilda Garay MD Admit Physician Hospitalist Request Time 1223 Request Date 05/29/22 )( Admission Accepts Yes )( Accepted Time 1223 )( Accepted Date 05/29/22 Call Information will see patient Discharge/Care Plan Admit Note I have spoken with the patient and/or caregivers. I have explained the patient's condition, diagnoses and treatment plan based on the information available to me at this time. I have answered the patient's and/or caregiver's questions and addressed any concerns. The patient and/or caregivers have as good an understanding of the patient's diagnosis, condition and treatment plan as can be expected at this point. The patient has been stabilized within the capability of the emergency department. The patient will be transported for further care and management or will be moved to an observation or inpatient service. I have communicated with the staff or medical practitioner taking over this patient's care. Kaila Josue 05/29/22 1550: Past Medical History - Adult Home Medications Discontinued Scripts Ondansetron 4 MG PO Q6H PRN PRN NAUSEA/VOMITING Ondansetron 4 MG PO Q6H PRN PRN NAUSEA/VOMITING #15 TABS Prov: 09/25/21 DC: 05/29/22 1349 Therapy completed Reported Medications Aspirin 81 MG PO DAILY Simvastatin (Zocor) 80 MG PO BEDTIME [Basaglar kwikpen] 16 UNITS INJ QAM Nifedipine (Procardia XL) 30 MG DAILY Insulin Aspart (Novolog) 4 UNITS SUBQ TID Ascorbic Acid (Vitamin C) 500 MG PO DAILY Haloperidol (Haldol) 1 MG PO BEDTIME Cholecalciferol (Vitamin D3) (Vitamin D3) 1,000 UNITS PO DAILY Enalapril (Vasotec) 20 MG PO BID Discontinued Reported Medications Calcium Carbonate/Vit D3 (Caltrate-600 + D 600 Mg/800 Units) 1 TAB PO DAILY Patient Discharge Departure Supervising Physician Note Resident Saw Pt This patient was seen by a resident. I have personally seen the patient, performed the critical or figueroa portions of the service, and participated in the management of the patient. I have reviewed and agree with the resident's note, and I have reviewed all labs, ECGs, and imaging studies or reports. I agree with this resident's findings, exam and plan. 72-year-old female with history of diabetes on insulin presenting today for high blood sugar, headache and vomiting. Labs returned with glucose of 463, bicarb 20, calculated anion gap actually 13, no evidence of DKA. Patient also complaining of chest pain, negative troponin, benign EKG. Patient was admitted for hyperglycemia and ACS rule out. at 1333 at 8595 [facility] #:[id number] END OF REPORT [facility] 2021-12-14 12:09:00 [facility] ([facility]) EMERGENCY PROVIDER REPORT REPORT#:[id number] REPORT STATUS: Signed DATE:12/14/21 TIME: 1209 PATIENT: LISETH POTTS UNIT #: [id number] ROOM: BED: AGE: 71 SEX: F PCP PHYS: Eduardo Contreras MD SERVICE AUTHOR: Sharif Mcnamara MD * ALL edits or amendments must be made on the electronic/computer document * HPI-Chest Pain 40 and Over General Initial Greet Date/Time 12/14/21 1103 Presentation Chief Complaint Chest pain Hx Obtained From Patient, Daughter, Clinical Trial Manager Sudden in Onset? Yes Onset Occurred One week ago Symptom Duration Since onset Progression since Onset Waxes and wanes Location Substernal Quality Aching Radiation Does not radiate. )( Migration/Movement None Severity: Onset Mild Severity: Current Moderate Associated with Reports: Cough, non-productive, Fatigue, Palpitations. Exacerbated by Nothing Relieved by Nothing Risk-Chest Pain 40 and Over Risk Stratification )( Coronary Artery Disease Risk factors reviewed )( Thoracic Aortic Dissection Risk factors reviewed )( Pulmonary Embolism Risk factors reviewed )( AMI-Aspirin Aspirin Last 24 Hrs 324 mg )( HEART for MACE )( HEART for MACE Response Value History Low index of suspicion 0 ECG Interpretation Nonspec repol disturb 1 Age Age 65 or over 2 Risk Factors for CAD 1-2 CAD risk factors 1 Troponin < or = to NL troponin 0 Total 4 Review of Systems ROS Statements All systems rev neg except as marked. (as per hpi) Past Medical History - Adult Stated Complaint CHEST PAIN Allergies Coded Allergies: No Known Allergies (12/14/21) Home Medications Active Scripts Ondansetron 4 MG PO Q6H PRN PRN NAUSEA/VOMITING Ondansetron 4 MG PO Q6H PRN PRN NAUSEA/VOMITING #15 TABS Prov: 09/25/21 Reported Medications Aspirin 81 MG PO DAILY [marquita perez] 14 UNITS INJ QAM Calcium Carbonate/Vit D3 (Caltrate-600 + D 600 Mg/800 Units) 1 TAB PO DAILY Nifedipine (Procardia XL) 30 MG DAILY Insulin Aspart (Novolog) 8 UNITS SUBQ TID Simvastatin (Zocor) 80 MG PO BEDTIME Calculated Suicide Risk (nurs) No risk Past Medical History: Reports: Diabetes mellitus, Hypertension. Denies: Coronary artery disease. Additional Medical History dm type 1, htn Additional Surgical History gallbladder Smoking status for patients 13 years old or older: Never Smoker Physical Exam Vital Signs Vital Signs First Documented: Result Date Time Pulse Ox 99 12/14 1105 B/P 122/58 12/14 1105 B/P Mean 79 12/14 1105 O2 Delivery Room air 12/14 110 Temp 36.7 12/14 1105 Pulse 69 12/14 1105 Resp 24 12/14 1105 Last Documented: Result Date Time Pulse Ox 100 10 1500 B/P 123/58 12/14 1500 B/P Mean 84 12/14 1500 Pulse 67 12/14 1500 Resp 31 12/14 1500 O2 Delivery Room air 12/14 1105 Temp 36.7 12/14 1105 Review of Vital Signs Reviewed Free Text PE Notes Free Text PE Notes Basic Physical Exam Basic PE HEAD: Atraumatic/NC, EYES: PERRL, conj clear, ENT: Membranes moist, NECK: Supple, EXT: No gross abnormality, SKIN: No rashes, warm/dry, NEURO: alert oriented, NEURO: gross movement NL, PSYCH: NL thought content Focused PE General/Const General/Const Awake, Well hydrated Resp/Chest Respiratory/Chest Atraumatic, No respiratory distress, No rales, No wheezing Cardiovascular Cardiovascular Heart rate NL, Regular rhythm, Cap refill not delayed, Peripheral circulation NL Abdomen/GI Abdomen/GI Atraumatic, abd nontender to palaption MS Back Back Atraumatic, Full range of motion, No midline vertebral tend, No paraspinal tenderness Interpretation Diagnostics Lab Results Interpretation Considerations Independ review imaging, Reviewed prior records Results Laboratory Tests: 12/14 12/14 1153 1230 Chemistry Troponin I High Sens (0 - 53 pg/mL) 6 TSH (0.36 - 3.74 mIU/mL) 0.45 Coagulation D-Dimer (0 - 500 ng/mLFEU) 1154 H Serology SARS-CoV-2 Ag (Rapid) (Negative) NEGATIVE Recent Impressions: CAT SCAN - CTA CHEST FOR PE 12/14 1420 Report Impression - Status: SIGNED Entered: 12/14/2021 5443 IMPRESSION: No acute-appearing imaging abnormality. Impression By: SienaTSRex Dennis Diaz Lab Imaging Statement Laboratory radiographic studies reviewed and considered in the medical decision-making. Point of Care Testing Rhythm Strip Interpretation Rate 74 Rhythm Strip Interpretation Interpreted by me, Normal sinus rhythm ECG #1 Interpretation ECG Interpretation Note The ECG interpretation was done contemporaneously by me. This is an adequate tracing. There is no acute ischemia; the rhythm is normal sinus; CT does not demonstrate AV heart block; QRS does not demonstrate a bundle branch block; ST and T waves do not show any ST elevation to suggest acute OK; see [place] for details and measurements; agree with computer interpretation. Re-Evaluation MDM ED Course Medication(s) Ordered Medication(s) Ordered: Diagnostic Agents Sig/Dima Start time Last Medication Dose Route Stop Time Status Admin Iopamidol 0 .STK-MED ONE 12/14 1336 DC .ROUTE Other Sig/Dima Start time Last Medication Dose Route Stop Time Status Admin Sodium Chloride 100 ML .STK-MED ONE 12/14 1336 DC IV Differential Diagnosis Differential Diagnosis Acute coronary syndrome, Anxiety disorder, Aortic dissection, Aortic stenosis, Asthma exacerbation, Bronchitis, Chest pain, Cholecystitis, Cholelithiasis, Congestive heart failure, Contusion, Costochondritis, Dysrhythmia, Esophageal rupture, Esophagitis Patient Discharge Departure Vital Signs/Condition Vital Signs First Documented: Result Date Time Pulse Ox 99 12/14 1105 B/P 122/58 12/14 1105 B/P Mean 79 12/14 1105 O2 Delivery Room air 12/14 1105 Temp 36.7 12/14 1105 Pulse 69 10/ 1105 Resp 24 12/14 1105 Last Documented: Result Date Time Pulse Ox 100 10/ 1500 B/P 123/58 12/14 1500 B/P Mean 84 12/14 1500 Pulse 67 10/ 1500 Resp 31 10/ 1500 O2 Delivery Room air 12/14 1105 Temp 36.7 12/14 1105 All vital signs available at the time of this entry have been reviewed. Condition Improved Clinical Impression Clinical Impression Primary Impression: Chest pain Disposition Decision Discharge )( Discharged to Home Yes )( Time 1458 )( Date 12/14/21 Discharge/Care Plan Counseled Regarding Diagnosis, Lab results, Imaging studies, Prescriptions, Need for follow-up, When to return to ED Patient Instructions ED Chest Pain, Noncardiac, ED Diabetes with High Blood Sugar Referrals Provider Referral: Crispin Christianson MD Address: [address] [address], [address] [place] [address] Discharge Note I have spoken with the patient and/or caregivers. I have explained the patient's condition, diagnoses and treatment plan based on the information available to me at this time. I have answered the patient's and/or caregiver's questions and addressed any concerns. The patient and/or caregivers have as good an understanding of the patient's diagnosis, condition and treatment plan as can be expected at this point. The vital signs have been stable. The patient's condition is stable and appropriate for discharge from the emergency department. The patient will pursue further outpatient evaluation with the primary care physician or other designated or consulting physician as outlined in the discharge instructions. The patient and/or caregivers are agreeable to this plan of care and follow-up instructions have been explained in detail. The patient and/or caregivers have received these instructions in written format and have expressed an understanding of the discharge instructions. The patient and/or caregivers are aware that any significant change in condition or worsening of symptoms should prompt an immediate return to this or the closest emergency department or a call to 911. at 0712 RPT #:[id number] END OF REPORT [facility] 2021-12-14 09:50:00 [facility] ([facility]) EMERGENCY PROVIDER REPORT REPORT#:[id number] REPORT STATUS: Signed DATE:12/14/21 TIME: 0950 PATIENT: LISETH POTTS UNIT #: [id number] ROOM: BED: AGE: 71 SEX: F PCP PHYS: Eduardo Contreras MD SERVICE AUTHOR: Socorro Merlos DO * ALL edits or amendments must be made on the electronic/computer document * HPI-Chest Pain 40 and Over General Confirmed Patient Yes Patient Type Existing patient Initial Greet Date/Time 12/14/21 0949 Assumed Care at Time 0951 Presentation Chief Complaint Chest pain Hx Obtained From Patient, Daughter Unable to Obtain Hx Patient is non sinhala speaking, daughter translates Sudden in Onset? No Onset Occurred Days ago (3) Symptom Duration Waxes and wanes Progression since Onset Waxes and wanes Context of Onset At rest Location Chest L Quality Painful Radiation No: Does not radiate. )( Migration/Movement None Severity: Onset Mild Severity: Current Mild Associated with Denies: Belching, Cough, non-productive, Cough, productive, Cough, with hemoptysis, Diaphoresis, Dizziness, Fatigue, Fever, Insomnia, Lightheaded, Nausea, Near-syncope, Numbness/Tingling, Palpitations, Recent viral symptoms, Shortness of Breath, Syncope, Vomiting, Weakness, Wheezing. Associated Other Pt denies other symptoms Risk-Chest Pain 40 and Over Risk Stratification )( Coronary Artery Disease Diabetes mellitus, Hyperlipidemia, Hypertension )( Thoracic Aortic Dissection Hypertension )( Pulmonary Embolism No risk factors Review of Systems ROS Statements Complete sys rev neg except as marked. Past Medical History - Adult Stated Complaint CHEST PAIN Allergies Coded Allergies: No Known Allergies (08/24/21) Home Medications Active Scripts Ondansetron 4 MG PO Q6H PRN PRN NAUSEA/VOMITING Ondansetron 4 MG PO Q6H PRN PRN NAUSEA/VOMITING #15 TABS Prov: 09/25/21 Reported Medications Aspirin 81 MG PO DAILY [marquita perez] 14 UNITS INJ QAM Calcium Carbonate/Vit D3 (Caltrate-600 + D 600 Mg/800 Units) 1 TAB PO DAILY Nifedipine (Procardia XL) 30 MG DAILY Insulin Aspart (Novolog) 8 UNITS SUBQ TID Simvastatin (Zocor) 80 MG PO BEDTIME Past Medical History: Reports: Diabetes mellitus, Hypertension. Denies: Coronary artery disease. Physical Exam Vital Signs Vital Signs First Documented: Result Date Time Pulse Ox 100 12/14 956 B/P 147/57 12/14 956 B/P Mean 87 12/14 0857 O2 Delivery Room air 12/14 956 Temp 36.6 12/14 956 Pulse 76 12/14 956 Resp 18 12/14 956 Last Documented: Result Date Time Pulse Ox 100 12/14 1038 B/P 136/68 12/14 1038 B/P Mean 90 12/14 1038 O2 Delivery Room air 12/14 1038 Pulse 69 12/14 1038 Resp 19 12/14 1038 Temp 36.6 12/14 0857 Review of Vital Signs Reviewed Basic Physical Exam Basic PE HEAD: Atraumatic/NC, EYES: PERRL, conj clear, ENT: Membranes moist, NECK: Supple, EXT: No gross abnormality, SKIN: No rashes, warm/dry, NEURO: alert oriented, NEURO: gross movement NL, PSYCH: NL thought content Focused PE General/Const General/Const Awake, Alert, No acute distress, Well appearing, Well developed Resp/Chest Respiratory/Chest Breath sounds NL Cardiovascular Cardiovascular Regular rhythm, Heart sounds NL Abdomen/GI Abdomen/GI Soft, Non-tender Interpretation Diagnostics Lab Results Interpretation Results Laboratory Tests 12/14/21 0950: [Embedded Image Not Available] 12/14/21 1003: [Embedded Image Not Available] Laboratory Tests: 12/14 12/14 12/14 0950 1003 1022 Chemistry Sodium (128 - 145 mmol/L) 137 Potassium (3.6 - 5.1 mmol/L) 5.1 Chloride (98 - 108 mmol/L) 101 Carbon Dioxide (18 - 33 mmol/L) 27 Anion Gap (2.0 - 16.0) 14.1 BUN (7 - 22 mg/dL) 14 Creatinine (0.6 - 1.2 mg/dL) 0.7 Glomerular Filtr Rate (60 - 115 ml/min) >=60 max estimate BUN/Creatinine Ratio (12.0 - 20.0) 20.0 Glucose (65 - 99 mg/dL) 369 H Calcium (8.0 - 10.3 mg/dL) 9.7 Total Bilirubin (0.2 - 1.6 mg/dL) 0.6 AST (11 - 38 U/L) 29 ALT (10 - 47 U/L) 25 Total Alk Phosphatase (42 - 141 U/L) 58 Rapid Troponin I (0.00 - 0.05 ng/mL) < 0.05 Total Protein (6.4 - 8.1) 6.8 Albumin (3.3 - 5.5 g/dL) 3.2 L Hematology WBC (4.5 - 10.7 10 3/uL) 4.2 L RBC (3.50 - 5.50 10 6/uL) 3.87 Hgb (12.0 - 16.0 g/dL) 11.4 L Hct (37.0 - 55.0 %) 34.8 L MCV (81 - 102 fL) 90 MCH (26.0 - 34.0 pg) 29.5 MCHC (31.0 - 37.0 g/dL) 32.8 RDW (11.6 - 14.4 %) 12.0 RDW Std Deviation (36.4 - 46.3 fL) 39.2 Plt Count (150 - 400 10 3/uL) 269 MPV (9.0 - 13.0 fL) 10.1 Neut % (Auto) (33.0 - 76.0 %) 61.9 Lymph % (Auto) (14.0 - 56.4 %) 26.8 Mixed Cells % (Auto) (1.0 - 10.0 %) 11.3 H Neut # (Auto) (1.5 - 7.0 10 3/uL) 2.60 Lymph # (Auto) (1.50 - 4.00 10 3/uL) 1.10 L Mixed Cells # (0.1 - 0.6) 0.5 Lab Statement Laboratory studies reviewed and considered in the medical decision-making. Imaging Statement Radiographic studies reviewed and considered in the medical decision-making. Lab Imaging Statement Laboratory radiographic studies reviewed and considered in the medical decision-making. ECG #1 Interpretation Date 12/14/21 Time 0947 Interpreted by and reviewed by me, ED physician NL ECG Interpretation Normal rate, Normal sinus rhythm, No acute ischemic changes, No STEMI Re-Evaluation MDM ED Course Medication(s) Ordered Medication(s) Ordered: Central Nervous System Agents Sig/Dima Start time Last Medication Dose Route Stop Time Status Admin Aspirin 324 MG X1ED STA 12/14 0950 DC 12/14 PO 12/14 0851 1002 Differential Diagnosis Differential Diagnosis Acute coronary syndrome, Acute myocardial infarct Patient Discharge Departure Vital Signs/Condition Vital Signs First Documented: Result Date Time Pulse Ox 100 12/14 0857 B/P 147/57 12/14 0957 B/P Mean 87 12/14 956 O2 Delivery Room air 12/14 956 Temp 36.6 12/14 09 Pulse 76 12/14 0957 Resp 18 12/14 09 Last Documented: Result Date Time Pulse Ox 100 12/14 1038 B/P 136/68 12/14 1038 B/P Mean 90 12/14 1038 O2 Delivery Room air 12/14 1038 Pulse 69 12/14 1038 Resp 19 12/14 1038 Temp 36.6 12/14 0957 All vital signs available at the time of this entry have been reviewed. Clinical Impression Clinical Impression Primary Impression: Chest pain Disposition Decision Other )( Time 1033 Against Medical Advice Yes Free Text Depart Notes Free Text Depart Notes I wanted to admit the patient for a chest pain rule out, the daughter did not want her transported by EMS, explained potential risks, she said, "I will just drive her over there." at 1126 [facility] #:[id number] END OF REPORT [facility] 2021-12-14 09:47:00 [id number] [place] [address] PATIENT NAME: LISETH POTTS ADMIT DATE: 12/14/21 ACCOUNT NO: [id number] ROOM NO: AGE: 71 REPORT TYPE: eELECTROCARDIOGRAM SEX: F ADMITTING PHYSICIAN: ATTENDING PHYSICIAN: Order: [id number] Test Reason : Test Date/Time Stamp: [facility] Dec 14 2021 09:47:23 Blood Pressure : / mmHG Vent. Rate : 073 BPM Atrial Rate : 073 BPM P-R Int : 177 ms QRS Dur : 081 ms QT Int : 387 ms P-R-T Axes : 035 039 068 degrees QTc Int : 427 ms Sinus rhythm Confirmed by MD Debra, Demetris ([id number]) on 12/15/2021 7:29:19 PM Referred By: DOES_NOT KNOW Confirmed by:Demetris Richardson MD at [address] [place] [address] PATIENT NAME: LISETH POTTS [facility] 2021-10-11 15:26:00 [id number] [place] [address] PATIENT NAME: LISETH POTTS ADMIT DATE: 09/18/21 ACCOUNT NO: [id number] ROOM NO: [id number] AGE: 71 REPORT TYPE: 360 - QUERY RESPONSE DOCUMENT SEX: F ADMITTING PHYSICIAN:Eduardo Contreras MD ATTENDING PHYSICIAN:Eduardo Contreras MD Provider Query QUERY TEXT: Condition Nutritional Status 360MD Query related questions should be directed to:[facility] Coding Query Helpline Based on your clinical judgment, can you provide the known or suspected condition(s) that represent(s) the clinical indicators listed below? The patient's Clinical Indicators include: BMI calculated:21.0-Rapid Initial Assessment-09/18/2021 ALBUMIN 2.5 L-Intensive Care Progress Note 09/19/2021 (2) Skin: dry-ED PHYSICIAN RECORD 09/18/2021 (1) Options provided: -- Mild protein-calorie/protein-energy malnutrition, Please specify supporting clinical documentation for severity (e.g. BMI, serum albumin, total lymphocyte count, CD4+, etc.) as well as supporting conditions such as disorders that affect GI function, wasting disorders, or metabolic conditions. -- Moderate protein, Please specify supporting clinical documentation for severity (e.g. BMI, serum albumin, total lymphocyte count, CD4+, etc.) as well as supporting conditions such as disorders that affect GI function, wasting disorders, or metabolic conditions. -- Severe, Please specify supporting clinical documentation for severity (e.g. BMI, serum albumin, total lymphocyte count, CD4+, etc.) as well as supporting conditions such as disorders that affect GI function, wasting disorders, or metabolic conditions. -- Unspecified -- Marasmus -- Failure to thrive -- Weight Loss -- Underweight -- Other - I will add my own diagnosis -- Dismiss - Not applicable / Not valid -- Dismiss - Clinically unable to determine / Unknown -- Assign to another provider QUERY RESPONSE: The patient is underweight. Query created by: Dang Tapia on 09/24/2021 7:39 AM at 1526 PATIENT NAME: LISETH POTTS [facility] 2021-09-25 06:47:00 [id number] [address] [address] PATIENT NAME: LISETH POTTS ADMIT DATE: 09/25/21 ACCOUNT NO: [id number] ROOM NO: AGE: 71 REPORT TYPE: eELECTROCARDIOGRAM SEX: F ADMITTING PHYSICIAN: ATTENDING PHYSICIAN: Order: [id number] Test Reason : Test Date/Time Stamp: ThuSep 25 2021 06:47:00 Blood Pressure : / mmHG Vent. Rate : 079 BPM Atrial Rate : 081 BPM P-R Int : 181 ms QRS Dur : 082 ms QT Int : 384 ms P-R-T Axes : 083 008 055 degrees QTc Int : 441 ms Sinus rhythm Confirmed by MD Richards John ([id number]) on 09/26/2021 8:08:25 AM Referred By: Self Referred Confirmed by:Deshawn Richards MD at 0808 [facility] [id number] [facility] [address] PATIENT NAME: LISETH POTTS [facility] 2021-09-25 06:33:00 [facility] ([facility]) EMERGENCY PROVIDER REPORT REPORT#:[id number] REPORT STATUS: Signed DATE:09/25/21 TIME: 632 PATIENT: LISETH POTTS UNIT #: [id number] ROOM: BED: AGE: 71 SEX: F PCP PHYS: Eduardo Contreras MD SERVICE AUTHOR: Rubi Garay MD * ALL edits or amendments must be made on the electronic/computer document * HPI-Abd Pain F 40 and Over General Initial Greet Date/Time 09/25/21621 Presentation Chief Complaint Abdominal pain, Diarrhea mild, Nausea, Vomiting mild Sudden in Onset? No Onset Occurred Yesterday Free Text HPI Notes Free Text HPI Notes 71-year-old female with hypertension, hyperlipidemia, dementia, diabetes mellitus, presents to emergency department for complaint of having nausea, vomiting, diarrhea and abdominal pain. States the symptoms started yesterday, she has had 2 or 3 episodes of vomiting and 2 or 3 episodes of nonbloody diarrhea. She reports having abdominal pain all over her lower abdomen. She denies having any chest pain or shortness of breath. No fever or chills. Was recently hospitalized for DKA. Denies urinary complaints. She lives with her daughter. They are concerned that this is a side effect of a dementia medication that was just started 2 days ago. They cannot give me the name of the medication. Risk-Abd Pain F 40 and Over )( Abdominal Aortic Aneurysm Risk factors reviewed Review of Systems Basic Review of Systems Basic ROS EYES: No redness, ENT: No sore throat, HEM: No bleeding/bruising, SKIN : No rash, NEURO: No change MS, NEURO: No focal deficit, PSYCH: NL thought content Focused Review of Systems Constitutional Denies: Chills, Fever. Respiratory Denies: Cough, non-productive, Shortness of breath. Cardiovascular Denies: Chest pain, Syncope. GI Reports: Abdominal pain, Diarrhea, Nausea, Vomiting. Female Denies: Dysuria, Flank pain. Musculoskeletal Denies: Extremity pain, Extremity swelling. Past Medical History - Adult Stated Complaint N/V/D X 1 DAY Allergies Coded Allergies: No Known Allergies (08/24/21) Home Medications Reported Medications Aspirin 81 MG PO DAILY [basaglar kwikpen] 14 UNITS INJ QAM Calcium Carbonate/Vit D3 (Caltrate-600 + D 600 Mg/800 Units) 1 TAB PO DAILY Nifedipine (Procardia XL) 30 MG DAILY Insulin Aspart (Novolog) 8 UNITS SUBQ TID Simvastatin (Zocor) 80 MG PO BEDTIME Calculated Suicide Risk (nurs) No risk Additional Medical History dm type 1, htn Additional Surgical History gallbladder Smoking status for patients 13 years old or older: Never Smoker Physical Exam Vital Signs Vital Signs First Documented: Result Date Time Pulse Ox 97 09/25 06 B/P 170/70 09/25 620 B/P Mean 103 09/25 0621 O2 Delivery Room air 09/25 620 Temp 36.4 09/25 06 Pulse 88 09/25 0621 Resp 19 09/25 620 Last Documented: Result Date Time Pulse Ox 100 09/25 0744 B/P 126/56 09/25 0644 B/P Mean 79 09/25 0744 O2 Delivery Room air 09/26 743 Pulse 80 09/25 0744 Resp 18 09/26 743 Temp 36.4 09/25 0621 Review of Vital Signs Reviewed Focused PE General/Const General/Const Awake, Alert, No acute distress, Well appearing, Well developed , Well hydrated, Well nourished, Cooperative, Not toxic appearing MS Head Head Atraumatic, Normocephalic Eyes Eyes PERRL, EOMI Ears/Nose/Throat Ears/Nose/Throat Airway patent, Mucous membranes moist Resp/Chest Respiratory/Chest Breath sounds NL, Breath sounds = bilat, No respiratory distress, No rhonchi, No wheezing, No retractions Cardiovascular Cardiovascular Heart rate NL, Regular rhythm, Heart sounds NL, No murmurs Abdomen/GI Abdomen/GI Soft, Non-tender, No guarding, No rebound, No distention MS Back Back Inspection NL, Full range of motion Skin Skin No rash, Warm, Dry Genitourinary General Exam deferred Rectum Rectum/Perineum Exam deferred Neurologic Neurologic Oriented X3, Speech NL, No motor deficits, No sensory deficits Interpretation Diagnostics Lab Results Interpretation Results Laboratory Tests 09/25/21 0633: [Embedded Image Not Available] 09/25/2146: [Embedded Image Not Available] Laboratory Tests: 09/25 0645 0646 Chemistry Sodium (128 - 145 mmol/L) 135 Potassium (3.6 - 5.1 mmol/L) 5.1 Chloride (98 - 108 mmol/L) 101 Carbon Dioxide (18 - 33 mmol/L) 28 Anion Gap (2.0 - 16.0) 11.1 BUN (7 - 22 mg/dL) 16 Creatinine (0.6 - 1.2 mg/dL) 0.8 Glomerular Filtr Rate (60 - 115 ml/min) >=60 max estimate BUN/Creatinine Ratio (12.0 - 20.0) 20.0 Glucose (65 - 99 mg/dL) 328 H Calcium (8.0 - 10.3 mg/dL) 9.9 Total Bilirubin (0.2 - 1.6 mg/dL) 0.7 AST (11 - 38 U/L) 26 ALT (10 - 47 U/L) 25 Total Alk Phosphatase (42 - 141 U/L) 65 Total Protein (6.4 - 8.1) 7.0 Albumin (3.3 - 5.5 g/dL) 3.8 Amylase (14 - 97 U/L) 64 Hematology WBC (4.5 - 10.7 10 3/uL) 8.9 RBC (3.50 - 5.50 10 6/uL) 3.94 Hgb (12.0 - 16.0 g/dL) 12.0 Hct (37.0 - 55.0 %) 36.4 L MCV (81 - 102 fL) 92 MCH (26.0 - 34.0 pg) 30.5 MCHC (31.0 - 37.0 g/dL) 33.0 RDW (11.6 - 14.4 %) 12.4 RDW Std Deviation (36.4 - 46.3 fL) 42.1 Plt Count (150 - 400 10 3/uL) 284 MPV (9.0 - 13.0 fL) 9.8 Neut % (Auto) (33.0 - 76.0 %) 77.7 H Lymph % (Auto) (14.0 - 56.4 %) 13.2 L Mixed Cells % (Auto) (1.0 - 10.0 %) 9.1 Neut # (Auto) (1.5 - 7.0 10 3/uL) 6.90 Lymph # (Auto) (1.50 - 4.00 10 3/uL) 1.20 L Mixed Cells # (0.1 - 0.6) 0.8 H 09/25 09/25 09/25 0654 0757 0818 Chemistry POC Glucose (70 - 105 mg/dL) 306 H Rapid Troponin I (0.00 - 0.05 ng/mL) < 0.05 Urines Urine Color (YELLOW) YELLOW Urine Appearance (CLEAR) CLEAR Urine pH (5.0 - 8.0) 6.5 Ur Specific [place] (1.005 - 1.025) 1.025 Urine Protein (NEGATIVE) TRACE H Urine Glucose (UA) (NEGATIVE) 2+ H Urine Ketones (NEGATIVE) 1+ H Urine Blood (NEGATIVE) NEGATIVE Urine Nitrite (NEGATIVE) NEGATIVE Urine Bilirubin (NEGATIVE) NEGATIVE Urine Urobilinogen (0.1 - 0.2 EU/dL) 0.2 Ur Leukocyte Esterase (NEGATIVE) NEGATIVE Recent Impressions: CAT SCAN - CT ABD PELVIS W/CONT 09/26 723 Report Impression - Status: SIGNED Entered: 09/25/2021 0745 IMPRESSION: No acute-appearing imaging abnormality. Impression By: Dennis Murrell ECG #1 Interpretation Text/Dict Note EKG at 0647 shows a rate of 79 regular sinus rhythm no ST segment changes CT 181 QRS 82 QTC 441 no ischemia or STEMI Date 09/25/21 Time 0647 Interpreted by ED physician Re-Evaluation MDM Free Text MDM Notes Free Text MDM Notes 71-year-old female presents to emergency department with above history and physical examination. She appears well, she is afebrile, she is nontoxic. Physical examination is nonfocal. It is possible that this might be a side effect of new medication. Also possible viral gastroenteritis. However, given her age and medical history will also evaluate for possible electrolyte abnormality, possible intra-abdominal infection or obstruction, as well as UTI. Based on the symptoms, it is unlikely that this is ACS but given her age and diabetic status we will also get EKG and troponin. )( Re-Evaluation/Progress #1 Text/Dict Note Feeling better. Labs are reassuring except for some hyperglycemia has not taken her insulin, will take her basal insulin now and we will recheck her blood glucose after her fluids are done. She is feeling hungry now/nausea resolved, so will take her short acting insulin after she gets home if her CT is reassuring. Time of Re-Eval 740 )( Re-Eval Status Improved Re-Evaluation/Progress #2 Text/Dict Note Symptoms completely resolved. Patient is now stating she is in a hurry to get home and eat her breakfast. Discussed results and will give a copy of all the reports. Recommended follow- up with Dr. Contreras within a week. Her troponin test had an error result due to QC issue and we are re- running it. At this point, given the normal EKG and patient being entirely asymptomatic, I have an extremely low suspicion that any of her symptoms were because of ACS. We will discharge her and I will follow-up on the result. - trop result negative and is reassuring. Time of Eval 754 Re-Eval Status Improved ED Course Medication(s) Ordered Medication(s) Ordered: Diagnostic Agents Sig/Dima Start time Last Medication Dose Route Stop Time Status Admin Iopamidol 0 .STK-MED ONE 09/25 0655 DC 09/25 IV 726 Electrolytic, Caloric, And Jackie Sig/Dima Start time Last Medication Dose Route Stop Time Status Admin Sodium Chloride 1,000 ML X1ED STA 09/25 0533 DC 09/25 IV 09/25 0732 0636 Gastrointestinal Drugs Sig/Dima Start time Last Medication Dose Route Stop Time Status Admin Metoclopramide HCl 5 MG X1ED STA 09/25 0533 DC 09/25 IV 09/25 0634 0635 Patient Discharge Departure Vital Signs/Condition Vital Signs First Documented: Result Date Time Pulse Ox 97 09/25 0621 B/P 170/70 09/25 06 B/P Mean 103 09/25 620 O2 Delivery Room air 09/25 620 Temp 36.4 09/25 620 Pulse 88 09/25 620 Resp 19 09/25 620 Last Documented: Result Date Time Pulse Ox 100 09/26 743 B/P 126/56 09/26 743 B/P Mean 79 09/26 743 O2 Delivery Room air 09/26 743 Pulse 80 09/26 743 Resp 18 09/26 743 Temp 36.4 09/25 620 All vital signs available at the time of this entry have been reviewed. Clinical Impression Clinical Impression Primary Impression: Nausea vomiting and diarrhea Disposition Decision Discharge )( Discharged to Home Yes )( Time 0758 )( Date 09/25/21 Discharge/Care Plan Counseled Regarding Diagnosis, Lab results, Imaging studies, Prescriptions, Need for follow-up, When to return to ED (Auto) Prescriptions Current Visit Scripts Ondansetron 4 MG PO Q6H PRN PRN NAUSEA/VOMITING Ondansetron 4 MG PO Q6H PRN PRN NAUSEA/VOMITING #15 TABS Patient Instructions ED Diarrhea, Unknown Cause, Vomiting Diarrhea Diet Adult Additional Instructions Please follow-up with Dr. Contreras in the coming week for reevaluation at 1708 RPT #:[id number] END OF REPORT [facility] 2021-09-20 14:33:00 [facility] ([facility]) Family Med. Discharge Summary REPORT #: [id number] REPORT STATUS: Signed DATE: 09/20/21 TIME: 1433 PATIENT: LISETH POTTS UNIT #: [id number] ROOM #: [id number] BED: 1 : 52 AGE: 71 SEX: F ATTEND: Eduardo Contreras MD ADM AUTHOR: Eduardo Contreras MD ATTENTION *EDITS and/or ADDENDA must be made in Patient Keeper for this note. * * Edits and ammendments created in [employer] are not visible * * in Patient Keeper or the legal medical record (HPF). * -- PROBLEMS/PROCEDURES -- ADMISSION DATE: 09/18/21 ADMITTING DIAGNOSES: - Dementia - Diabetes - Hyperlipidemia - Hypertension - Type 1 diabetes mellitus with ketoacidosis without coma DISCHARGE DATE: 09/20/21 DISCHARGE DIAGNOSES: - Dementia - Diabetes - Hyperlipidemia - Hypertension - Type 1 diabetes mellitus with ketoacidosis without coma -- HOSPITAL COURSE -- HOSPITAL COURSE: After undergoing the initial evaluation, treatment, and treatment planning the patient was admitted to [facility] Intensive Care Unit. She came from the emergency room with nausea and vomiting with abdominal pain. She was found to be in diabetic ketoacidosis. Source of diabetic ketoacidosis is thought to be secondary to missed insulin doses. She was started on insulin drip and IV fluids. Her anion gap, electrolytes, and blood sugars corrected. She remained hemodynamically stable, throughout. She was transition back to subcutaneous long and short-acting insulin. Parts Expediter and critical care doctor were consulted from the emergency room and recommendations were followed, throughout. The remainder of her hospital course was unremarkable. She was found to have no evidence of acute coronary syndrome, acute infectious process, or other potential causes of diabetic ketoacidosis. This was felt to be due to stress related confusion and missed insulin doses. I had several long discussions with the patient and her daughter, who translated, regarding the diagnosis, differential diagnosis, care plan, findings throughout her hospital stay, importance of medication therapy compliance, importance of avoiding hypoglycemia, changes to her medications, transitioning from [place], [place] to [place], [place], what to expect following hospital stay, and when to follow up. Both she and her daughter voiced understanding and both very appreciative of the care she has received at [facility] by the physicians and staff. -- DISCHARGE MEDICATIONS -- ALLERGIES: No Known Allergies (UNKNOWN - Allergy) DISCHARGE MEDICATIONS: Please refer to Discharge Medication list for a complete list of discharge medications Aspirin Chewable Tab (Aspirin Chewable Tab) 81 MG PO DAILY wilmaaglry winterpen 14 UNITS INJ QAM Caltrate with Vitamin D3 600 mg (1,500 mg)-800 unit tablet (calcium carbonate-vitamin D3) 1 TAB PO DAILY Insulin Aspart Inj (NF) (NovoLOG Inj (NF)) 8 UNITS SUBQ TID (WITH MEALS) NIFEdipine XL Tab (Procardia XL Tab) 30 MG oral DAILY (Route: ORAL) Simvastatin 80mg Tab (NF) (Zocor 80mg Tab (NF)) 80 MG PO BEDTIME -- DISCHARGE INSTRUCTIONS -- PK DISCHARGE ORDERS: DC Order - No eCQM 2019. Details: Details: Order number: [id number] Category: PKDC - PK Discharge Orders Order status: Transmitted Details: Discharge order: Yes Discharge to: Home/Self Care Diet: Resume Home Diet/Feeds Diabetic Activity: Appropriate for Age PCP follow up timeframe: In 6 days Additional Discharge Routines: PCP Follow-Up Ordered by: Eduardo Contreras MD Sep 20, 2021 1:26pm Entered by: Eduardo Contreras MD Service date: Sep 20, 2021 1:24pm Discharge w/Instructions:PKDC - PK Discharge Orders In 6 days; PCP Follow-Up ADDTIONAL DISCHARGE INSTRUCTIONS: Emergency Instructions: The patient was instructed to present to the nearest Emergency Department or call 911 should their symptoms return or worsen.; -- OBJECTIVE -- VITALS (09/19 14:33 - 09/20 14:33): Temperature C: 36.7 (36.4 - 36.9) Temperature source: Oral Pulse Rate 62 (62 - 79) Respiratory rate: 15 (15 - 18) BP: 158/52 (121/52 - 166/75) -- DATA -- LABS GLU BED (09/20/21 11:17) GLUBED 282 H GLU BED (09/20/21 07:42) GLUBED 210 H BASIC METABOLIC PANEL (09/20/21 02:30) SODIUM 144 POTASSIUM 3.8 CHLORIDE 113H H CARBON DIOXIDE 24 ANION GAP 10.8 GLUCOSE 93D D BLOOD UREA NITROGEN 9 GLOMERULAR FILTRATION RATE >=60 max estimate CREATININE 0.7 BUN/CREATININE RATIO 12.9 CALCIUM 8.7 CBC W/AUTO DIFF (09/20/21 02:30) WHITE BLOOD CELL 4.6 RED BLOOD CELL 3.33 L HEMOGLOBIN 9.8L L HEMATOCRIT 31.4L L MEAN CELL VOLUME 94 MEAN CELL HGB 29.4 MEAN CELL HGB CONCENTRATION 31.2 RED CELL DISTRIBUTION WIDTH 12.0 PLATELET COUNT 237 MEAN PLATELET VOLUME 10.3 NEUTROPHIL % 46.0 IMMATURE GRANULOCYTE % 0.2 LYMPHOCYTE % 34.6 MONOCYTE % 14.6 H EOSINOPHIL % 3.7 BASOPHIL % 0.9 NUCLEATED RBC % 0.0 NEUTROPHIL # 2.12 IMMATURE GRANULOCYTE # 0.010 LYMPHOCYTE # 1.59 MONOCYTE # 0.67 EOSINOPHIL # 0.17 BASOPHIL # 0.04 NUCLEATED RBC # 0.000 GLU BED (09/19/21 20:34) GLUBED 177 H HGB amp; HCT (09/19/21 18:39) HEMOGLOBIN 10.2 L HEMATOCRIT 31.7 L GLU BED (09/19/21 17:45) GLUBED 135 H -- ATTESTATION -- TIME SPENT ON PATIENT CARE: - Direct - Counseling - Coordination of care - Critical care - Discharge planning CARE ACTIVITIES / CARE COORDINATION: - I have reviewed the history and repeated the figueroa elements - I have seen and examined this patient - I have reviewed the progress in the clinical course since the last examination - I have discussed the patient's condition with other members of the care team Signed in PatientKeeper by Eduardo Contreras MD on 09/20/21 at 14:36 at 1436 ATTENTION *EDITS and/or ADDENDA must be made in Patient Keeper for this note. * * Edits and ammendments created in [facility] are not visible * * in Patient Keeper or the legal medical record (HPF). * [facility] #: [id number] END OF REPORT [facility] 2021-09-20 13:26:00 [facility] ([facility]) Med Order Sheet REPORT #: [id number] REPORT STATUS: Signed DATE: 09/20/21 TIME: 1326 PATIENT: LISETH POTTS UNIT #: [id number] ROOM #: [id number] BED: 1 : 52 AGE: 71 SEX: F ATTEND: Eduardo Contreras MD ADM AUTHOR: Eduardo Contreras MD ATTENTION *EDITS and/or ADDENDA must be made in Patient Keeper for this note. * * Edits and ammendments created in [place] [facility] are not visible * * in Patient Keeper or the legal medical record (HPF). * Discharge Medication Reconciliation DISCHARGE MEDICATION LIST Aspirin Chewable Tab (Aspirin Chewable Tab) Dose: 81 MG PO DAILY basaglar kwikpen Dose: 14 UNITS INJ QAM Caltrate with Vitamin D3 600 mg (1,500 mg)-800 unit tablet (calcium carbonate-vitamin D3) Dose: 1 TAB PO DAILY Insulin Aspart Inj (NF) (NovoLOG Inj (NF)) Dose: 8 UNITS SUBQ TID - WITH MEALS NIFEdipine XL Tab (Procardia XL Tab) Dose: 30 MG oral DAILY Simvastatin 80mg Tab (NF) (Zocor 80mg Tab (NF)) Dose: 80 MG PO BEDTIME STOPPED HOSPITAL MEDICATIONS Dc'd: Dextrose 50% Syringe (D50W Syringe) 50ML IV ASDIRDc'd: Donepezil Tab (Aricept Tab) 10MG PO BEDTIMEDc'd: Glucagon Inj (Glucagon Inj) 1MG IM ASDIRDc'd: Insulin (Glargine) Inj (Lantus Inj) 20UNITS SUBQ DAILY@0800Dc'd: Mupirocin Ointment 2% (Bactroban Ointment 2%) 1APPLIC NASAL BID X 10 dosesDc'd: Ondansetron Inj (Zofran Inj) 4MG IV Q4H PRN nausea and vomitingDc'd: Patient's Own Medication (Patient's Own Medication) Caltrate with Vitamin D3 600 PO DAILY at 1326 ATTENTION *EDITS and/or ADDENDA must be made in Patient Keeper for this note. * * Edits and ammendments created in [place] [facility] are not visible * * in Patient Keeper or the legal medical record (HPF). * RPT #: [id number] END OF REPORT [facility] 2021-09-20 10:41:00 [facility] ([facility]) Endocrinology Progress Note REPORT #: [id number] REPORT STATUS: Signed DATE: 09/20/21 TIME: 1041 PATIENT: LISETH POTTS UNIT #: [id number] ROOM #: [id number] BED: 1 : 52 AGE: 71 SEX: F ATTEND: Eduardo Contreras MD ADM AUTHOR: Horacio Russell MD ATTENTION *EDITS and/or ADDENDA must be made in Patient Keeper for this note. * * Edits and ammendments created in [employer] are not visible * * in Patient Keeper or the legal medical record (HPF). * -- ASSESSMENT AND PLAN -- PROBLEMS: 1: Type 1 diabetes mellitus with ketoacidosis without coma A/P: UNCONTROLLED (KXZB5L=7.7%,HYPERGLYCEMIA) TYPE I IN DKA. DKA RESOLVED: FBS=93,210 HS AZUVMGE=146 AG=10.8. OBSERVE ON REVISED/DECREASED SQ BASAL/BOLUS INSULIN. MUST HAVE A BEDTIME SNACK. DISCUSSED WITH DAUGHTER. -- SUBJECTIVE -- CHIEF COMPLAINT: DKA,HYPERGLYCEMIA HPI: EVENTS NOTED: OUT OF ICU. TOERATING DIET. DAUGHTER VISITING. -REVIEW OF SYSTEMS- GENERAL: Negative for fever RESPIRATORY: Negative for dyspnea CARDIOVASCULAR: Negative for chest pain GASTROINTESTINAL: Negative for abdominal pain or nausea. ENDOCRINE: Negative polydipsia, polyuria -- OBJECTIVE -- VITALS (09/19 10:41 - 09/20 10:41): Temperature C: 36.4 (36.4 - 36.9) Temperature source: Oral Pulse Rate 79 (68 - 79) Respiratory rate: 15 (15 - 18) BP: 144/75 (121/66 - 166/75) -EXAM- GENERAL: Well developed, well nourished, in no apparent distress. THIN HEAD: Normocephalic, atraumatic. NECK: trachea midline. CHEST: Grossly normal appearance. LUNGS: NORMAL CHEST WALL MOVEMENT HEART: NO TACHYCARDIA ABDOMEN: NON-DISTENDED NEUROLOGICAL: NORMAL SPEECH PSYCHIATRIC: Alert and oriented to time, person, place. -- DATA -- MEDICATIONS DONEPEZIL HCL 10 MG PO BEDTIME ATORVASTATIN CALCIUM 40 MG PO BEDTIME INSULIN GLARGINE 30 UNITS SUBQ QAM INSULIN LISPRO 0 UNITS SUBQ AC HS PATIENT'S OWN MEDICATION Caltrate with Vitamin D3 600 PO DAILY MUPIROCIN 1 APPLIC NASAL BID ASPIRIN 81 MG PO DAILY NIFEdipine 30 MG PO DAILY GLUCAGON 1 MG IM ASDIR ONDANSETRON HCL/PF 4 MG IV Q4H PRN DEXTROSE 50%-WATER 50 ML IV ASDIR LABS GLU BED (09/20/21 07:42) GLUBED 210 H BASIC METABOLIC PANEL (09/20/21 02:30) SODIUM 144 POTASSIUM 3.8 CHLORIDE 113H H CARBON DIOXIDE 24 ANION GAP 10.8 GLUCOSE 93D D BLOOD UREA NITROGEN 9 GLOMERULAR FILTRATION RATE >=60 max estimate CREATININE 0.7 BUN/CREATININE RATIO 12.9 CALCIUM 8.7 CBC W/AUTO DIFF (09/20/21 02:30) WHITE BLOOD CELL 4.6 RED BLOOD CELL 3.33 L HEMOGLOBIN 9.8L L HEMATOCRIT 31.4L L MEAN CELL VOLUME 94 MEAN CELL HGB 29.4 MEAN CELL HGB CONCENTRATION 31.2 RED CELL DISTRIBUTION WIDTH 12.0 PLATELET COUNT 237 MEAN PLATELET VOLUME 10.3 NEUTROPHIL % 46.0 IMMATURE GRANULOCYTE % 0.2 LYMPHOCYTE % 34.6 MONOCYTE % 14.6 H EOSINOPHIL % 3.7 BASOPHIL % 0.9 NUCLEATED RBC % 0.0 NEUTROPHIL # 2.12 IMMATURE GRANULOCYTE # 0.010 LYMPHOCYTE # 1.59 MONOCYTE # 0.67 EOSINOPHIL # 0.17 BASOPHIL # 0.04 NUCLEATED RBC # 0.000 GLU BED (09/19/21 20:34) GLUBED 177 H HGB amp; HCT (09/19/21 18:39) HEMOGLOBIN 10.2 L HEMATOCRIT 31.7 L GLU BED (09/19/21 17:45) GLUBED 135 H GLU BED (09/19/21 11:20) GLUBED 297 H -- ATTESTATION -- TIME SPENT ON PATIENT CARE: - Direct 30 minutes CARE ACTIVITIES / CARE COORDINATION: - I have reviewed the history and repeated the figueroa elements - I have seen and examined this patient - I have reviewed the progress in the clinical course since the last examination - I have discussed the patient's condition with other members of the care team ADDITIONAL DETAIL: I HAVE SPENT 30 MINUTES IN THE EVALUATION AND TREATMENT OF THIS PATIENT. Signed in PatientKeeper by Horacio Russell MD on 09/20/21 at 10:46 at 1046 ATTENTION *EDITS and/or ADDENDA must be made in Patient Keeper for this note. * * Edits and ammendments created in [employer] are not visible * * in Patient Keeper or the legal medical record ([facility]). * [facility] #: [id number] END OF REPORT [facility] 2021-09-19 19:55:00 [facility] ([facility]) Med Order Sheet REPORT #: [id number] REPORT STATUS: Signed DATE: 09/19/21 TIME: 1954 PATIENT: LISETH POTTS UNIT #: [id number] ROOM #: [id number] BED: 1 : 52 AGE: 71 SEX: F ATTEND: Eduardo Contreras MD ADM AUTHOR: Eduardo Contreras MD ATTENTION *EDITS and/or ADDENDA must be made in Patient Keeper for this note. * * Edits and ammendments created in [employer] are not visible * * in Patient Keeper or the legal medical record ([facility]). * Admission Medication Reconciliation -- CONTINUED / CHANGED HOME MEDICATIONS -- Home: Aspirin Chewable Tab (Aspirin Chewable Tab) 81 MG PO DAILY Hosp: Aspirin Chewable Tab (Aspirin Chewable Tab) 81 MG PO DAILY Home: Caltrate with Vitamin D3 600 mg (1,500 mg)-800 unit tablet (calcium carbonate-vitamin D3) 1 TAB PO DAILY Hosp: Caltrate with Vitamin D3 600 mg (1,500 mg)-800 unit tablet (calcium carbonate-vitamin D3) 1 TAB PO DAILY Home: NIFEdipine XL Tab (Procardia XL Tab) 30 MG oral DAILY Hosp: NIFEdipine XL Tab (Procardia XL Tab) 30 MG oral DAILY Home: Simvastatin 80mg Tab (NF) (Zocor 80mg Tab (NF)) 80 MG PO BEDTIME Hosp: Simvastatin 80mg Tab (NF) (Zocor 80mg Tab (NF)) 80 MG PO BEDTIME The following home medications have not yet been reconciled: basaglar maggypen 14 UNITS QAM Insulin Aspart Inj (NF) (NovoLOG Inj (NF)) 8 UNITS SUBQ TID (WITH MEALS) at 1955 ATTENTION *EDITS and/or ADDENDA must be made in Patient Keeper for this note. * * Edits and ammendments created in [facility] are not visible * * in Patient Keeper or the legal medical record (HPF). * [facility] #: [id number] END OF REPORT [facility] 2021-09-19 17:49:00 [facility]) Family Med. History Physical REPORT #: [id number] REPORT STATUS: Signed DATE: 09/19/21 TIME: 174 PATIENT: LISETH POTTS UNIT #: [id number] ROOM #: [id number] BED: 1 : 52 AGE: 71 SEX: F ATTEND: Eduardo Contreras MD ADM AUTHOR: Eduardo Contreras MD ATTENTION *EDITS and/or ADDENDA must be made in Patient Keeper for this note. * * Edits and ammendments created in [employer] Entertainment are not visible * * in Patient Keeper or the legal medical record (HPF). * -- HISTORY -- ADMISSION DATE: 2021-09-18 PRIMARY CARE PROVIDER: Eduardo Contreras MD CHIEF COMPLAINT: nausea, vomiting, abdominal pain HPI: this very nice lady who recently relocated from [place] to now live with her daughter 1st met with me 24 hours prior to admission. At that time, she was doing well and felt well. Her daughter's concern was for memory loss and potential diagnosis of dementia. She was moved from [place] to allow her daughter to more closely follow her medications and overall health. Unfortunately, she has been undergoing increased stress worrying about her other daughter's health. There appears to be mental health issues With her other daughter. She went to the emergency room after developing abdominal pain with nausea and vomiting. At that time, she was found to be in diabetic ketoacidosis. She was admitted into the intensive care unit on an insulin drip with aggressive IV fluids and electrolyte replacement. Overnight, her anion gap corrected and her diabetic ketoacidosis resolved. She is now much more stable and tolerating lunch. [employer] Expediter and Critical Care were consulted. She is now being converted over to subcutaneous insulin and transferred out of the intensive care unit. Daughter is at bedside and available for translation. PAST MEDICAL HISTORY: Insulin-dependent diabetes mellitus Hypertension Senile and vascular dementia PAST SURGICAL HISTORY: noncontributory -- ALLERGIES/HOME MEDS -- ALLERGIES: No Known Allergies (UNKNOWN - Allergy) -- SUBJECTIVE -- -REVIEW OF SYSTEMS- GENERAL: Negative for fever, malaise, fatigue. EYES: Negative for blurry vision. No diplopia. EARS/NOSE/THROAT: Negative for sore throat. No otalgia. No rhinorrhea. RESPIRATORY: Negative for dyspnea or wheeze. No cough. CARDIOVASCULAR: Negative for chest pain or palpitations. No extremity swelling. GASTROINTESTINAL: see HPI. Symptoms have completely resolved. MUSCULOSKELETAL: Negative for joint stiffness, pain, or arthralgias. PSYCHIATRIC: Negative for specific complaints. -- OBJECTIVE -- VITALS (09/18 17:50 - 09/19 17:50): Temperature F: 98.3 (98.3 - 98.4) Temperature C: 36.7 Temperature source: Oral Pulse Rate 69 (67 - 85) Respiratory rate: 16 (15 - 28) BP: 121/67 (103/50 - 134/68) Blood pressure source: Monitor -EXAM- GENERAL: Well developed, well nourished, in no apparent distress. Elderly and frail-appearing HEAD: Normocephalic, atraumatic. EYES: PERRL, EOM intact, conjunctiva and sclera clear, without nystagmus, lids normal. CHEST: Grossly normal appearance. LUNGS: Clear bilaterally with normal respiratory effort. HEART: Regular rate and rhythm, normal S1, S2, no murmurs, no rubs, no gallops, no clicks. ABDOMEN: Soft, non-tender, no organomegaly, no masses noted. EXTREMITIES: No clubbing, no cyanosis, no edema. NEUROLOGICAL: intact grossly without focal deficit -- DATA -- LABS GLU BED (09/19/21 11:20) GLUBED 297 H GLU BED (09/19/21 07:47) GLUBED 191 H GLU BED (09/19/21 05:32) GLUBED 220 H GLU BED (09/19/21 04:16) GLUBED 321 H GLU BED (09/19/21 03:16) GLUBED 444 *H COMPREHENSIVE METABOLIC PANEL (09/19/21 03:00) SODIUM 140 POTASSIUM 4.5 CHLORIDE 112H H CARBON DIOXIDE 21 ANION GAP 11.5 GLUCOSE 448*H *H BLOOD UREA NITROGEN 16 GLOMERULAR FILTRATION RATE >=60 max estimate CREATININE 0.9 BUN/CREATININE RATIO 17.8 TOTAL PROTEIN 5.3 L ALBUMIN 2.5 L CALCIUM 7.8 L BILIRUBIN TOTAL 0.4 SGOT/AST 15 SGPT/ALT 15 ALKALINE PHOSPHATASE 47 CBC W/AUTO DIFF (09/19/21 03:00) WHITE BLOOD CELL 6.5 RED BLOOD CELL 2.94 L HEMOGLOBIN 8.9D L D L HEMATOCRIT 27.6L L MEAN CELL VOLUME 94 MEAN CELL HGB 30.3 MEAN CELL HGB CONCENTRATION 32.2 RED CELL DISTRIBUTION WIDTH 12.0 PLATELET COUNT 203 MEAN PLATELET VOLUME 10.2 NEUTROPHIL % 60.8 IMMATURE GRANULOCYTE % 0.5 LYMPHOCYTE % 24.5 MONOCYTE % 11.9 EOSINOPHIL % 1.5 BASOPHIL % 0.8 NUCLEATED RBC % 0.0 NEUTROPHIL # 3.93 IMMATURE GRANULOCYTE # 0.030 LYMPHOCYTE # 1.58 MONOCYTE # 0.77 EOSINOPHIL # 0.10 BASOPHIL # 0.05 NUCLEATED RBC # 0.000 GLU BED (09/18/21 20:23) GLUBED 118 H TROP-I HIGH SEN (09/18/21 18:52) TROP-I HIGH SENSITIVITY 7 T4F (09/18/21 18:52) T4 FREE 1.06 TSH REFX FT4 (09/18/21 18:52) TSH REFLEX TO FT4 0.15 L BASIC METABOLIC PANEL (09/18/21 18:52) SODIUM 140 POTASSIUM 4.3 CHLORIDE 110H H CARBON DIOXIDE 22 ANION GAP 12.3 GLUCOSE 449*H *H BLOOD UREA NITROGEN 19 GLOMERULAR FILTRATION RATE >=60 max estimate CREATININE 0.9 BUN/CREATININE RATIO 21.1 H CALCIUM 7.3 L LIP (09/18/21 18:52) LIPASE 50 L LIPID PROFILE (CORONARY RISK) (09/18/21 18:52) TRIGLYCERIDES 31 CHOLESTEROL 126 CHOLESTEROL/HDL RATIO 2 HDL CHOLESTEROL 61 H LIPOPROTEIN LDL 58 HGBA1C - GLYCOSYLATED HGB (09/18/21 18:52) GLYCOSYLATED HEMOGLOBIN (HA1C) 8.7 H GLU BED (09/18/21 18:01) GLUBED 150 H -- ASSESSMENT AND PLAN -- PROBLEMS: 1: Type 1 diabetes mellitus with ketoacidosis without coma A/P: admitted into the intensive care unit Likely due to stress and subsequent stress-induced hyperglycemia Appears to be a type 2 diabetic but is insulin dependent Type 1.5 Now in diabetic ketoacidosis Overnight with insulin drip and IV fluids this has resolved Feels almost back to baseline. However, she is tearful when discussing stress of her other daughter. The daughter that she has moved in with his present and very supportive. Wants to learn more and make sure that her mother received her medications correctly. Critical care consulted Endocrinology consulted Becoming more stable and okay to transfer out of the intensive care unit Discussed with her ICU nurse at bedside. I discussed with the patient's daughter and the patient through translation the diagnosis, differential diagnosis, findings up-to-date, and care plan. We will continue to titrate her medications to obtain better glycemic control and avoid diabetic ketoacidosis. We discussed home health, home health care, supportive care, care management, as well as safety and compliance with medications, at length. I answered all questions. Anticipate discharge home tomorrow if cleared by endocrinology. 2: Diabetes A/P: Diabetes mellitus with diabetic ketoacidosis Becoming more stable Okay to transfer out of the intensive care unit Reviewed, once again, recent lab work. Anion gap has corrected Potassium is normal Diabetes management per plant and machinery valuer. 3: Hypertension A/P: Longstanding essential hypertension in this diabetic I suspect atherosclerotic disease, as well. Restart home medications when they were reconciled Follow blood pressure trends. 4: Hyperlipidemia A/P: Optimize medical therapy Restart statin therapy 5: Dementia A/P: I suspect combination of senile and vascular dementia Initiated Aricept but she has only picked up the prescription from her pharmacy and has not started. Discussed supportive therapy Safety and goals. Discussed, at length with her daughter. Referrals in place to initiate home health, home health care, home support, and neurologic evaluation. -- ATTESTATION -- TIME SPENT ON PATIENT CARE: - Direct - Counseling - Coordination of Care - Critical Care - Discharge Planning CARE ACTIVITIES / CARE COORDINATION: - I have reviewed the history and repeated the figueroa elements - I have seen and examined this patient - I have discussed the patient's condition with other members of the care team Signed in PatientKeeper by Eduardo Contreras MD on 09/19/21 at 17:57 at 1757 ATTENTION *EDITS and/or ADDENDA must be made in Patient Keeper for this note. * * Edits and ammendments created in [employer] are not visible * * in Patient Keeper or the legal medical record ([facility]). * [facility] #: [id number] END OF REPORT [facility] 2021-09-19 11:34:00 [facility] Endocrinology Consultation REPORT #: [id number] REPORT STATUS: Signed DATE: 09/19/21 TIME: 1134 PATIENT: LISETH POTTS UNIT #: [id number] ROOM #: [id number] BED: A : 52 AGE: 71 SEX: F ATTEND: Eduardo Contreras MD ADM AUTHOR: Horacio Russell MD ATTENTION *EDITS and/or ADDENDA must be made in Patient Keeper for this note. * * Edits and ammendments created in [employer] are not visible * * in Patient Keeper or the legal medical record ([facility]). * -- ASSESSMENT AND PLAN -- PROBLEMS: 1: Type 1 diabetes mellitus with ketoacidosis without coma A/P: UNCONTROLLED (ZXZQ7M=4.7%,HYPERGLYCEMIA) TYPE I IN DKA. DKA RESOLVED. OBSERVE ON SQ BASAL/BOLUS INSULIN. DISCUSSED WITH ICU NURSE, DAUGHTER. THANK YOU. WILL FOLLOW WITH YOU. -- HISTORY -- CONSULT REQUESTED BY: CONTRERAS PAUL REASON FOR CONSULT: HYPERGLYCEMIA,DKA CHIEF COMPLAINT: HYPERGLYCEMIA HPI: PATIENT ADMITTED TO ICU IN DKA. ICU DKA, INSULIN DRIP PROTOCOL INITIATED. INSULIN DRIP NOW DISCONTINUED. PATIENT HAS KNOWN TYPE I DM. SHE WAS ON BASAGLAR 14 UNITS DAILY PLUS NOVOLOG 8 UNITS AC. PAST MEDICAL HISTORY: TYPE I DM -- ALLERGIES/HOME MEDS -- ALLERGIES: No Known Allergies (UNKNOWN - Allergy) HOME MEDICATIONS COMMENTS: BASAGLAR NOVOLOG -- SUBJECTIVE -- -REVIEW OF SYSTEMS- GENERAL: Negative for fever RESPIRATORY: Negative for dyspnea CARDIOVASCULAR: Negative for chest pain GASTROINTESTINAL: Negative for abdominal pain or nausea. No emesis. ENDOCRINE: Negative for polyphagia, polydipsia, polyuria -- OBJECTIVE -- VITALS (09/18 11:34 - 09/19 11:34): Temperature F: 98.3 (98.1 - 98.4) Temperature source: Oral Pulse Rate 71 (64 - 85) Respiratory rate: 15 (14 - 28) BP: 125/60 (98/44 - 134/68) Blood pressure source: Monitor -EXAM- GENERAL: Well developed, well nourished, in no apparent distress. THIN HEAD: Normocephalic, atraumatic. NECK: trachea midline. CHEST: Grossly normal appearance. LUNGS: NORMAL CHEST WALL MOVEMENT HEART: NO TACHYCARDIA ABDOMEN: NON-DISTENDED NEUROLOGICAL: NORMAL SPEECH PSYCHIATRIC: Alert and oriented to time, person, place. -- DATA -- MEDICATIONS INSULIN LISPRO 0 UNITS SUBQ AC HS MUPIROCIN 1 APPLIC NASAL BID INSULIN GLARGINE 36 UNITS SUBQ QAM GLUCAGON 1 MG IM ASDIR ONDANSETRON HCL/PF 4 MG IV Q4H PRN DEXTROSE 50%-WATER 50 ML IV ASDIR LABS GLU BED (09/19/21 11:20) GLUBED 297 H GLU BED (09/19/21 07:47) GLUBED 191 H GLU BED (09/19/21 05:32) GLUBED 220 H GLU BED (09/19/21 04:16) GLUBED 321 H GLU BED (09/19/21 03:16) GLUBED 444 *H COMPREHENSIVE METABOLIC PANEL (09/19/21 03:00) SODIUM 140 POTASSIUM 4.5 CHLORIDE 112H H CARBON DIOXIDE 21 ANION GAP 11.5 GLUCOSE 448*H *H BLOOD UREA NITROGEN 16 GLOMERULAR FILTRATION RATE >=60 max estimate CREATININE 0.9 BUN/CREATININE RATIO 17.8 TOTAL PROTEIN 5.3 L ALBUMIN 2.5 L CALCIUM 7.8 L BILIRUBIN TOTAL 0.4 SGOT/AST 15 SGPT/ALT 15 ALKALINE PHOSPHATASE 47 CBC W/AUTO DIFF (09/19/21 03:00) WHITE BLOOD CELL 6.5 RED BLOOD CELL 2.94 L HEMOGLOBIN 8.9D L D L HEMATOCRIT 27.6L L MEAN CELL VOLUME 94 MEAN CELL HGB 30.3 MEAN CELL HGB CONCENTRATION 32.2 RED CELL DISTRIBUTION WIDTH 12.0 PLATELET COUNT 203 MEAN PLATELET VOLUME 10.2 NEUTROPHIL % 60.8 IMMATURE GRANULOCYTE % 0.5 LYMPHOCYTE % 24.5 MONOCYTE % 11.9 EOSINOPHIL % 1.5 BASOPHIL % 0.8 NUCLEATED RBC % 0.0 NEUTROPHIL # 3.93 IMMATURE GRANULOCYTE # 0.030 LYMPHOCYTE # 1.58 MONOCYTE # 0.77 EOSINOPHIL # 0.10 BASOPHIL # 0.05 NUCLEATED RBC # 0.000 GLU BED (09/18/21 20:23) GLUBED 118 H TROP-I HIGH SEN (09/18/21 18:52) TROP-I HIGH SENSITIVITY 7 T4F (09/18/21 18:52) T4 FREE 1.06 TSH REFX FT4 (09/18/21 18:52) TSH REFLEX TO FT4 0.15 L BASIC METABOLIC PANEL (09/18/21 18:52) SODIUM 140 POTASSIUM 4.3 CHLORIDE 110H H CARBON DIOXIDE 22 ANION GAP 12.3 GLUCOSE 449*H *H BLOOD UREA NITROGEN 19 GLOMERULAR FILTRATION RATE >=60 max estimate CREATININE 0.9 BUN/CREATININE RATIO 21.1 H CALCIUM 7.3 L LIP (09/18/21 18:52) LIPASE 50 L LIPID PROFILE (CORONARY RISK) (09/18/21 18:52) TRIGLYCERIDES 31 CHOLESTEROL 126 CHOLESTEROL/HDL RATIO 2 HDL CHOLESTEROL 61 H LIPOPROTEIN LDL 58 HGBA1C - GLYCOSYLATED HGB (09/18/21 18:52) GLYCOSYLATED HEMOGLOBIN (HA1C) 8.7 H GLU BED (09/18/21 18:01) GLUBED 150 H GLU BED (09/18/21 16:13) GLUBED 137 H COMPREHENSIVE METABOLIC PANEL (09/18/21 15:07) SODIUM 139 POTASSIUM 5.3H H CHLORIDE 108 CARBON DIOXIDE 23 ANION GAP 13.3 GLUCOSE 160H H BLOOD UREA NITROGEN 22 GLOMERULAR FILTRATION RATE >=60 max estimate CREATININE 0.9 BUN/CREATININE RATIO 24.4 H TOTAL PROTEIN 6.3 L ALBUMIN 3.5 CALCIUM 8.8 BILIRUBIN TOTAL 0.7 SGOT/AST 32 SGPT/ALT 27 ALKALINE PHOSPHATASE 61 GLU BED (09/18/21 15:07) GLUBED 130 H GLU BED (09/18/21 13:59) GLUBED 142 H GLU BED (09/18/21 12:53) GLUBED 188 H GLU BED (09/18/21 11:38) GLUBED 311 H -- ATTESTATION -- TIME SPENT ON PATIENT CARE: - Direct 50 minutes CARE ACTIVITIES / CARE COORDINATION: - I have reviewed the history and repeated the figueroa elements - I have seen and examined this patient - I have discussed the patient's condition with other members of the care team ADDITIONAL DETAIL: I HAVE SPENT >50 MINUTES IN THE EVALUATION AND TREATMENT OF THIS PATIENT. Signed in PatientKeeper by Horacio Russell MD on 09/19/21 at 11:41 at 1141 ATTENTION *EDITS and/or ADDENDA must be made in Patient Keeper for this note. * * Edits and ammendments created in [facility] are not visible * * in Patient Keeper or the legal medical record (HPF). * [facility] #: [id number] END OF REPORT [facility] 2021-09-19 11:33:00 [facility] Intensive Care Progress Note REPORT #: [id number] REPORT STATUS: Signed DATE: 09/19/21 TIME: 1133 PATIENT: LISETH POTTS UNIT #: [id number] ROOM #: [id number] BED: A : 52 AGE: 71 SEX: F ATTEND: Eduardo Contreras MD ADM AUTHOR: Vishnu Keene MD ATTENTION *EDITS and/or ADDENDA must be made in Patient Keeper for this note. * * Edits and ammendments created in [employer] are not visible * * in Patient Keeper or the legal medical record (HPF). * -- ASSESSMENT AND PLAN -- GENERAL ASSESSMENT: [facility] Assessment: DKA hyperglycemia HAGMA hyperkalemia DM Plan: transitioned off insulin drip downgrade to tele Neurologic: AAO x3, no acute process Pulmonary: supplemental O2 to keep SpO2 > 92% room air Cardiovascular: Monitor HR, BP. Hematologic: Monitor H/H, platelets. Transfuse to keep Hgb > 7. No indication for transfusion at this time. Renal: Continue IV fluids, and aggressively replace electrolytes as needed Continue BMP every 4 hours Monitor UOP, BUN, Cr. Avoid nephrotoxins. Gastrointestinal: No acute GI process NPO for now lipase wnl Infectious disease: no acute infectious process. continue to monitor Fever and WBC Endocrine: insulin protocol for DKA/HHS protocol Consulted endocrinology A1c 8.7 TSH - 0.15 Subjective Patient seen this morning Events reviewed Discussed with RN Signs stable Patient sitting in chair daughter at bedside. Denies any chest pain Off insulin drip Eating tolerating p.o. intake. --------- HPI: 71 year-old female with past medical history of diabetes who presented with nausea vomiting to freestanding emergency department. Patient recently moved from [place] to be closer to her daughter, patient has had some decline cognitive decline per daughter and is easily forgetful and does not remember if she take her medication or not. Daughter states that she allows her to manage her insulin still, likely has forgotten to take insulin over the last few days periodically. In the emergency department patient was found to be hyperglycemic with high anion gap metabolic acidosis. Ketones in the urine. Started on insulin drip and transferred to [facility] for further care. Patient currently resting comfortably on room air. Denies any chest pain, no abdominal pain. No further nausea or vomiting. Has been urinating. Patient wants to eat and is hungry. Past medical history: Diabetes PSurgHx: None recently FamHx: Noncontributory SocHx: Denies tobacco alcohol or illicit drug use Review of systems: 14 point review system negative unless listed above Physical Exam General: NAD, awake and alert Eyes: Anicteric sclerae. Mouth: MMM Neck: Supple. CV: Regular rate and rhythm. Normal S1 and S2. Pulm: Good effort, no wheezing or Rales appreciated. Abdomen: Soft, nontender.BS+ Extremities: No lower extremity edema. Skin: Warm, dry. Neuro: Awake and alert, no focal neurological deficit Psych: normal mood -- OBJECTIVE -- VITALS (09/18 11:33 - 09/19 11:33): Temperature F: 98.3 (98.1 - 98.4) Temperature source: Oral Pulse Rate 71 (64 - 85) Respiratory rate: 15 (14 - 28) BP: 125/60 (98/44 - 134/68) Blood pressure source: Monitor -- DATA -- MEDICATIONS INSULIN LISPRO 0 UNITS SUBQ AC HS MUPIROCIN 1 APPLIC NASAL BID INSULIN GLARGINE 36 UNITS SUBQ QAM GLUCAGON 1 MG IM ASDIR ONDANSETRON HCL/PF 4 MG IV Q4H PRN DEXTROSE 50%-WATER 50 ML IV ASDIR LABS GLU BED (09/19/21 11:20) GLUBED 297 H GLU BED (09/19/21 07:47) GLUBED 191 H GLU BED (09/19/21 05:32) GLUBED 220 H GLU BED (09/19/21 04:16) GLUBED 321 H GLU BED (09/19/21 03:16) GLUBED 444 *H COMPREHENSIVE METABOLIC PANEL (09/19/21 03:00) SODIUM 140 POTASSIUM 4.5 CHLORIDE 112H H CARBON DIOXIDE 21 ANION GAP 11.5 GLUCOSE 448*H *H BLOOD UREA NITROGEN 16 GLOMERULAR FILTRATION RATE >=60 max estimate CREATININE 0.9 BUN/CREATININE RATIO 17.8 TOTAL PROTEIN 5.3 L ALBUMIN 2.5 L CALCIUM 7.8 L BILIRUBIN TOTAL 0.4 SGOT/AST 15 SGPT/ALT 15 ALKALINE PHOSPHATASE 47 CBC W/AUTO DIFF (09/19/21 03:00) WHITE BLOOD CELL 6.5 RED BLOOD CELL 2.94 L HEMOGLOBIN 8.9D L D L HEMATOCRIT 27.6L L MEAN CELL VOLUME 94 MEAN CELL HGB 30.3 MEAN CELL HGB CONCENTRATION 32.2 RED CELL DISTRIBUTION WIDTH 12.0 PLATELET COUNT 203 MEAN PLATELET VOLUME 10.2 NEUTROPHIL % 60.8 IMMATURE GRANULOCYTE % 0.5 LYMPHOCYTE % 24.5 MONOCYTE % 11.9 EOSINOPHIL % 1.5 BASOPHIL % 0.8 NUCLEATED RBC % 0.0 NEUTROPHIL # 3.93 IMMATURE GRANULOCYTE # 0.030 LYMPHOCYTE # 1.58 MONOCYTE # 0.77 EOSINOPHIL # 0.10 BASOPHIL # 0.05 NUCLEATED RBC # 0.000 GLU BED (09/18/21 20:23) GLUBED 118 H TROP-I HIGH SEN (09/18/21 18:52) TROP-I HIGH SENSITIVITY 7 T4F (09/18/21 18:52) T4 FREE 1.06 TSH REFX FT4 (09/18/21 18:52) TSH REFLEX TO FT4 0.15 L BASIC METABOLIC PANEL (09/18/21 18:52) SODIUM 140 POTASSIUM 4.3 CHLORIDE 110H H CARBON DIOXIDE 22 ANION GAP 12.3 GLUCOSE 449*H *H BLOOD UREA NITROGEN 19 GLOMERULAR FILTRATION RATE >=60 max estimate CREATININE 0.9 BUN/CREATININE RATIO 21.1 H CALCIUM 7.3 L LIP (09/18/21 18:52) LIPASE 50 L LIPID PROFILE (CORONARY RISK) (09/18/21 18:52) TRIGLYCERIDES 31 CHOLESTEROL 126 CHOLESTEROL/HDL RATIO 2 HDL CHOLESTEROL 61 H LIPOPROTEIN LDL 58 HGBA1C - GLYCOSYLATED HGB (09/18/21 18:52) GLYCOSYLATED HEMOGLOBIN (HA1C) 8.7 H GLU BED (09/18/21 18:01) GLUBED 150 H GLU BED (09/18/21 16:13) GLUBED 137 H COMPREHENSIVE METABOLIC PANEL (09/18/21 15:07) SODIUM 139 POTASSIUM 5.3H H CHLORIDE 108 CARBON DIOXIDE 23 ANION GAP 13.3 GLUCOSE 160H H BLOOD UREA NITROGEN 22 GLOMERULAR FILTRATION RATE >=60 max estimate CREATININE 0.9 BUN/CREATININE RATIO 24.4 H TOTAL PROTEIN 6.3 L ALBUMIN 3.5 CALCIUM 8.8 BILIRUBIN TOTAL 0.7 SGOT/AST 32 SGPT/ALT 27 ALKALINE PHOSPHATASE 61 GLU BED (09/18/21 15:07) GLUBED 130 H GLU BED (09/18/21 13:59) GLUBED 142 H GLU BED (09/18/21 12:53) GLUBED 188 H GLU BED (09/18/21 11:38) GLUBED 311 H Signed in PatientKeeper by Vishnu Keene MD on 09/19/21 at 11:35 at 1135 ATTENTION *EDITS and/or ADDENDA must be made in Patient Keeper for this note. * * Edits and ammendments created in [facility] are not visible * * in Patient Keeper or the legal medical record ([facility]). * [facility] #: [id number] END OF REPORT [facility] 2021-09-18 18:11:00 [facility] Intensive Care Consultation REPORT #: [id number] REPORT STATUS: Signed DATE: 09/18/21 TIME: 1811 PATIENT: LISETH POTTS UNIT #: [id number] ROOM #: [id number] BED: A : 52 AGE: 71 SEX: F ATTEND: Eduardo Contreras MD ADM AUTHOR: Vishnu Keene MD ATTENTION *EDITS and/or ADDENDA must be made in Patient Keeper for this note. * * Edits and ammendments created in [facility] are not visible * * in Patient Keeper or the legal medical record ([facility]). * -- ASSESSMENT AND PLAN -- GENERAL ASSESSMENT: [facility] Assessment: DKA hyperglycemia HAGMA hyperkalemia DM Plan: Neurologic: AAO x3, no acute process Pulmonary: supplemental O2 to keep SpO2 > 92% room air Cardiovascular: Monitor HR, BP. Hematologic: Monitor H/H, platelets. Transfuse to keep Hgb > 7. No indication for transfusion at this time. Renal: Continue IV fluids, and aggressively replace electrolytes as needed Continue BMP every 4 hours Monitor UOP, BUN, Cr. Avoid nephrotoxins. Gastrointestinal: No acute GI process NPO for now lipase pending Infectious disease: no acute infectious process. continue to monitor Fever and WBC Endocrine: insulin protocol for DKA/HHS protocol Consult endocrinology in AM Check hemoglobin A1c, TSH --------- HPI: 71 year-old female with past medical history of diabetes who presented with nausea vomiting to freestanding emergency department. Patient recently moved from [place] to be closer to her daughter, patient has had some decline cognitive decline per daughter and is easily forgetful and does not remember if she take her medication or not. Daughter states that she allows her to manage her insulin still, likely has forgotten to take insulin over the last few days periodically. In the emergency department patient was found to be hyperglycemic with high anion gap metabolic acidosis. Ketones in the urine. Started on insulin drip and transferred to [facility] for further care. Patient currently resting comfortably on room air. Denies any chest pain, no abdominal pain. No further nausea or vomiting. Has been urinating. Patient wants to eat and is hungry. Past medical history: Diabetes PSurgHx: None recently FamHx: Noncontributory SocHx: Denies tobacco alcohol or illicit drug use Review of systems: 14 point review system negative unless listed above Physical Exam General: NAD, awake and alert Eyes: Anicteric sclerae. Mouth: MMM Neck: Supple. CV: Regular rate and rhythm. Normal S1 and S2. Pulm: Good effort, no wheezing or Rales appreciated. Abdomen: Soft, nontender.BS+ Extremities: No lower extremity edema. Skin: Warm, dry. Neuro: Awake and alert, no focal neurological deficit Psych: normal mood I have personally provided 31 minutes of critical care time. Time includes review of laboratory data, radiology results, discussion with consultants, family and staff and monitoring for potential decompensation. Interventions were performed as documented above. This is exclusive of time spent on separately billable procedures. -- OBJECTIVE -- VITALS (09/17 18:12 - 09/18 18:12): Temperature F: 98.1 (97.8 - 98.1) Temperature source: Oral Pulse Rate 71 (64 - 81) Respiratory rate: 14 (14 - 16) BP: 118/51 (98/44 - 139/54) -- DATA -- MEDICATIONS INSULIN REGULAR, HUMAN with/in SODIUM CHLORIDE 100 mL BAG 100 UNIT IV X1ED GLUCAGON 1 MG IV ASDIR (PRN) MUPIROCIN 1 APPLIC NASAL BID DEXTROSE 50%-WATER 50 ML IV ASDIR (PRN) ONDANSETRON HCL/PF 4 MG IV Q4H PRN DEXTROSE 5%-0.45% SALINE 1000 ML IV .[id number] LABS GLU BED (09/18/21 18:01) GLUBED 150 H GLU BED (09/18/21 16:13) GLUBED 137 H COMPREHENSIVE METABOLIC PANEL (09/18/21 15:07) SODIUM 139 POTASSIUM 5.3H H CHLORIDE 108 CARBON DIOXIDE 23 ANION GAP 13.3 GLUCOSE 160H H BLOOD UREA NITROGEN 22 GLOMERULAR FILTRATION RATE >=60 max estimate CREATININE 0.9 BUN/CREATININE RATIO 24.4 H TOTAL PROTEIN 6.3 L ALBUMIN 3.5 CALCIUM 8.8 BILIRUBIN TOTAL 0.7 SGOT/AST 32 SGPT/ALT 27 ALKALINE PHOSPHATASE 61 GLU BED (09/18/21 15:07) GLUBED 130 H GLU BED (09/18/21 13:59) GLUBED 142 H GLU BED (09/18/21 12:53) GLUBED 188 H GLU BED (09/18/21 11:38) GLUBED 311 H COVID19 RNA BED (09/18/21 11:14) Coronavirus 2019 nCoV Bedside Negative URINALYSIS DIPSTICK POC (09/18/21 11:09) UA COLOR YELLOW UA APPEARANCE CLEAR UA GLUCOSE DIPSTICK 2+ H UA BILIRUBIN DIPSTICK NEGATIVE UA KETONE DIPSTICK 3+ H UA SPECIFIC GRAVITY 1.015 UA BLOOD DIPSTICK NEGATIVE UA PH DIPSTICK 5.5 UA PROTEIN DIPSTICK NEGATIVE UA UROBILINOGEN DIPSTICK 0.2 UA NITRITE DIPSTICK NEGATIVE UA LEUKOCYTE ESTERASE DIPSTICK NEGATIVE UA MICROSCOPIC NEEDED? NO TROPI RAPID (09/18/21 09:57) TROPONIN I RAPID < 0.05 ANGELA (09/18/21 09:38) AMYLASE 56 COMPREHENSIVE METABOLIC PANEL (09/18/21 09:35) SODIUM 140 POTASSIUM 5.0 CHLORIDE 104 CARBON DIOXIDE 15L L ANION GAP 26.0 H GLUCOSE 489*H *H BLOOD UREA NITROGEN 27H H GLOMERULAR FILTRATION RATE 58 L CREATININE 1.0 BUN/CREATININE RATIO 27.0 H TOTAL PROTEIN 7.7 ALBUMIN 4.1 CALCIUM 9.2 BILIRUBIN TOTAL 1.1 SGOT/AST 40 H SGPT/ALT 26 ALKALINE PHOSPHATASE 78 CBC W/AUTO DIFF (09/18/21 08:58) WHITE BLOOD CELL 9.1 RED BLOOD CELL 4.26 HEMOGLOBIN 13.0 HEMATOCRIT 39.3 MEAN CELL VOLUME 92 MEAN CELL HGB 30.5 MEAN CELL HGB CONCENTRATION 33.1 RED CELL DISTRIBUTION WIDTH 12.5 RED CELL DISTRIBUTION WIDTH SD 42.3 PLATELET COUNT 251 MEAN PLATELET VOLUME 10.6 NEUTROPHIL % 91.2 H LYMPHOCYTE % 7.3 L MIXED % 1.5 NEUTROPHIL # 8.30 H LYMPHOCYTE # 0.70 L MIXED # 0.1 GLU BED (09/18/21 08:51) GLUBED 579 *H Signed in PatientKeeper by Vishnu Keene MD on 09/18/21 at 18:20 at 1820 ATTENTION *EDITS and/or ADDENDA must be made in Patient Keeper for this note. * * Edits and ammendments created in [facility] are not visible * * in Patient Keeper or the legal medical record (HPF). * RPT #: [id number] END OF REPORT [facility] 2021-09-18 09:20:00 [facility] ([facility]) EMERGENCY PROVIDER REPORT REPORT#:[id number] REPORT STATUS: Signed DATE:09/18/21 TIME: 919 PATIENT: LISETH POTTS UNIT #: [id number] ROOM: DC.TERIBED: 1 AGE: 71 SEX: F PCP PHYS: Eduardo Contreras MD SERVICE AUTHOR: Joshua Bal MD * ALL edits or amendments must be made on the electronic/computer document * HPI-General Illness General Initial Greet Date/Time 09/18/21 0844 Presentation Chief Complaint Vomiting, elevated blood glucose Free Text HPI Notes Free Text HPI Notes Patient is a 71-year-old female with past medical history of hypertension and diabetes who presents with concern for vomiting and elevated blood glucose. Patient's daughter states that patient is now showing early signs of dementia and believes patient is forgetting to take her medications. Patient's daughter states that she believes patient did not take her insulin yesterday afternoon/ evening. Patient was however given insulin this morning when blood glucose was noted to be in the 500s. Patient currently complaining of nausea and 2-3 episodes of nonbloody emesis. Patient states that she is not having any pain. Patient denies fever chest pain shortness of breath diarrhea dysuria hematuria lightheadedness dizziness numbness focal weakness rash recent trauma or abdominal pain. Of note patient is primarily [place]-speaking and request that her daughter interpret for and therefore daughter was used as aerial photograph interpreter for history physical treatment and disposition planning. Review of Systems ROS Statements All systems rev neg except as marked. Review of Systems GI Reports: Nausea, Vomiting. Past Medical History - Adult Stated Complaint ELEVATED BS Allergies Coded Allergies: No Known Allergies (08/24/21) Calculated Suicide Risk (nurs) No risk Additional Medical History dm type 1, htn Additional Surgical History gallbladder Smoking status for patients 13 years old or older: Never Smoker Physical Exam Vital Signs Vital Signs First Documented: Result Date Time Pulse Ox 100 07/ 0840 B/P 139/54 / 0840 B/P Mean 82 / 0840 O2 Delivery Room air 09/18 0840 Temp 36.6 09/18 0840 Pulse 81 09/18 0840 Resp 16 09/18 0840 Last Documented: Result Date Time Pulse Ox 100 07/ 0840 B/P 139/54 / 0840 B/P Mean 82 / 0840 O2 Delivery Room air 09/18 0840 Temp 36.6 09/18 0840 Pulse 81 09/18 0840 Resp 16 09/18 0840 Review of Vital Signs Reviewed Free Text PE Notes Free Text PE Notes General: Well appearing, well nourished, in no distress. HEENT: Head: Normocephalic, atraumatic Eyes: EOM intact, PERRL, Atraumatic Ears/Nose/Throat: Atraumatic, Airway patent, Mucous membranes moist Neck: Supple, without lesions, w/o meningismus Heart: regular rate and rhythm, peripheral circulation normal Lungs: Clear to auscultation bilaterally. No acute respiratory distress Abdomen: atraumatic, soft, non-tender, non-distended Musculoskeletal: No tenderness, moving all extremities Skin: Warm, dry Neurologic: normal strength, normal sensation, AOx3, speech normal Psychiatric: normal mood and affect. Interpretation Diagnostics Lab Results Interpretation Results Laboratory Tests 09/18/21 0858: [Embedded Image Not Available] 09/18/21 0935: [Embedded Image Not Available] Laboratory Tests: 09/18 09/18 09/18 09/18 09/18 0851 0858 0935 0938 0957 Chemistry Sodium (128 - 145 mmol/L) 140 Potassium (3.6 - 5.1 mmol/L) 5.0 Chloride (98 - 108 mmol/L) 104 Carbon Dioxide (18 - 33 mmol/L) 15 L Anion Gap (2.0 - 16.0) 26.0 H BUN (7 - 22 mg/dL) 27 H Creatinine (0.6 - 1.2 mg/dL) 1.0 Glomerular Filtr Rate (60 - 115 58 L ml/min) BUN/Creatinine Ratio (12.0 - 20.0) 27.0 H Glucose (65 - 99 mg/dL) 489 *H POC Glucose (70 - 105 mg/dL) 579 *H Calcium (8.0 - 10.3 mg/dL) 9.2 Total Bilirubin (0.2 - 1.6 mg/dL) 1.1 AST (11 - 38 U/L) 40 H ALT (10 - 47 U/L) 26 Total Alk Phosphatase (42 - 141 U/L) 78 Rapid Troponin I (0.00 - 0.05 ng/mL) < 0.05 Total Protein (6.4 - 8.1) 7.7 Albumin (3.3 - 5.5 g/dL) 4.1 Amylase (14 - 97 U/L) 56 Hematology WBC (4.5 - 10.7 10 3/uL) 9.1 RBC (3.50 - 5.50 10 6/uL) 4.26 Hgb (12.0 - 16.0 g/dL) 13.0 Hct (37.0 - 55.0 %) 39.3 MCV (81 - 102 fL) 92 MCH (26.0 - 34.0 pg) 30.5 MCHC (31.0 - 37.0 g/dL) 33.1 RDW (11.6 - 14.4 %) 12.5 RDW Std Deviation (36.4 - 46.3 fL) 42.3 Plt Count (150 - 400 10 3/uL) 251 MPV (9.0 - 13.0 fL) 10.6 Neut % (Auto) (33.0 - 76.0 %) 91.2 H Lymph % (Auto) (14.0 - 56.4 %) 7.3 L Mixed Cells % (Auto) (1.0 - 10.0 %) 1.5 Neut # (Auto) (1.5 - 7.0 10 3/uL) 8.30 H Lymph # (Auto) (1.50 - 4.00 10 3/uL) 0.70 L Mixed Cells # (0.1 - 0.6) 0.1 09/18 09/18 09/18 1109 1114 1138 Chemistry POC Glucose (70 - 105 mg/dL) 311 H Serology SARS CoV-2 RNA Rapid CHARLINE (Negative) Negative Urines Urine Color (YELLOW) YELLOW Urine Appearance (CLEAR) CLEAR Urine pH (5.0 - 8.0) 5.5 Ur Specific [place] (1.005 - 1.025) 1.015 Urine Protein (NEGATIVE) NEGATIVE Urine Glucose (UA) (NEGATIVE) 2+ H Urine Ketones (NEGATIVE) 3+ H Urine Blood (NEGATIVE) NEGATIVE Urine Nitrite (NEGATIVE) NEGATIVE Urine Bilirubin (NEGATIVE) NEGATIVE Urine Urobilinogen (0.1 - 0.2 EU/dL) 0.2 Ur Leukocyte Esterase (NEGATIVE) NEGATIVE Microbiology: Date/Time Procedure - Status Source Growth 09/18 1151 MRSA Screen - COLB NASAL Re-Evaluation MDM Free Text MDM Notes Free Text MDM Notes Patient nontoxic-appearing at bedside. Patient with clear bilateral breath sounds and soft nontender nondistended abdomen. BC grossly normal. UA noninfectious however does reveal ketonuria. CMP reveals blood glucose elevated to 489 with anion gap of 26 and bicarb of 15 concerning for DKA. Potassium 5 and therefore patient administered 20 mEq of IV potassium 2L NS with insulin infusion. Dr. Keene woven label designer consulted and states that he will follow as an inpatient. Patient ultimately admitted to ICU under Dr. Contreras with critical care consult. ED Course Medication(s) Ordered Medication(s) Ordered: Electrolytic, Caloric, And Jackie Sig/Dima Start time Last Medication Dose Route Stop Time Status Admin Dextrose/Water 50 ML ASDIR PRN 09/18 1100 CKD IV 10/18 1101 Potassium Chloride 100 ML X1ED STA 09/18 1050 DC 09/18 IV 09/18 1249 1142 Dextrose/Water 25 ML ASDIR PRN 09/18 1015 DC IV 09/19 0910 Sodium Chloride 2,000 ML X1ED STA 09/18 0906 DC 09/18 IV 09/18 1105 0937 Gastrointestinal Drugs Sig/Dima Start time Last Medication Dose Route Stop Time Status Admin Ondansetron HCl 4 MG Q4H PRN PRN 09/18 1145 AC IV 09/18 2343 Ondansetron HCl 4 MG X1ED STA 09/18 0907 DC 09/18 IV 09/18 0908 0938 Hormones And Synthetic Substit Sig/Dima Start time Last Medication Dose Route Stop Time Status Admin Insulin Human Regular 100 UNIT X1ED 09/18 1115 DC Sodium Chloride 100 ML IV 09/18 1800 Insulin Human Regular 100 UNIT X1ED 09/18 1115 CKD 09/18 Sodium Chloride 100 ML IV 09/18 1900 1143 Glucagon 1 MG ASDIR PRN 09/18 1100 AC IV 10/18 1101 Glucagon 1 MG ASDIR PRN 09/18 1015 DC IM 09/19 0910 Insulin Human Regular 100 UNIT ASDIR 09/18 1015 DC Sodium Chloride 99 ML IV 09/19 0910 Skin And Mucous Membrane Agent Sig/Dima Start time Last Medication Dose Route Stop Time Status Admin Mupirocin 1 APPLIC BID 09/18 1700 AC NASAL 09/23 0901 Differential Diagnosis Differential Diagnosis Diabetes mellitus, Influenza, Upper resp infection, Urinary tract infection Patient Discharge Departure Vital Signs/Condition Vital Signs First Documented: Result Date Time Pulse Ox 100 09/18 0840 B/P 139/54 09/18 0840 B/P Mean 82 09/18 0840 O2 Delivery Room air 09/18 0840 Temp 36.6 09/18 0840 Pulse 81 07/ 0840 Resp 16 09/18 0840 Last Documented: Result Date Time Pulse Ox 100 09/18 0840 B/P 139/54 09/18 0840 B/P Mean 82 09/18 0840 O2 Delivery Room air 09/18 0840 Temp 36.6 09/18 0840 Pulse 81 09/18 0840 Resp 16 09/18 0840 All vital signs available at the time of this entry have been reviewed. Clinical Impression Clinical Impression Primary Impression: DKA (diabetic ketoacidosis) Secondary Impressions: Vomiting Disposition Decision Admit Admit Physician Name Eduardo Contreras MD Admit Physician Primary Care Physician Request Time 1112 Request Date 09/18/21 )( Admission Accepts Yes at 1643 RPT #:[id number] END OF REPORT [facility] 2021-09-18 09:10:00 [id number] [address] PATIENT NAME: LISETH POTTS ADMIT DATE: 09/18/21 ACCOUNT NO: [id number] ROOM NO: NC.TERICU AGE: 71 REPORT TYPE: eELECTROCARDIOGRAM SEX: F ADMITTING PHYSICIAN:Eduardo Contreras MD ATTENDING PHYSICIAN:Eduardo Contreras MD Order: [id number] Test Reason : Test Date/Time Stamp: ThuSep 18 2021 09:10:36 Blood Pressure : / mmHG Vent. Rate : 075 BPM Atrial Rate : 075 BPM P-R Int : 171 ms QRS Dur : 086 ms QT Int : 392 ms P-R-T Axes : 078 028 070 degrees QTc Int : 438 ms Sinus rhythm Nonspecific T abnrm, anterolateral leads Confirmed by SARAH PEREA MD ([id number]) on 09/18/2021 3:10:54 PM Referred By: Self Referred Confirmed by:SARAH PEREA MD at [address] [facility] [address] [facility] [address] PATIENT NAME: LISETH POTTS [facility] 2021-08-24 16:04:00 [facility] ([facility]) EMERGENCY PROVIDER REPORT REPORT#:[id number] REPORT STATUS: Signed DATE:08/24/21 TIME: 1604 PATIENT: LISETH POTTS UNIT #: [id number] ROOM: BED: AGE: 71 SEX: F PCP PHYS: Eduardo Contreras MD SERVICE AUTHOR: Osito Ratliff MD * ALL edits or amendments must be made on the electronic/computer document * HPI-General Illness Free Text HPI Notes Free Text HPI Notes Patient is a 71-year-old female with past history of hypertension diabetes mellitus type 2 not on insulin and blood pressure tablets presents the ED brought in by daughter for hyperglycemia. Patient recently moved from the [facility] states that she has a primary care doctor follow-up in the coming months however she does have enough medications to last her throughout the month and to see and establish her new care physician however does not have an plant and machinery valuer they noticed that despite her compliance with her sugar diet and her insulin she had a high sugar this afternoon around 500 they gave appropriate subcu insulin therapy she was complaining of a little bit of fatigue but otherwise was eating and drinking and urinating normally no fevers chills cough or nose or sore throat no abdominal pain no nausea vomiting or diarrhea and wanted to come to the ED for evaluation of hyperglycemia and to get an endocrinology referral General Initial Greet Date/Time 08/24/21 1525 Presentation Chief Complaint __ (high blood sugar ) Review of Systems ROS Statements All systems rev neg except as marked. Free Text ROS Notes Free Text ROS Notes CONSTITUTIONAL: NO FEVER, NO CHILLS, EYES: NO CHANGE IN VISION, NO BLURRED VISION, ENT: NO HEARING LOSS, NO NASAL CONGESTON, NO NASAL DISCHARGE, NO SORE THROAT CARDIOVASCULAR: NO CHEST PAIN, NO SYNCOPE, NO PALPITATIONS, RESPIRATORY: NO COUGH, NO WHEEZING, NO SOB, GI: NO ABDOMINAL PAIN, NO NAUSEA, NO VOMITING, NO DIARRHEA : NO HEMATURIA, NO PAIN ON URINATION, MUSCULOSKELETAL: NO MUSCLE PAIN, NO JOINT PAIN, NO BACK PAIN INTEGUMENTARY: NO RASH, NO BRUISING NEUROLOGICAL: NO DIZZINESS, NO LIGHTHEADEDNESS, NO HEADACHES Past Medical History - Adult Stated Complaint HIGH BLOOD SUGAR Allergies Coded Allergies: No Known Allergies (08/24/21) Calculated Suicide Risk (nurs) No risk Pt reports no significant: Family history, Social history Additional Medical History dm type 1, htn Additional Surgical History gallbladder Smoking status for patients 13 years old or older: Never Smoker Physical Exam Vital Signs Vital Signs First Documented: Result Date Time Pulse Ox 100 08/24 1516 B/P 134/60 08/24 1516 B/P Mean 84 08/24 1516 O2 Delivery Room air 08/24 1516 Temp 36.7 08/24 1516 Pulse 70 08/24 1516 Resp 17 08/24 1516 Last Documented: Result Date Time Pulse Ox 100 08/24 1516 B/P 134/60 08/24 1516 B/P Mean 84 08/24 1516 O2 Delivery Room air 08/24 1516 Temp 36.7 08/24 1516 Pulse 70 08/24 1516 Resp 17 08/24 1516 Review of Vital Signs Reviewed Free Text PE Notes Free Text PE Notes GENERAL: awake, alert, and oriented. no acute distress HEAD: normalcephalic, atraumatic EYES: PERRLA, EOMI, clear conjunctiva, sclera non icteric. no nystagmas Cardiac: rrr, no murmrs rubs or gallops, no pain on palpation of chest Respiratory: chest wall is symmetric without deformity, no trauma, no respiratory distress, no rales, rhonchi or wheezing Abdominal: soft, non tender, non distended, no murphys, no charles, no tan tim, no mcburneys point tenderness, Spine: no midline tenderness, no cva tenderness Skin: No rash, no patechiae Extremities: upper and lower extremities are atraumatic in appearance without tenderneess or deformity, no swelling or erythema. FROM. Muscle strength 5/5 bilaterally, tendon function is normal, cap refill less than 2 seconds, pulses palpable Neurological: awake and alert and oriented times 3, motor function is normal with strength 5/5 in b/l UE and LE. sensation is intact bilaterally, memory is normal and throught process is intact, steady gait Psych: appropriate mood and affect, Interpretation Diagnostics Lab Results Interpretation Results Laboratory Tests 08/24/21 1540: [Embedded Image Not Available] 08/24/21 1548: [Embedded Image Not Available] Laboratory Tests: 08/24 08/24 08/24 1523 1540 1548 Chemistry Sodium (128 - 145 mmol/L) 136 Potassium (3.6 - 5.1 mmol/L) 5.3 H Chloride (98 - 108 mmol/L) 97 L Carbon Dioxide (18 - 33 mmol/L) 27 Anion Gap (2.0 - 16.0) 17.3 H BUN (7 - 22 mg/dL) 18 Creatinine (0.6 - 1.2 mg/dL) 0.8 Glomerular Filtr Rate (60 - 115 ml/min) >=60 max estimate BUN/Creatinine Ratio (12.0 - 20.0) 22.5 H Glucose (65 - 99 mg/dL) 323 H POC Glucose (70 - 105 mg/dL) 330 H Calcium (8.0 - 10.3 mg/dL) 9.4 Total Bilirubin (0.2 - 1.6 mg/dL) 0.7 AST (11 - 38 U/L) 24 ALT (10 - 47 U/L) 32 Total Alk Phosphatase (42 - 141 U/L) 67 Total Protein (6.4 - 8.1) 6.7 Albumin (3.3 - 5.5 g/dL) 3.5 Hematology WBC (4.5 - 10.7 10 3/uL) 4.7 RBC (3.50 - 5.50 10 6/uL) 3.60 Hgb (12.0 - 16.0 g/dL) 10.8 L Hct (37.0 - 55.0 %) 33.3 L MCV (81 - 102 fL) 93 MCH (26.0 - 34.0 pg) 30.0 MCHC (31.0 - 37.0 g/dL) 32.4 RDW (11.6 - 14.4 %) 12.6 RDW Std Deviation (36.4 - 46.3 fL) 42.0 Plt Count (150 - 400 10 3/uL) 268 MPV (9.0 - 13.0 fL) 10.3 Neut % (Auto) (33.0 - 76.0 %) 71.1 Lymph % (Auto) (14.0 - 56.4 %) 21.8 Mixed Cells % (Auto) (1.0 - 10.0 %) 7.1 Neut # (Auto) (1.5 - 7.0 10 3/uL) 3.40 Lymph # (Auto) (1.50 - 4.00 10 3/uL) 1.00 L Mixed Cells # (0.1 - 0.6) 0.3 08/24 08/24 08/24 1552 1603 1604 Chemistry Rapid Troponin I (0.00 - 0.05 ng/mL) < 0.05 Serology SARS CoV-2 RNA Rapid CHARLINE (Negative) Negative Urines Urine Color (YELLOW) YELLOW Urine Appearance (CLEAR) CLEAR Urine pH (5.0 - 8.0) 6.0 Ur Specific [place] (1.005 - 1.025) 1.020 Urine Protein (NEGATIVE) NEGATIVE Urine Glucose (UA) (NEGATIVE) 2+ H Urine Ketones (NEGATIVE) NEGATIVE Urine Blood (NEGATIVE) NEGATIVE Urine Nitrite (NEGATIVE) NEGATIVE Urine Bilirubin (NEGATIVE) NEGATIVE Urine Urobilinogen (0.1 - 0.2 EU/dL) 0.2 Ur Leukocyte Esterase (NEGATIVE) NEGATIVE Re-Evaluation MDM Free Text MDM Notes Free Text MDM Notes With elevated sugar at home was given appropriate subcu insulin coverage now sugar is less than 300 and change with normal vital signs with reassuring physical exam patient has enough medication to last her to get her primary care follow-up however wants an endocrinology follow-up we will do CBC for anemia CMP for electrolyte abnormalities UA for UTI IV fluids for dehydration. If lab work okay patient will be sent home with endocrinology follow-up to call and schedule as an outpatient patient is to follow-up with her new primary care doctor at her scheduled visit return to the ER if symptoms concerning patient verbalized understanding of discharge instructions and follow-up ED Course Medication(s) Ordered Medication(s) Ordered: Electrolytic, Caloric, And Jackie Sig/Dima Start time Last Medication Dose Route Stop Time Status Admin Sodium Chloride 1,000 ML X1ED STA 08/24 1527 AC 08/24 IV 08/24 1626 1609 Patient Discharge Departure Vital Signs/Condition Vital Signs First Documented: Result Date Time Pulse Ox 100 08/24 1516 B/P 134/60 08/24 1516 B/P Mean 84 08/24 1516 O2 Delivery Room air 08/24 1516 Temp 36.7 08/24 1516 Pulse 70 08/24 1516 Resp 17 08/24 1516 Last Documented: Result Date Time Pulse Ox 100 08/24 1516 B/P 134/60 08/24 1516 B/P Mean 84 08/24 1516 O2 Delivery Room air 08/24 1516 Temp 36.7 08/24 1516 Pulse 70 08/24 1516 Resp 17 08/24 1516 All vital signs available at the time of this entry have been reviewed. Condition Stable Clinical Impression Clinical Impression Primary Impression: Hyperglycemia due to type 1 diabetes mellitus Disposition Decision Discharge )( Discharged to Home Yes )( Time 1700 )( Date 08/24/21 Discharge/Care Plan Counseled Regarding Diagnosis, Lab results, Need for follow-up, When to return to ED Patient Instructions ED Diabetes with High Blood Sugar, V-Understanding Type 1 Diabetes Additional Instructions Follow-up with PCP at your scheduled appointment return to the ER symptoms concerning increase p.o. hydration of fluids and rest continue take all your chronic medications as prescribed continue to check your sugars at least 3 times a day and give the appropriate insulin sliding scale coverage. Continue compliance with your diabetic diet. Continue take all your chronic medications as prescribed. Follow-up with endocrinology as an outpatient call and schedule an appointment for further work-up and management of diabetes myelitis type I Referrals Provider Referral: Karlene Taveras MD Address: [address] [place] [address] Provider Referral: Horacio Russell MD Address: [address] [facility] [address] [place] [address] Provider Referral: Lorna Santiago MD Address: [address] [facility] [address] [place] [address] Provider Referral: Nancy Steinberg MD Address: [address] [place] [address] Departure Forms [facility] PCP LIST WORK/SCHOOL EXCUSE VARIABLE Discharge Note I have spoken with the patient and/or caregivers. I have explained the patient's condition, diagnoses and treatment plan based on the information available to me at this time. I have answered the patient's and/or caregiver's questions and addressed any concerns. The patient and/or caregivers have as good an understanding of the patient's diagnosis, condition and treatment plan as can be expected at this point. The vital signs have been stable. The patient's condition is stable and appropriate for discharge from the emergency department. The patient will pursue further outpatient evaluation with the primary care physician or other designated or consulting physician as outlined in the discharge instructions. The patient and/or caregivers are agreeable to this plan of care and follow-up instructions have been explained in detail. The patient and/or caregivers have received these instructions in written format and have expressed an understanding of the discharge instructions. The patient and/or caregivers are aware that any significant change in condition or worsening of symptoms should prompt an immediate return to this or the closest emergency department or a call to 911. at 1633 RPT #:[id number] END OF REPORT [facility]
--- NOTE | 2024-06-03 15:28 | RAD REPORT ---
EXAMINATION: Abdomen Pelvis W Contrast CLINICAL INDICATION: Female, 74 years old.vomiting;Abd pain TECHNIQUE: CT abdomen and pelvis was performed, after the administration of IV contrast, as per [facility] protocol. Axial, sagittal and coronal reconstructions were obtained. One or more of the following dose reduction techniques were used: Automated exposure control, adjustment of the mA and/o r kV according to patient size, and/or iterative reconstruction. Unless otherwise specified, incidental findings do not require dedicated imaging follow-up. [id number]. COMPARISON: No prior exam. FINDINGS: LOWER CHEST: Nonspecific nodularity in present in the left lower lobe.No significant pericardial effu phillip. UPPER GI: No significant abnormality. LIVER: Hepatic steatosis, but otherwise unremarkable. GALLBLADDER/BILE DUCTS: Cholecystectomy. Moderate extrahepatic biliary ductal dilatation. This could be secondary to the post-cholecystectomy state. Recommend correlation with LFT's. If abnormal, consider MRCP for further evaluation. ? PANCREAS: No mass, ductal dilation, or rodrigo-pancreatic fluid. SPLEEN: Unremarkable. ADRENALS: No adrenal masses. KIDNEYS AND URETERS: No hydronephrosis.No suspicious renal mass. ABDOMINAL AORTA AND OTHER VESSELS: Moderate atherosclerotic changes without aortic aneurysm. PERITONEUM: No abnormal free fluid. No free air. LYMPH NODES: No pathologic lymphadenopathy. ABDOMINAL WALL: Mild body wall edema. SMALL BOWEL/COLON: Small bowel has normal course and caliber. No colonic wall thickening or pericolon ic inflammatory changes. Moderate formed stool burden. URINARY BLADDER: Underdistended but grossly unremarkable. REPRODUCTIVE ORGANS: No pathologic process. MUSCULOSKELETAL: Remote appearing L4 compression fracture. ADDITIONAL FINDINGS: None. IMPRESSION: No acute findings within the abdomen or pelvis. No bowel obstruction. Mild nodularity in the left lower lung which could reflect pneumonia or pneumonitis.
[2024-06-03 15:39] LABS: ALT/SGPT 19 U/L (13-56); AST/SGOT 18 U/L (15-37); Albumin 2.4 g/dL (3.4-5.0); Albumin/Globulin Ratio 0.7 (1.1-1.8); Alkaline Phosphatase 72 U/L (45-117); Anion Gap 27.4 mEq/L (5.0-15.0); BUN Blood Urea Nitrogen 44 mg/dL (7-18); Bicarbonate 10 mEq/L (21-32); Bilirubin Direct < 0.2 mg/dL (0-0.2); Bilirubin Indirect, Calculated 0.2 mg/dL (0.2-0.8); Bilirubin Total 0.4 mg/dL (0.2-1.0); Globulin 3.3 g/dL (2.3-3.5); Glomerular Filtration Rate 21 ml/min (=/>90); Lipase 79 U/L (13-75); Magnesium 2.6 mg/dL (1.6-2.4); NT PRO-BNP 2243 pg/mL (<125); Potassium 4.4 mEq/L (3.5-5.1); Protein, Total 5.7 g/dL (6.4-8.2); Sodium Level 134 mEq/L (136-145); Troponin High Sensitivity 487.3 pg/mL (<58.9)
[2024-06-03 15:41] LABS: Glucose Level 776 mg/dL (74-106)
--- NOTE | 2024-06-03 15:57 | ER ---
Nurse's Notes [facility] Name: Isabella Ann Age: 74 yrs Sex: Female : 1950 Arrival Date: 06/03/2024 Time: 11:52 Bed 20 Private MD: Diagnosis: DKA, vomiting, NSTEMI Presentation: 06/03 12:02 Chief complaint: EMS states: they were called for a patient with "high" blood sugar. ap3 EMS also reports patient was hypotensive on arrial 90s/40s. upon their arrival patient was responsive to painful stimuli. patient became verbally responsive in route to ER. Coronavirus screen: At this time, the client does not indicate any symptoms associated with coronavirus-19. Ebola Screen: No symptoms or risks identified at this time. Initial Sepsis Screen: Does the patient meet any 2 criteria? No. Patient's initial sepsis screen is negative. Does the patient have a suspected source of infection? No. Patient's initial sepsis screen is negative. Risk Assessment: Do you want to hurt yourself or someone else? Patient reports no desire to harm self or others. Onset of symptoms is unknown. Care prior to arrival: Medication(s) given: Normal saline infusion, IV initiated. 18 GA, in the right antecubital area. Transition of care: patient was received from another setting of care (long-term care facility), [facility]. 12:02 Method Of Arrival: EMS: [facility] ap3 12:02 Acuity: JUANITA 2 ap3 Triage Assessment: 12:06 General: Appears ill, Behavior is calm. Pain: Unable to use pain scale. Does not appear ap3 to understand pain scale. Neuro: Level of Consciousness is awake, Oriented to person. Cardiovascular: Patient's skin is warm and dry. Respiratory: Airway is patent Respiratory effort is even, unlabored, Respiratory pattern is regular, symmetrical. GI: Pt is actively vomiting green. Historical: - Allergies: 12:04 No Known Allergies; ap3 - PMHx: 12:04 Dementia; Diabetes mellitus; Hypertensive disorder; ap3 - Immunization history:: Adult Immunizations unknown. - Infectious Disease History:: unknown. - Social history:: Smoking status: unknown. Screenin:15 [facility] ED Fall Risk Assessment (Adult) History of falling in the last 3 months, kj2 including since admission No falls in past 3 months (0 pts) Confusion or Disorientation Yes (5 pts) Intoxicated or Sedated No (0 pts) Impaired Gait No (0 pts) Mobility Assist Device Used No (0 pt) Altered Elimination No (0 pt) Score/Fall Risk Level 0 - 2 = Low Risk Maintained a safe environment, Hourly rounding (assess needs \\T\\ fall precautionary measures) done. Abuse screen: Denies threats or abuse. Denies injuries from another. Nutritional screening: No deficits noted. Tuberculosis screening: No symptoms or risk factors identified. Assessment: 12:30 Reassessment: Patient appears in no apparent distress at this time. Patient and/or kj2 family updated on plan of care and expected duration. Pain level reassessed. Patient is alert, oriented x 3, equal unlabored respirations, skin warm/dry/pink. 13:30 Reassessment: Patient appears in no apparent distress at this time. Patient and/or kj2 family updated on plan of care and expected duration. Pain level reassessed. Patient is alert, oriented x 3, equal unlabored respirations, skin warm/dry/pink. 14:30 Reassessment: Patient appears in no apparent distress at this time. Patient and/or kj2 family updated on plan of care and expected duration. Pain level reassessed. Patient is alert, oriented x 3, equal unlabored respirations, skin warm/dry/pink. 15:30 Reassessment: Patient appears in no apparent distress at this time. Patient and/or kj2 family updated on plan of care and expected duration. Pain level reassessed. Patient is alert, oriented x 3, equal unlabored respirations, skin warm/dry/pink. 16:30 Reassessment: Patient appears in no apparent distress at this time. Patient and/or kj2 family updated on plan of care and expected duration. Pain level reassessed. Patient is alert, oriented x 3, equal unlabored respirations, skin warm/dry/pink. 17:36 Reassessment: Patient appears in no apparent distress at this time. Patient and/or kj2 family updated on plan of care and expected duration. Pain level reassessed. Patient is alert, oriented x 3, equal unlabored respirations, skin warm/dry/pink. 18:03 Reassessment: report to [facility] Bryanna vásquez asked I call back in kj2 30minutes , no one is available to take report at this time. 18:30 Reassessment: Patient appears in no apparent distress at this time. Patient and/or kj2 family updated on plan of care and expected duration. Pain level reassessed. Patient is alert, oriented x 3, equal unlabored respirations, skin warm/dry/pink. 19:25 Reassessment: Patient appears in no apparent distress at this time. Patient and/or kj2 family updated on plan of care and expected duration. Pain level reassessed. Patient is alert, oriented x 3, equal unlabored respirations, skin warm/dry/pink. report given to RODNEY Webster at [facility]. 20:17 Reassessment: Patient appears in no apparent distress at this time. Patient and/or kj2 family updated on plan of care and expected duration. Pain level reassessed. Patient is alert, oriented x 3, equal unlabored respirations, skin warm/dry/pink. EMS here to transport. Vital Signs: 12:01 BP 123 / 54; Pulse 77; Resp 19; Temp 97.6(A); Pulse Ox 100% on R/A; ap3 12:30 BP 121 / 47; Pulse 70; Resp 18; Pulse Ox 98% on R/A; kj2 13:30 BP 97 / 65; Pulse 72; Resp 18; Pulse Ox 100% ; kj2 14:30 BP 120 / 47; kj2 15:30 BP 121 / 46; Pulse 78; Resp 18; kj2 16:06 Weight 53.52 kg; kj2 17:36 BP 126 / 46; Pulse 83; Resp 18; Pulse Ox 100% on R/A; kj2 18:30 BP 126 / 44; Pulse 84; Resp 18; Pulse Ox 100% on R/A; kj2 19:26 BP 120 / 44; Pulse 84; Resp 18; kj2 20:18 BP 121 / 46; Pulse 82; Resp 18; Pulse Ox 100% on R/A; kj2 ED Course: 11:52 Patient arrived in ED. mr 11:54 Victoria Garay MD is Attending Physician. sp3 12:04 Triage completed. ap3 12:08 Arm band placed on right wrist. ap3 12:08 Client placed on continuous cardiac and pulse oximetry monitoring. NIBP monitoring ap3 applied. manager medicare marketing on. Pulse ox on. NIBP on. 12:15 Patient has correct armband on for positive identification. Bed in low position. Call kj2 light in reach. Provided Education on: call light. 12:15 Maintain EMS IV. Dressing intact. Good blood return noted. Site clean \\T\\ dry. Gauge \\T\\ kj 2 site: 20g right AC. Flushed with 10 mL NS. 12:50 Yara Burgos, RN is Primary Nurse. kj2 15:15 CT Abd/Pelvis - IV Contrast Only In Process Unspecified. EDMS 15:26 No provider procedures requiring assistance completed. kj2 15:56 Solomon Bell PA is Hospitalizing Provider. sp3 16:59 initiated a transfer with Ezequiel from the [facility]. eb 17:05 Troponin High Sensitivity Sent. em1 17:14 connected the clinical trial manager avionics systems engineer for [facility] with Dr. Garay for patient eb transfer consultation. 17:23 Basic Metabolic Panel Sent. kj2 17:28 administrative approval given by Ezequiel Kline Rn/ patient has been accepted to [facility] room 210/ Jina Miller has accepted the patient in transfer/ report to be called to [phone]. 19:54 [facility] E[facility] to transport. 20:20 Patient transferred, IV remains in place. kj2 Administered Medications: 12:50 Drug: NS 0.9% IV 1000 ml IV at 1 bolus Per protocol; to be given as a bolus over 60 kj2 minutes Route: IV; Rate: 1 bolus; Site: right antecubital; 13:58 Follow up: IV Status: Completed infusion; IV Intake: 1000ml kj2 12:51 Drug: Ondansetron IVP 4 mg IVP once; over 2 minutes Route: IVP; Site: right antecubital;kj2 13:58 Follow up: Response: No adverse reaction kj2 16:33 Drug: Insulin Drip - (Insulin Regular Human IVP 100 units, NS 0.9% IV 100 ml) IV at kj2 calculated rate continuous; Standard concentration 1unit/ml; Dose for DKA is 0.1 units/kg/hr {Co-Signature: aa5 (Pamela Lainez RN).} Route: IV; Rate: calculated rate; Site: right antecubital; 20:20 Follow up: IV Status: Infusion continued upon transfer kj2 17:58 Drug: Cefepime IVPB 1 grams IVPB at 200 ml/hr once over 30 mins; (mix in NS 100 mL) kj2 Route: IVPB; Rate: 200 ml/hr; Infused Over: 30 mins; Site: left antecubital; 19:40 Follow up: IV Status: Completed infusion; IV Intake: 100ml kj2 Medication: 15:27 VIS not applicable for this client. kj2 Point of Care Testing: Blood Glucose: 12:01 Blood Glucose: High (>450 mg/dL); ap3 Ranges: Intake: 13:58 IV: 1000ml; Total: 1000ml. kj2 19:40 IV: 100ml; Total: 1100ml. kj2 Outcome: 15:56 Decision to Hospitalize by Provider. sp3 17:03 ER care complete, transfer ordered by . sp3 20:19 Transferred by ground EMS to [facility], [facility], kj2 20:19 Condition: stable 20:19 Instructed on the need for transfer, 20:20 Patient left the ED. kj2 Signatures: Dispatcher [employer] EDMS Jennie Le, Reg Reg mr Strauss Paxton em1 Sarah Villegas RN RN ap3 Mary Sousa Setul, MD MD sp3 Yara Burgos RN RN kj2 Genie Adams Audri RN aa5 Corrections: (The following items were deleted from the chart) 12:06 12:04 PMHx: Hypertensive disorder; ap3 ap3 12:52 12:51 Reassessment: Patient appears in no apparent distress at this time. Patient kj2 and/or family updated on plan of care and expected duration. Pain level reassessed. Patient is alert, oriented x 3, equal unlabored respirations, skin warm/dry/pink. kj2
--- NOTE | 2024-06-03 15:57 | EDPHYS ---
Physician Documentation [facility] Name: Isabella Ann Age: 74 yrs Sex: Female : 1950 Arrival Date: 06/03/2024 Time: 11:52 Bed 20 Private MD: ED Physician Victoria Garay HPI: 06/03 12:41 This 74 yrs old Female presents to ER via EMS with complaints of vomiting. sp3 12:41 74-year-old female with history of dementia, hypertension, diabetes, hyperlipidemia sp3 presents via EMS from group home for copious amounts of vomiting and hypotension which was resolved by the time they arrived here to the ED. ROS, history physical limited secondary to dementia.. Historical: - Allergies: 12:04 No Known Allergies; ap3 - PMHx: 12:04 Dementia; Diabetes mellitus; Hypertensive disorder; ap3 - Immunization history:: Adult Immunizations unknown. - Infectious Disease History:: unknown. - Social history:: Smoking status: unknown. ROS: 12:42 Unable to obtain ROS due to baseline dementia, sp3 Exam: 12:42 Constitutional: This is a well developed, well nourished patient who is awake, alert, sp3 and in no acute distress. Head/Face: Normocephalic, atraumatic. Eyes: Pupils equal round and reactive to light, extra-ocular motions intact. Lids and lashes normal. Conjunctiva and sclera are non-icteric and not injected. Cornea within normal limits. Periorbital areas with no swelling, redness, or edema. Chest/axilla: Normal chest wall appearance and motion. Nontender with no deformity. No lesions are appreciated. Cardiovascular: Regular rate and rhythm with a normal S1 and S2. No gallops, murmurs, or rubs. Normal PMI, no JVD. No pulse deficits. Respiratory: Lungs have equal breath sounds bilaterally, clear to auscultation and percussion. No rales, rhonchi or wheezes noted. No increased work of breathing, no retractions or nasal flaring. Back: No spinal tenderness. No costovertebral tenderness. Full range of motion. Skin: Warm, dry with normal turgor. Normal color with no rashes, no lesions, and no evidence of cellulitis. MS/ Extremity: Pulses equal, no cyanosis. Neurovascular intact. Full, normal range of motion. 12:42 Abdomen/GI: Emesis noted active. Abdomen is soft with no grimace on palpation. No peritoneal signs noted., 15:55 ECG was reviewed by the Attending Physician. EKG demonstrates normal sinus rhythm at 88 sp3 bpm with normal intervals, normal QRS, normal axis, nonspecific diffuse ST/T changes with no evidence of acute ischemia. Vital Signs: 12:01 BP 123 / 54; Pulse 77; Resp 19; Temp 97.6(A); Pulse Ox 100% on R/A; ap3 12:30 BP 121 / 47; Pulse 70; Resp 18; Pulse Ox 98% on R/A; kj2 13:30 BP 97 / 65; Pulse 72; Resp 18; Pulse Ox 100% ; kj2 14:30 BP 120 / 47; kj2 15:30 BP 121 / 46; Pulse 78; Resp 18; kj2 16:06 Weight 53.52 kg; kj2 17:36 BP 126 / 46; Pulse 83; Resp 18; Pulse Ox 100% on R/A; kj2 18:30 BP 126 / 44; Pulse 84; Resp 18; Pulse Ox 100% on R/A; kj2 19:26 BP 120 / 44; Pulse 84; Resp 18; kj2 20:18 BP 121 / 46; Pulse 82; Resp 18; Pulse Ox 100% on R/A; kj2 MDM: 11:59 Medical Screening Exam initiated sp3 12:43 Data reviewed: vital signs, nurses notes, old medical records, lab test result(s), sp3 radiologic studies. ED course: 74-year-old female with vomiting. Differential diagnosis is broad. Limited history and physical and ROS noted. Differential diagnosis will include gastritis, viral illness, foodborne illness, biliary pathology, colitis, among others. I am at highly suspicious of sepsis, shock or acute coronary syndrome. Will obtain CT scan of the abdomen pelvis, general labs, UA and general supportive care. IV fluids and ondansetron IV as needed. Disposition pending workup with patient course.. 15:47 ED course: Patient with elevated blood sugar at 772 with anion gap of 27. Insulin drip sp3 started. Troponin also elevated. Will admit to ICU with DKA and NSTEMI diagnosis. Vomiting has stopped. Vital signs are normal.. 17:01 ED course: No cardiology coverage and so we will transfer to [facility].. sp3 17:16 ED course: Discussed with [facility] who has accepted the patient. We sp3 will obtain VBG per our discussion to ensure no bicarb needed prior to transfer.. 17:54 ED course: ABG obtained which demonstrates 7.. No bicarbonate intervention sp3 needed.. 06/03 12:06 Order name: Basic Metabolic Panel; Complete Time: 15:44 sp3 06/03 12:06 Order name: CBC with Diff; Complete Time: 16:33 sp3 06/03 12:06 Order name: LFT's; Complete Time: 15:44 sp3 06/03 12:06 Order name: Magnesium; Complete Time: 15:44 sp3 06/03 12:06 Order name: NT PRO-BNP; Complete Time: 15:44 sp3 06/03 12:06 Order name: PT-INR; Complete Time: 16:33 sp3 06/03 12:06 Order name: Troponin HS; Complete Time: 15:44 sp3 06/03 12:06 Order name: Lipase; Complete Time: 15:44 sp3 06/03 16:55 Order name: Troponin High Sensitivity; Complete Time: 17:41 sp3 06/03 17:04 Order name: Basic Metabolic Panel; Complete Time: 17:41 EDMS 06/03 17:14 Order name: ABG: VBG 3 06/03 12:06 Order name: CT Abd/Pelvis - IV Contrast Only; Complete Time: 15:33 sp3 06/03 12:06 Order name: Cardiac monitoring; Complete Time: 12:09 sp3 06/03 12:06 Order name: EKG - Nurse/Tech; Complete Time: 12:51 sp3 06/03 12:06 Order name: IV Saline Lock; Complete Time: 12:09 sp3 06/03 12:06 Order name: Labs collected and sent; Complete Time: 12:51 sp3 06/03 12:06 Order name: O2 Per Protocol; Complete Time: 12:09 sp3 06/03 12:06 Order name: O2 Sat Monitoring; Complete Time: 12:09 sp3 06/03 12:06 Order name: NPO; Complete Time: 12:09 sp3 06/03 13:05 Order name: Labs - recollect needed: recollect tall green; Complete Time: 14:22 eb Administered Medications: 12:50 Drug: NS 0.9% IV 1000 ml IV at 1 bolus Per protocol; to be given as a bolus over 60 kj2 minutes Route: IV; Rate: 1 bolus; Site: right antecubital; 13:58 Follow up: IV Status: Completed infusion; IV Intake: 1000ml kj2 12:51 Drug: Ondansetron IVP 4 mg IVP once; over 2 minutes Route: IVP; Site: right antecubital;kj2 13:58 Follow up: Response: No adverse reaction kj2 16:33 Drug: Insulin Drip - (Insulin Regular Human IVP 100 units, NS 0.9% IV 100 ml) IV at kj2 calculated rate continuous; Standard concentration 1unit/ml; Dose for DKA is 0.1 units/kg/hr {Co-Signature: aa5 (Pamela Lainez RN).} Route: IV; Rate: calculated rate; Site: right antecubital; 20:20 Follow up: IV Status: Infusion continued upon transfer kj2 17:58 Drug: Cefepime IVPB 1 grams IVPB at 200 ml/hr once over 30 mins; (mix in NS 100 mL) kj2 Route: IVPB; Rate: 200 ml/hr; Infused Over: 30 mins; Site: left antecubital; 19:40 Follow up: IV Status: Completed infusion; IV Intake: 100ml kj2 Point of Care Testing: Blood Glucose: 12:01 Blood Glucose: High (>450 mg/dL); ap3 Ranges: Critical Glucose Levels:Adult <50 mg/dl or >400 mg/dl <40 mg/dl or >180 mg/dl Disposition Summary: 06/03/24 17:03 Transfer Ordered Notes: Transfer Location: [facility] sp3 Reason: Higher level of care sp3 Condition: Stable(06/03/24 17:03) sp3 Problem: an acute exacerbation(06/03/24 17:03) sp3 Symptoms: have worsened(06/03/24 17:03) sp3 Accepting Physician: GLENNA(06/03/24 20:20) kj2 Diagnosis - DKA, vomiting, NSTEMI sp3 Forms: - Medication Reconciliation Form sp3 - SBAR form sp3 Critical care time excluding procedures: 15:48 Critical care time: Bedside Care: 20 minutes, Consultation: 10 minutes. Total time: 30 sp3 minutes Signatures: Dispatcher [employer] EDMS Sarah Villegas, RN RN ap3 Mary Sousa Setul, MD MD sp3 Yara Burgos RN RN kj2 Pamela Lainez RN aa5 Corrections: (The following items were deleted from the chart) 12:06 12:04 PMHx: Hypertensive disorder; ap3 ap3 15:03 15:03 Abdomen Pelvis W Con+CT.RAD.BRZ ordered. EDMS EDMS 15:03 15:03 LIPASE+C.LAB.BRZ ordered. EDMS EDMS 17:02 15:56 Inpatient Admission sp3 sp3 17:02 15:56 Solomon Bell sp3 sp3 17:02 15:56 Intensive Care Unit sp3 sp3 17:02 15:56 Stable sp3 sp3 17:02 15:56 an acute exacerbation sp3 sp3 17:02 15:56 have worsened sp3 sp3 17:02 15:56 Standard sp3 sp3 17:02 15:56 sp3 sp3 17:02 15:56 Diabetic ketoacidosis, NSTEMI, vomiting sp3 sp3 17:14 17:14 Arterial Blood Gas+RC.LAB.BRZ ordered. EDMS EDMS 20:20 17:03 TBD sp3 kj2
[2024-06-03] MEDS ORDERED: GLUCAGON 1 MG/VIAL IM PRN (16:08)
[2024-06-03] MEDS ORDERED: INSULIN REGULAR, HUMAN 100 UNIT in NA CHLORIDE 0.9% 100 ML IV SCH (16:08)
[2024-06-03] MEDS ORDERED: D10W 125 ML IV PRN (16:09)
[2024-06-03 16:26] LABS: Absolute Lymphocytes (CBC) 0.8 K/uL (0.7-4.9); Absolute Monocytes 0.7 K/uL (0.1-1.3); Absolute Neutrophil 6.1 K/uL (1.8-8.0); Basophils % 0.4 % (0-1.3); Eosinophils % 0.6 % (0-4.4); Hematocrit 34.6 % (36.0-45.0); Hemoglobin 10.8 g/dL (12.0-15.0); Lymphocytes % 10.7 % (15.3-44.8); MCH 31.2 pg (27.0-35.0); MCHC 31.2 g/dL (32.0-36.0); MCV 99.9 fL (80-100); MPV 8.8 fL (7.6-11.3); Monocytes % 9.2 % (3.3-12.3); Neutrophils % 79.1 % (41.7-73.7); Platelets 307 thou/uL (152-406); RBC Red Blood Cell Count 3.47 M/uL (3.86-4.86); Red Cell Distribution Width 13.3 % (12.1-15.2)
[2024-06-03 16:27] LABS: PT Prothrombin Time 9.7 SECONDS (10-13.0); Protime INR 0.84
--- NOTE | 2024-06-03 17:10 | P.HP ---
Certification for Inpatient With expected LOS: >2 Midnights Patient will require the following post-hospital care: None Practitioner: I am a practitioner with admitting privileges, knowledge of patient current condition, hospital course, and medical plan of care. Services: Services provided to patient in accordance with Admission requirements found in Title 42 Section 412.3 of the Code of Federal Regulations Patient History Date of Service: 06/03/24 Reason for admission: DKA, elevated troponin, MATT History of Present Illness: 74-year-old patient with history of dementia, [facility] from jail because of nausea and vomiting, she was found to be in DKA, elevated troponin, so we were asked to admit her. Patient is not able to provide any history at this time, she says she is feeling thirsty, denies any pain. As per family she had some headache yesterday, but better today. She has some issues with chronic knee pain, no recent change, other than this no other acute complaints as per family. No chest pain or shortness of breath, no abdominal pain, no fever, no recent bleeding. Review of systems: All other 10 point review of systems are not able to obtain. Allergies and medications: Reviewed, as per [employer] EMR. Past medical history: Diabetes mellitus, hypertension, hyperlipidemia, dementia Past surgical history: Cholecystectomy Social history: No smoking or alcohol or drugs Family history: No family history of IA or CVA Physical examination: Vital signs: Reviewed, as per EMR. General appearance: Alert and comfortable HEENT: Extraocular movements intact, oral mucosa dry CVS: Normal S1-S2 Lungs: Clear to auscultation bilaterally Abdomen: Soft, bowel sounds present, no tenderness Extremities: No lower extremity edema FUNDING SPECIALIST: Moves all 4 extremities, no obvious focal deficits Musculoskeletal: No obvious joint swelling or tenderness Allergies No Known Allergies Allergy (Unverified 06/03/24 16:04) Physical Examination - Studies Laboratory Data (last 24 hrs) 06/03/24 06/03/24 06/03/24 14:15 12:35 12:35 WBC 7.70 Hgb 10.8 L Hct 34.6 L Plt Count 307 PT 9.7 L INR 0.84 Sodium 134 L Potassium 4.4 BUN 44 H Creatinine 2.36 H Glucose 776 H* Magnesium 2.6 H Total Bilirubin 0.4 AST 18 ALT 19 Alkaline Phosphatase 72 Lipase 79 H Assessment and Plan - Plan Assessment and plan: 1. DKA: Patient was started on insulin drip in the emergency room, monitor sugars closely. 2. 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 3. Acute renal failure: Monitor closely with hydration. 4. Dementia 5. Diabetes mellitus: Insulin as per protocol. 6. Possible pneumonia on imaging: Discussed with ED physician Dr. Garay, he will give antibiotics. 7. Hypertension, hyperlipidemia: Resume home medications as able 8. Anemia: Monitor closely 9. Fatty liver: Follow-up with PCP CODE STATUS: Full code Advanced directives: Patient's daughter Khalida Barron is the POA. I discussed the above plan with patient's daughter at bedside, discussed with ED physician, patient will be transferred to higher level of care facility. - Advance Directives Does patient have a Living Will: No Does patient have a Durable POA for Healthcare: No - Code Status/Comfort Care Code Status Assessed: Yes Code Status: Full Code
[2024-06-03 17:38] LABS: Anion Gap 22.5 mEq/L (5.0-15.0); Potassium 4.5 mEq/L (3.5-5.1)
[2024-06-03 17:57] LABS: Arterial Blood Carboxyhemoglob 1.5 % (0-1.5); Blood Gas Oxyhemoglobin 91.5 % (94-97); Blood O2 Saturation 94.5 % (92-98.5)
[2024-06-03 20:25] VITALS: TEMP 97.6
[2024-06-03 20:28] VITALS: O2SAT 100
[2024-06-03 20:34] VITALS: BP 121/46
--- NOTE | 2024-06-06 11:35 | EKG ---
Test Date: 2024-06-03 Test Time: 15:52:57 Maintenance Team Member: LANDY MEASUREMENT RESULTS: Intervals: Rate: 88 ME: 168 QRSD: 68 QT: 376 QTc: 454 [place]: P: 78 ME: 168 QRS: 4 T: 63 INTERPRETIVE STATEMENTS: Normal sinus rhythm Normal ECG No previous ECG available for comparison Electronically Signed On 06-06-24 11:30:25 CDT by Andi Mendez
== END 2024-06-03 20:20 | disposition short-term general hospital (02) ==
LOC: ER 12:00
DX: E11.10 Type 2 diabetes mellitus with ketoacidosis without coma (principal); I21.4 Non-ST elevation (NSTEMI) myocardial infarction; I10 Essential (primary) hypertension; E78.5 Hyperlipidemia, unspecified; N17.9 Acute kidney failure, unspecified
CPT/HCPCS: 93005; 85025; 80048 ×2; 36415; 83735; 85610; 80076; 84484 ×2; 83690; 83880; 74177; 82805; 99285; Q9967; J1815; J7030

== ENCOUNTER 2024-11-20 13:25 | Emergency (ER) | payer OTHER ==
[2024-11-20 14:20] LABS: Anion Gap 9.9 mEq/L (5.0-15.0); BUN Blood Urea Nitrogen 12.0 mg/dL (7-18); Glucose Level 269.0 mg/dL (74-106); Potassium 3.9 mEq/L (3.5-5.1)
--- NOTE | 2024-11-20 14:21 | EDPHYS ---
Physician Documentation [facility] Name: Isabella Ann Age: 74 yrs Sex: Female : 1950 Arrival Date: 11/20/2024 Time: 13:25 Bed 19 Private MD: ED Physician Ishmael Mckeon HPI: 11/20 13:52 This 74 yrs old Female presents to ER via EMS with complaints of High Blood sb4 Sugar. 13:52 Nursing to recheck blood sugar this afternoon and it was in the 400s with administered sb4 10 units of NPH. They rechecked it shortly after and it was still in the 400s so they called EMS. Upon EMS arrival, it was 296. Patient has no complaints. No reported nausea, vomiting, fever, chills. Historical: - Allergies: 13:41 No Known Allergies; me1 - PMHx: 13:41 Dementia; diabetes mellitus; Hypertensive disorder; schizoaffective disorder (Unknown); me1 insomnia (Unknown); Anxiety; Hypercholesterolemia; - Immunization history:: Adult Immunizations up to date. - Infectious Disease History:: Denies. - Social history:: Smoking status: Patient denies any tobacco usage or history of. ROS: 13:52 Constitutional: Negative for fever, chills, and weight loss, sb4 13:52 All other systems are negative, Exam: 13:52 Constitutional: This is a well developed, well nourished patient who is awake, alert, sb4 and in no acute distress. Head/Face: Normocephalic, atraumatic. Eyes: Extra-ocular motions intact. Periorbital areas with no swelling, redness, or edema. ENT: Mucous membranes moist. Respiratory: No increased work of breathing, no retractions or nasal flaring. Skin: Warm, dry with normal turgor. Normal color with no rashes, no lesions, and no evidence of cellulitis. Vital Signs: 13:32 BP 210 / 71; Pulse 91; Resp 17; Temp 98.3; Pulse Ox 100% ; Weight 55.79 kg; me1 14:00 BP 153 / 59; Pulse 81; Resp 16; Pulse Ox 100% ; me1 15:00 BP 161 / 55; Pulse 81; Resp 16; Temp 98.2; Pulse Ox 100% ; me1 MDM: 13:32 Medical Screening Exam initiated sb4 14:24 Data reviewed: vital signs, nurses notes, EMS record, assisted records, lab test sb4 result(s), and as a result, I will discharge patient. Counseling: I had a detailed discussion with the patient and/or guardian regarding the historical points, exam findings, and any diagnostic results supporting the discharge/admit diagnosis, the presence of at least one elevated blood pressure reading (>120/80) during this emergency department visit, lab results, the need for outpatient follow up, for definitive care, to return to the emergency department if symptoms worsen or persist or if there are any questions or concerns that arise at home. 11/20 13:33 Order name: CBC with Diff; Complete Time: 14:45 sb4 11/20 13:33 Order name: BMP; Complete Time: 14:20 sb4 11/20 13:33 Order name: IV Start; Complete Time: 14:21 sb4 Administered Medications: No medications were administered Disposition: 18:26 Co-signature as Attending Physician, Ishmael Mckeon MD I reviewed the patient's care rn provided by the Advanced Practice Provider and agree with the diagnosis and treatment plan. Disposition Summary: 11/20/24 14:21 Discharge Ordered Notes: Location: [facility] sb4 Problem: new sb4 Symptoms: have improved sb4 Condition: Stable sb4 Diagnosis - Type 2 diabetes mellitus with hyperglycemia sb4 Followup: sb4 - With: Private Physician - When: As needed - Reason: Recheck today's complaints, Re-evaluation by your physician Discharge Instructions: - Discharge Summary Sheet sb4 - Type 2 Diabetes Mellitus, Diagnosis, Adult sb4 - Blood Glucose Monitoring, Adult sb4 Forms: - Patient Portal Instructions sb4 - Leadership Thank You Letter sb4 Signatures: Dispatcher [employer] Ishmael Rendon MD MD rn Brown, Sophia, PA-C PA-C sb4 Shelly Escalera, RN RN me1
--- NOTE | 2024-11-20 14:21 | ER ---
Nurse's Notes [facility] Name: Isabella Ann Age: 74 yrs Sex: Female : 1950 Arrival Date: 11/20/2024 Time: 13:25 Bed 19 Private MD: Diagnosis: Type 2 diabetes mellitus with hyperglycemia Presentation: 11/20 13:32 Chief complaint: EMS states: toned out to [facility] for blood sugar off 412. IN me1 gave 10 units of regular insulin and rechecked BGL of 400. 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 Patient has no complaints. Coronavirus screen: At this time, the client does not indicate any symptoms associated with coronavirus-19. Ebola Screen: No symptoms or risks identified at this time. Initial Sepsis Screen: Does the patient meet any 2 criteria? HR > 90 bpm. Does the patient have a suspected source of infection? No. Patient's initial sepsis screen is negative. Risk Assessment: Do you want to hurt yourself or someone else? Patient reports no desire to harm self or others. Onset of symptoms is unknown. 13:32 Method Of Arrival: EMS: [facility] 13:32 Acuity: JUANITA 3 me1 Triage Assessment: 13:41 General: Appears in no apparent distress. well groomed, well developed, well nourished, me1 Behavior is calm, cooperative, appropriate for age. Pain: Denies pain. EENT: No signs and/or symptoms were reported regarding the EENT system. Neuro: Level of Consciousness is awake, alert, obeys commands, Oriented to person, situation, Hx dementia. Cardiovascular: Patient's skin is warm and dry. Respiratory: Airway is patent Respiratory effort is even, unlabored, Respiratory pattern is regular, symmetrical. GI: No signs and/or symptoms were reported involving the gastrointestinal system. : No signs and/or symptoms were reported regarding the genitourinary system. Derm: Skin is intact, is healthy with good turgor, Skin is normal. Musculoskeletal: Circulation, motion, and sensation intact. Range of motion: intact in all extremities. Historical: - Allergies: 13:41 No Known Allergies; me1 - PMHx: 13:41 Dementia; diabetes mellitus; Hypertensive disorder; schizoaffective disorder (Unknown); me1 insomnia (Unknown); Anxiety; Hypercholesterolemia; - Immunization history:: Adult Immunizations up to date. - Infectious Disease History:: Denies. - Social history:: Smoking status: Patient denies any tobacco usage or history of. Screenin:43 [facility] ED Fall Risk Assessment (Adult) History of falling in the last 3 months, mn1 including since admission No falls in past 3 months (0 pts) Confusion or Disorientation Yes (5 pts) Intoxicated or Sedated No (0 pts) Impaired Gait No (0 pts) Mobility Assist Device Used No (0 pt) Altered Elimination No (0 pt) Score/Fall Risk Level 0 - 2 = Low Risk Maintained a safe environment, Provided non-skid footwear, Hourly rounding (assess needs \T\ fall precautionary measures) done. Abuse screen: Denies threats or abuse. Nutritional screening: No deficits noted. Tuberculosis screening: No symptoms or risk factors identified. Assessment: 13:43 General: See triage assessment. me1 14:32 Reassessment: Report given to Beverley Sy RN. She is setting up transportation to [facility] pick patient up. Vital Signs: 13:32 BP 210 / 71; Pulse 91; Resp 17; Temp 98.3; Pulse Ox 100% ; Weight 55.79 kg; me1 14:00 BP 153 / 59; Pulse 81; Resp 16; Pulse Ox 100% ; me1 15:00 BP 161 / 55; Pulse 81; Resp 16; Temp 98.2; Pulse Ox 100% ; [facility] ED Course: 13:32 Patient arrived in ED. me1 13:32 [facility] Krish[facility] sb4 13:32 Ishmael Mckeon MD is Attending Physician. sb4 13:41 Triage completed. me1 13:41 Arm band placed on Patient placed in an exam room. me1 13:43 Patient has correct armband on for positive identification. Bed in low position. Call [facility] light in reach. Side rails up X2. Provided Education on: POC. Verbalized understanding. Client placed on continuous cardiac and pulse oximetry monitoring. NIBP monitoring applied. Pulse ox on. NIBP on. 13:43 No provider procedures requiring assistance completed. me1 13:59 Shelly Escalera, RODNEY is Primary Nurse. me1 13:59 Initial lab(s) drawn, by mn, sent to lab. Missed attempt(s): 22 gauge in right me1 antecubital area. 14:21 CBC with Diff Sent. me1 15:23 IV discontinued, intact, bleeding controlled, No redness/swelling at site. Pressure me1 dressing applied. Administered Medications: No medications were administered Medication: 13:43 VIS not applicable for this client. me1 Outcome: 14:21 Discharge ordered by . [email or web address] 15:23 Discharged to group home. Report called to RODNEY Lowery via [employer]. me1 15:23 Condition: stable 15:23 Discharge instructions given to group home, Instructed on discharge instructions, follow up and referral plans. Demonstrated understanding of instructions, follow-up care, 15:24 Patient left the ED. me1 Signatures: Kelsey Krishna PA-C PA-C sb4 Shelly Escalera RN RN me1
[2024-11-20 14:28] LABS: Absolute Lymphocytes (CBC) 1.1 K/uL (0.7-4.9); Hematocrit 34.0 % (36.0-45.0); Hemoglobin 11.3 g/dL (12.0-15.0); MCH 29.7 pg (27.0-35.0); MCHC 33.3 g/dL (32.0-36.0); MCV 89.2 fL (80-100); MPV 8.1 fL (7.6-11.3); Nucleated RBC Absolute Count 0.0 (0-0); Nucleated Red Blood Cells % 0.0 % (0-0); RBC Red Blood Cell Count 3.81 M/uL (3.86-4.86); White Blood Count 6.90 thou/uL (4.3-10.9)
== END 2024-11-20 15:24 ==
LOC: ER 13:25
DX: E11.65 Type 2 diabetes mellitus with hyperglycemia (principal); I10 Essential (primary) hypertension; F03.90 Unspecified dementia, unspecified severity, without behavioral disturbance, psychotic disturbance, mood disturbance, and anxiety; F41.9 Anxiety disorder, unspecified; E78.00 Pure hypercholesterolemia, unspecified; F25.9 Schizoaffective disorder, unspecified
CPT/HCPCS: 36415; 80048; 85025; 99284